=== PATIENT | male | born 1960 | race Caucasian/White ===

== ENCOUNTER → 2019-12-08 10:36 | Outpatient (BNVA) | payer MEDICARE, SELFPAY | PROVIDERS: PCP Internal Medicine; Visit Provider Urology | DX: E29.1 Testicular hypofunction (principal); N40.0 Benign prostatic hyperplasia without lower urinary tract symptoms; Z79.899 Other long term (current) drug therapy | CPT/HCPCS: 96372; 99213 ==

== ENCOUNTER 2019-12-26 10:31 | Outpatient (REF) | payer MEDICARE, SELFPAY ==
[2019-12-26 12:41] LABS: Anion Gap 14 (12-20); Blood Urea Nitrogen 9 mg/dL (9-16); Calcium 9.2 mg/dL (8.4-10.2); Carbon Dioxide 26 mmol/L (22-29); Chloride 100 mmol/L (96-108); Cholesterol 150 mg/dL; Estimated Glomerular Filt Rate > 60; Glucose Fasting 108 mg/dL (60-99); HDL Cholesterol 37 mg/dL; LDL Cholesterol Calculated 63 mg/dl; Potassium 4.7 mmol/l (3.3-5.1); Sodium 135 mmol/L (135-145); Triglycerides 254 mg/dL
[2020-01-02 01:42] LABS: Testosterone, Total 217 ng/dL (250-1100)
== END 2019-12-26 10:32 | disposition home or self-care (01) ==
LOC: HO.LAB 10:31
PROVIDERS: Absent Provider Nurse Practitioner Family; PCP Internal Medicine; Visit Provider Urology
DX: E78.5 Hyperlipidemia, unspecified (principal); E29.1 Testicular hypofunction
CPT/HCPCS: 80048; 80061; 84403

== ENCOUNTER → 2020-01-03 07:43 | Outpatient (BNVA) | payer MEDICARE, SELFPAY | PROVIDERS: PCP Internal Medicine; Referring Provider Internal Medicine; Visit Provider Student in an Organized Health Care Education/Training Program | DX: M1A.0610 Idiopathic chronic gout, right knee, without tophus (tophi) (principal) | CPT/HCPCS: 99212 ==

== ENCOUNTER → 2020-01-04 11:24 | Outpatient (BNVA) | payer MEDICARE, SELFPAY | PROVIDERS: PCP Internal Medicine; Referring Provider Internal Medicine; Visit Provider Urology | DX: E29.1 Testicular hypofunction (principal); N40.0 Benign prostatic hyperplasia without lower urinary tract symptoms; Z79.899 Other long term (current) drug therapy | CPT/HCPCS: 99212 ==

== ENCOUNTER → 2020-01-26 11:04 | Outpatient (BNVA) | payer MEDICARE, SELFPAY | PROVIDERS: PCP Internal Medicine; Referring Provider Internal Medicine; Visit Provider Urology | DX: Z76.89 Persons encountering health services in other specified circumstances (principal) | CPT/HCPCS: 96372; 99212 ==

== ENCOUNTER → 2020-02-22 10:26 | Outpatient (BNVA) | payer MEDICARE, SELFPAY | PROVIDERS: PCP Internal Medicine; Visit Provider Urology | DX: E29.1 Testicular hypofunction (principal) | CPT/HCPCS: 96372; 99212 ==

== ENCOUNTER → 2020-03-15 10:44 | Outpatient (BNVA) | payer MEDICARE, SELFPAY | PROVIDERS: PCP Internal Medicine; Visit Provider Urology | DX: E29.1 Testicular hypofunction (principal) | CPT/HCPCS: 96372; 99212 ==

== ENCOUNTER → 2020-04-05 10:58 | Outpatient (BNVA) | payer MEDICARE, SELFPAY | PROVIDERS: PCP Internal Medicine; Visit Provider Urology | DX: E29.1 Testicular hypofunction (principal) | CPT/HCPCS: 96372; 99212 ==

== ENCOUNTER 2020-04-23 12:51 | Outpatient (REF) | payer MEDICARE, SELFPAY ==
--- NOTE | ~2020-04-23 | XR_ITS ---
EXAMINATION: XR CERVICAL SPINE CLINICAL INFORMATION: Cervicalgia COMPARISON: 07/21/2016 TECHNIQUE: 3 views of the cervical spine were obtained. FINDINGS: The dens is intact. The lateral masses are normally positioned. Reversal of the normal cervical lordosis. Multilevel degenerative disc disease most notable at C6-7. The lower cervical spine and cervicothoracic junction are not well visualized due to overlying soft tissues. This limits evaluation for subtle fracture but no acute fracture is seen. Prominent prevertebral soft tissues although pathologically enlarged. Multiple dental caries are noted. Mid cervical facet arthropathy. XR/XR cervical spine 2V IMPRESSION: Limited study. Degenerative changes, similar to prior study. Prominent prevertebral soft tissues. Multiple dental caries. If there is continued clinical concern for acute traumatic osseous abnormality, consider CT scan. MRI could be obtained for evaluation of the degenerative disc disease.
[2020-04-23 13:49] LABS: Cholesterol 159 mg/dL; HDL Cholesterol 38 mg/dL; LDL Cholesterol Calculated 70 mg/dl; Triglycerides 258 mg/dL; Uric Acid 5.1 mg/dL (3.4-7.0)
[2020-04-27 13:27] LABS: Vitamin D 25-OH, D2 <4 ng/mL; Vitamin D 25-OH, D3 24 ng/mL; Vitamin D 25-OH, Total 24 ng/mL (30-100)
== END 2020-04-23 12:52 | disposition home or self-care (01) ==
LOC: HO.LAB 12:51
PROVIDERS: PCP Internal Medicine; Visit Provider Internal Medicine
DX: M54.2 Cervicalgia (principal); E78.2 Mixed hyperlipidemia; M1A.0690 Idiopathic chronic gout, unspecified knee, without tophus (tophi); E55.9 Vitamin D deficiency, unspecified
CPT/HCPCS: 36415; 72040; 80061; 82306; 84550

== ENCOUNTER → 2020-04-26 11:04 | Outpatient (BNVA) | payer MEDICARE, SELFPAY | PROVIDERS: PCP Internal Medicine; Visit Provider Urology | DX: E29.1 Testicular hypofunction (principal) | CPT/HCPCS: 96372; 99212 ==

== ENCOUNTER → 2020-05-14 14:37 | Outpatient (BNVA) | payer MEDICARE, SELFPAY | PROVIDERS: PCP Internal Medicine; Visit Provider Nurse Practitioner Family | DX: M54.16 Radiculopathy, lumbar region (principal); M54.12 Radiculopathy, cervical region; Z79.899 Other long term (current) drug therapy | CPT/HCPCS: 99202 ==

== ENCOUNTER → 2020-05-17 10:45 | Outpatient (BNVA) | payer MEDICARE, SELFPAY | PROVIDERS: PCP Internal Medicine; Visit Provider Urology | DX: E29.1 Testicular hypofunction (principal) | CPT/HCPCS: 96372; 99212 ==

== ENCOUNTER → 2020-06-04 08:49 | Outpatient (BNVA) | payer MEDICARE, SELFPAY | PROVIDERS: PCP Internal Medicine; Visit Provider Nurse Practitioner Family | DX: M54.16 Radiculopathy, lumbar region (principal); M54.12 Radiculopathy, cervical region | CPT/HCPCS: 99212 ==

== ENCOUNTER → 2020-06-07 09:59 | Outpatient (BNVA) | payer MEDICARE, SELFPAY | PROVIDERS: PCP Internal Medicine; Visit Provider Urology | DX: E29.1 Testicular hypofunction (principal) | CPT/HCPCS: 96372; 99212 ==

== ENCOUNTER → 2020-06-28 10:36 | Outpatient (BNVA) | payer OTHER, SELFPAY | PROVIDERS: PCP Internal Medicine; Visit Provider Urology | DX: E29.1 Testicular hypofunction (principal); N40.0 Benign prostatic hyperplasia without lower urinary tract symptoms | CPT/HCPCS: 96372; 99212 ==

== ENCOUNTER → 2020-07-03 07:56 | Outpatient (BNVA) | payer MEDICARE, SELFPAY | PROVIDERS: PCP Internal Medicine; Referring Provider Internal Medicine; Visit Provider Student in an Organized Health Care Education/Training Program | DX: M1A.0690 Idiopathic chronic gout, unspecified knee, without tophus (tophi) (principal) | CPT/HCPCS: 99212 ==

== ENCOUNTER 2020-07-04 09:00 | Outpatient (RCR) | payer MEDICARE, SELFPAY ==
--- NOTE | 2020-06-10 09:44 | MHC.PT.EP ---
[facility] [place] Office [place] Office [place] Office [address] Ananya Craft [address] [phone] F: [phone] F: [phone] F: [phone] F: [phone] Physical Therapy Plan of Care Date of Evaluation: 06/10/20 Date of Surgery: Diagnosis: cervical radiculopathy Assessment: The patient has reduced cervical and thoracic AROM. He has forward head posture, and rounded posture which may be contributing to his pain. His current sleeping position does not support his cervical spine. I will educate him on improving sitting, sleeping posture, as well as body mechanics for house chores, t/v/computer use. He is a good candidate for skilled PT Frequency and Duration: The patient will be seen 2x/week x 4 weeks Short Term Goals: 1.Pt to able to demonstrate proper sitting posture with the use of a lumbar roll to decrease aggravating factors. 2.Pt to be able to demonstrate proper posture for common leisure activities such as crocheting and phone/tablet use. 3.For the patient to demonstrate proper upright sitting posture with use of the lumbar roll to improve compliance and carryover. Assisted Goals: 1. Pt to be able to return to normal PLOF without limiting pain. 2. Pt to be able to return to overhead reaching without pain or limitation. 3. Pt to be able to manage her pain with selected exercise and stretching regime. Treatment Plan: Modalities to reduce pain, spasms and effusion. Manual therapy to restore motion and function. Therapeutic exercise to improve strength and flexibility. Neuromuscular re-education for posture and balance. Therapeutic activities to return to functional activities of daily living. Electronically signed by: Roberta Lopez PT DPT Please sign and return to therapist. Thank you for your referral.
== END 2020-07-23 08:00 | disposition home or self-care (01) ==
LOC: HO.PT 09:00
PROVIDERS: PCP Internal Medicine; Visit Provider Anesthesiology
DX: M54.12 Radiculopathy, cervical region (principal)
CPT/HCPCS: 97110; 97112; 97162

== ENCOUNTER → 2020-07-19 10:14 | Outpatient (BNVA) | payer MEDICARE, SELFPAY | PROVIDERS: PCP Internal Medicine; Visit Provider Urology | DX: E29.1 Testicular hypofunction (principal) | CPT/HCPCS: 96372 ==

== ENCOUNTER 2020-07-31 09:59 | Outpatient (REF) | payer OTHER, SELFPAY ==
[2020-07-31 10:45] LABS: MANUAL DIFF FLAG NO
[2020-07-31 11:01] LABS: Basophils Absolute Auto 0.1 X10*3/uL (0.0-0.2); Basophils Percent Auto 1.3 % (0-2); Eosinophils Absolute Auto 0.2 X10*3/uL (0.0-0.4); Hematocrit 47.5 % (42-52); Hemoglobin 15.7 g/dl (14.0-18.0); Imm Gran Abs Auto 0.03 X10*3/uL (0.00-0.03); Imm Gran Pct Auto 0.6 % (0.0-0.4); Lymphocytes Absolute Auto 1.7 X10*3/uL (1.2-4.9); Lymphocytes Percent Auto 31.2 % (20-40); Mean Corpuscular HGB Conc 33.1 g/dl (31.0-36.0); Mean Corpuscular Hemoglobin 30.1 pg (27.0-33.0); Monocytes Absolute Auto 0.6 X10*3/uL (0.1-1.2); Monocytes Percent Auto 10.6 % (2-11); Neutrophils Absolute Auto 2.9 X10*3/uL (2.0-8.3); Neutrophils Percent Auto 53.3 % (45-73); Platelet Count 232 X10*3/uL (160-400); Red Blood Count 5.22 X10*6/uL (4.60-5.80); Red Cell Distribution Width 14.3 % (11.0-16.0); White Blood Count 5.4 X10*3/uL (4.8-10.8)
[2020-07-31 11:12] LABS: Alanine Aminotransferase 45 U/L (0-40); Albumin Level 4.2 g/dL (3.5-5.0); Alkaline Phosphatase 91 U/L (39-117); Anion Gap 14 (12-20); Aspartate Amino Transferase 26 U/L (5-37); Bilirubin Total 0.5 mg/dL (0.0-1.0); Blood Urea Nitrogen 10 mg/dL (9-16); Calcium 9.3 mg/dL (8.4-10.2); Carbon Dioxide 26 mmol/L (22-29); Chloride 101 mmol/L (96-108); Estimated Glomerular Filt Rate > 60; Glucose Random 97 mg/dL (60-115); Potassium 4.7 mmol/L (3.3-5.1); Sodium 136 mmol/L (135-145); Total Protein 6.9 g/dL (6.5-8.0); Uric Acid 4.8 mg/dL (3.4-7.0)
[2020-07-31 11:31] LABS: PSA,Total (Free>4and<10) 0.93 ng/mL (0.00-4.00)
[2020-08-04 15:51] LABS: Testosterone, Free 112.6 pg/mL (35.0-155.0); Testosterone, Total 526 ng/dL (250-1100)
== END 2020-07-31 10:00 | disposition home or self-care (01) ==
LOC: HO.LAB 09:59
PROVIDERS: Absent Provider Urology; PCP Internal Medicine; Visit Provider Student in an Organized Health Care Education/Training Program
DX: Z12.5 Encounter for screening for malignant neoplasm of prostate (principal); E29.1 Testicular hypofunction; N40.0 Benign prostatic hyperplasia without lower urinary tract symptoms; M1A.0690 Idiopathic chronic gout, unspecified knee, without tophus (tophi)
CPT/HCPCS: 36415; 80053; 84153; 84402; 84403; 84550; 85025

== ENCOUNTER 2020-08-01 06:26 | Outpatient (REF) | payer OTHER, SELFPAY ==
[2020-08-01 07:48] LABS: Alanine Aminotransferase 42 U/L (0-40); Albumin Level 4.1 g/dL (3.5-5.0); Alkaline Phosphatase 87 U/L (39-117); Anion Gap 15 (12-20); Aspartate Amino Transferase 24 U/L (5-37); Bilirubin Total 0.5 mg/dL (0.0-1.0); Blood Urea Nitrogen 10 mg/dL (9-16); Calcium 9.3 mg/dL (8.4-10.2); Carbon Dioxide 27 mmol/L (22-29); Chloride 101 mmol/L (96-108); Cholesterol 154 mg/dL; Estimated Glomerular Filt Rate > 60; Glucose Fasting 105 mg/dL (60-99); HDL Cholesterol 40 mg/dL; LDL Cholesterol Calculated 91 mg/dl; Potassium 4.7 mmol/L (3.3-5.1); Sodium 138 mmol/L (135-145); Total Protein 6.8 g/dL (6.5-8.0); Triglycerides 119 mg/dL
[2020-08-01 08:35] LABS: Uric Acid 5.1 mg/dL (3.4-7.0)
[2020-08-06 06:22] LABS: Vitamin D 25-OH, D2 <4 ng/mL; Vitamin D 25-OH, D3 30 ng/mL; Vitamin D 25-OH, Total 30 ng/mL (30-100)
== END 2020-08-01 06:27 | disposition home or self-care (01) ==
LOC: HO.LAB 06:26
PROVIDERS: PCP Internal Medicine; Visit Provider Internal Medicine
DX: E78.00 Pure hypercholesterolemia, unspecified (principal); I10 Essential (primary) hypertension; M10.9 Gout, unspecified; E55.9 Vitamin D deficiency, unspecified
CPT/HCPCS: 36415; 80053; 80061; 82306; 84550

== ENCOUNTER → 2020-08-09 10:25 | Outpatient (BNVA) | payer OTHER, SELFPAY | PROVIDERS: PCP Internal Medicine; Visit Provider Urology | DX: E29.1 Testicular hypofunction (principal) | CPT/HCPCS: 96372 ==

== ENCOUNTER → 2020-08-30 10:09 | Outpatient (BNVA) | payer OTHER, SELFPAY | PROVIDERS: PCP Internal Medicine; Visit Provider Urology | DX: E29.1 Testicular hypofunction (principal) | CPT/HCPCS: 96372 ==

== ENCOUNTER 2020-09-17 20:55 | Emergency (ER) | payer OTHER, SELFPAY ==
[2020-09-17 22:12] VITALS: BP 132/91; RESP 16; TEMP 37.2; BMI 36.5
[2020-09-17 22:55] VITALS: PULSE 80; O2SAT 97
--- NOTE | 2020-09-18 00:02 | ED_ITS ---
HPI - Dental/Oral General Chief complaint: Dental/Oral Stated complaint: dental pain Time Seen by Provider: 09/17/20 23:30 Source: patient Mode of arrival: ambulatory Limitations: no limitations History of Present Illness HPI Narrative: Patient presents to ED for dental pain. Patient stated right lower molar toothache. Patient states on after tooth extraction he was placed on amoxicillin and said he was still having pain still at Urgent Care this switched his amoxicillin to clindamycin. Once again patient did not finish amoxicillin course antibiotic. Patient states he finished Percocets due to isaac n. Patient denies any facial swelling, throat swelling, shortness of breath, or chest pain. Patient states he had 5 teeth extracted MD Complaint: tooth pain Related Data Home Medications Medication Instructions Recorded Confirmed atorvastatin 40 mg tablet mg PO 12/08/19 09/14/20 Previous Rx's Medication Instructions Recorded testosterone cypionate 200 mg/mL 200 mg IM Q3W 21 Days #1 ml 04/30/20 intramuscular oil cholecalciferol (vitamin D3) 50 50 mcg PO DAILY 90 Days #90 cap 05/07/20 mcg (2,000 unit) capsule diclofenac sodium 75 mg 75 mg PO BID PRN 30 Days #60 tab 05/15/20 tablet,delayed release colchicine 0.6 mg tablet 0.6 mg PO DAILY #30 tab 07/03/20 tamsulosin 0.4 mg capsule 0.4 mg PO DAILY #90 cap 07/17/20 allopurinol 300 mg tablet 300 mg PO DAILY #90 tab 08/06/20 hydroxyzine pamoate 50 mg capsule 50 mg PO BID PRN #60 cap 08/07/20 lisinopril 30 mg tablet 30 mg PO DAILY 90 Days #90 tab 08/07/20 naproxen 500 mg tablet 500 mg PO BID PRN #30 tab 08/12/20 cyclobenzaprine 10 mg tablet 10 mg PO BEDTIME 90 Days #90 tab 09/13/20 clindamycin HCl 300 mg capsule 300 mg PO QID 7 Days #28 cap 09/14/20 oxycodone-acetaminophen 10 mg-325 1 tab PO Q6H PRN #20 tab 09/14/20 mg tablet oxycodone-acetaminophen [Percocet] 1 tab PO TID PRN #9 tab 09/18/20 Allergies Allergy/AdvReac Type Severity Reaction Status Date / Time No Known Allergies Allergy Verified 09/14/20 11:02 Review of Systems Review of Systems: Yes all other systems are reviewed and are negative Constitutional: Constitutional: Reports as per HPI and Reports no additional constitutional complaints Comments: Dental pain Eyes: Eyes: Reports as per HPI and Reports no additional eye complaints ENT: Reports system reviewed and no additional complaints, except as documented and Reports as per HPI Comments: Right lower dental pain Cardiovascular: Cardiovascular: Reports as per HPI and Reports no additional cardiovascular complaints Respiratory: Respiratory: Reports as per HPI and Reports no additional respiratory complaints Gastrointestinal: Gastrointestinal: Reports as per HPI and Reports no additional gastrointestinal complaints Genitourinary: Genitourinary: Reports no additional male genitourinary complaints and Reports as per HPI Musculoskeletal: Musculoskeletal: Reports no additional musculoskeletal complaints and Reports as per HPI Neurologic: Reports system reviewed and no additional complaints, except as documented and Reports as per HPI Psychiatric: Psychiatric: Reports no additional psychiatric complaints and Reports as per HPI PMFSH Past Medical History Medical History Anxiety Back pain BPH (benign prostatic hyperplasia) Essential hypertension Gout Hypogonadism in male Hypovitaminosis D Knee osteoarthritis Mixed hyperlipidemia Neck pain Obesity Testosterone deficiency in male Surgical History History of ankle surgery History of colonoscopy History of spinal surgery History of tooth extraction Family History Family History Father HTN (hypertension) Gout Guillain-Geraldine syndrome Mother CVD (cardiovascular disease) Social History Social History Housing: House Alcohol intake: current Alcohol intake frequency: a few times a week Alcohol type: beer Patient Tobacco Use Status: Never used Tobacco e-Cigarette/Vaping Use: Never Used Second Hand Smoke Exposure: No Advance Directives: No Advance Directives Information Provided: Yes service: No Current occupational status: disabled Physical Exam Vital Signs: Vital Signs: Last Vital Signs Temp 99.0 F 09/17/20 22:12 Pulse 80 09/17/20 22:55 Resp 16 09/17/20 22:12 BP 132/91 H 09/17/20 22:12 Pulse Ox 97 09/17/20 22:55 Body Mass Index 36.5 Const: General: cooperative, healthy appearing, comfortable, no acute distress, well developed, alert, awake and Physically active HENMT: Other: Negative for facial swelling, jaw swelling, or neck swelling. Negative for any drooling or change in voice. Head: Yes normal to inspection, Yes No palpable skull fracture present, Yes normocephalic, Yes atraumatic and No abrasion Teeth image: 1. Is where patient having pain. Tooth no longer present but has socket with green pus inside. Negative for any gum swelling or redness. Eyes: General: appearance normal, both eyes and all related structures Neck: Neck: Yes normal visual inspection, Yes full ROM, Yes no lymphadenopathy, Yes no meningeal signs, Yes trachea midline, Yes supple and No tender Chest: Chest palpation & inspection: normal inspection of the chest and normal palpation of entire chest wall Resp: Effort & Inspection: normal respiratory effort and able to speak in complete sentences Auscultation: clear to auscultation bilaterally Cardio: Jugular venous distension: no JVD Heart sounds: S1 normal heart sound present and S2 normal heart sound present GI: Inspection: Yes normal to inspection and No abdominal wall ecchymosis Palpation (GI): Soft to palpation, not firm, nontender, no guarding and not rigid : General: No CVA tenderness and Yes no CVA tenderness Back/Spine/Pelvis: Back: no CVA tenderness, No CVA tenderness and No back tenderness Skin: General skin exam: no rashes or lesions noted and elasticity normal Neuro: General: patient oriented x3, gait normal, no meningeal signs and CN's II-XI intact bilaterally Cranial nerves: Yes CN's II-XII intact bilaterally Extrem: General: Yes normal to inspection and Yes full ROM Psych: Appearance: grossly normal, well kempt and not disheveled Course Course Course Narrative: Dental pain Reevaluation(s) Reevaluation #1: Patient given Toradol for pain. Patient informed he should finish is clindamycin and if there is no relief he should finish the amoxicillin he was prescribed initially. Patient will be given another short course of narcotics. No incision and drainage indicating Time: 00:16 MDM - Dental/Oral MDM Narrative Medical decision making narrative: Dental pain Discharge Plan Discharge Clinical Impression: Pain, dental Patient Disposition: Home, Self-Care Instructions: Toothache (ED) Additional Instructions: Return to the ED immediately for facial swelling, neck swelling, shortness of breath, drooling, chest pain, change in voice, worsening pain, or any other concerning symptoms. Please follow-up with the dentist Prescriptions: New oxycodone-acetaminophen [Percocet] 5-325 mg tablet 1 tab PO TID PRN (Reason: pain) Qty: 9 RF: 0 No Action testosterone cypionate [Depo-Testosterone] 200 mg/mL oil 200 mg IM Q3W 21 Days Qty: 1 RF: 5 cholecalciferol (vitamin D3) 50 mcg (2,000 unit) capsule 50 mcg PO DAILY 90 Days Qty: 90 RF: 3 diclofenac sodium 75 mg tablet,delayed release (DR/EC) 75 mg PO BID PRN (Reason: pain) 30 Days Qty: 60 RF: 6 tamsulosin 0.4 mg capsule 0.4 mg PO DAILY Qty: 90 RF: 1 allopurinol 300 mg tablet 300 mg PO DAILY Qty: 90 RF: 1 lisinopril 30 mg tablet 30 mg PO DAILY 90 Days Qty: 90 RF: 3 hydroxyzine pamoate 50 mg capsule 50 mg PO BID PRN (Reason: for itch) Qty: 60 RF: 6 cyclobenzaprine 10 mg tablet 10 mg PO BEDTIME 90 Days Qty: 90 RF: 0 clindamycin HCl 300 mg capsule 300 mg PO QID 7 Days Qty: 28 RF: 0 oxycodone-acetaminophen [Percocet] 10-325 mg tablet 1 tab PO Q6H PRN (Reason: pain) Qty: 20 RF: 0 naproxen 500 mg tablet 500 mg PO BID PRN (Reason: pain) Qty: 30 RF: 0 colchicine 0.6 mg tablet 0.6 mg PO DAILY Qty: 30 RF: 0 atorvastatin 40 mg tablet PO RF: 0 Referrals: Torrie Rangel MD [Primary Care Provider] - 2 days (Dental pain) Interventions: ED Discharge Assessment Last Done: 09/18/20 00:34 Discharge Date/Time: 09/18/20 00:36 Print Language: [place]
[2020-09-18] MEDS: Ketorolac Tromethamine 60 MG/2 ML VIAL IM (00:03)
== END 2020-09-18 00:36 | disposition home or self-care (01) ==
PROVIDERS: Emergency Provider Emergency Medicine; PCP Internal Medicine
DX: K08.89 Other specified disorders of teeth and supporting structures (principal); I10 Essential (primary) hypertension; Z98.890 Other specified postprocedural states
CPT/HCPCS: 96372; 99284; J1885

== ENCOUNTER → 2020-09-20 10:07 | Outpatient (BNVA) | payer OTHER, SELFPAY | PROVIDERS: PCP Internal Medicine; Visit Provider Urology | DX: E29.1 Testicular hypofunction (principal) | CPT/HCPCS: 96372 ==

== ENCOUNTER → 2020-10-03 10:13 | Outpatient (BNVA) | payer OTHER, SELFPAY | PROVIDERS: PCP Internal Medicine; Visit Provider Urology | DX: E29.1 Testicular hypofunction (principal) | CPT/HCPCS: 99212 ==

== ENCOUNTER → 2020-10-11 10:08 | Outpatient (BNVA) | payer OTHER, SELFPAY | PROVIDERS: PCP Internal Medicine; Visit Provider Urology | DX: E29.1 Testicular hypofunction (principal) | CPT/HCPCS: 96372 ==

== ENCOUNTER 2020-10-28 16:33 | Emergency (ER) | payer OTHER, SELFPAY ==
--- NOTE | ~2020-10-28 | CT_ITS ---
EXAMINATION: CT ABDOMEN AND PELVIS WITHOUT CONTRAST CLINICAL INFORMATION: Tender abdomen with diarrhea COMPARISON: CT abdomen pelvis 01/18/2014. TECHNIQUE: Multidetector volumetric imaging was performed from the superior aspect of the liver through the pubic symphysis. Sagittal and coronal reformatted images were obtained on the technologist's workstation. This CT examination was performed using dose optimization techniques as appropriate, variously including the following: *Automated exposure control *Adjustment of mA and/or kV according to patient size (this includes techniques or standardized protocols for targeted exams where dose is matched to indication/reason for exam; i.e. extremities or head) *Use of iterative reconstruction technique DLP: 907 mGy-cm FINDINGS: LUNG BASES: The visualized lung bases are unremarkable. LIVER, GALLBLADDER, AND BILIARY TREE: The liver is normal in size, shape, and attenuation. No focal hepatic lesion or biliary ductal dilatation is present. The gallbladder is unremarkable with no evidence of radiopaque gallstones, gallbladder wall thickening, or obvious pericholecystic inflammatory changes. PANCREAS: Unremarkable. SPLEEN: Unremarkable. ADRENAL GLANDS: Unremarkable. KIDNEYS AND URETERS: The kidneys are normal in size, shape, and attenuation. No hydronephrosis, hydroureter, or calculi seen. No perinephric stranding. BLADDER: Unremarkable. GASTROINTESTINAL TRACT: Small axial hiatal hernia. The stomach is not dilated. No evidence of small or large bowel obstruction. The appendix is normal. Colonic diverticulosis is seen without CT signs of diverticulitis. No focal bowel wall thickening is seen. ABDOMINAL WALL: No significant hernia is appreciated. LYMPH NODES: Normal. VASCULAR: Multiple surgical clips are seen below the aortic bifurcation and along the left pelvis. No evidence of aneurysm. PELVIC VISCERA: The prostate and seminal vesicles are unremarkable. OSSEOUS STRUCTURES: Mild right convex curvature of the lumbar spine. Evidence of spinal instrumentation with posterior rods and pedicle screws at L4-L5 with solid interbody fusion. Multiple adjacent surgical clips. Focal lucency has developed surrounding the left L4 pedicle screw within the vertebral body with extension to the superior endplate with associated narrowing and irregularity of the left side of the L3-L4 disc space with lateral osteophyte formation and endplate sclerosis on both sides of the disc. There is no visible soft tissue swelling or epidural collection identified. Additionally, the right side of the L3-L4 disc space is not involved. Subchondral sclerosis is seen at both femoral heads without change from prior in keeping with subtle changes of avascular necrosis. CT/CT abdomen pelvis wo con IMPRESSION: 1. No significant bowel wall thickening. No evidence of pericolonic inflammatory changes or abscess. 2. Postoperative change with solid bony fusion at the L4-L5 vertebral bodies. Interval development of lucency and sclerosis surrounding the left L4 pedicle screw extending to the disc level at L3-L4. The lack of soft tissue swelling favors a degenerative process over infection. Recommend correlation with any symptoms of back pain or clinical/biochemical signs of infection. If the patient has ongoing symptoms, a follow-up MRI of the spine could be obtained in 1-3 months time with contrast to further evaluate. These findings were reviewed with Angela ROCHE 10/28/2020 at 8:55 PM.
[2020-10-28 18:22] VITALS: BP 122/89; PULSE 73; RESP 16; TEMP 36.9; O2SAT 96; BMI 36.2
--- NOTE | 2020-10-28 18:22 | ED_ITS ---
HPI - Abdominal Pain General Chief Complaint: Abdominal Pain <Radha Talley PA-C - Last Filed: 10/28/20 18:33> Stated Complaint: abd pain, diarrhea <Radha Talley PA-C - Last Filed: 10/28/20 18:33> Time Seen by Provider: 10/28/20 18:22 <Radha Talley PA-C - Last Filed: 10/28/20 18:33> Source: patient <KSENIA Cedeno Last Filed: 10/28/20 18:33> Mode of arrival: ambulatory <Radha Talley PA-C - Last Filed: 10/28/20 18:33> Limitations: no limitations <Radha Talley PA-C - Last Filed: 10/28/20 18:33> History of Present Illness HPI narrative: Pt is a 60yoM past med hx of HTN, BPH, HLD, anxiety, back pain had dental surgery, 20 teeth pulled over the summer, was on amoxicillin for 1 week, now c/o 2 weeks of central abd pain like something is ripping through his intestines with watery diarrhea, denies bloody or black stools or fevers, nausea or vomiting. Admits to NGUYỄN. unable to eat or drink. Denies hx of diverticulitis, last colo 3 years ago. <Radha Talley PA-C - Last Filed: 10/28/20 18:33> Pt is a 60yoM past med hx of HTN, BPH, HLD, anxiety, back pain had dental surgery, 20 teeth pulled over the summer, was on amoxicillin for 1 week, now c/o 2 weeks of central abd pain like something is ripping through his intestines with watery diarrhea, denies bloody or black stools or fevers, nausea or vomiting. Admits to NGUYỄN. unable to eat or drink. Denies hx of diverticulitis, last colon 3 years ago. <MELCHOR De Santiago - Last Filed: 10/29/20 02:03> Related Data Home Medications: Home Medications Medication Instructions Recorded Confirmed atorvastatin 40 mg tablet mg PO 12/08/19 10/01/20 Previous Rx's Medication Instructions Recorded cholecalciferol (vitamin D3) 50 50 mcg PO DAILY 90 Days #90 cap 05/07/20 mcg (2,000 unit) capsule colchicine 0.6 mg tablet 0.6 mg PO DAILY #30 tab 07/03/20 tamsulosin 0.4 mg capsule 0.4 mg PO DAILY #90 cap 07/17/20 allopurinol 300 mg tablet 300 mg PO DAILY #90 tab 08/06/20 lisinopril 30 mg tablet 30 mg PO DAILY 90 Days #90 tab 08/07/20 naproxen 500 mg tablet 500 mg PO BID PRN #30 tab 08/12/20 testosterone cypionate 200 mg/mL 200 mg IM Q3W 21 Days #1 ml 09/19/20 intramuscular oil (Depo-Testosterone) escitalopram oxalate 10 mg tablet 10 mg PO DAILY 90 Days #90 tab 10/01/20 oxycodone 10 mg tablet 10 mg PO BID PRN 30 Days #40 tab 10/01/20 loperamide 2 mg capsule (Imodium 2 mg PO Q4H PRN #14 cap 10/29/20 A-D) metronidazole 500 mg tablet 500 mg PO TID #30 tab 10/29/20 (Flagyl) <Radha Talley PA-C - Last Filed: 10/28/20 18:33> Allergies/Adverse Reactions: Allergies Allergy/AdvReac Type Severity Reaction Status Date / Time No Known Allergies Allergy Verified 10/03/20 10:45 <Radha Talley PA-C - Last Filed: 10/28/20 18:33> Physical Exam Vital Signs: Vital Signs: Last Vital Signs Temp 98.4 F 10/28/20 18:22 Pulse 69 10/29/20 00:19 Resp 20 10/29/20 00:19 BP 130/61 10/29/20 00:19 Pulse Ox 95 10/29/20 00:19 Body Mass Index 36.2 <Radha Talley PA-C - Last Filed: 10/28/20 18:33> Vital Signs: Last Vital Signs Temp 98.4 F 10/28/20 18:22 Pulse 69 10/29/20 00:19 Resp 20 10/29/20 00:19 BP 130/61 10/29/20 00:19 Pulse Ox 95 10/29/20 00:19 Body Mass Index 36.2 <MELCHOR De Santiago Last Filed: 10/29/20 02:03> Course Course Course Narrative: Rapid medical exam for 60yo male on recent abx c/o abd pn with watery diarrhea [id number]. PE reveals VSS, tender abd. Will order labs, stool testing, abd ct. remainder of care to be done by ED provider. <Radha Talley PA-C - Last Filed: 10/28/20 18:33> MDM - Abdominal Pain Lab Data Result diagrams: : 10/28/20 19:07 10/28/20 19:07 <Radha Talley PA-C - Last Filed: 10/28/20 18:33> Labs: Lab Results 10/28/20 10/28/20 10/28/20 Range/Units 18:33 19:07 19:07 WBC 6.5 (4.8-10.8) X10*3/uL RBC 5.63 (4.60-5.80) X10*6/uL Hgb 16.9 (14.0-18.0) g/dl Hct 50.5 (42-52) % MCV 89.7 (80-98) fL MCH 30.0 (27.0-33.0) pg MCHC 33.5 (31.0-36.0) g/dl RDW 14.3 (11.0-16.0) % Plt Count 225 (160-400) X10*3/uL MPV 9.1 L (9.4-12.4) fL Immature Gran % (Auto) 0.5 H (0.0-0.4) % Neut % (Auto) 63.2 (45-73) % Lymph % (Auto) 23.8 (20-40) % [place] % (Auto) 10.8 (2-11) % Eos % (Auto) 1.2 (0-4) % Baso % (Auto) 0.5 (0-2) % Lymph # (Auto) 1.5 (1.2-4.9) X10*3/uL [place] # (Auto) 0.7 (0.1-1.2) X10*3/uL Eos # (Auto) 0.1 (0.0-0.4) X10*3/uL Baso # (Auto) 0.0 (0.0-0.2) X10*3/uL Abs Immat Gran (auto) 0.03 (0.00-0.03) X10*3/uL Absolute Neuts (auto) 4.1 (2.0-8.3) X10*3/uL Absolute Nucleated RBC 0.000 (0.0-0.012) X10*3/uL Nucleated RBC % (auto) 0.0 (0.0-0.2) /100WBC PT (9.9-13.0) SEC INR (0.9-1.1) APTT (24.1-38.0) SEC Sodium 139 (135-145) mmol/L Potassium 4.2 (3.3-5.1) mmol/L Chloride 102 (96-108) mmol/L Carbon Dioxide 26 (22-29) mmol/L Anion Gap 15 (12-20) BUN 12 (9-16) mg/dL Creatinine 1.04 (0.5-1.4) mg/dL Estim Creat Clear Calc 99.9 Estimated GFR > 60 Random Glucose 95 (60-115) mg/dL Calcium 9.6 (8.4-10.2) mg/dL Total Bilirubin 1.2 H (0.0-1.0) mg/dL AST 20 (5-37) U/L ALT 37 (0-40) U/L Alkaline Phosphatase 103 (39-117) U/L Total Protein 7.2 (6.5-8.0) g/dL Albumin 4.3 (3.5-5.0) g/dL Lipase 30 (8-78) U/L Urine Color Urine Appearance Urine pH (5.0-8.0) Ur Specific [place] (1.005-1.025) Urine Protein (NEG-TRACE) MG/DL Urine Glucose (UA) (NEG) MG/DL Urine Ketones (NEG) MG/DL Urine Blood (NEG) Urine Nitrite (NEG) Ur Leukocyte Esterase (NEG) Urine RBC (0) /HPF Urine WBC (0-4) /HPF Ur Squamous Epith Cells /LPF Urine Bacteria /LPF Urine Mucus /LPF COVID-19 (JUWAN) Negative (Negative) COVID-19 Clin Com See Note 10/28/20 10/29/20 Range/Units 19:07 00:12 WBC (4.8-10.8) X10*3/uL RBC (4.60-5.80) X10*6/uL Hgb (14.0-18.0) g/dl Hct (42-52) % MCV (80-98) fL MCH (27.0-33.0) pg MCHC (31.0-36.0) g/dl RDW (11.0-16.0) % Plt Count (160-400) X10*3/uL MPV (9.4-12.4) fL Immature Gran % (Auto) (0.0-0.4) % Neut % (Auto) (45-73) % Lymph % (Auto) (20-40) % [place] % (Auto) (2-11) % Eos % (Auto) (0-4) % Baso % (Auto) (0-2) % Lymph # (Auto) (1.2-4.9) X10*3/uL [place] # (Auto) (0.1-1.2) X10*3/uL Eos # (Auto) (0.0-0.4) X10*3/uL Baso # (Auto) (0.0-0.2) X10*3/uL Abs Immat Gran (auto) (0.00-0.03) X10*3/uL Absolute Neuts (auto) (2.0-8.3) X10*3/uL Absolute Nucleated RBC (0.0-0.012) X10*3/uL Nucleated RBC % (auto) (0.0-0.2) /100WBC PT 12.4 (9.9-13.0) SEC INR 1.1 (0.9-1.1) APTT 39.7 H (24.1-38.0) SEC Sodium (135-145) mmol/L Potassium (3.3-5.1) mmol/L Chloride (96-108) mmol/L Carbon Dioxide (22-29) mmol/L Anion Gap (12-20) BUN (9-16) mg/dL Creatinine (0.5-1.4) mg/dL Estim Creat Clear Calc Estimated GFR Random Glucose (60-115) mg/dL Calcium (8.4-10.2) mg/dL Total Bilirubin (0.0-1.0) mg/dL AST (5-37) U/L ALT (0-40) U/L Alkaline Phosphatase (39-117) U/L Total Protein (6.5-8.0) g/dL Albumin (3.5-5.0) g/dL Lipase (8-78) U/L Urine Color DARK YELLOW Urine Appearance CLEAR Urine pH 6.0 (5.0-8.0) Ur Specific [place] 1.025 (1.005-1.025) Urine Protein 1+ H (NEG-TRACE) MG/DL Urine Glucose (UA) NEG (NEG) MG/DL Urine Ketones 15 (NEG) MG/DL Urine Blood NEG (NEG) Urine Nitrite NEG (NEG) Ur Leukocyte Esterase NEG (NEG) Urine RBC 0-2 (0) /HPF Urine WBC 0-2 (0-4) /HPF Ur Squamous Epith Cells TRACE /LPF Urine Bacteria NONE /LPF Urine Mucus 4+ /LPF COVID-19 (JUWAN) (Negative) COVID-19 Clin Com <Radha Talley PA-C - Last Filed: 10/28/20 18:33> Lab Results 10/28/20 10/28/20 10/28/20 Range/Units 18:33 19:07 19:07 WBC 6.5 (4.8-10.8) X10*3/uL RBC 5.63 (4.60-5.80) X10*6/uL Hgb 16.9 (14.0-18.0) g/dl Hct 50.5 (42-52) % MCV 89.7 (80-98) fL MCH 30.0 (27.0-33.0) pg MCHC 33.5 (31.0-36.0) g/dl RDW 14.3 (11.0-16.0) % Plt Count 225 (160-400) X10*3/uL MPV 9.1 L (9.4-12.4) fL Immature Gran % (Auto) 0.5 H (0.0-0.4) % Neut % (Auto) 63.2 (45-73) % Lymph % (Auto) 23.8 (20-40) % [place] % (Auto) 10.8 (2-11) % Eos % (Auto) 1.2 (0-4) % Baso % (Auto) 0.5 (0-2) % Lymph # (Auto) 1.5 (1.2-4.9) X10*3/uL [place] # (Auto) 0.7 (0.1-1.2) X10*3/uL Eos # (Auto) 0.1 (0.0-0.4) X10*3/uL Baso # (Auto) 0.0 (0.0-0.2) X10*3/uL Abs Immat Gran (auto) 0.03 (0.00-0.03) X10*3/uL Absolute Neuts (auto) 4.1 (2.0-8.3) X10*3/uL Absolute Nucleated RBC 0.000 (0.0-0.012) X10*3/uL Nucleated RBC % (auto) 0.0 (0.0-0.2) /100WBC PT (9.9-13.0) SEC INR (0.9-1.1) APTT (24.1-38.0) SEC Sodium 139 (135-145) mmol/L Potassium 4.2 (3.3-5.1) mmol/L Chloride 102 (96-108) mmol/L Carbon Dioxide 26 (22-29) mmol/L Anion Gap 15 (12-20) BUN 12 (9-16) mg/dL Creatinine 1.04 (0.5-1.4) mg/dL Estim Creat Clear Calc 99.9 Estimated GFR > 60 Random Glucose 95 (60-115) mg/dL Calcium 9.6 (8.4-10.2) mg/dL Total Bilirubin 1.2 H (0.0-1.0) mg/dL AST 20 (5-37) U/L ALT 37 (0-40) U/L Alkaline Phosphatase 103 (39-117) U/L Total Protein 7.2 (6.5-8.0) g/dL Albumin 4.3 (3.5-5.0) g/dL Lipase 30 (8-78) U/L Urine Color Urine Appearance Urine pH (5.0-8.0) Ur Specific [place] (1.005-1.025) Urine Protein (NEG-TRACE) MG/DL Urine Glucose (UA) (NEG) MG/DL Urine Ketones (NEG) MG/DL Urine Blood (NEG) Urine Nitrite (NEG) Ur Leukocyte Esterase (NEG) Urine RBC (0) /HPF Urine WBC (0-4) /HPF Ur Squamous Epith Cells /LPF Urine Bacteria /LPF Urine Mucus /LPF COVID-19 (JUWAN) Negative (Negative) COVID-19 Clin Com See Note 10/28/20 10/29/20 Range/Units 19:07 00:12 WBC (4.8-10.8) X10*3/uL RBC (4.60-5.80) X10*6/uL Hgb (14.0-18.0) g/dl Hct (42-52) % MCV (80-98) fL MCH (27.0-33.0) pg MCHC (31.0-36.0) g/dl RDW (11.0-16.0) % Plt Count (160-400) X10*3/uL MPV (9.4-12.4) fL Immature Gran % (Auto) (0.0-0.4) % Neut % (Auto) (45-73) % Lymph % (Auto) (20-40) % [place] % (Auto) (2-11) % Eos % (Auto) (0-4) % Baso % (Auto) (0-2) % Lymph # (Auto) (1.2-4.9) X10*3/uL [place] # (Auto) (0.1-1.2) X10*3/uL Eos # (Auto) (0.0-0.4) X10*3/uL Baso # (Auto) (0.0-0.2) X10*3/uL Abs Immat Gran (auto) (0.00-0.03) X10*3/uL Absolute Neuts (auto) (2.0-8.3) X10*3/uL Absolute Nucleated RBC (0.0-0.012) X10*3/uL Nucleated RBC % (auto) (0.0-0.2) /100WBC PT 12.4 (9.9-13.0) SEC INR 1.1 (0.9-1.1) APTT 39.7 H (24.1-38.0) SEC Sodium (135-145) mmol/L Potassium (3.3-5.1) mmol/L Chloride (96-108) mmol/L Carbon Dioxide (22-29) mmol/L Anion Gap (12-20) BUN (9-16) mg/dL Creatinine (0.5-1.4) mg/dL Estim Creat Clear Calc Estimated GFR Random Glucose (60-115) mg/dL Calcium (8.4-10.2) mg/dL Total Bilirubin (0.0-1.0) mg/dL AST (5-37) U/L ALT (0-40) U/L Alkaline Phosphatase (39-117) U/L Total Protein (6.5-8.0) g/dL Albumin (3.5-5.0) g/dL Lipase (8-78) U/L Urine Color DARK YELLOW Urine Appearance CLEAR Urine pH 6.0 (5.0-8.0) Ur Specific [place] 1.025 (1.005-1.025) Urine Protein 1+ H (NEG-TRACE) MG/DL Urine Glucose (UA) NEG (NEG) MG/DL Urine Ketones 15 (NEG) MG/DL Urine Blood NEG (NEG) Urine Nitrite NEG (NEG) Ur Leukocyte Esterase NEG (NEG) Urine RBC 0-2 (0) /HPF Urine WBC 0-2 (0-4) /HPF Ur Squamous Epith Cells TRACE /LPF Urine Bacteria NONE /LPF Urine Mucus 4+ /LPF COVID-19 (JUWAN) (Negative) COVID-19 Clin Com <MELCHOR De Santiago - Last Filed: 10/29/20 02:03> Discharge Plan Discharge Clinical Impression: Acute colitis <Radha Talley PA-C - Last Filed: 10/28/20 18:33> Patient Disposition: Home, Self-Care <KSENIA Cedeno Last Filed: 10/28/20 18:33> Instructions: Acute Diarrhea (ED) <KSENIA Cedeno Last Filed: 10/28/20 18:33> Additional Instructions: Likely have antibiotic induced diarrhea. Take Flagyl as advised. Imodium for severe diarrhea maximum 4 tablets a day. Have yogurt/probiotic, drink plenty of fluids <KSENIA Cedeno Last Filed: 10/28/20 18:33> Prescriptions: New metronidazole [Flagyl] 500 mg tablet 500 mg PO TID Qty: 30 RF: 0 loperamide [Imodium A-D] 2 mg capsule 2 mg PO Q4H PRN (Reason: loose stool) Qty: 14 RF: 0 No Action cholecalciferol (vitamin D3) 50 mcg (2,000 unit) capsule 50 mcg PO DAILY 90 Days Qty: 90 RF: 3 tamsulosin 0.4 mg capsule 0.4 mg PO DAILY Qty: 90 RF: 1 allopurinol 300 mg tablet 300 mg PO DAILY Qty: 90 RF: 1 lisinopril 30 mg tablet 30 mg PO DAILY 90 Days Qty: 90 RF: 3 testosterone cypionate [Depo-Testosterone] 200 mg/mL oil 200 mg IM Q3W 21 Days Qty: 1 RF: 5 escitalopram oxalate 10 mg tablet 10 mg PO DAILY 90 Days Qty: 90 RF: 0 oxycodone 10 mg tablet 10 mg PO BID PRN (Reason: pain) 30 Days Qty: 40 RF: 0 naproxen 500 mg tablet 500 mg PO BID PRN (Reason: pain) Qty: 30 RF: 0 colchicine 0.6 mg tablet 0.6 mg PO DAILY Qty: 30 RF: 0 atorvastatin 40 mg tablet PO RF: 0 <Radha Talley PA-C - Last Filed: 10/28/20 18:33> Interventions: ED Discharge Assessment Last Done: 10/29/20 01:27 <Radha Talley PA-C - Last Filed: 10/28/20 18:33> Discharge Date/Time: 10/29/20 01:27 <Radha Talley PA-C - Last Filed: 10/28/20 18:33> [facility], [facility] Past Medical History Medical History: Medical History Anxiety Back pain BPH (benign prostatic hyperplasia) Cocaine use disorder Essential hypertension ANGELIKA (generalized anxiety disorder) Gout Hypogonadism in male Hypovitaminosis D Knee osteoarthritis Mild major depression, single episode Mixed hyperlipidemia Neck pain Obesity Testosterone deficiency in male <Radha Talley PA-C - Last Filed: 10/28/20 18:33> Surgical History: Surgical History History of ankle surgery History of colonoscopy History of spinal surgery History of tooth extraction <Radha Talley PA-C - Last Filed: 10/28/20 18:33> Family History Family History: Family History Father HTN (hypertension) Gout Guillain-Hamden syndrome Mother CVD (cardiovascular disease) <Radha Talley PA-C - Last Filed: 10/28/20 18:33> Social History Social History: Social History Housing: House Alcohol intake: current Alcohol intake frequency: a few times a week Alcohol type: beer Patient Tobacco Use Status: Never used Tobacco e-Cigarette/Vaping Use: Never Used Second Hand Smoke Exposure: No Advance Directives: No Advance Directives Information Provided: Yes service: No Current occupational status: disabled <Radha Talley PA-C - Last Filed: 10/28/20 18:33>
[2020-10-28 18:56] LABS: COVID-19 Test Negative (Negative); IDNOW Serial# 9DD0AD1C
[2020-10-28 19:25] LABS: MANUAL DIFF FLAG NO
[2020-10-28 19:26] LABS: Basophils Percent Auto 0.5 % (0-2); Eosinophils Absolute Auto 0.1 X10*3/uL (0.0-0.4); Eosinophils Percent Auto 1.2 % (0-4); Hematocrit 50.5 % (42-52); Hemoglobin 16.9 g/dl (14.0-18.0); Imm Gran Abs Auto 0.03 X10*3/uL (0.00-0.03); Imm Gran Pct Auto 0.5 % (0.0-0.4); Lymphocytes Absolute Auto 1.5 X10*3/uL (1.2-4.9); Lymphocytes Percent Auto 23.8 % (20-40); Mean Corpuscular HGB Conc 33.5 g/dl (31.0-36.0); Mean Corpuscular Volume 89.7 fL (80-98); Mean Platelet Volume 9.1 fL (9.4-12.4); Monocytes Absolute Auto 0.7 X10*3/uL (0.1-1.2); Monocytes Percent Auto 10.8 % (2-11); Neutrophils Absolute Auto 4.1 X10*3/uL (2.0-8.3); Neutrophils Percent Auto 63.2 % (45-73); Platelet Count 225 X10*3/uL (160-400); Red Blood Count 5.63 X10*6/uL (4.60-5.80); Red Cell Distribution Width 14.3 % (11.0-16.0); White Blood Count 6.5 X10*3/uL (4.8-10.8)
[2020-10-28 19:31] LABS: INTERNATIONAL NORM RATIO 1.1 (0.9-1.1); Prothrombin Time 12.4 SEC (9.9-13.0)
[2020-10-28 19:34] LABS: Partial Thromboplastin Time 39.7 SEC (24.1-38.0)
[2020-10-28 19:49] LABS: Alanine Aminotransferase 37 U/L (0-40); Albumin Level 4.3 g/dL (3.5-5.0); Alkaline Phosphatase 103 U/L (39-117); Anion Gap 15 (12-20); Aspartate Amino Transferase 20 U/L (5-37); Bilirubin Total 1.2 mg/dL (0.0-1.0); Blood Urea Nitrogen 12 mg/dL (9-16); Calcium 9.6 mg/dL (8.4-10.2); Carbon Dioxide 26 mmol/L (22-29); Chloride 102 mmol/L (96-108); Creatinine Clr Calc Pharmacy 99.9; Estimated Glomerular Filt Rate > 60; Glucose Random 95 mg/dL (60-115); Lipase 30 U/L (8-78); Potassium 4.2 mmol/L (3.3-5.1); Sodium 139 mmol/L (135-145); Total Protein 7.2 g/dL (6.5-8.0)
[2020-10-28] MEDS: Acetaminophen 325 MG TABLET 650 MG PO (20:03)
--- NOTE | 2020-10-28 23:57 | ED_ITS ---
HPI - Abdominal Pain General Chief Complaint: Abdominal Pain Stated Complaint: abd pain, diarrhea Time Seen by Provider: 10/28/20 18:22 Source: patient Mode of arrival: ambulatory Limitations: no limitations History of Present Illness HPI narrative: Patient has been on different antibiotics last month for teeth infection complaining of diarrhea days got worse in last 2 days diarrhea is watery foul smelling no fever no chills no blood in the stool no nausea /vomiting no fever or chills Related Data Home Medications Medication Instructions Recorded Confirmed atorvastatin 40 mg tablet mg PO 12/08/19 10/01/20 Previous Rx's Medication Instructions Recorded cholecalciferol (vitamin D3) 50 50 mcg PO DAILY 90 Days #90 cap 05/07/20 mcg (2,000 unit) capsule colchicine 0.6 mg tablet 0.6 mg PO DAILY #30 tab 07/03/20 tamsulosin 0.4 mg capsule 0.4 mg PO DAILY #90 cap 07/17/20 allopurinol 300 mg tablet 300 mg PO DAILY #90 tab 08/06/20 lisinopril 30 mg tablet 30 mg PO DAILY 90 Days #90 tab 08/07/20 naproxen 500 mg tablet 500 mg PO BID PRN #30 tab 08/12/20 testosterone cypionate 200 mg/mL 200 mg IM Q3W 21 Days #1 ml 09/19/20 intramuscular oil (Depo-Testosterone) escitalopram oxalate 10 mg tablet 10 mg PO DAILY 90 Days #90 tab 10/01/20 oxycodone 10 mg tablet 10 mg PO BID PRN 30 Days #40 tab 10/01/20 loperamide 2 mg capsule (Imodium 2 mg PO Q4H PRN #14 cap 10/29/20 A-D) metronidazole 500 mg tablet 500 mg PO TID #30 tab 10/29/20 (Flagyl) Allergies Allergy/AdvReac Type Severity Reaction Status Date / Time No Known Allergies Allergy Verified 10/03/20 10:45 Review of Systems Review of Systems Yes all other systems are reviewed and are negative Physical Exam Vital Signs: Vital Signs: Last Vital Signs Temp 98.4 F 10/28/20 18:22 Pulse 69 10/29/20 00:19 Resp 20 10/29/20 00:19 BP 130/61 10/29/20 00:19 Pulse Ox 95 10/29/20 00:19 Body Mass Index 36.2 Appearance: Alert. Oriented X3. No acute distress. Eyes: No pallor or icterus ENT: Pharynx normal. Oral Mucosa moist Neck: Normal inspection. Neck supple. CVS: Normal heart rate and rhythm. Pulses normal. Respiratory: No respiratory distress. Equal air entry bilateral, no wheezing/rales/rhonchi Abdomen: Soft and nontender. Bowel sounds are present, no mass palpable, no CVA tenderness Skin: Skin warm and dry. Normal skin color. Normal skin turgor. Extremities: No lower extremity edema. No calf tenderness Neuro: Oriented X 3. MDM - Abdominal Pain MDM Narrative Medical decision making narrative: Patient with stable labs CT scan negative for any severe colitis and diarrhea likely from antibiotic induced patient patient unable to give stool sample advised to follow with PCP if not better for further testing including stool for C diff Lab Data Attestation: I reviewed the patient's lab results. Result diagrams: 10/28/20 19:07 10/28/20 19:07 Labs: Lab Results 10/28/20 10/28/20 10/28/20 Range/Units 18:33 19:07 19:07 WBC 6.5 (4.8-10.8) X10*3/uL RBC 5.63 (4.60-5.80) X10*6/uL Hgb 16.9 (14.0-18.0) g/dl Hct 50.5 (42-52) % MCV 89.7 (80-98) fL MCH 30.0 (27.0-33.0) pg MCHC 33.5 (31.0-36.0) g/dl RDW 14.3 (11.0-16.0) % Plt Count 225 (160-400) X10*3/uL MPV 9.1 L (9.4-12.4) fL Immature Gran % (Auto) 0.5 H (0.0-0.4) % Neut % (Auto) 63.2 (45-73) % Lymph % (Auto) 23.8 (20-40) % [place] % (Auto) 10.8 (2-11) % Eos % (Auto) 1.2 (0-4) % Baso % (Auto) 0.5 (0-2) % Lymph # (Auto) 1.5 (1.2-4.9) X10*3/uL [place] # (Auto) 0.7 (0.1-1.2) X10*3/uL Eos # (Auto) 0.1 (0.0-0.4) X10*3/uL Baso # (Auto) 0.0 (0.0-0.2) X10*3/uL Abs Immat Gran (auto) 0.03 (0.00-0.03) X10*3/uL Absolute Neuts (auto) 4.1 (2.0-8.3) X10*3/uL Absolute Nucleated RBC 0.000 (0.0-0.012) X10*3/uL Nucleated RBC % (auto) 0.0 (0.0-0.2) /100WBC PT (9.9-13.0) SEC INR (0.9-1.1) APTT (24.1-38.0) SEC Sodium 139 (135-145) mmol/L Potassium 4.2 (3.3-5.1) mmol/L Chloride 102 (96-108) mmol/L Carbon Dioxide 26 (22-29) mmol/L Anion Gap 15 (12-20) BUN 12 (9-16) mg/dL Creatinine 1.04 (0.5-1.4) mg/dL Estim Creat Clear Calc 99.9 Estimated GFR > 60 Random Glucose 95 (60-115) mg/dL Calcium 9.6 (8.4-10.2) mg/dL Total Bilirubin 1.2 H (0.0-1.0) mg/dL AST 20 (5-37) U/L ALT 37 (0-40) U/L Alkaline Phosphatase 103 (39-117) U/L Total Protein 7.2 (6.5-8.0) g/dL Albumin 4.3 (3.5-5.0) g/dL Lipase 30 (8-78) U/L Urine Color Urine Appearance Urine pH (5.0-8.0) Ur Specific [place] (1.005-1.025) Urine Protein (NEG-TRACE) MG/DL Urine Glucose (UA) (NEG) MG/DL Urine Ketones (NEG) MG/DL Urine Blood (NEG) Urine Nitrite (NEG) Ur Leukocyte Esterase (NEG) Urine RBC (0) /HPF Urine WBC (0-4) /HPF Ur Squamous Epith Cells /LPF Urine Bacteria /LPF Urine Mucus /LPF COVID-19 (JUWAN) Negative (Negative) COVID-19 Clin Com See Note 10/28/20 10/29/20 Range/Units 19:07 00:12 WBC (4.8-10.8) X10*3/uL RBC (4.60-5.80) X10*6/uL Hgb (14.0-18.0) g/dl Hct (42-52) % MCV (80-98) fL MCH (27.0-33.0) pg MCHC (31.0-36.0) g/dl RDW (11.0-16.0) % Plt Count (160-400) X10*3/uL MPV (9.4-12.4) fL Immature Gran % (Auto) (0.0-0.4) % Neut % (Auto) (45-73) % Lymph % (Auto) (20-40) % [place] % (Auto) (2-11) % Eos % (Auto) (0-4) % Baso % (Auto) (0-2) % Lymph # (Auto) (1.2-4.9) X10*3/uL [place] # (Auto) (0.1-1.2) X10*3/uL Eos # (Auto) (0.0-0.4) X10*3/uL Baso # (Auto) (0.0-0.2) X10*3/uL Abs Immat Gran (auto) (0.00-0.03) X10*3/uL Absolute Neuts (auto) (2.0-8.3) X10*3/uL Absolute Nucleated RBC (0.0-0.012) X10*3/uL Nucleated RBC % (auto) (0.0-0.2) /100WBC PT 12.4 (9.9-13.0) SEC INR 1.1 (0.9-1.1) APTT 39.7 H (24.1-38.0) SEC Sodium (135-145) mmol/L Potassium (3.3-5.1) mmol/L Chloride (96-108) mmol/L Carbon Dioxide (22-29) mmol/L Anion Gap (12-20) BUN (9-16) mg/dL Creatinine (0.5-1.4) mg/dL Estim Creat Clear Calc Estimated GFR Random Glucose (60-115) mg/dL Calcium (8.4-10.2) mg/dL Total Bilirubin (0.0-1.0) mg/dL AST (5-37) U/L ALT (0-40) U/L Alkaline Phosphatase (39-117) U/L Total Protein (6.5-8.0) g/dL Albumin (3.5-5.0) g/dL Lipase (8-78) U/L Urine Color DARK YELLOW Urine Appearance CLEAR Urine pH 6.0 (5.0-8.0) Ur Specific [place] 1.025 (1.005-1.025) Urine Protein 1+ H (NEG-TRACE) MG/DL Urine Glucose (UA) NEG (NEG) MG/DL Urine Ketones 15 (NEG) MG/DL Urine Blood NEG (NEG) Urine Nitrite NEG (NEG) Ur Leukocyte Esterase NEG (NEG) Urine RBC 0-2 (0) /HPF Urine WBC 0-2 (0-4) /HPF Ur Squamous Epith Cells TRACE /LPF Urine Bacteria NONE /LPF Urine Mucus 4+ /LPF COVID-19 ([facility]UWAN) (Negative) COVID-19 Clin Com Discharge Plan Discharge Clinical Impression: Acute colitis Patient Disposition: Home, Self-Care Instructions: Acute Diarrhea (ED) Additional Instructions: Likely have antibiotic induced diarrhea. Take Flagyl as advised. Imodium for severe diarrhea maximum 4 tablets a day. Have yogurt/probiotic, drink plenty of fluids Prescriptions: New metronidazole [Flagyl] 500 mg tablet 500 mg PO TID Qty: 30 RF: 0 loperamide [Imodium A-D] 2 mg capsule 2 mg PO Q4H PRN (Reason: loose stool) Qty: 14 RF: 0 No Action cholecalciferol (vitamin D3) 50 mcg (2,000 unit) capsule 50 mcg PO DAILY 90 Days Qty: 90 RF: 3 tamsulosin 0.4 mg capsule 0.4 mg PO DAILY Qty: 90 RF: 1 allopurinol 300 mg tablet 300 mg PO DAILY Qty: 90 RF: 1 lisinopril 30 mg tablet 30 mg PO DAILY 90 Days Qty: 90 RF: 3 testosterone cypionate [Depo-Testosterone] 200 mg/mL oil 200 mg IM Q3W 21 Days Qty: 1 RF: 5 escitalopram oxalate 10 mg tablet 10 mg PO DAILY 90 Days Qty: 90 RF: 0 oxycodone 10 mg tablet 10 mg PO BID PRN (Reason: pain) 30 Days Qty: 40 RF: 0 naproxen 500 mg tablet 500 mg PO BID PRN (Reason: pain) Qty: 30 RF: 0 colchicine 0.6 mg tablet 0.6 mg PO DAILY Qty: 30 RF: 0 atorvastatin 40 mg tablet PO RF: 0 PMFSH Past Medical History Medical History Anxiety Back pain BPH (benign prostatic hyperplasia) Cocaine use disorder Essential hypertension ANGELIKA (generalized anxiety disorder) Gout Hypogonadism in male Hypovitaminosis D Knee osteoarthritis Mild major depression, single episode Mixed hyperlipidemia Neck pain Obesity Testosterone deficiency in male Surgical History History of ankle surgery History of colonoscopy History of spinal surgery History of tooth extraction Family History Family History Father HTN (hypertension) Gout Guillain-[place] syndrome Mother CVD (cardiovascular disease) Social History Social History Housing: House Alcohol intake: current Alcohol intake frequency: a few times a week Alcohol type: beer Patient Tobacco Use Status: Never used Tobacco e-Cigarette/Vaping Use: Never Used Second Hand Smoke Exposure: No Advance Directives: No Advance Directives Information Provided: Yes service: No Current occupational status: disabled
--- NOTE | 2020-10-29 00:10 | PC.NURSE ---
at bedside for primary eval. UA and stool sample obtained and sent.
--- NOTE | 2020-10-29 00:12 | PC.NURSE ---
Pt unable to provide stool sample at this time.
[2020-10-29 00:17] LABS: Glucose Urine UA NEG (NEG); Leukocyte Esterase Urine NEG (NEG); Nitrite Urine NEG (NEG); Specific Gravity - Urine 1.025 (1.005-1.025); UACC Culture Trigger NO; Urine Blood NEG (NEG); Urine Ketones 15 MG/DL (NEG); Urine Protein 1+ MG/DL (NEG-TRACE)
[2020-10-29] MEDS: Loperamide HCl 2 MG CAPSULE 4 MG PO (00:18)
[2020-10-29] MEDS: metroNIDAZOLE 500 MG TABLET PO (00:18)
[2020-10-29 00:19] VITALS: BP 130/61; PULSE 69; RESP 20; O2SAT 95
[2020-10-29 00:21] LABS: Appearance Urine CLEAR; Color Urine DARK YELLOW
[2020-10-29 00:43] LABS: Mucus Urine 4+ /LPF; RBC Urine 0-2 /HPF (0); Squamous Epithelial Cell Urine TRACE /LPF; WBC Urine 0-2 /HPF (0-4)
== END 2020-10-29 01:27 | disposition home or self-care (01) ==
PROVIDERS: Physician Assistant; Emergency Provider Internal Medicine; PCP Internal Medicine
DX: K52.9 Noninfective gastroenteritis and colitis, unspecified (principal); R10.9 Unspecified abdominal pain; Z79.899 Other long term (current) drug therapy; Z20.822 Contact with and (suspected) exposure to COVID-19
CPT/HCPCS: 36415; 74176; 80053; 81001; 83690; 85025; 85610; 85730; 87635; 99284

== ENCOUNTER → 2020-11-01 09:02 | Outpatient (BNVA) | payer OTHER, SELFPAY | PROVIDERS: Visit Provider Orthopaedic Surgery | DX: M25.561 Pain in right knee (principal); M17.11 Unilateral primary osteoarthritis, right knee; M17.10 Unilateral primary osteoarthritis, unspecified knee; M54.9 Dorsalgia, unspecified; F14.10 Cocaine abuse, uncomplicated | CPT/HCPCS: 20610; 96372; 99212; J1040 ==

== ENCOUNTER → 2020-11-22 09:06 | Outpatient (BNVA) | payer OTHER, SELFPAY | PROVIDERS: Visit Provider Urology | DX: E29.1 Testicular hypofunction (principal) | CPT/HCPCS: 96372 ==

== ENCOUNTER → 2020-11-27 08:00 | Outpatient (BNVA) | payer OTHER, SELFPAY | PROVIDERS: PCP Internal Medicine; Visit Provider Nurse Practitioner Family | DX: M47.816 Spondylosis without myelopathy or radiculopathy, lumbar region (principal); M53.3 Sacrococcygeal disorders, not elsewhere classified | CPT/HCPCS: 99212 ==

== ENCOUNTER → 2020-12-13 08:52 | Outpatient (BNVA) | payer OTHER, SELFPAY | PROVIDERS: PCP Internal Medicine; Visit Provider Urology | DX: E29.1 Testicular hypofunction (principal); Z23 Encounter for immunization | CPT/HCPCS: 96372 ==

== ENCOUNTER 2020-12-24 09:44 | Outpatient (REF) | payer OTHER, SELFPAY ==
[2020-12-24 10:39] LABS: Basophils Absolute Auto 0.1 X10*3/uL (0.0-0.2); Eosinophils Absolute Auto 0.1 X10*3/uL (0.0-0.4); Eosinophils Percent Auto 1.5 % (0-4); Hematocrit 48.4 % (42-52); Hemoglobin 16.3 g/dl (14.0-18.0); Imm Gran Abs Auto 0.07 X10*3/uL (0.00-0.03); Lymphocytes Absolute Auto 1.8 X10*3/uL (1.2-4.9); Lymphocytes Percent Auto 26.2 % (20-40); MANUAL DIFF FLAG NO; Mean Corpuscular HGB Conc 33.7 g/dl (31.0-36.0); Mean Corpuscular Hemoglobin 30.5 pg (27.0-33.0); Mean Corpuscular Volume 90.5 fL (80-98); Mean Platelet Volume 9.4 fL (9.4-12.4); Monocytes Absolute Auto 0.7 X10*3/uL (0.1-1.2); Monocytes Percent Auto 9.8 % (2-11); Neutrophils Absolute Auto 4.1 X10*3/uL (2.0-8.3); Neutrophils Percent Auto 60.5 % (45-73); Platelet Count 222 X10*3/uL (160-400); Red Blood Count 5.35 X10*6/uL (4.60-5.80); Red Cell Distribution Width 15.9 % (11.0-16.0); White Blood Count 6.8 X10*3/uL (4.8-10.8)
[2020-12-24 11:13] LABS: Uric Acid 5.2 mg/dL (3.4-7.0)
[2020-12-24 11:19] LABS: Alanine Aminotransferase 50 U/L (0-40); Albumin Level 4.3 g/dL (3.5-5.0); Alkaline Phosphatase 87 U/L (39-117); Amylase 79 U/L (28-100); Anion Gap 16 (12-20); Aspartate Amino Transferase 25 U/L (5-37); Bilirubin Total 0.8 mg/dL (0.0-1.0); Blood Urea Nitrogen 10 mg/dL (9-16); Calcium 9.1 mg/dL (8.4-10.2); Carbon Dioxide 22 mmol/L (22-29); Chloride 102 mmol/L (96-108); Cholesterol 150 mg/dL; Estimated Glomerular Filt Rate > 60; Glucose Fasting 101 mg/dL (60-99); HDL Cholesterol 47 mg/dL; LDL Cholesterol Calculated 85 mg/dl; Lipase 42 U/L (8-78); Potassium 4.5 mmol/L (3.3-5.1); Sodium 135 mmol/L (135-145); Total Protein 6.9 g/dL (6.5-8.0); Triglycerides 91 mg/dL
[2020-12-31 13:06] LABS: Vitamin D 25-OH, D2 <4 ng/mL; Vitamin D 25-OH, D3 33 ng/mL; Vitamin D 25-OH, Total 33 ng/mL (30-100)
== END 2020-12-24 09:45 | disposition home or self-care (01) ==
LOC: HO.LAB 09:44
PROVIDERS: PCP Internal Medicine; Visit Provider Nurse Practitioner Family
DX: R10.819 Abdominal tenderness, unspecified site (principal); R19.7 Diarrhea, unspecified; I10 Essential (primary) hypertension; E78.5 Hyperlipidemia, unspecified; M10.9 Gout, unspecified; E55.9 Vitamin D deficiency, unspecified
CPT/HCPCS: 36415; 80053; 80061; 82150; 82306; 83690; 84550; 85025

== ENCOUNTER 2020-12-25 09:51 | Outpatient (REF) | payer OTHER, SELFPAY ==
[2020-12-25 10:55] LABS: OBS Int Ctl Valid YES; OBS1 NEGATIVE (NEGATIVE)
[2020-12-25 11:36] LABS: Leukocytes Stool Qualitative NEGATIVE (NEGATIVE)
== END 2020-12-25 09:52 | disposition home or self-care (01) ==
LOC: HO.LNP 09:51
PROVIDERS: Visit Provider Nurse Practitioner Family
DX: R10.9 Unspecified abdominal pain (principal); R10.819 Abdominal tenderness, unspecified site; R19.7 Diarrhea, unspecified
CPT/HCPCS: 82272; 87329; 87338; 89055

== ENCOUNTER → 2021-01-01 07:49 | Outpatient (BNVA) | payer OTHER, SELFPAY | PROVIDERS: PCP Internal Medicine; Visit Provider Nurse Practitioner Family | DX: M1A.0690 Idiopathic chronic gout, unspecified knee, without tophus (tophi) (principal) | CPT/HCPCS: 99212 ==

== ENCOUNTER → 2021-01-03 08:48 | Outpatient (BNVA) | payer OTHER, SELFPAY | PROVIDERS: PCP Internal Medicine; Visit Provider Urology | DX: E29.1 Testicular hypofunction (principal) | CPT/HCPCS: 96372 ==

== ENCOUNTER 2021-01-08 05:36 | Outpatient (REF) | payer OTHER, SELFPAY ==
--- NOTE | ~2021-01-08 | FL_ITS ---
EXAMINATION: XR FLUOROSCOPY WITH IMAGES CLINICAL INFORMATION: M53.3 - Sacrococcygeal disorders, not elsewhere classified COMPARISON: CT abdomen and pelvis 10/28/2020 TECHNIQUE: Fluoroscopy performed by Dr. Blake. Fluoroscopy time: 0.3 minutes DAP: 1.49 Gycm2 Images: 4 FINDINGS: Spinal needle overlies the right sacroiliac joint mid depth. There is hardware in the lower lumbar spine similar to CT exam consistent with prior fusion. FL/FL guidance in treatment room IMPRESSION: Fluoroscopy for pain management procedure.
== END 2021-01-08 05:37 | disposition home or self-care (01) ==
LOC: HO.RADIR 05:36
PROVIDERS: Visit Provider Internal Medicine
DX: M53.3 Sacrococcygeal disorders, not elsewhere classified (principal)
CPT/HCPCS: 27096; J1040

== ENCOUNTER → 2021-01-22 10:03 | Outpatient (BNVA) | payer OTHER, SELFPAY | PROVIDERS: PCP Internal Medicine; Visit Provider Nurse Practitioner Family | DX: M47.816 Spondylosis without myelopathy or radiculopathy, lumbar region (principal); M53.3 Sacrococcygeal disorders, not elsewhere classified | CPT/HCPCS: 99212 ==

== ENCOUNTER → 2021-01-29 09:46 | Outpatient (BNVA) | payer OTHER, SELFPAY | PROVIDERS: PCP Internal Medicine; Visit Provider Urology | DX: E29.1 Testicular hypofunction (principal) | CPT/HCPCS: 96372 ==

== ENCOUNTER → 2021-02-19 09:49 | Outpatient (BNVA) | payer OTHER, SELFPAY | PROVIDERS: PCP Internal Medicine; Visit Provider Urology | DX: E29.1 Testicular hypofunction (principal) | CPT/HCPCS: 96372 ==

== ENCOUNTER 2021-03-04 07:18 | Outpatient (REF) | payer OTHER, SELFPAY | END 2021-03-04 07:19 | disposition home or self-care (01) | LOC: HO.LAB 07:18 | PROVIDERS: PCP Internal Medicine; Visit Provider Internal Medicine | DX: Z20.822 Contact with and (suspected) exposure to COVID-19 (principal) | CPT/HCPCS: U0003; U0005 ==

== ENCOUNTER → 2021-04-15 08:46 | Outpatient (BNVA) | payer OTHER, SELFPAY | PROVIDERS: Visit Provider Urology | DX: E29.1 Testicular hypofunction (principal) | CPT/HCPCS: 96372 ==

== ENCOUNTER 2021-04-23 08:08 | Outpatient (REF) | payer OTHER, SELFPAY ==
[2021-04-23 09:10] LABS: Hematocrit 42.5 % (42.0-52.0)
[2021-04-23 10:08] LABS: Prostate Specific Antigen 1.61 ng/mL (<0.05-4.0)
[2021-04-28 10:02] LABS: Testosterone, Total 579 ng/dL (250-1100)
== END 2021-04-23 08:09 | disposition home or self-care (01) ==
LOC: HO.LAB 08:08
PROVIDERS: PCP Internal Medicine; Visit Provider Urology
DX: Z12.5 Encounter for screening for malignant neoplasm of prostate (principal); E29.1 Testicular hypofunction
CPT/HCPCS: 36415; 84153; 84403; 85014

== ENCOUNTER → 2021-05-06 10:31 | Outpatient (BNVA) | payer OTHER, SELFPAY | PROVIDERS: PCP Internal Medicine; Visit Provider Urology | DX: E29.1 Testicular hypofunction (principal) | CPT/HCPCS: 96372; 99212 ==

== ENCOUNTER 2021-05-08 10:48 | Outpatient (REF) | payer OTHER, SELFPAY ==
--- NOTE | ~2021-05-08 | XR_ITS ---
EXAMINATION: XR FOOT, RIGHT, TWO VIEWS CLINICAL INFORMATION: Pressure ulcer of unspecified site, stage 3, L89.93 COMPARISON: None available at the time of this dictation. VIEWS ACQUIRED: Frontolateral and oblique. FINDINGS: There is a threaded screw through the medial malleolus. There are degenerative osteoarthritic changes of the intertarsal, tarsometatarsal and metatarsophalangeal joints. Early advanced arthritis of the 1st and 5th metatarsophalangeal joint. There is a large inferior calcaneal spur. Bone alignments otherwise satisfactory. XR/XR foot RT 2V IMPRESSION: Early advanced degenerative osteoarthritis. Hardware screw through the medial malleolus is intact.
== END 2021-05-08 10:49 | disposition home or self-care (01) ==
LOC: HO.XRAY 10:48
PROVIDERS: PCP Internal Medicine; Visit Provider Internal Medicine
DX: L89.93 Pressure ulcer of unspecified site, stage 3 (principal)
CPT/HCPCS: 73620

== ENCOUNTER → 2021-05-13 09:55 | Outpatient (BNVA) | payer OTHER, SELFPAY | PROVIDERS: PCP Internal Medicine; Visit Provider Nurse Practitioner | DX: R19.7 Diarrhea, unspecified (principal) | CPT/HCPCS: 99202 ==

== ENCOUNTER 2021-05-14 09:35 | Outpatient (REF) | payer OTHER, SELFPAY ==
[2021-05-14 10:11] LABS: MANUAL DIFF FLAG NO
[2021-05-14 10:24] LABS: Basophils Absolute Auto 0.1 X10*3/uL (0.0-0.2); Basophils Percent Auto 1.2 % (0-2); Eosinophils Absolute Auto 0.2 X10*3/uL (0.0-0.4); Eosinophils Percent Auto 2.9 % (0-4); Hematocrit 44.5 % (42.0-52.0); Hemoglobin 14.7 g/dl (14.0-18.0); Imm Gran Abs Auto 0.02 X10*3/uL (0.00-0.03); Imm Gran Pct Auto 0.4 % (0.0-0.4); Lymphocytes Absolute Auto 2.1 X10*3/uL (1.2-4.9); Lymphocytes Percent Auto 39.8 % (20-40); Mean Corpuscular Hemoglobin 30.1 pg (27.0-33.0); Mean Platelet Volume 9.2 fL (9.4-12.4); Monocytes Absolute Auto 0.6 X10*3/uL (0.1-1.2); Monocytes Percent Auto 11.1 % (2-11); Neutrophils Absolute Auto 2.3 x10*3/uL (2.0-8.3); Neutrophils Percent Auto 44.6 % (45-73); Platelet Count 260 X10*3/uL (160-400); Red Blood Count 4.89 X10*6/uL (4.60-5.80); Red Cell Distribution Width 14.7 % (11.0-16.0); White Blood Count 5.2 X10*3/uL (4.8-10.8)
[2021-05-15 21:22] LABS: Transglutaminase Ab IgG <1.0 U/mL; Transglutaminase IgA <1.0 U/mL
== END 2021-05-14 09:36 | disposition home or self-care (01) ==
LOC: HO.LAB 09:35
PROVIDERS: Absent Provider Nurse Practitioner Family; PCP Internal Medicine; Visit Provider Nurse Practitioner
DX: M1A.0690 Idiopathic chronic gout, unspecified knee, without tophus (tophi) (principal); R19.7 Diarrhea, unspecified
CPT/HCPCS: 36415; 85025; 86140; 86364; 99212

== ENCOUNTER → 2021-05-27 08:23 | Outpatient (BNVA) | payer OTHER, SELFPAY | PROVIDERS: PCP Internal Medicine; Visit Provider Urology | DX: E29.1 Testicular hypofunction (principal) | CPT/HCPCS: 96372 ==

== ENCOUNTER 2021-06-05 08:44 | Outpatient (REF) | payer OTHER, SELFPAY ==
[2021-06-05 12:16] LABS: CDiff Gene PCR NEGATIVE (Negative)
== END 2021-06-05 08:45 | disposition home or self-care (01) ==
LOC: HO.LNP 08:44
PROVIDERS: Visit Provider Nurse Practitioner
DX: R19.7 Diarrhea, unspecified (principal)
CPT/HCPCS: 87493

== ENCOUNTER → 2021-06-13 08:30 | Outpatient (BNVA) | payer OTHER, SELFPAY | PROVIDERS: PCP Internal Medicine; Referring Provider Internal Medicine; Visit Provider Nurse Practitioner | DX: K52.1 Toxic gastroenteritis and colitis (principal); T36.95XA Adverse effect of unspecified systemic antibiotic, initial encounter | CPT/HCPCS: 99212 ==

== ENCOUNTER → 2021-06-17 08:29 | Outpatient (BNVA) | payer OTHER, SELFPAY | PROVIDERS: PCP Internal Medicine; Visit Provider Urology | DX: E29.1 Testicular hypofunction (principal) | CPT/HCPCS: 96372 ==

== ENCOUNTER → 2021-07-02 07:42 | Outpatient (BNVA) | payer OTHER, SELFPAY | PROVIDERS: PCP Internal Medicine; Visit Provider Nurse Practitioner Family | DX: M1A.0690 Idiopathic chronic gout, unspecified knee, without tophus (tophi) (principal); Z79.899 Other long term (current) drug therapy | CPT/HCPCS: 99212 ==

== ENCOUNTER → 2021-07-08 08:15 | Outpatient (BNVA) | payer OTHER, SELFPAY | PROVIDERS: PCP Internal Medicine; Visit Provider Urology | DX: E29.1 Testicular hypofunction (principal) | CPT/HCPCS: 96372 ==

== ENCOUNTER 2021-07-21 09:37 | Outpatient (REF) | payer OTHER, SELFPAY ==
[2021-07-21 10:58] LABS: Uric Acid 5.3 mg/dL (3.4-7.0)
== END 2021-07-21 09:38 | disposition home or self-care (01) ==
LOC: HO.LAB 09:37
PROVIDERS: PCP Internal Medicine; Visit Provider Nurse Practitioner Family
DX: M10.9 Gout, unspecified (principal)
CPT/HCPCS: 36415; 84550

== ENCOUNTER 2021-07-25 14:44 | Emergency (ER) | payer OTHER, SELFPAY ==
--- NOTE | ~2021-07-25 | XR_ITS ---
EXAMINATION: XR TOES, RIGHT CLINICAL INFORMATION: Chronic wound. Black toenail COMPARISON: Portions of the study 11/28/11 TECHNIQUE: Frontal view of the right foot. 2 views of the right first toe FINDINGS: There is a screw traversing the hindfoot. There are erosive and proliferative changes in the fifth MTP joint and throughout the hindfoot and midfoot. There is narrowing of the first MTP joint with pleura phytic changes. There is a soft tissue ulcer adjacent to the medial aspect of the distal first phalanx. No other abnormal soft tissue gas. There is no opaque foreign body. There is no periosteal new bone or aggressive bone destruction involving the area adjacent to the ulcer. XR/XR toe RT min 2V IMPRESSION: There is no specific radiographic evidence of osteomyelitis of the great toe. There is an ulcer in the soft tissues. There are erosive and proliferative changes throughout the foot. Overall there has been worsening of the arthritic changes.
[2021-07-25 14:47] VITALS: BP 121/76; PULSE 101; RESP 20; TEMP 36.8; O2SAT 96; BMI 33.5
--- NOTE | 2021-07-25 18:22 | ED.WOUNDLAC ---
HPI - Wound/Laceration General Chief Complaint: Wound/Laceration Stated Complaint: Wound on big toe sent from wound care Time Seen by Provider: 07/25/21 18:21 Source: patient Mode of arrival: ambulatory Limitations: no limitations History of Present Illness HPI narrative: 61 yo male with history of HTN, HLD, anxiety, back pain, osteoarthritis, cervical radiculopathy, gout, obesity, and a chronic right great toe wound (followed by the Wound Clinic) who presents to the ER from home for evaluation of worsening right great toe pain for the last couple of days as well as new onset of right great toenail discoloration. Patient called his provider at the wound care clinic and described his symptoms, he was told to come to the ER for evaluation. Patient has been going there since the fall, last seen on Wednesday and he denies having any discoloration of his toenail at that time. He denies any trauma or injury. He states that his toenail is slightly darkening in areas and slightly mobile. He denies any bleeding or drainage of pus. He reports the chronic ulcer on the plantar aspect of the toe is at his baseline, no drainage of purulent material, he is unable to visualize the entire wound. He denies any fever chills at home. He has not been any oral antibiotics recently. He is not diabetic. Onset (ago): day(s) Extremity Location: right: foot (Great toe) Place: home Patient tetanus UTD: Yes Associated symptoms: pain Treatments prior to arrival: bandage Related Data Previous Rx's Medication Instructions Recorded colchicine 0.6 mg tablet 0.6 mg PO DAILY #30 tab 07/03/20 atorvastatin 40 mg tablet 40 mg PO BEDTIME 90 Days #90 tab 01/06/21 testosterone cypionate 200 mg/mL 200 mg IM Q3W 30 Days #2 ml 01/28/21 intramuscular oil (Depo-Testosterone) lisinopril 30 mg tablet 30 mg PO DAILY 90 Days #90 tab 02/05/21 cholecalciferol (vitamin D3) 50 50 mcg PO DAILY 90 Days #90 cap 03/03/21 mcg (2,000 unit) capsule allopurinol 300 mg tablet 300 mg PO DAILY #90 tab 05/20/21 hydroxyzine pamoate 50 mg capsule 50 mg PO BID PRN 5 Days #10 cap 06/30/21 tamsulosin 0.4 mg capsule 0.4 mg PO DAILY #90 cap 06/30/21 cyclobenzaprine 10 mg tablet 10 mg PO TID PRN 30 Days #90 tab 07/21/21 escitalopram oxalate 20 mg tablet 20 mg PO DAILY 90 Days #90 tab 07/21/21 risperidone 0.5 mg tablet 0.5 mg PO BEDTIME 90 Days #90 tab 07/21/21 (Risperdal) cephalexin 500 mg capsule 500 mg PO Q6H 7 Days #28 cap 07/25/21 doxycycline hyclate 100 mg tablet 100 mg PO BID #14 tab 07/25/21 oxycodone 10 mg tablet 10 mg PO Q8H PRN #6 tab 07/25/21 Allergies Allergy/AdvReac Type Severity Reaction Status Date / Time gabapentin AdvReac Agitated Verified 07/25/21 14:52 Review of Systems Review of Systems: Constitutional: No Fever, No Chills Cardiovascular: No Chest Pain, No SOB, No Orthopnea, No Edema Respiratory: No Cough, No Sputum, No Wheezing, No dyspnea Gastrointestinal: No Nausea, No Vomiting, No Diarrhea, No abdominal Pain Genitourinary: No Dysuria, No Urinary Frequency, No Hematuria Musculoskeletal: + joint pain, No Myalgias Skin: + Skin Lesions, No rash Neuro: No Weakness, No Numbness, No Dizziness, No Headache Psych: No Anxiety/Panic, No Depression Heme/Lymph: No Bruising, No Lymphadenopathy Endocrine: No Polyuria, No Polydipsia [facility] Past Medical History Medical History (Updated 07/25/21 @ 20:27 by MELCHOR De Santiago) Anxiety Back pain BPH (benign prostatic hyperplasia) Cocaine use disorder Essential hypertension ANGELIKA (generalized anxiety disorder) Gout Hypogonadism in male Hypovitaminosis D Knee osteoarthritis Mild major depression, single episode Mixed hyperlipidemia Neck pain Obesity Restless leg syndrome Stage III pressure ulcer Testosterone deficiency in male Surgical History History of ankle surgery History of colonoscopy History of spinal surgery History of tooth extraction Family History Family History Father HTN (hypertension) Gout Guillain-Leesburg syndrome Mother CVD (cardiovascular disease) Social History Social History Housing: House Alcohol intake: current Alcohol intake frequency: a few times a month Alcohol type: beer Patient Tobacco Use Status: Never used Tobacco e-Cigarette/Vaping Use: Never Used Second Hand Smoke Exposure: No Advance Directives: No Advance Directives Information Provided: No service: No Current occupational status: disabled Cognitive needs: No Hearing needs: No Vision needs: No Physical Exam Vital Signs: Vital Signs: Last Vital Signs Temp 98.3 F 07/25/21 14:47 Pulse 101 H 07/25/21 14:47 Resp 20 07/25/21 14:47 BP 121/76 07/25/21 14:47 Pulse Ox 96 07/25/21 14:47 BMI result Body Mass Index 33.5 Appearance: Alert. Oriented X3. No acute distress. Eyes: Pupils equal, round and reactive to light. ENT: Pharynx normal. Neck: Normal inspection. Neck supple. CVS: Normal heart rate and rhythm. Pulses normal. Respiratory: No respiratory distress. Breath sounds normal. Abdomen: Obese, Soft and nontender. +BS x4 Skin: Skin warm and dry. Normal skin color. Normal skin turgor. No rashes. Extremities: No lower extremity edema. Right great toe with darkening of the toenail, mildly increased mobility of the toenail, still appears to be adhered to the nail bed. Question dried blood under the nail. Mildly tender to palpation. On the plantar aspect of the great toe there is a 1 cm, dry, chronic appearing ulceration without any visible bone, no drainage, no surrounding erythema. Neuro: Oriented X 3. Grossly normal, nonfocal Course Course Course Narrative: 61-year-old male with a chronic right great toe wound followed by the wound clinic presents to the ER with worsening pain of the great toe as well as new discoloration of his great toenail with mobility of the toenail, no injury. He has no fever or chills at home. He has not been on antibiotics recently. He is not diabetic. On examination the foot is warm and well perfused, no foul smelling drainage. Will check lab workup, x-ray to rule out osteomyelitis, inflammatory markers. Dispo pending results. Reevaluation(s) Reevaluation #1: No leukocytosis, CRP only mildly elevated with a normal ESR. X-ray without evidence of osteomyelitis. At this time patient can be initiated on broad coverage oral antibiotics, pain control and follow-up with the wound care clinic. He is due to be seen there on Wednesday. Patient is agreeable to plan and was given strict return precautions if symptoms were to worsen over the weekend. Stable for DC with close outpatient follow-up. MDM - Wound/Laceration Lab Data Result diagrams: 07/25/21 18:43 07/25/21 18:42 Labs: Lab Results 07/25/21 07/25/21 07/25/21 Range/Units 18:42 18:42 18:42 WBC (4.8-10.8) X10*3/uL RBC (4.60-5.80) X10*6/uL Hgb (14.0-18.0) g/dl Hct (42.0-52.0) % MCV (80.0-98.0) fL MCH (27.0-33.0) pg MCHC (31.0-36.0) g/dl RDW (11.0-16.0) % Plt Count (160-400) X10*3/uL MPV (9.4-12.4) fL Immature Gran % (Auto) (0.0-0.4) % Neut % (Auto) (45-73) % Lymph % (Auto) (20-40) % Ware % (Auto) (2-11) % Eos % (Auto) (0-4) % Baso % (Auto) (0-2) % Lymph # (Auto) (1.2-4.9) X10*3/uL Ware # (Auto) (0.1-1.2) X10*3/uL Eos # (Auto) (0.0-0.4) X10*3/uL Baso # (Auto) (0.0-0.2) X10*3/uL Abs Immat Gran (auto) (0.00-0.03) X10*3/uL Absolute Neuts (auto) (2.0-8.3) x10*3/uL Absolute Nucleated RBC (0.0-0.012) X10*3/uL Nucleated RBC % (auto) (0.0-0.2) /100WBC ESR 2 (0-15) MM/HR PT 11.7 (9.9-13.0) SEC INR 1.0 (0.9-1.1) APTT 35.6 (24.1-38.0) SEC Sodium 136 (135-145) mmol/L Potassium 4.5 (3.3-5.1) mmol/L Chloride 104 (96-108) mmol/L Carbon Dioxide 24 (22-29) mmol/L Anion Gap 13 (12-20) BUN 10 (9-16) mg/dL Creatinine 1.12 (0.5-1.4) mg/dL Estim Creat Clear Calc 88.0 Estimated GFR > 60 Random Glucose 87 (60-115) mg/dL Lactic Acid (0.5-2.0) mmol/L Calcium 8.8 D (8.4-10.2) mg/dL Magnesium 1.6 (1.6-2.6) mg/dL Total Bilirubin 0.6 (0.0-1.0) mg/dL Direct Bilirubin 0.3 (0.0-0.5) mg/dL AST 15 (5-37) U/L ALT 27 (0-40) U/L Alkaline Phosphatase 64 D (39-117) U/L C-Reactive Protein 2.21 H (< or = 0.50) mg/dL Total Protein 6.2 L (6.5-8.0) g/dL Albumin 3.8 (3.5-5.0) g/dL COVID-19 (JUWAN) (Negative) COVID-19 Clin Com 07/25/21 07/25/21 07/25/21 Range/Units 18:43 18:45 18:45 WBC 8.5 (4.8-10.8) X10*3/uL RBC 4.79 D (4.60-5.80) X10*6/uL Hgb 14.6 D (14.0-18.0) g/dl Hct 43.5 D (42.0-52.0) % MCV 90.8 (80.0-98.0) fL MCH 30.5 (27.0-33.0) pg MCHC 33.6 (31.0-36.0) g/dl RDW 14.1 (11.0-16.0) % Plt Count 220 (160-400) X10*3/uL MPV 8.9 L (9.4-12.4) fL Immature Gran % (Auto) 0.5 H (0.0-0.4) % Neut % (Auto) 52.4 (45-73) % Lymph % (Auto) 32.9 (20-40) % Ware % (Auto) 11.4 H (2-11) % Eos % (Auto) 1.7 (0-4) % Baso % (Auto) 1.1 (0-2) % Lymph # (Auto) 2.8 (1.2-4.9) X10*3/uL Ware # (Auto) 1.0 (0.1-1.2) X10*3/uL Eos # (Auto) 0.1 (0.0-0.4) X10*3/uL Baso # (Auto) 0.1 (0.0-0.2) X10*3/uL Abs Immat Gran (auto) 0.04 H (0.00-0.03) X10*3/uL Absolute Neuts (auto) 4.5 (2.0-8.3) x10*3/uL Absolute Nucleated RBC 0.000 (0.0-0.012) X10*3/uL Nucleated RBC % (auto) 0.0 (0.0-0.2) /100WBC ESR (0-15) MM/HR PT (9.9-13.0) SEC INR (0.9-1.1) APTT (24.1-38.0) SEC Sodium (135-145) mmol/L Potassium (3.3-5.1) mmol/L Chloride (96-108) mmol/L Carbon Dioxide (22-29) mmol/L Anion Gap (12-20) BUN (9-16) mg/dL Creatinine (0.5-1.4) mg/dL Estim Creat Clear Calc Estimated GFR Random Glucose (60-115) mg/dL Lactic Acid 1.2 (0.5-2.0) mmol/L Calcium (8.4-10.2) mg/dL Magnesium (1.6-2.6) mg/dL Total Bilirubin (0.0-1.0) mg/dL Direct Bilirubin (0.0-0.5) mg/dL AST (5-37) U/L ALT (0-40) U/L Alkaline Phosphatase (39-117) U/L C-Reactive Protein (< or = 0.50) mg/dL Total Protein (6.5-8.0) g/dL Albumin (3.5-5.0) g/dL COVID-19 (JUWAN) Negative (Negative) COVID-19 Clin Com See Note Discharge Plan Discharge Clinical Impression: Wound of toenail, Open toe wound Patient Disposition: Home, Self-Care Instructions: Acute Wounds (DC) Additional Instructions: Take the prescribed antibiotics as directed, start taking them tomorrow, your given 1st doses tonight in the emergency room. Take the prescribed medication as needed for severe pain, follow-up with your doctor for refills of this if needed. Follow-up with the wound clinic on Wednesday as scheduled. If you develop new or worsening symptoms of infection call 911 or come back to the ER for further evaluation. Prescriptions: New cephalexin 500 mg capsule 500 mg PO Q6H 7 Days Qty: 28 0RF doxycycline hyclate 100 mg tablet 100 mg PO BID Qty: 14 0RF oxycodone 10 mg tablet 10 mg PO Q8H PRN (Reason: severe pain (scale score 7-10)) Qty: 6 0RF No Action atorvastatin 40 mg tablet 40 mg PO BEDTIME 90 Days Qty: 90 3RF testosterone cypionate [Depo-Testosterone] 200 mg/mL oil 200 mg IM Q3W 30 Days Qty: 2 5RF lisinopril 30 mg tablet 30 mg PO DAILY 90 Days Qty: 90 3RF cholecalciferol (vitamin D3) 50 mcg (2,000 unit) capsule 50 mcg PO DAILY 90 Days Qty: 90 3RF allopurinol 300 mg tablet 300 mg PO DAILY Qty: 90 1RF hydroxyzine pamoate 50 mg capsule 50 mg PO BID PRN (Reason: anxiety) 5 Days Qty: 10 0RF tamsulosin 0.4 mg capsule 0.4 mg PO DAILY Qty: 90 1RF cyclobenzaprine 10 mg tablet 10 mg PO TID PRN (Reason: muscle spasm) 30 Days Qty: 90 1RF risperidone [Risperdal] 0.5 mg tablet 0.5 mg PO BEDTIME 90 Days Qty: 90 0RF escitalopram oxalate 20 mg tablet 20 mg PO DAILY 90 Days Qty: 90 0RF colchicine 0.6 mg tablet 0.6 mg PO DAILY Qty: 30 0RF Rx Instructions: Take 1-2 tabs at first sign of gout attack
[2021-07-25 18:50] LABS: MANUAL DIFF FLAG NO
[2021-07-25 18:51] LABS: Basophils Absolute Auto 0.1 X10*3/uL (0.0-0.2); Basophils Percent Auto 1.1 % (0-2); Eosinophils Absolute Auto 0.1 X10*3/uL (0.0-0.4); Eosinophils Percent Auto 1.7 % (0-4); Hematocrit 43.5 % (42.0-52.0); Hemoglobin 14.6 g/dl (14.0-18.0); Imm Gran Abs Auto 0.04 X10*3/uL (0.00-0.03); Imm Gran Pct Auto 0.5 % (0.0-0.4); Lymphocytes Absolute Auto 2.8 X10*3/uL (1.2-4.9); Lymphocytes Percent Auto 32.9 % (20-40); Mean Corpuscular HGB Conc 33.6 g/dl (31.0-36.0); Mean Corpuscular Hemoglobin 30.5 pg (27.0-33.0); Mean Corpuscular Volume 90.8 fL (80.0-98.0); Mean Platelet Volume 8.9 fL (9.4-12.4); Monocytes Percent Auto 11.4 % (2-11); Neutrophils Absolute Auto 4.5 x10*3/uL (2.0-8.3); Neutrophils Percent Auto 52.4 % (45-73); Platelet Count 220 X10*3/uL (160-400); Red Blood Count 4.79 X10*6/uL (4.60-5.80); Red Cell Distribution Width 14.1 % (11.0-16.0); White Blood Count 8.5 X10*3/uL (4.8-10.8)
[2021-07-25 18:58] LABS: Prothrombin Time 11.7 SEC (9.9-13.0)
[2021-07-25 19:01] LABS: Lactic Acid 1.2 mmol/L (0.5-2.0)
[2021-07-25 19:01] LABS: Partial Thromboplastin Time 35.6 SEC (24.1-38.0)
[2021-07-25 19:06] LABS: Alanine Aminotransferase 27 U/L (0-40); Albumin Level 3.8 g/dL (3.5-5.0); Alkaline Phosphatase 64 U/L (39-117); Anion Gap 13 (12-20); Aspartate Amino Transferase 15 U/L (5-37); Bilirubin Direct 0.3 mg/dL (0.0-0.5); Bilirubin Total 0.6 mg/dL (0.0-1.0); Blood Urea Nitrogen 10 mg/dL (9-16); C Reactive Protein 2.21 mg/dL (< or = 0.50); Calcium 8.8 mg/dL (8.4-10.2); Carbon Dioxide 24 mmol/L (22-29); Chloride 104 mmol/L (96-108); Estimated Glomerular Filt Rate > 60; Glucose Random 87 mg/dL (60-115); Magnesium 1.6 mg/dL (1.6-2.6); Potassium 4.5 mmol/L (3.3-5.1); Sodium 136 mmol/L (135-145); Total Protein 6.2 g/dL (6.5-8.0)
[2021-07-25 19:08] LABS: COVID-19 Test Negative (Negative); IDNOW Serial# 16C4AD1C
[2021-07-25] MEDS: oxyCODONE HCl Immed Release 5 MG TABLET PO ×2 (19:15→20:49)
[2021-07-25 19:30] LABS: Erythrocyte Sedimentation Rate 2 MM/HR (0-15)
[2021-07-25] MEDS: cephALEXin 500 MG CAPSULE PO (20:49)
[2021-07-25 20:57] VITALS: BP 144/79; PULSE 79; RESP 16; TEMP 36.6; O2SAT 98
== END 2021-07-25 20:58 | disposition home or self-care (01) ==
PROVIDERS: Physician Assistant; Emergency Provider Internal Medicine; PCP Internal Medicine
DX: S91.201A Unspecified open wound of right great toe with damage to nail, initial encounter (principal); L97.519 Non-pressure chronic ulcer of other part of right foot with unspecified severity; R79.82 Elevated C-reactive protein (CRP); I10 Essential (primary) hypertension; Z20.822 Contact with and (suspected) exposure to COVID-19; X58.XXXA Exposure to other specified factors, initial encounter; Y93.9 Activity, unspecified; Y92.9 Unspecified place or not applicable; Y99.9 Unspecified external cause status
CPT/HCPCS: 73660; 80048; 80076; 83605; 83735; 85025; 85610; 85652; 85730; 86140; 87040; 87635; 99284

== ENCOUNTER → 2021-07-29 08:13 | Outpatient (BNVA) | payer OTHER, SELFPAY | PROVIDERS: PCP Internal Medicine; Visit Provider Urology | DX: E29.1 Testicular hypofunction (principal) | CPT/HCPCS: 96372 ==

== ENCOUNTER 2021-08-11 00:41 | Emergency (ER) | payer OTHER, SELFPAY ==
--- NOTE | ~2021-08-11 | XR_ITS ---
EXAMINATION: XR CHEST CLINICAL INFORMATION: Chest pain COMPARISON: 02/23/2013 TECHNIQUE: Frontal view of the chest was obtained. FINDINGS: The lungs are clear with no focal consolidation. No evidence of pneumothorax, pulmonary edema, or pleural effusions. The cardiomediastinal silhouette is unremarkable. No acute osseous findings. XR/XR chest 1V IMPRESSION: No acute cardiopulmonary findings.
[2021-08-11 01:03] VITALS: BP 126/79; PULSE 108; RESP 20; TEMP 36.3; O2SAT 94; BMI 32.1
--- NOTE | 2021-08-11 02:37 | ECG_ITS ---
Test Reason : ANXIETY Blood Pressure : / mmHG Vent. Rate : 088 BPM Atrial Rate : 088 BPM P-R Int : 156 ms QRS Dur : 080 ms QT Int : 342 ms P-R-T Axes : 050 027 039 degrees QTc Int : 413 ms Normal sinus rhythm Normal ECG When compared with ECG of 23-FEB-2013 09:05, No significant change was found Referred By: Ana Pruett Electronically Signed By:MARYURI ESPINOSA
--- NOTE | 2021-08-11 02:41 | ED_ITS ---
HPI - Anxiety General Chief Complaint: Anxiety Stated Complaint: n/v, elevated BP Time Seen by Provider: 08/11/21 02:37 History of Present Illness HPI narrative: Patient is a 61-year-old male with a long history of anxiety. Went to multiple parties drank at least 7 beers. Presented today with having feeling anxious anxious. Patient claims that he has tightness around his chest. Has pain in his back. He has a history of back spasms in the past. Patient feels shaky. This is very similar to previous bouts of anxiety. He has no history of diabetes, hypertension, mi, high cholesterol, smoking. There is no family history of [place]. Patient denies any having any recent stress test. Symptom has since subsided. Related Data Previous Rx's Medication Instructions Recorded colchicine 0.6 mg tablet 0.6 mg PO DAILY #30 tab 07/03/20 atorvastatin 40 mg tablet 40 mg PO BEDTIME 90 Days #90 tab 01/06/21 lisinopril 30 mg tablet 30 mg PO DAILY 90 Days #90 tab 02/05/21 cholecalciferol (vitamin D3) 50 50 mcg PO DAILY 90 Days #90 cap 03/03/21 mcg (2,000 unit) capsule allopurinol 300 mg tablet 300 mg PO DAILY #90 tab 05/20/21 hydroxyzine pamoate 50 mg capsule 50 mg PO BID PRN 5 Days #10 cap 06/30/21 tamsulosin 0.4 mg capsule 0.4 mg PO DAILY #90 cap 06/30/21 cyclobenzaprine 10 mg tablet 10 mg PO TID PRN 30 Days #90 tab 07/21/21 escitalopram oxalate 20 mg tablet 20 mg PO DAILY 90 Days #90 tab 07/21/21 risperidone 0.5 mg tablet 0.5 mg PO BEDTIME 90 Days #90 tab 07/21/21 (Risperdal) cephalexin 500 mg capsule 500 mg PO Q6H 7 Days #28 cap 07/25/21 doxycycline hyclate 100 mg tablet 100 mg PO BID #14 tab 07/25/21 oxycodone 10 mg tablet 10 mg PO Q8H PRN #6 tab 07/25/21 testosterone cypionate 200 mg/mL 200 mg IM Q3W 30 Days #2 ml 08/05/21 intramuscular oil (Depo-Testosterone) cyclobenzaprine 10 mg tablet 10 mg PO TID PRN #14 tab 08/11/21 lorazepam 0.5 mg tablet (Ativan) 0.5 mg PO TID PRN #7 tab 08/11/21 Allergies Allergy/AdvReac Type Severity Reaction Status Date / Time gabapentin AdvReac Agitated Verified 07/25/21 14:52 Review of Systems Review of Systems: Positive back pain Yes all other systems are reviewed and are negative PMFSH Past Medical History Attestation statement: The following information was validated with the patient. Medical History Anxiety Back pain BPH (benign prostatic hyperplasia) Cocaine use disorder Essential hypertension ANGELIKA (generalized anxiety disorder) Gout Hypogonadism in male Hypovitaminosis D Knee osteoarthritis Mild major depression, single episode Mixed hyperlipidemia Neck pain Obesity Restless leg syndrome Stage III pressure ulcer Testosterone deficiency in male Surgical History History of ankle surgery History of colonoscopy History of spinal surgery History of tooth extraction Family History Family History Father HTN (hypertension) Gout Guillain-[place] syndrome Mother CVD (cardiovascular disease) Social History Social History Housing: House Alcohol intake: current Alcohol intake frequency: a few times a month Alcohol type: beer Patient Tobacco Use Status: Never used Tobacco e-Cigarette/Vaping Use: Never Used Second Hand Smoke Exposure: No Advance Directives: No Advance Directives Information Provided: Yes service: No Current occupational status: disabled Cognitive needs: No Hearing needs: No Vision needs: No Physical Exam Vital Signs: Vital Signs: Last Vital Signs Temp 97.4 F 08/11/21 01:03 Pulse 86 08/11/21 04:35 Resp 16 08/11/21 04:35 BP 106/66 08/11/21 04:35 Pulse Ox 96 08/11/21 04:35 BMI result Body Mass Index 32.1 Appearance: Alert. Oriented X3. No acute distress. Eyes: Pupils equal, round and reactive to light. ENT: Pharynx normal. Neck: Normal inspection. Neck supple. No lymph nodes noted. No crepitus CVS: Normal heart rate and rhythm. Pulses normal. Normal S1 and S2 Respiratory: No respiratory distress. Breath sounds normal. No Wheezing. No r ales Abdomen: Soft and nontender. No rigidity. No distention. good BS x4 Skin: Skin warm and dry. Normal skin color. Normal skin turgor. Extremities: No lower extremity edema. Neurovascular intact to all extremities. No Lacerations. No Rash Neuro: Oriented X 3. No motor deficit. No sensory deficit. Moving all extermities. No slurred speech MDM - Anxiety MDM Narrative Medical decision making narrative: Patient had 2 set of cardiac enzymes they were in the 40s then the 2nd set was in the 30s. No significant elevation noted. Patient EKG showed a sinus pattern heart rate was 80 [place] cares QT within normal limits is no acute ST segment elevation. Pain not anonymous with ACS. Patient's is 61 years old. Heart score is still less than 3. Patient's chest x-ray showed no pneumonia no pneu mothorax. After given Ativan symptom improved. Currently symptom free. Will discharge patient home. Close follow-up on an outpatient basis. Medical Records Attestation: I reviewed the patient's medical records. Lab Data Attestation: I reviewed the patient's lab results. Result diagrams: 08/11/21 03:00 08/11/21 03:00 Labs: Lab Results 08/11/21 08/11/21 08/11/21 Range/Units 03:00 03:00 03:00 WBC 10.1 (4.8-10.8) X10*3/uL RBC 4.21 L (4.60-5.80) X10*6/uL Hgb 13.0 L (14.0-18.0) g/dl Hct 39.4 L (42.0-52.0) % MCV 93.6 (80.0-98.0) fL MCH 30.9 (27.0-33.0) pg MCHC 33.0 (31.0-36.0) g/dl RDW 14.0 (11.0-16.0) % Plt Count 204 (160-400) X10*3/uL MPV 8.8 L (9.4-12.4) fL Immature Gran % (Auto) 0.5 H (0.0-0.4) % Neut % (Auto) 77.4 H (45-73) % Lymph % (Auto) 10.5 L (20-40) % Grainger % (Auto) 10.3 (2-11) % Eos % (Auto) 0.8 (0-4) % Baso % (Auto) 0.5 (0-2) % Lymph # (Auto) 1.1 L (1.2-4.9) X10*3/uL Grainger # (Auto) 1.0 (0.1-1.2) X10*3/uL Eos # (Auto) 0.1 (0.0-0.4) X10*3/uL Baso # (Auto) 0.1 (0.0-0.2) X10*3/uL Abs Immat Gran (auto) 0.05 H (0.00-0.03) X10*3/uL Absolute Neuts (auto) 7.9 (2.0-8.3) x10*3/uL Absolute Nucleated RBC 0.000 (0.0-0.012) X10*3/uL Nucleated RBC % (auto) 0.0 (0.0-0.2) /100WBC Sodium 131 L (135-145) mmol/L Potassium 5.2 H (3.3-5.1) mmol/L Chloride 97 (96-108) mmol/L Carbon Dioxide 28 (22-29) mmol/L Anion Gap 11 L (12-20) BUN 9 (9-16) mg/dL Creatinine 1.05 (0.5-1.4) mg/dL Estim Creat Clear Calc 91.9 Estimated GFR > 60 Random Glucose 116 H (60-115) mg/dL Calcium 8.5 (8.4-10.2) mg/dL Total Bilirubin 0.5 (0.0-1.0) mg/dL Direct Bilirubin 0.3 (0.0-0.5) mg/dL AST 27 D (5-37) U/L ALT 25 (0-40) U/L Alkaline Phosphatase 60 (39-117) U/L Troponin I High Sens 42.4 H (<3.5-35.0) ng/L Total Protein 6.2 L (6.5-8.0) g/dL Albumin 3.9 (3.5-5.0) g/dL Lipase 27 (8-78) U/L Urine Color Urine Appearance Urine pH (5.0-8.0) Ur Specific [place] (1.005-1.025) Urine Protein (NEG-TRACE) MG/DL Urine Glucose (UA) (NEG) MG/DL Urine Ketones (NEG) MG/DL Urine Blood (NEG) Urine Nitrite (NEG) Ur Leukocyte Esterase (NEG) Urine RBC (0) /HPF Urine WBC (0-4) /HPF Ur Squamous Epith Cells /LPF Urine Bacteria /LPF Ethyl Alcohol mg/dL 08/11/21 08/11/21 08/11/21 Range/Units 03:00 03:00 04:59 WBC (4.8-10.8) X10*3/uL RBC (4.60-5.80) X10*6/uL Hgb (14.0-18.0) g/dl Hct (42.0-52.0) % MCV (80.0-98.0) fL MCH (27.0-33.0) pg MCHC (31.0-36.0) g/dl RDW (11.0-16.0) % Plt Count (160-400) X10*3/uL MPV (9.4-12.4) fL Immature Gran % (Auto) (0.0-0.4) % Neut % (Auto) (45-73) % Lymph % (Auto) (20-40) % Grainger % (Auto) (2-11) % Eos % (Auto) (0-4) % Baso % (Auto) (0-2) % Lymph # (Auto) (1.2-4.9) X10*3/uL Grainger # (Auto) (0.1-1.2) X10*3/uL Eos # (Auto) (0.0-0.4) X10*3/uL Baso # (Auto) (0.0-0.2) X10*3/uL Abs Immat Gran (auto) (0.00-0.03) X10*3/uL Absolute Neuts (auto) (2.0-8.3) x10*3/uL Absolute Nucleated RBC (0.0-0.012) X10*3/uL Nucleated RBC % (auto) (0.0-0.2) /100WBC Sodium (135-145) mmol/L Potassium (3.3-5.1) mmol/L Chloride (96-108) mmol/L Carbon Dioxide (22-29) mmol/L Anion Gap (12-20) BUN (9-16) mg/dL Creatinine (0.5-1.4) mg/dL Estim Creat Clear Calc Estimated GFR Random Glucose (60-115) mg/dL Calcium (8.4-10.2) mg/dL Total Bilirubin (0.0-1.0) mg/dL Direct Bilirubin (0.0-0.5) mg/dL AST (5-37) U/L ALT (0-40) U/L Alkaline Phosphatase (39-117) U/L Troponin I High Sens 36.3 H (<3.5-35.0) ng/L Total Protein (6.5-8.0) g/dL Albumin (3.5-5.0) g/dL Lipase (8-78) U/L Urine Color YELLOW Urine Appearance CLEAR Urine pH 6.0 (5.0-8.0) Ur Specific [place] 1.015 (1.005-1.025) Urine Protein NEG (NEG-TRACE) MG/DL Urine Glucose (UA) NEG (NEG) MG/DL Urine Ketones NEG (NEG) MG/DL Urine Blood NEG (NEG) Urine Nitrite NEG (NEG) Ur Leukocyte Esterase NEG (NEG) Urine RBC 0-2 (0) /HPF Urine WBC 0-2 (0-4) /HPF Ur Squamous Epith Cells TRACE /LPF Urine Bacteria TRACE /LPF Ethyl Alcohol < 10 mg/dL Discharge Plan Discharge Clinical Impression: Anxiety, Chest pain Patient Disposition: Home, Self-Care Instructions: Chest Pain (DC), Anxiety (ED) Prescriptions: New cyclobenzaprine 10 mg tablet 10 mg PO TID PRN (Reason: pain) Qty: 14 0RF lorazepam [Ativan] 0.5 mg tablet 0.5 mg PO TID PRN (Reason: anxiety) Qty: 7 0RF No Action atorvastatin 40 mg tablet 40 mg PO BEDTIME 90 Days Qty: 90 3RF lisinopril 30 mg tablet 30 mg PO DAILY 90 Days Qty: 90 3RF cholecalciferol (vitamin D3) 50 mcg (2,000 unit) capsule 50 mcg PO DAILY 90 Days Qty: 90 3RF allopurinol 300 mg tablet 300 mg PO DAILY Qty: 90 1RF hydroxyzine pamoate 50 mg capsule 50 mg PO BID PRN (Reason: anxiety) 5 Days Qty: 10 0RF tamsulosin 0.4 mg capsule 0.4 mg PO DAILY Qty: 90 1RF cyclobenzaprine 10 mg tablet 10 mg PO TID PRN (Reason: muscle spasm) 30 Days Qty: 90 1RF risperidone [Risperdal] 0.5 mg tablet 0.5 mg PO BEDTIME 90 Days Qty: 90 0RF testosterone cypionate [Depo-Testosterone] 200 mg/mL oil 200 mg IM Q3W 30 Days Qty: 2 5RF cephalexin 500 mg capsule 500 mg PO Q6H 7 Days Qty: 28 0RF doxycycline hyclate 100 mg tablet 100 mg PO BID Qty: 14 0RF oxycodone 10 mg tablet 10 mg PO Q8H PRN (Reason: severe pain (scale score 7-10)) Qty: 6 0RF escitalopram oxalate 20 mg tablet 20 mg PO DAILY 90 Days Qty: 90 0RF colchicine 0.6 mg tablet 0.6 mg PO DAILY Qty: 30 0RF Rx Instructions: Take 1-2 tabs at first sign of gout attack Referrals: Physician,None [Primary Care Provider] - (Please follow-up with your heart doctor and your regular doctor on an outpatient basis. Small risk of heart attack still exist.)
[2021-08-11 03:07] LABS: Basophils Absolute Auto 0.1 X10*3/uL (0.0-0.2); Basophils Percent Auto 0.5 % (0-2); Eosinophils Absolute Auto 0.1 X10*3/uL (0.0-0.4); Eosinophils Percent Auto 0.8 % (0-4); Hematocrit 39.4 % (42.0-52.0); Imm Gran Abs Auto 0.05 X10*3/uL (0.00-0.03); Imm Gran Pct Auto 0.5 % (0.0-0.4); Lymphocytes Absolute Auto 1.1 X10*3/uL (1.2-4.9); Lymphocytes Percent Auto 10.5 % (20-40); MANUAL DIFF FLAG NO; Mean Corpuscular Hemoglobin 30.9 pg (27.0-33.0); Mean Corpuscular Volume 93.6 fL (80.0-98.0); Mean Platelet Volume 8.8 fL (9.4-12.4); Monocytes Percent Auto 10.3 % (2-11); Neutrophils Absolute Auto 7.9 x10*3/uL (2.0-8.3); Neutrophils Percent Auto 77.4 % (45-73); Platelet Count 204 X10*3/uL (160-400); Red Blood Count 4.21 X10*6/uL (4.60-5.80); White Blood Count 10.1 X10*3/uL (4.8-10.8)
[2021-08-11 03:08] LABS: Appearance Urine CLEAR; Color Urine YELLOW; Glucose Urine UA NEG (NEG); Leukocyte Esterase Urine NEG (NEG); Nitrite Urine NEG (NEG); Specific Gravity - Urine 1.015 (1.005-1.025); Urine Blood NEG (NEG); Urine Ketones NEG (NEG); Urine Protein NEG (NEG-TRACE)
[2021-08-11 03:25] LABS: Bacteria Urine TRACE /LPF; RBC Urine 0-2 /HPF (0); Squamous Epithelial Cell Urine TRACE /LPF; WBC Urine 0-2 /HPF (0-4)
[2021-08-11 03:26] LABS: Ethanol < 10 mg/dL
[2021-08-11 03:28] LABS: Alanine Aminotransferase 25 U/L (0-40); Albumin Level 3.9 g/dL (3.5-5.0); Alkaline Phosphatase 60 U/L (39-117); Anion Gap 11 (12-20); Aspartate Amino Transferase 27 U/L (5-37); Bilirubin Direct 0.3 mg/dL (0.0-0.5); Bilirubin Total 0.5 mg/dL (0.0-1.0); Blood Urea Nitrogen 9 mg/dL (9-16); Calcium 8.5 mg/dL (8.4-10.2); Carbon Dioxide 28 mmol/L (22-29); Chloride 97 mmol/L (96-108); Creatinine Clr Calc Pharmacy 91.9; Estimated Glomerular Filt Rate > 60; Glucose Random 116 mg/dL (60-115); Lipase 27 U/L (8-78); Potassium 5.2 mmol/L (3.3-5.1); Sodium 131 mmol/L (135-145); Total Protein 6.2 g/dL (6.5-8.0)
[2021-08-11 03:35] LABS: Troponin-I High Sensitivity 42.4 ng/L (<3.5-35.0)
[2021-08-11 04:35] VITALS: BP 106/66; PULSE 86; RESP 16; O2SAT 96
[2021-08-11 05:23] LABS: Troponin-I High Sensitivity 36.3 ng/L (<3.5-35.0)
== END 2021-08-11 05:51 | disposition home or self-care (01) ==
PROVIDERS: Emergency Provider Emergency Medicine Emergency Medical Services
DX: F41.9 Anxiety disorder, unspecified (principal); R07.9 Chest pain, unspecified; R11.2 Nausea with vomiting, unspecified; I10 Essential (primary) hypertension; E78.5 Hyperlipidemia, unspecified; Z79.02 Long term (current) use of antithrombotics/antiplatelets; Z79.899 Other long term (current) drug therapy
CPT/HCPCS: 36415; 71045; 80048; 80076; 81001; 82077; 83690; 84484; 85025; 93005; 96361; 96374; 99283; 99284

== ENCOUNTER → 2021-12-19 11:03 | Outpatient (BNVA) | payer OTHER, SELFPAY | PROVIDERS: PCP Internal Medicine; Visit Provider Nurse Practitioner Family | DX: M17.0 Bilateral primary osteoarthritis of knee (principal); M1A.0690 Idiopathic chronic gout, unspecified knee, without tophus (tophi) | CPT/HCPCS: 99212 ==

== ENCOUNTER 2021-12-20 10:18 | Outpatient (REF) | payer OTHER, SELFPAY ==
--- NOTE | ~2021-12-20 | XR_ITS ---
EXAMINATION: BILATERAL KNEE X-RAY CLINICAL INFORMATION: Pain COMPARISON: Previous x-rays from 2019 and 2020 TECHNIQUE: 3 views of each knee FINDINGS: Left: Bone alignment is normal. No fracture or dislocation is seen. There is tricompartment arthritis. There is a moderate joint effusion. Right: Bone alignment is normal. No fracture or dislocation. There is tricompartment arthritis. There is degenerative meniscal calcification. There is a large joint effusion. There is a increased attenuation in the soft tissues adjacent to the lateral femoral condyle similar to previous exam, question representing capsular calcification. XR/XR knee LT 3V IMPRESSION: Bilateral arthritis, right greater than left.
--- NOTE | ~2021-12-20 | XR_ITS ---
EXAMINATION: BILATERAL KNEE X-RAY CLINICAL INFORMATION: Pain COMPARISON: Previous x-rays from 2019 and 2020 TECHNIQUE: 3 views of each knee FINDINGS: Left: Bone alignment is normal. No fracture or dislocation is seen. There is tricompartment arthritis. There is a moderate joint effusion. Right: Bone alignment is normal. No fracture or dislocation. There is tricompartment arthritis. There is degenerative meniscal calcification. There is a large joint effusion. There is a increased attenuation in the soft tissues adjacent to the lateral femoral condyle similar to previous exam, question representing capsular calcification. XR/XR knee RT 3V IMPRESSION: Bilateral arthritis, right greater than left.
[2021-12-20 11:24] LABS: Hematocrit 36.8 % (42.0-52.0); Hemoglobin 12.1 g/dl (14.0-18.0); Mean Corpuscular HGB Conc 32.9 g/dl (31.0-36.0); Mean Corpuscular Hemoglobin 29.6 pg (27.0-33.0); Mean Platelet Volume 9.4 fL (9.4-12.4); Platelet Count 242 X10*3/uL (160-400); Red Blood Count 4.09 X10*6/uL (4.60-5.80); Red Cell Distribution Width 14.7 % (11.0-16.0); White Blood Count 4.9 X10*3/uL (4.8-10.8)
[2021-12-20 11:38] LABS: Alanine Aminotransferase 20 U/L (0-40); Albumin Level 4.1 g/dL (3.5-5.0); Alkaline Phosphatase 83 U/L (39-117); Anion Gap 17 (12-20); Aspartate Amino Transferase 20 U/L (5-37); Bilirubin Total 0.9 mg/dL (0.0-1.0); Blood Urea Nitrogen 10 mg/dL (9-16); Calcium 9.4 mg/dL (8.4-10.2); Carbon Dioxide 25 mmol/L (22-29); Chloride 98 mmol/L (96-108); Estimated Glomerular Filt Rate > 60; Glucose Random 107 mg/dL (60-115); Potassium 4.6 mmol/L (3.3-5.1); Sodium 135 mmol/L (135-145)
[2021-12-20 12:01] LABS: Prostate Specific Antigen 0.14 ng/mL (<0.05-4.0)
[2021-12-24 10:46] LABS: Testosterone, Total 27 ng/dL (250-1100)
== END 2021-12-20 10:19 | disposition home or self-care (01) ==
LOC: HO.XRAY 10:18
PROVIDERS: Absent Provider Urology; PCP Internal Medicine; Visit Provider Nurse Practitioner Family
DX: M25.561 Pain in right knee (principal); M25.562 Pain in left knee; E29.1 Testicular hypofunction; M1A.0690 Idiopathic chronic gout, unspecified knee, without tophus (tophi); Z12.5 Encounter for screening for malignant neoplasm of prostate
CPT/HCPCS: 36415; 73562; 80053; 84153; 84403; 84550; 85027

== ENCOUNTER 2021-12-23 12:28 | Outpatient (REF) | payer OTHER, SELFPAY ==
[2021-12-23 13:27] LABS: Amphetamine Screen Urine Not Detected (Not Detect); Barbiturates, Urine Not Detected (Not Detect); Benzodiazepines Screen Urine Not Detected (Not Detect); Cannabinoid Screen Urine Not Detected (Not Detect); Cocaine Screen Urine Not Detected (Not Detect); Fentanyl, urine POSITIVE (Not Detect); Opiate Screen Urine Not Detected (Not Detect); Phencyclidine Screen Urine Not Detected (Not Detect)
[2021-12-30 09:32] LABS: Benzoylecgonine NEGATIVE; Cocaine Comment NEGATIVE; Codeine, Ur NEGATIVE; Hydrocodone, Ur NEGATIVE; Hydromorphone, Ur NEGATIVE; Morphine, Ur NEGATIVE; Norhydrocodone, Ur NEGATIVE; Noroxycodone, Ur NEGATIVE; Oxycodone, Ur NEGATIVE; Oxymorphone, Ur NEGATIVE
== END 2021-12-23 12:29 | disposition home or self-care (01) ==
LOC: HO.LNP 12:28
PROVIDERS: Visit Provider Internal Medicine
DX: M54.9 Dorsalgia, unspecified (principal)
CPT/HCPCS: 80307; 80353; 80364; 80365

== ENCOUNTER → 2022-01-09 09:27 | Outpatient (BNVA) | payer OTHER, SELFPAY | PROVIDERS: PCP Internal Medicine; Visit Provider Orthopaedic Surgery | DX: M17.11 Unilateral primary osteoarthritis, right knee (principal); M25.461 Effusion, right knee | CPT/HCPCS: 20610; 99212; J1100 ==

== ENCOUNTER → 2022-04-20 08:12 | Outpatient (BNVA) | payer OTHER, SELFPAY | PROVIDERS: PCP Internal Medicine; Visit Provider Orthopaedic Surgery | DX: M17.0 Bilateral primary osteoarthritis of knee (principal); M25.461 Effusion, right knee; E11.42 Type 2 diabetes mellitus with diabetic polyneuropathy; E11.621 Type 2 diabetes mellitus with foot ulcer; L97.519 Non-pressure chronic ulcer of other part of right foot with unspecified severity | CPT/HCPCS: 20610; 99212; J1100 ==

== ENCOUNTER → 2022-06-08 10:08 | Outpatient (BNVA) | payer OTHER, MEDICAID, SELFPAY | PROVIDERS: PCP Internal Medicine; Visit Provider Orthopaedic Surgery | DX: M17.0 Bilateral primary osteoarthritis of knee (principal); M25.461 Effusion, right knee; L89.893 Pressure ulcer of other site, stage 3 | CPT/HCPCS: 20610; 99212 ==

== ENCOUNTER 2022-10-05 08:36 | Outpatient (REF) | payer OTHER, MEDICAID, SELFPAY | END 2022-10-05 08:37 | disposition home or self-care (01) | LOC: HO.MRI 08:36 | PROVIDERS: PCP Internal Medicine; Visit Provider Physician Assistant | DX: Z13.89 Encounter for screening for other disorder (principal) ==

== ENCOUNTER 2022-10-12 17:01 | Outpatient (REF) | payer OTHER, MEDICAID, SELFPAY | END 2022-10-12 17:02 | disposition home or self-care (01) | LOC: HO.LNP 17:01 | PROVIDERS: Visit Provider Physician Assistant | DX: S91.101D Unspecified open wound of right great toe without damage to nail, subsequent encounter (principal) | CPT/HCPCS: 87070; 87073; 87077; 87186; 87205 ==

== ENCOUNTER 2022-10-15 08:24 | Outpatient (AMB) | payer OTHER, MEDICAID, SELFPAY ==
[2022-10-15 08:27] VITALS: BMI 33.7
--- NOTE | 2022-10-15 08:27 | MHC.OFFVIS ---
Intake Vital Signs 10/15/22 08:27 Height 5 ft 11 in Weight 242 lb BMI 33.7 Intake Visit Reasons: OV - Bilateral Knee Pain Intake Note: Anibal is a 62 year old male who presents today for a follow up of his right knee pain. At last visit surgery was discussed, but needs to be pushed off due to non healing toe wound. He is being treated for this at wound care but it has still not healed. He would like to have his knee aspirated today, last aspirated 06/08/22. Allergies gabapentin Adverse Reaction (Verified 04/20/22 08:16) Agitated HPI OV - Bilateral Knee Pain HPI Details Anibal is a 62 year old man who returns to discuss his bilateral knee OA, R>L. He last received an aspiration to his right knee on 06/08/22, and bilateral injections on 04/20/22, which he says was very helpful. He would like a repeat aspiration & injection today as he says last week he had difficulty walking due to his bilateral knee pain and swelling, R>L. He has pain with daily activity, worse with prolonged standing or walking. He is currently seeing wound care for an open wound on his right great toe. We have discussed surgery in the past and he is unable to have surgery while he has this persistent open wound. He says this has been present for ~18 months, and he recently had an MRI & cultures taken to assess for Osteomyelitis. He says this began as a friction blister. He says his PCP has discussed referring him to a vascular surgeon concerning his toe. He denies Diabetes, but has polyneuropathy. [facility] Medical History Anxiety Back pain BPH (benign prostatic hyperplasia) Cocaine use disorder Essential hypertension ANGELIKA (generalized anxiety disorder) Gout Hypogonadism in male Hypovitaminosis D Knee osteoarthritis Mild major depression, single episode Mixed hyperlipidemia Neck pain Obesity Restless leg syndrome Stage III pressure ulcer Testosterone deficiency in male Surgical History History of ankle surgery History of colonoscopy History of spinal surgery History of tooth extraction Family History Father HTN (hypertension) Gout Guillain-[place] syndrome Mother CVD (cardiovascular disease) Social History Housing: House Alcohol intake: current Alcohol intake frequency: a few times a month Alcohol type: beer Patient Tobacco Use Status: Never used Tobacco e-Cigarette/Vaping Use: Never Used Second Hand Smoke Exposure: No service: No Current occupational status: disabled Cognitive needs: Yes Hearing needs: No Vision needs: No Review of Systems Const All systems reviewed & are unremarkable except as noted in HPI and below Physical Exam Vital Signs: BMI result Body Mass Index 33.7 Const General: no acute distress and alert Orientation/consciousness: patient oriented x3 Neuro General: patient oriented x3 Extrem Other: Bilateral Knees: Right Knee effusion, large Medial TTP bilaterally Open wound on bottom of right great toe, likely sequela from prior spine surgery that left him with neuropathy Psych Appearance: grossly normal Affect: normal affect Attitude: cooperative Office Procedures Joint Injection/Drain Joint Injection/Drain Details: Injected 1 mL of Decadron and 3 mL 1% lidocaine and 3 mL of 0.25% Marcaine. Site was prepped using aseptic technique. Patient tolerated the procedure well. Primary Site: right knee Secondary Site: left knee Approach Used: anterolateral Coding - Large joint - Glenohumeral/Tronchanteric Bursa/Intraarticular Procedure code (CPT) selection complete Results Reviewed Results Reviewed: 10/15/22 08:27 BUPivacaine MPF 0.25 % [Sensorcaine-MPF 0.25% 10 ML] 10 ml .ROUTE .STK-MED ONE Lidocaine HCl 1 % [Xylocaine 1 %] 2 ml .ROUTE .STK-MED ONE Lidocaine HCl 2 % MPF [Xylocaine 2 % MPF] 5 ml .ROUTE .STK-MED ONE dexAMETHasone sod phosphate [Decadron] 4 mg .ROUTE .STK-MED ONE Assessment & Plan Assessment & Plan (1) Primary osteoarthritis of right knee: Code(s): M17.11 - Unilateral primary osteoarthritis, right knee Plan: This is a 61 year old man with severe right knee OA with a large effusion. He has pain with daily activity, worse with prolonged standing or ambulation, and is finding minimal relief from his P.O Diclofenac. He last received a bilateral steroid injection on 04/20/22, with some relief, and had his right knee aspirated on 06/08/22. I discussed his diagnosis and treatment options, he continues to remain a non-surgical candidate at this time due to an open wound on his right great toe. I recommend a repeat aspiration of his right knee and NSAIDs. I aspirated normal appearing joint fluid from his right knee, and injected his bilateral knees with a steroid cocktail, which he tolerated well. He will follow up prn. I referred him to Dr. Boudreaux in Vascular to discuss his ongoing right great toe wound. (2) Effusion, right knee: Code(s): M25.461 - Effusion, right knee (3) Osteoarthritis of left knee: Code(s): M17.12 - Unilateral primary osteoarthritis, left knee Plan Scribed for Tang Langley MD by James Caal, medical technologist generalist, on 10/15/22 at 8:45 AM, EST. Orders: Referrals Vascular Surgery Referral L98.499 - Non-pressure chronic ulcer of skin of other sites with unspecified severity Coding Level of Care Code Est Pt Level 4 (37800) Diagnoses Primary osteoarthritis of right knee M17.11 Effusion, right knee M25.461 Osteoarthritis of left knee M17.12 CPT Codes Coding - 68390 Large joint: 28221 - Large joint ([id number]) Coding - Joint 7: 28242 - Glenohumeral/Tronchanteric Bursa/Intraarticular ([id number])
== END 2022-10-15 09:00 | disposition home or self-care (01) ==
PROVIDERS: PCP Internal Medicine; Visit Provider Orthopaedic Surgery
DX: M17.0 Bilateral primary osteoarthritis of knee (principal); M25.461 Effusion, right knee
CPT/HCPCS: 20610; 99214

== ENCOUNTER → 2022-10-15 08:24 | Outpatient (BNVA) | payer OTHER, MEDICAID, SELFPAY | PROVIDERS: PCP Internal Medicine; Visit Provider Orthopaedic Surgery | DX: M25.461 Effusion, right knee (principal); M17.0 Bilateral primary osteoarthritis of knee | CPT/HCPCS: 20610; 99212; J1100 ==

== ENCOUNTER 2022-11-02 17:04 | Outpatient (AMB) | payer OTHER, MEDICAID, SELFPAY ==
--- NOTE | 2022-11-02 17:06 | A.OFFPC_ITS ---
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 Accompanied by: Self / Same As Patient Allergies gabapentin Adverse Reaction (Verified 11/02/22 17:14) Agitated Medication List - Last Reconciled 11/02/22 by Torrie Joyce MD allopurinol 300 mg PO DAILY atorvastatin 40 mg PO BEDTIME 90 days cholecalciferol (vitamin D3) 50 mcg PO DAILY 90 days colchicine (gout) 0.6 mg PO DAILY cyclobenzaprine 10 mg PO TID PRN 30 days diclofenac sodium 75 mg PO BID PRN 30 days escitalopram oxalate 20 mg PO DAILY 90 days lisinopril 30 mg PO DAILY 90 days oxycodone 5 mg PO BID PRN 7 days prednisone 3 tab once daily for 3 days, then 2 tabs once daily for 3 days, then 1 tab daily for 3 days risperidone (Risperdal) 0.5 mg PO BEDTIME 90 days tamsulosin 0.4 mg PO DAILY testosterone cypionate (Depo-Testosterone) 200 mg IM Q3W 30 days Tobacco use date assessed: 11/02/22 Dental Screening Dental Screen Date: 11/02/22 Did you have a dental visit in the last 12 months?: No Did you have a dental problem in the last 6 months where you did not have access to dental care?: No Was dental information given to patient?: Patient has dentist HPI HPI Comments History of Present Illness Details This is a 62-year-old male with hypertension, mixed hyperlipidemia, gout, testosterone deficiency and mild major depression that comes today for follow-up on his conditions. Blood pressure stable. Lipid panel will be ordered has not had a gout attack in over a month. On testosterone supplement follow by Urology. Depression has been stable with escitalopram. He goes to the wound clinic due to an open wound in foot and will see vascular surgery soon. No chest pain or shortness of breath. [facility] Medical History Anxiety Back pain BPH (benign prostatic hyperplasia) Cocaine use disorder Essential hypertension ANGELIKA (generalized anxiety disorder) Gout Hypogonadism in male Hypovitaminosis D Knee osteoarthritis Mild major depression, single episode Mixed hyperlipidemia Neck pain Obesity Restless leg syndrome Stage III pressure ulcer Testosterone deficiency in male Surgical History History of ankle surgery History of colonoscopy History of spinal surgery History of tooth extraction Family History Father HTN (hypertension) Gout Guillain-[place] syndrome Mother CVD (cardiovascular disease) Social History Housing: House Alcohol intake: current Alcohol intake frequency: a few times a month Alcohol type: beer Patient Tobacco Use Status: Never used Tobacco e-Cigarette/Vaping Use: Never Used Second Hand Smoke Exposure: No service: No Current occupational status: disabled Cognitive needs: Yes Hearing needs: No Vision needs: No Questionnaire PHQ-9 Over the last 2 weeks, how often have you been bothered by any of the following problems? 1. Little interest or pleasure in doing things: not at all 2. Feeling down, depressed, or hopeless: not at all 3. Trouble falling or staying asleep, or sleeping too much: not at all 4. Feeling tired or having little energy: not at all 5. Poor appetite or overeating: not at all 6. Feeling bad about yourself - or that you are a failure or have let yourself or your family down: not at all 7. Trouble concentrating on things, such as reading the newspaper or watching television: not at all 8. Moving or speaking so slowly that other people could have noticed. Or the opposite - being so fidgety or restless that you have been moving around a lot more than usual: not at all 9. Thoughts that you would be better off or of hurting yourself in some way: not at all Total score: 0 Depression Screening Interpretation: Negative 22807 - PHQ-9 Billing: Yes Source: Developed by Drs. Russell Stratton, Tiara Arce, Shaq Tinoco and colleagues, with an educational khadra from [email or web address]. Thrive Questionnaire Date Thrive assessed: 11/02/22 I am a: Patient What is your living situation today?: I have a steady place to live Within the past 12 months, did the food you bought not last and you didn't have the money to get more?: Never true Within the past 12 months, did you worry whether your food would run out before you got money to buy more?: Never true Do you have trouble paying for medicines?: No Do you have trouble getting transportation to medical appointments?: No Do you have trouble paying your heating and electricity bill?: No Do you have trouble taking care of your child, family member or friend?: No Do you have trouble with day-to-day activities such as bathing, preparing meals, shopping, managing finances, etc.?: No Are you currently unemployed and looking for a job?: No Are you interested in more education?: No Please select the resources that you would like help with: None Currently or been in a relationship where the following occur: no concerns reported AUDIT C Alcohol Use Questionnaire (AUDIT-C) 1. How often do you have a drink containing alcohol?: Monthly or less 2. How many drinks containing alcohol do you have on a typical day when you are drinking?: 1 or 2 3. How often do you have six or more drinks on one occasion?: Never Total Score: 1 Score Reviewed/Action Taken: No ANGELIKA-7 AMB Questionnaire ANGELIKA-7 Date ANGELIKA - 7 assessed: 11/02/22 Feeling nervous, anxious, or on edge: 1 = Several days Not being able to stop or control worryin = Not at all Worrying too much about different things: 0 = Not at all Trouble relaxin = Not at all Being so restless that it is hard to sit still: 0 = Not at all Becoming easily annoyed or irritable: 0 = Not at all Feeling afraid as if something awful might happen: 0 = Not at all Total ANGELIKA-7 score (0-4 normal; 5-9 mild; 10-14 moderate; 15-21 severe): 1 Source: Developed by Drs. Russell Stratton, Tiara Arce, Shaq Tinoco and colleagues, with an educational khadra from [email or web address]. ANGELIKA-7 Assessment Billing ANGELIKA-7 Assessment Tool: ANGELIKA-7 Assessment 37219 Review of Systems Const All systems reviewed & are unremarkable except as noted in HPI and below Eyes Reports no additional complaints, Denies change in vision and Denies other visual disturbances Card Denies chest pain at rest, Denies chest pain with activity, Denies edema, Denies irregular heart rhythm, Denies claudication, Denies dyspnea, Denies dyspnea on exertion, Denies orthopnea, Denies paroxysmal nocturnal dyspnea and Denies slow heart rate Resp Denies cough, Denies dyspnea and Denies dyspnea on exertion GI Denies abdominal pain, Denies change in bowel habits, Denies excessive flatus, Denies nausea and Denies vomiting Denies urinary hesitancy, Denies urinary incontinence and Denies urinary urgency Musc Denies abnormal gait, Denies atrophy, Denies deformity and Denies limited range of motion Skin/Breast Denies bleeding lesions, Denies changing lesions and Denies rash Neuro Denies abnormal gait and Denies lack of coordination Physical exam (Primary Care) Vital Signs: Last Vital Signs BP 140/92 H 11/02/22 17:07 BMI result Body Mass Index 33.9 Tobacco/Smoking Status: Tobacco use Status Tobacco use date assessed 11/02/22 11/02/22 17:12 Patient Tobacco Use Status Never used Tobacco 11/02/22 17:12 e-Cigarette/Vaping Use Never Used 11/02/22 17:12 PHQ-9: PHQ-9 Score PHQ-9: Total score 0 11/02/22 17:12 Depression Screening Interpretation: Negative Thrive Assessment: Date of Thrive Assessment Date Thrive assessed 11/02/22 11/02/22 17:12 Currently or been in a relationship where the following occur: no concerns reported Eyes General: appearance normal, both eyes and all related structures Eyelids: Yes eyelids normal Conjunctivae: conjunctivae normal Neck Neck: Yes normal visual inspection and Yes supple Resp Effort & Inspection: normal respiratory effort Auscultation: clear to auscultation bilaterally Cardio Jugular venous distension: no JVD Rate: regular rate Rhythm: regular rhythm Heart sounds: S1 normal heart sound present and S2 normal heart sound present Extrem Other: Open wound in foot General: Yes full ROM Assessment and Plan Assessment & Plan (1) Essential hypertension: Code(s): I10 - Essential (primary) hypertension Plan: Continue lisinopril. Blood pressure goal is equal or less than 130/80. (2) Testosterone deficiency in male: Code(s): E29.1 - Testicular hypofunction Plan: Continue testosterone. Follow-up with Urology. (3) Gout: Code(s): M10.9 - Gout, unspecified Qualifiers: Gout site: knee Gout etiology: idiopathic Chronicity: chronic Laterality: unspecified laterality Presence of tophus: without tophus Qualified Code(s): M1A.0690 - Idiopathic chronic gout, unspecified knee, without tophus (tophi) Plan: Continue allopurinol. (4) Mild major depression, single episode: Code(s): F32.0 - Major depressive disorder, single episode, mild Plan: Continue escitalopram. (5) Mixed hyperlipidemia: Code(s): E78.2 - Mixed hyperlipidemia Plan: Continue statins. Orders: Orders Comprehensive [place]. Panel Fast Today I10 - Essential (primary) hypertension Lipid Panel Today E78.5 - Hyperlipidemia, unspecified PSA,Total (Free>4and<10) Today Z12.5 - Encounter for screening for malignant neoplasm of prostate Uric Acid Today M10.9 - Gout, unspecified Vitamin D 25-OH Total Today E55.9 - Vitamin D deficiency, unspecified Coding Level of Care Code Est Pt Level 4 (13455) Diagnoses Essential hypertension I10 Testosterone deficiency in male E29.1 Gout M1A.0690 Gout site: knee Gout etiology: idiopathic Chronicity: chronic Laterality: unspecified laterality Presence of tophus: without tophus Mild major depression, single episode F32.0 Mixed hyperlipidemia E78.2 Additional Codes ANGELIKA-7 Assessment Billing - ANGELIKA-7 Assessment Tool: ANGELIKA-7 Assessment 20595 ([id number]) Time Spent (min) 23
[2022-11-02 17:07] VITALS: BP 140/92; BMI 33.9
== END 2022-11-02 17:24 | disposition home or self-care (01) ==
PROVIDERS: PCP Internal Medicine; Visit Provider Internal Medicine
DX: I10 Essential (primary) hypertension (principal); E29.1 Testicular hypofunction; F32.0 Major depressive disorder, single episode, mild; M1A.0690 Idiopathic chronic gout, unspecified knee, without tophus (tophi); E78.2 Mixed hyperlipidemia
CPT/HCPCS: 99214

== ENCOUNTER 2023-01-14 11:41 | Outpatient (REF) | payer OTHER, SELFPAY ==
--- NOTE | ~2023-01-14 | XR_ITS ---
EXAMINATION: XR KNEES, BILATERAL XR KNEES STANDING, BILATERAL CLINICAL INFORMATION: Knee pain. COMPARISON: 12/20/2021 bilateral knees. TECHNIQUE: AP standing view as well as lateral and sunrise views of bilateral knees. FINDINGS: Left Knee: Advanced tricompartmental degenerative changes with marked medial joint space narrowing and tricompartmental osteophytes. Joint effusion present. Right Knee: Advanced tricompartmental degenerative changes with marked lateral joint space narrowing and tricompartmental osteophytes. Medial compartment chondrocalcinosis. Joint effusion present. Redemonstration of increased attenuation in the soft tissues adjacent to the right lateral femoral condyle, possibly representing capsular calcification as previously noted. XR/XR knee LT 2V IMPRESSION: Advanced degenerative changes in bilateral knees.
--- NOTE | ~2023-01-14 | XR_ITS ---
EXAMINATION: XR KNEES, BILATERAL XR KNEES STANDING, BILATERAL CLINICAL INFORMATION: Knee pain. COMPARISON: 12/20/2021 bilateral knees. TECHNIQUE: AP standing view as well as lateral and sunrise views of bilateral knees. FINDINGS: Left Knee: Advanced tricompartmental degenerative changes with marked medial joint space narrowing and tricompartmental osteophytes. Joint effusion present. Right Knee: Advanced tricompartmental degenerative changes with marked lateral joint space narrowing and tricompartmental osteophytes. Medial compartment chondrocalcinosis. Joint effusion present. Redemonstration of increased attenuation in the soft tissues adjacent to the right lateral femoral condyle, possibly representing capsular calcification as previously noted. XR/XR knee RT 2V IMPRESSION: Advanced degenerative changes in bilateral knees.
--- NOTE | ~2023-01-14 | XR_ITS ---
EXAMINATION: XR KNEES, BILATERAL XR KNEES STANDING, BILATERAL CLINICAL INFORMATION: Knee pain. COMPARISON: 12/20/2021 bilateral knees. TECHNIQUE: AP standing view as well as lateral and sunrise views of bilateral knees. FINDINGS: Left Knee: Advanced tricompartmental degenerative changes with marked medial joint space narrowing and tricompartmental osteophytes. Joint effusion present. Right Knee: Advanced tricompartmental degenerative changes with marked lateral joint space narrowing and tricompartmental osteophytes. Medial compartment chondrocalcinosis. Joint effusion present. Redemonstration of increased attenuation in the soft tissues adjacent to the right lateral femoral condyle, possibly representing capsular calcification as previously noted. XR/XR knee standing BI IMPRESSION: Advanced degenerative changes in bilateral knees.
== END 2023-01-14 11:42 | disposition home or self-care (01) ==
LOC: HO.HOSX 11:41
PROVIDERS: Visit Provider Orthopaedic Surgery
DX: M17.0 Bilateral primary osteoarthritis of knee (principal); M25.461 Effusion, right knee
CPT/HCPCS: 20610; 73560; 73565; 99212; J0665; J1100

== ENCOUNTER 2023-01-14 13:30 | Outpatient (AMB) | payer OTHER, SELFPAY ==
--- NOTE | 2023-01-14 13:33 | MHC.OFFVIS ---
Intake Intake Visit Reasons: OV - Bilateral Knee Pain Intake Note: Anibal is a 62 year old male who presents today for a follow up of his bilateral knee pain. At his last appointment on 10/15/22 he has bilateral knees injected and the right knee aspirated. Patient reports that he would like to have both the knees aspirated and injected today Allergies gabapentin Adverse Reaction (Verified 11/02/22 17:14) Agitated HPI OV - Bilateral Knee Pain HPI Details Anibal is a 62 year old man who returns to discuss his bilateral knee OA, R>L. He last received an aspiration to his right knee on 10/15/22, and bilateral injections othe same appointment, which he says was very helpful. He would like a repeat aspiration & injection today as he says last week he had difficulty walking due to his bilateral knee pain and swelling, R>L. He has pain with daily activity, worse with prolonged standing or walking. He continues to have an open wound on his right great toe. We have discussed surgery in the past and he is unable to have surgery while he has this persistent open wound. He says this has been present for ~21 months, and he recently had an MRI & cultures taken to assess for Osteomyelitis. He says this began as a friction blister. He says his PCP has discussed referring him to a vascular surgeon concerning his toe. He denies Diabetes, but has polyneuropathy. [facility] Medical History Anxiety Back pain BPH (benign prostatic hyperplasia) Cocaine use disorder Essential hypertension ANGELIKA (generalized anxiety disorder) Gout Hypogonadism in male Hypovitaminosis D Knee osteoarthritis Mild major depression, single episode Mixed hyperlipidemia Neck pain Obesity Restless leg syndrome Stage III pressure ulcer Testosterone deficiency in male Surgical History History of ankle surgery History of colonoscopy History of spinal surgery History of tooth extraction Family History Father HTN (hypertension) Gout Guillain-[place] syndrome Mother CVD (cardiovascular disease) Social History Housing: House Alcohol intake: current Alcohol intake frequency: a few times a month Alcohol type: beer Patient Tobacco Use Status: Never used Tobacco e-Cigarette/Vaping Use: Never Used Second Hand Smoke Exposure: No service: No Current occupational status: disabled Cognitive needs: Yes Hearing needs: No Vision needs: No Review of Systems Const All systems reviewed & are unremarkable except as noted in HPI and below Physical Exam Const General: no acute distress and alert Orientation/consciousness: patient oriented x3 HEENT Head: Yes normocephalic and Yes atraumatic Eyes EOM: EOMs intact bilaterally Resp Effort & Inspection: normal respiratory effort and able to speak in complete sentences Cardio Jugular venous distension: no JVD Skin General skin exam: turgor normal Rashes: no rashes Neuro General: patient oriented x3 Extrem Other: Bilateral Knees: bilateral Knee effusion, large medial TTP bilaterally Open wound on bottom of right great toe, likely sequela from prior spine surgery that left him with neuropathy Psych Appearance: grossly normal Affect: normal affect Attitude: cooperative Office Procedures Joint Injection/Drain Joint Injection/Drain Details: Injected 1 mL of Decadron and 3 mL 1% lidocaine and 3 mL of 0.25% Marcaine. Site was prepped using aseptic technique. Patient tolerated the procedure well. Primary Site: right knee Secondary Site: left knee Approach Used: anterolateral Coding - Large joint - Glenohumeral/Tronchanteric Bursa/Intraarticular Procedure code (CPT) selection complete Results Reviewed Results Reviewed: 01/14/23 13:42 BUPivacaine MPF 0.25 % [Sensorcaine-MPF 0.25% 10 ML] 10 ml .ROUTE .STK-MED ONE Lidocaine HCl 1 % [Xylocaine 1 %] 2 ml .ROUTE .STK-MED ONE Lidocaine HCl 2 % MPF [Xylocaine 2 % MPF] 5 ml .ROUTE .STK-MED ONE dexAMETHasone sod phosphate [Decadron] 4 mg .ROUTE .STK-MED ONE I personally reviewed relevant radiographs. Bilateral knee osteoarthritis, R>L Assessment & Plan Assessment & Plan (1) Primary osteoarthritis of right knee: Code(s): M17.11 - Unilateral primary osteoarthritis, right knee Plan: This is a 62 year old man with severe right knee OA with a large effusion. He has pain with daily activity, worse with prolonged standing or ambulation, and is finding minimal relief from his P.O Diclofenac. He last received a bilateral steroid injection on 10/15/22, with some relief, and had his right knee aspirated the same appointment. I discussed his diagnosis and treatment options, he continues to remain a non-surgical candidate at this time due to an open wound on his right great toe. I aspirated 70-80 mLs of normal appearing joint fluid from each knee, and injected his bilateral knees with a steroid cocktail, which he tolerated well. He will follow up prn. (2) Effusion, right knee: Code(s): M25.461 - Effusion, right knee (3) Osteoarthritis of left knee: Code(s): M17.12 - Unilateral primary osteoarthritis, left knee Orders: Orders XR knee standing BI 01/14/23 M25.569 - Pain in unspecified knee XR knee LT 2V 01/14/23 M25.569 - Pain in unspecified knee XR knee RT 2V 01/14/23 M25.569 - Pain in unspecified knee Coding Level of Care Code Est Pt Level 4 (95079) Diagnoses Primary osteoarthritis of right knee M17.11 Effusion, right knee M25.461 Osteoarthritis of left knee M17.12 CPT Codes Coding - 12593 Large joint: 45563 - Large joint ([id number]) Coding - Joint 7: 51319 - Glenohumeral/Tronchanteric Bursa/Intraarticular ([id number])
== END 2023-01-14 14:49 | disposition home or self-care (01) ==
PROVIDERS: PCP Internal Medicine; Visit Provider Orthopaedic Surgery
DX: M17.0 Bilateral primary osteoarthritis of knee (principal); M25.461 Effusion, right knee
CPT/HCPCS: 20610; 99213

== ENCOUNTER 2023-02-16 09:19 | Outpatient (AMB) | payer OTHER, MEDICAID, SELFPAY ==
--- NOTE | 2023-02-16 09:20 | A.OFFVIS_ITS ---
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 Currently using silver alginate and a barrier cream w/ guaze, no hx of debridement or grafting. Pt changes dressing QOD. 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 This wound dates back to May of 2021. He reports that it began as a blister. He has a history of cervical radiculopathy with a fair amount of pain. This all dates back to previous cervical spinal fusion surgery. He is unable to tolerate any sort are orthotic. He was seen by the orthopedic team and was in need of surgery for bilateral osteoarthritis. Of note he is a nonsmoker and nondiabetic but does have polyneuropathy. Now presents to us for vascular evaluation [facility] Medical History Restless leg syndrome Stage III pressure ulcer Cocaine use disorder Mild major depression, single episode ANGELIKA (generalized anxiety disorder) Back pain Essential hypertension Neck pain Mixed hyperlipidemia Obesity Testosterone deficiency in male BPH (benign prostatic hyperplasia) Knee osteoarthritis Hypovitaminosis D Hypogonadism in male Gout Anxiety Surgical History History of tooth extraction History of spinal surgery History of ankle surgery History of colonoscopy Family History Father HTN (hypertension) Gout Guillain-[place] syndrome Mother CVD (cardiovascular disease) Social History Housing: House Alcohol intake: current Alcohol intake frequency: a few times a month Alcohol type: beer Patient Tobacco Use Status: Never used Tobacco e-Cigarette/Vaping Use: Never Used Second Hand Smoke Exposure: No service: No Current occupational status: disabled Cognitive needs: Yes Hearing needs: No Vision needs: No Review of Systems Const All systems reviewed & are unremarkable except as noted in HPI and below Reports no additional complaints ENT Reports Normal hearing present Card Denies chest pain, Denies chest pain at rest, Denies chest pain with activity and Denies pedal edema Resp Denies cough GI Denies abdominal pain Musc Denies abnormal gait, Denies muscle cramps and Denies radiating pain into limb Skin/Breast Denies skin ulcer and Denies wounds Neuro Reports Normal hearing present and Denies abnormal gait Psych Reports no additional complaints Physical Exam Vital Signs: BMI result Body Mass Index 33.7 Const General: cooperative, healthy appearing and comfortable Orientation/consciousness: oriented to person, oriented to place and oriented to time HEENT Head: Yes normal to inspection Neck Neck: Yes normal visual inspection Carotids: no bruits Chest Chest palpation & inspection: normal inspection of the chest Resp Effort & Inspection: normal respiratory effort and able to speak in complete sentences Auscultation: clear to auscultation bilaterally, no crackles, no rales, no rhonchi and no wheezes Cardio Other: Bilateral palpable dorsalis pedis pulses Rate: regular rate Rhythm: regular rhythm Heart sounds: S1 normal heart sound present and S2 normal heart sound present Bruits: no carotid bruits Peripheral pulses: Peripheral pulses 2+ throughout GI Inspection: Yes normal to inspection Skin Other: Right great toe nonhealing ulcer approximately 2 cm in diameter with a hardened callus on the exterior border. Hardened callus was removed. Wounds: no wounds Hair: normal Neuro General: oriented to person, oriented to place and oriented to time Cranial nerves: Yes CN's II-XII intact bilaterally and Yes Normal hearing present Cognition (Neuro): normal cognition Motor exam (neuro): 5/5 motor strength present throughout Extrem Other: venous exam: No significant superficial varicosities or spider telangiectasias, minimal edema General: No clubbing, No cyanosis and No edema Psych Appearance: grossly normal Mental Status: mental status grossly normal Speech and movement: Normal speech and movement present Assessment & Plan Assessment & Plan (1) Chronic ulcer of right great toe: Code(s): L97.519 - Non-pressure chronic ulcer of other part of right foot with unspecified severity Qualifiers: Non-pressure ulcer stage: unspecified non-pressure ulcer stage Qualified Code(s): L97.519 - Non-pressure chronic ulcer of other part of right foot with unspecified severity Plan: In short patient has a chronic nonhealing right great toe ulcer. He does have palpable pulses. Due to his spinal issues I do believe this may be more neuropathic in nature as he is quite insensate down there. Unfortunately he was unable to tolerate an MRI. My concern is that even though there is no exposed bone there may be underlying osteomyelitis that needs to be treated. We will try to coordinate an open MRI to better help elucidate this. We discussed this with the patient and he is in agreement. He will follow up with us after testing. Thank you for allowing us to assist in his care. If there are any questions or concerns please do not hesitate to contact us. Coding Level of Care Code New Pt Level 4 (46159) Diagnoses Chronic ulcer of great toe of right foot, unspecified ulcer stage L97.519 Non-pressure ulcer stage: unspecified non-pressure ulcer stage
[2023-02-16 09:22] VITALS: BMI 33.7
== END 2023-02-16 09:58 | disposition home or self-care (01) ==
PROVIDERS: PCP Internal Medicine; Visit Provider Surgery Vascular Surgery
DX: L97.519 Non-pressure chronic ulcer of other part of right foot with unspecified severity (principal)
CPT/HCPCS: 99204

== ENCOUNTER → 2023-02-16 09:19 | Outpatient (BNVA) | payer OTHER, MEDICAID, SELFPAY | PROVIDERS: PCP Internal Medicine; Visit Provider Surgery Vascular Surgery | DX: L97.519 Non-pressure chronic ulcer of other part of right foot with unspecified severity (principal) | CPT/HCPCS: 99202 ==

== ENCOUNTER 2023-10-18 10:51 | Outpatient (AMB) | payer OTHER, MEDICAID, SELFPAY ==
--- NOTE | 2023-10-18 10:52 | A.OFFVIS_ITS ---
Vital Signs 10/18/23 10:53 Height 5 ft 1 in Weight 242 lb BMI 45.7 Intake Visit Reasons: OV-B/L knee pain/fluid drainage Intake Note: Anibal is a 63 year old male who presents today for a follow up of his bilateral knee OA. Bilateral knees were aspirated and injected at his last visit in January of 2023. He reports that this was helpful and he would like to repeat today. Allergies gabapentin Adverse Reaction (Verified 02/16/23 09:27) Agitated HPI HPI OV-B/L knee pain/fluid drainage: Details: Anibal is a 63 year old male who presents today for a follow up of his bilateral knee OA. Bilateral knees were aspirated and injected at his last visit in January of 2023. He reports that this was helpful and he would like to repeat today. [facility] Medical History Restless leg syndrome Stage III pressure ulcer Cocaine use disorder Mild major depression, single episode ANGELIKA (generalized anxiety disorder) Back pain Essential hypertension Neck pain Mixed hyperlipidemia Obesity Testosterone deficiency in male BPH (benign prostatic hyperplasia) Knee osteoarthritis Hypovitaminosis D Hypogonadism in male Gout Anxiety Surgical History History of tooth extraction History of spinal surgery History of ankle surgery History of colonoscopy Family History Father HTN (hypertension) Gout Guillain-[place] syndrome Mother CVD (cardiovascular disease) Social History Housing: House Alcohol intake: current Alcohol intake frequency: a few times a month Alcohol type: beer Patient Tobacco Use Status: Never used Tobacco e-Cigarette/Vaping Use: Never Used Second Hand Smoke Exposure: No service: No Current occupational status: disabled Cognitive needs: Yes Hearing needs: No Vision needs: No Physical Exam Vital Signs: BMI result Body Mass Index 45.7 Const General: no acute distress and alert Orientation/consciousness: patient oriented x3 HEENT Head: Yes normocephalic and Yes atraumatic Eyes EOM: EOMs intact bilaterally Resp Effort & Inspection: normal respiratory effort and able to speak in complete sentences Cardio Jugular venous distension: no JVD Skin General skin exam: turgor normal Rashes: no rashes Neuro General: patient oriented x3 Extrem Other: Bilateral Knees: bilateral Knee effusion, large medial TTP bilaterally Psych Appearance: grossly normal Affect: normal affect Attitude: cooperative Office Procedures Joint Injection/Aspiration Joint Injection/Aspiration Details: Injected 1 mL of Decadron and 3 mL 1% lidocaine and 3 mL of 0.25% Marcaine. Site was prepped using aseptic technique. Patient tolerated the procedure well. Aspirated 120 ml from right knee and 75 ml from left knee. Nl appearing joint fluid. Primary Site: right knee Secondary Site: left knee Approach Used: lateral parapatellar Coding 35932 - Large joint 67607 - Glenohumeral/Tronchanteric Bursa/Intraarticular Procedure code (CPT) selection complete Assessment & Plan Assessment & Plan (1) Bilateral primary osteoarthritis of knee: Code(s): M17.0 - Bilateral primary osteoarthritis of knee Category: Medical Plan: Plan I injected and aspirated about 100cc clear fluid from [place] bilateral knees. He will follow up no sooner than 3 months for repeat injections. Coding Level of Care Code Est Pt Level 3 (37193) Diagnoses Bilateral primary osteoarthritis of knee M17.0 CPT Codes Coding - 05234 Large joint: 03871 - Large joint ([id number]) Coding - Joint 7: 47629 - Glenohumeral/Tronchanteric Bursa/Intraarticular ([id number])
[2023-10-18 10:53] VITALS: BMI 45.7
== END 2023-10-18 11:28 | disposition home or self-care (01) ==
PROVIDERS: PCP Internal Medicine; Visit Provider Orthopaedic Surgery
DX: M17.0 Bilateral primary osteoarthritis of knee (principal)
CPT/HCPCS: 20610; 99213

== ENCOUNTER → 2023-10-18 10:51 | Outpatient (BNVA) | payer OTHER, MEDICAID, SELFPAY | PROVIDERS: PCP Internal Medicine; Visit Provider Orthopaedic Surgery | DX: M17.0 Bilateral primary osteoarthritis of knee (principal) | CPT/HCPCS: 20610; 99212; J0665; J1100 ==

== ENCOUNTER 2024-02-16 22:02 | Emergency (ER) | payer OTHER, SELFPAY ==
--- NOTE | ~2024-02-16 | XR_ITS ---
EXAMINATION: XR KNEE, RIGHT CLINICAL INFORMATION: pain with movement COMPARISON: Right knee lateral and sunrise radiographs 01/14/2023. TECHNIQUE: AP and lateral radiograph of the right knee FINDINGS: Lateral compartment demonstrates marked joint space narrowing and moderate osteophytosis. Dystrophic calcifications are noted in the region of the fibular collateral ligament. Moderate joint space narrowing and mild osteophytosis of the medial compartment. Small suprapatellar bursal effusion is suggested on the lateral view. Moderate osteophytosis of the patellofemoral compartment. No fractures or acute-appearing subluxations identified. Chronic appearing dystrophic calcifications in the medial meniscus noted. XR/XR knee RT 2V IMPRESSION: Tricompartmental osteoarthritis with findings most pronounced in the lateral compartment where marked joint space narrowing is present. Chronic appearing degenerative calcifications within the medial meniscus. Chronic appearing dystrophic calcifications within the fibular collateral ligament likely related to chronic ligamentous injury/degeneration. Right knee joint effusion. Electronically signed by: Aiden Ruggiero MD 02/17/2024 02:39 AM LYNN DOAN
--- NOTE | ~2024-02-16 | XR_ITS ---
EXAMINATION: XR KNEE, LEFT CLINICAL INFORMATION: pain with movement COMPARISON: Left knee radiographs 01/14/2023. TECHNIQUE: AP and lateral radiographs of the left knee FINDINGS: Marked medial and lateral compartment joint space narrowing is present. Marked osteophytosis of the medial compartment and mild osteophytosis of the lateral compartment. Prominent subchondral sclerosis and subchondral cyst formation is noted in the medial compartment. Moderate osteophytosis of the patellofemoral compartment. A small suprapatellar bursal effusion is visualized. Soft tissue density is present in the popliteal fossa over region measuring approximately 5 cm May represent a popliteal fossa Avelar's cyst. No prepatellar soft tissue inflammatory changes. The comparison study is comprised of only a lateral and sunrise view which precludes assessment of progression of findings. XR/XR knee LT 2V IMPRESSION: Marked tricompartmental osteoarthritis of the left knee. Findings are most pronounced in the medial compartment. Knee effusion. Soft tissue density suspicious for a 5 cm Avelar's cyst. Electronically signed by: Aiden Ruggiero MD 02/17/2024 02:30 AM LYNN DOAN
[2024-02-16 22:39] VITALS: BP 152/99; PULSE 61; RESP 18; TEMP 36.8; O2SAT 97; BMI 31.7
--- NOTE | 2024-02-17 00:58 | ED_ITS ---
HPI - Extremity Problem General Chief complaint: Extremity Injury, Lower Stated complaint: Bilateral knee pain Time Seen by Provider: 02/17/24 00:55 Source: patient Mode of arrival: ambulatory Limitations: no limitations History of Present Illness ED Provider: HPI Narrative: Patient with history of severe osteoarthritis of both knees been followed by Orthopedics comes here for increasing pain no recent fall asking for pain medication and a referral to Orthopedics Related Data Previous Rx's ?Medication ?Instructions ?Recorded colchicine 0.6 mg tablet 0.6 mg PO DAILY #30 tabs 07/03/20 testosterone cypionate 200 mg/mL 200 mg IM Q3W 30 days #2 mL 08/05/21 intramuscular oil (Depo-Testosterone) oxycodone 5 mg tablet 5 mg PO BID PRN pain 7 days #14 12/23/21 tabs prednisone 10 mg tablet See Rx Instructions .Route 03/27/22 .COMPLEX #18 tabs risperidone 0.5 mg tablet 0.5 mg PO BEDTIME 90 days #90 tabs 07/20/22 (Risperdal) cholecalciferol (vitamin D3) 50 50 mcg PO DAILY 90 days #90 caps 04/03/23 mcg (2,000 unit) capsule cyclobenzaprine 10 mg tablet 10 mg PO TID PRN muscle spasm 30 07/25/23 days #90 tabs atorvastatin 40 mg tablet 40 mg PO BEDTIME 90 days #90 tabs 09/24/23 diclofenac sodium 75 mg 75 mg PO BID PRN pain 30 days #60 12/21/23 tablet,delayed release tabs escitalopram oxalate 20 mg tablet 20 mg PO DAILY 90 days #90 tabs 12/26/23 lisinopril 30 mg tablet 30 mg PO DAILY 90 days #90 tabs 01/16/24 allopurinol 300 mg tablet 300 mg PO DAILY #90 tabs 01/19/24 tamsulosin 0.4 mg capsule 0.4 mg PO DAILY #90 caps 01/19/24 oxycodone 5 mg tablet 5 mg PO Q6H PRN pain #20 tabs 02/17/24 Allergies Allergy/AdvReac Type Severity Reaction Status Date / Time gabapentin AdvReac Agitated Verified 02/16/24 22:41 Review of Systems Review of Systems: Yes all other systems are reviewed and are negative PMFSH Past Medical History Medical History Restless leg syndrome Stage III pressure ulcer Cocaine use disorder Mild major depression, single episode ANGELIKA (generalized anxiety disorder) Back pain Essential hypertension Neck pain Mixed hyperlipidemia Obesity Testosterone deficiency in male BPH (benign prostatic hyperplasia) Knee osteoarthritis Hypovitaminosis D Hypogonadism in male Gout Anxiety Surgical History History of tooth extraction History of spinal surgery History of ankle surgery History of colonoscopy Family History Family History Father HTN (hypertension) Gout Guillain-[place] syndrome Mother CVD (cardiovascular disease) Social History Social History Housing: House Alcohol intake: current Alcohol intake frequency: a few times a month Alcohol type: beer Patient Tobacco Use Status: Never used Tobacco e-Cigarette/Vaping Use: Never Used Second Hand Smoke Exposure: No Advance Directives: No Advance Directives Information Provided: Yes Do you have a plan to hurt others: No Plan service: No Current occupational status: disabled Cognitive needs: Yes Hearing needs: No Vision needs: No Physical Exam Vital Signs: Vital Signs: Last Vital Signs Temp 98.2 F 02/16/24 22:39 Pulse 61 02/16/24 22:39 Resp 18 02/16/24 22:39 BP 152/99 H 02/16/24 22:39 Pulse Ox 97 02/16/24 22:39 O2 Del Method Room Air 02/16/24 22:39 BMI result Body Mass Index 31.7 Appearance: Alert. Oriented X3. No acute distress. ENT: Pharynx normal. Oral Mucosa moist Neck: Normal inspection. Neck supple. CVS: Normal heart rate and rhythm. Pulses normal. Respiratory: No respiratory distress. Equal air entry bilateral, no wheezing/rales/rhonchi Skin: Skin warm and dry. Normal skin color. Normal skin turgor. Extremities: No lower extremity edema. Bilateral knee effusion with diffuse tenderness Neuro: Oriented X 3. Medical Decision Making Medical Decision Making MDM Narrative: Patient has severe osteoarthritis been followed by orthopedics would like to go to [facility] asking for pain medication will give him oxycodone advised to follow with Orthopedics Independent Interpretation I performed an independent interpretation of an: Plain X-Ray Interpretation: Severe osteoarthritis Discharge Plan Discharge Clinical Impression: Osteoarthritis of both knees Patient Disposition: Home, Self-Care Instructions: Osteoarthritis (ED) Additional Instructions: Take pain medication as prescribed Follow with Orthopedics for further management Prescriptions: New oxycodone 5 mg tablet 5 mg PO Q6H PRN (Reason: pain) Qty: 20 0RF Rx Instructions: Partial Fill upon patient request. No Action testosterone cypionate [Depo-Testosterone] 200 mg/mL oil 200 mg IM Q3W 30 Days Qty: 2 5RF prednisone 10 mg tablet See Rx Instructions .ROUTE .COMPLEX Qty: 18 0RF Rx Instructions: 3 tab once daily for 3 days, then 2 tabs once daily for 3 days, then 1 tab daily for 3 days risperidone [Risperdal] 0.5 mg tablet 0.5 mg PO BEDTIME 90 Days Qty: 90 0RF cholecalciferol (vitamin D3) 50 mcg (2,000 unit) capsule 50 mcg PO DAILY 90 Days Qty: 90 3RF cyclobenzaprine 10 mg tablet 10 mg PO TID PRN (Reason: muscle spasm) 30 Days Qty: 90 1RF atorvastatin 40 mg tablet 40 mg PO BEDTIME 90 Days Qty: 90 3RF diclofenac sodium 75 mg tablet,delayed release (DR/EC) 75 mg PO BID PRN (Reason: pain) 30 Days Qty: 60 1RF escitalopram oxalate 20 mg tablet 20 mg PO DAILY 90 Days Qty: 90 0RF lisinopril 30 mg tablet 30 mg PO DAILY 90 Days Qty: 90 3RF allopurinol 300 mg tablet 300 mg PO DAILY Qty: 90 1RF tamsulosin 0.4 mg capsule 0.4 mg PO DAILY Qty: 90 0RF oxycodone 5 mg tablet 5 mg PO BID PRN (Reason: pain) 7 Days Qty: 14 0RF Rx Instructions: Partial Fill upon patient request. colchicine 0.6 mg tablet 0.6 mg PO DAILY Qty: 30 0RF Rx Instructions: Take 1-2 tabs at first sign of gout attack Referrals: [facility] [Provider Group] - 2 weeks Print Language: Armenian
[2024-02-17] MEDS: oxyCODONE HCl Immed Release 5 MG TABLET PO (01:33)
[2024-02-17 01:34] VITALS: BP 152/99; PULSE 61; RESP 18; TEMP 36.8; O2SAT 97
== END 2024-02-17 01:37 | disposition home or self-care (01) ==
PROVIDERS: Emergency Provider Internal Medicine; PCP Internal Medicine
DX: M17.0 Bilateral primary osteoarthritis of knee (principal); M25.561 Pain in right knee; M25.562 Pain in left knee
CPT/HCPCS: 73560; 99283

== ENCOUNTER 2024-06-09 10:09 | Outpatient (AMB) | payer OTHER, SELFPAY ==
--- NOTE | 2024-06-09 10:12 | A.OFFVIS_ITS ---
Vital Signs 06/09/24 10:14 Height 5 ft 11 in Weight 227 lb BMI 31.7 Intake Visit Reasons: OV- B/L knee pain, having hard time walking Intake Note: Anibal is a 64 year old male who presents today for a follow up of his bilateral knee OA. He was last seen in October where he had bilateral knee aspirated and injected. Patient reports that the aspiration and injection was helpful and he would like to repeat today.He has tried and failed at least 30 days of Tylenol and Ibuprofen with mild relief and stomach upset. He has also tried and failed a course of Physical therapy followed by a home exercise program. He explains that the cortisone has become less effective over time and would like to talk about alternative treatment options as well. He is interested in having gel injections and ultimately would like information on TKA. Allergies gabapentin Adverse Reaction (Verified 02/16/24 22:41) Agitated HPI HPI OV- B/L knee pain, having hard time walking: Details: Anibal is a 64 year old male who presents today for a follow up of his bilateral knee OA. He was last seen in October where he had bilateral knee aspirated and injected. Patient reports that the aspiration and injection was helpful and he would like to repeat today. He explains that the cortisone has become less effective over time and would like to talk about laternative treatment options as well. He is interested in having gel injections and ultimately would like information on TKA. [facility] Medical History Restless leg syndrome Stage III pressure ulcer Cocaine use disorder Mild major depression, single episode ANGELIKA (generalized anxiety disorder) Back pain Essential hypertension Neck pain Mixed hyperlipidemia Obesity Testosterone deficiency in male BPH (benign prostatic hyperplasia) Knee osteoarthritis Hypovitaminosis D Hypogonadism in male Gout Anxiety Surgical History History of tooth extraction History of spinal surgery History of ankle surgery History of colonoscopy Family History Father HTN (hypertension) Gout Guillain-[place] syndrome Mother CVD (cardiovascular disease) Social History Housing: House Alcohol intake: current Alcohol intake frequency: a few times a month Alcohol type: beer Patient Tobacco Use Status: Never used Tobacco e-Cigarette/Vaping Use: Never Used Second Hand Smoke Exposure: No service: No Current occupational status: disabled Cognitive needs: Yes Hearing needs: No Vision needs: No Physical Exam Vital Signs: BMI result Body Mass Index 31.7 Extrem Other: Large effusion bilateral knees. Tenderness to palpation bilateral knees. Severe gait antalgia bilaterally Office Procedures Joint Inj/Aspir; Non-Pain Clin Joint Injection/Drain Details: Injected 1 mL of Decadron and 3 mL 1% lidocaine and 3 mL of 0.25% Marcaine. Site was prepped using aseptic technique. Patient tolerated the procedure well. Shoulders, Hips, Knees, Knee Large Joint Injection 40957: Left Knee Coding Procedure code (CPT) selection complete Results Reviewed Results Reviewed: I personally reviewed relevant radiographs. Severe bilateral knee osteoarthritis Assessment & Plan Assessment & Plan (1) Bilateral primary osteoarthritis of knee: Code(s): M17.0 - Bilateral primary osteoarthritis of knee Category: Medical Plan: Félix is a 64-year-old gentleman with severe bilateral osteoarthritis who suffers from recurrent very large effusions. He has a history of a chronic toe ulcer and a history of a pressure ulcer and gout among other things so he is not and ideal candidate but he is suffering significantly and I think we could certainly perform a safe surgery. He is on the fence however about arthroplasty and he will think about it. I aspirated 120 mL of normal-appearing joint fluid from both knees. Coding Level of Care Code Est Pt Level 3 (55984) Diagnoses Bilateral primary osteoarthritis of knee M17.0 CPT Codes Shoulders, Hips, Knees, - Knee Large Joint Injection 97489: Left Knee ([id number])
[2024-06-09 10:14] VITALS: BMI 31.7
== END 2024-06-09 10:56 | disposition home or self-care (01) ==
LOC: HO.HOS 10:09
PROVIDERS: PCP Internal Medicine; Visit Provider Orthopaedic Surgery
DX: M17.0 Bilateral primary osteoarthritis of knee (principal)
CPT/HCPCS: 20610; 99213

== ENCOUNTER → 2024-06-09 10:09 | Outpatient (BNVA) | payer OTHER, SELFPAY | PROVIDERS: PCP Internal Medicine; Visit Provider Orthopaedic Surgery | DX: M17.0 Bilateral primary osteoarthritis of knee (principal) | CPT/HCPCS: 20610; 99212; J0665; J1100; J2003 ==

== ENCOUNTER 2024-07-17 19:06 | Inpatient (IN) | payer OTHER, SELFPAY ==
--- NOTE | ~2024-07-17 | CT_ITS ---
CLINICAL HISTORY: infection, septic arthitis CT shoulder left with contrast Comparison: CR - XR SHOULDER LT MIN 2V - 07/17/24 19:25 EDT Findings: Left os acromiale is present. Moderate to severe degenerative disease with joint space narrowing, osteophytosis and subchondral cystic formation of the glenohumeral and acromioclavicular joint. Large joint effusion. Moderate soft tissue edema. No definite erosive changes are identified. 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 Large joint effusion and soft tissue swelling. No definite erosive changes identified. Septic arthritis can not be entirely excluded. Joint aspiration is recommended for further evaluation. This document has been electronically signed by: Fatimah Hickman MD on 07/17/2024 22:39:08
--- NOTE | ~2024-07-17 | XR_ITS ---
CLINICAL HISTORY: pain Radiographs of the left shoulder, 3 views Comparison: None Findings: No fracture or dislocation. Narrowed acromiohumeral interval. Moderate to severe degenerative change. There is osseous remodeling of the acromion with adjacent calcification versus periostitis. There is sclerosis which is most prominent at the acromion and humeral head. Ossific fragment inferior to glenohumeral joint measuring 1.1 cm. Bone mineralization is normal. Soft tissue swelling. Impression: Soft tissue swelling could be infectious/inflammatory or posttraumatic. No fracture or dislocation. Abnormal appearance of the acromion is favored to be degenerative. Infection could also be considered if there are signs/symptoms of infection; follow up is recommended if symptoms persist or worsen. There is moderate to severe degenerative change. Narrowed acromiohumeral interval indicating rotator cuff pathology. This document has been electronically signed by: Siria Tamayo MD on 07/17/2024 19:48:32
[2024-07-17 19:11] VITALS: BP 123/81; PULSE 90; RESP 18; TEMP 36.6; O2SAT 96; BMI 32.1
--- NOTE | 2024-07-17 19:12 | ED.GENADULT ---
HPI - General Adult General Chief complaint: Extremity Injury, Upper Stated complaint: L shoulder pain, unable to lift arm Time Seen by Provider: 07/17/24 19:53 Source: patient Limitations: no limitations History of Present Illness ED Provider: Zaria Villalobos PA-C HPI narrative: 64-year-old male with a history of gout, hyperlipidemia, hypertension, obesity, osteoarthritis, chronic pain, anxiety who presents with atraumatic left shoulder pain. Patient states he developed anterior shoulder discomfort when he was getting out of bed 3 days ago. He states he ?felt a pop?. Patient unable to raise the arm above his head. Associated swelling. Denies redness, excessive warmth of the joint or fever. Related Data Previous Rx's ?Medication ?Instructions ?Recorded colchicine 0.6 mg tablet 0.6 mg PO DAILY #30 tabs 07/03/20 testosterone cypionate 200 mg/mL 200 mg IM Q3W 30 days #2 mL 08/05/21 intramuscular oil (Depo-Testosterone) prednisone 10 mg tablet See Rx Instructions .Route 03/27/22 .COMPLEX #18 tabs risperidone 0.5 mg tablet 0.5 mg PO BEDTIME 90 days #90 tabs 07/20/22 (Risperdal) atorvastatin 40 mg tablet 40 mg PO BEDTIME 90 days #90 tabs 09/24/23 lisinopril 30 mg tablet 30 mg PO DAILY 90 days #90 tabs 01/16/24 allopurinol 300 mg tablet 300 mg PO DAILY #90 tabs 01/19/24 oxycodone 5 mg tablet 5 mg PO Q6H PRN pain #20 tabs 02/17/24 oxycodone 5 mg tablet 5 mg PO BID PRN pain 7 days #14 02/24/24 tabs escitalopram oxalate 20 mg tablet 20 mg PO DAILY 90 days #90 tabs 03/05/24 cholecalciferol (vitamin D3) 50 50 mcg PO DAILY 90 days #90 caps 04/14/24 mcg (2,000 unit) capsule diclofenac sodium 75 mg 75 mg PO BID PRN pain 30 days #60 05/11/24 tablet,delayed release tabs tamsulosin 0.4 mg capsule 0.4 mg PO DAILY #90 caps 05/28/24 cyclobenzaprine 10 mg tablet 10 mg PO TID PRN muscle spasm 30 07/17/24 days #90 tabs Allergies Allergy/AdvReac Type Severity Reaction Status Date / Time gabapentin AdvReac Agitated Verified 07/17/24 19:13 Review of Systems Review of Systems: Yes all other systems are reviewed and are negative Constitutional: Constitutional: Denies fatigue and Denies fever(s) Cardiovascular: Cardiovascular: Denies chest pain and Denies dyspnea Respiratory: Respiratory: Denies cough and Denies dyspnea Gastrointestinal: Gastrointestinal: Denies abdominal pain Musculoskeletal: Musculoskeletal: Reports arthralgias and Reports joint swelling Integumentary/Breasts: Skin/Breast: Denies erythema Endocrine: Endocrine: Denies fatigue PMFSH Past Medical History Attestation statement: The following information was validated with the patient. Medical History Restless leg syndrome Stage III pressure ulcer Cocaine use disorder Mild major depression, single episode ANGELIKA (generalized anxiety disorder) Back pain Essential hypertension Neck pain Mixed hyperlipidemia Obesity Testosterone deficiency in male BPH (benign prostatic hyperplasia) Knee osteoarthritis Hypovitaminosis D Hypogonadism in male Gout Anxiety Surgical History History of tooth extraction History of spinal surgery History of ankle surgery History of colonoscopy Family History Family History Father HTN (hypertension) Gout Guillain-[place] syndrome Mother CVD (cardiovascular disease) Social History Social History Housing: House Alcohol intake: current Alcohol intake frequency: a few times a month Alcohol type: beer Patient Tobacco Use Status: Never used Tobacco Smoked in Last 30 Days: No e-Cigarette/Vaping Use: Never Used Second Hand Smoke Exposure: No Use of substances other than those prescribed or required for medical reasons: No Advance Directives: No Advance Directives Information Provided: No Do you have a plan to hurt others: No Plan service: No Current occupational status: disabled Cognitive needs: Yes Hearing needs: No Vision needs: No Physical Exam ED Vital Signs: Vital Signs - 24 hr 07/17/24 19:11 07/17/24 20:23 07/17/24 22:00 Temperature 97.8 F 98.5 F Pulse Rate 90 88 70 Respiratory Rate 18 20 16 Blood Pressure 123/81 119/75 126/71 Pulse Oximetry 96 99 98 Oxygen Delivery Method Room Air Room Air Room Air 07/17/24 22:30 07/17/24 22:54 07/17/24 23:29 Temperature 98.5 F 98.9 F Pulse Rate 72 70 76 Respiratory Rate 18 18 19 Blood Pressure 105/56 L 102/57 L 110/76 Pulse Oximetry 96 97 97 Oxygen Delivery Method Room Air Room Air Room Air 07/18/24 00:32 07/18/24 01:57 Temperature 98.4 F 98.3 F Pulse Rate 74 66 Respiratory Rate 16 18 Blood Pressure 122/60 119/61 Pulse Oximetry 94 96 Oxygen Delivery Method Room Air Room Air BMI result Body Mass Index 32.1 Const Other: Alert well-appearing Orientation/consciousness: patient oriented x3 Resp Effort & Inspection: normal respiratory effort Cardio Other: Normal per normal peripheral perfusion Skin Other: Warm dry no rash Neuro General: patient oriented x3, gait normal, no focal motor deficits and CN's II-XI intact bilaterally Course Course Course Narrative: RME, this is a rapid medical exam performed by Maynor Alatorre please refer to primary provider for complete H&P- 64-year-old male presents for evaluation of left shoulder pain. He has had pain for the last 2 days. Denies any specific injury. He reports he can not lift his left above the elbow. plan for x-ray of the left shoulder Reevaluation(s) Reevaluation #1: At 8:41 p.m. on July 17, I am performing a sepsis focused exam based on the resulting lactic acid of 3.9. We will be ordering ideal weight based IV fluid therapy and empiric antibiotics. To note again the patient is not febrile he has stable vitals, no leukocytosis. Time: 20:41 Consultations Consultation #1: Reached out to the orthopedic service overnight Igor Laboy PA-C, he is in agreement the patient should be admitted to the hospitalist service pending the results of his joint aspiration. Time: 03:35 Medications Administered Generic Name Dose Route Start Last Admin Trade Name Freq PRN Reason Stop Dose Admin Vancomycin HCl 2,000 mg in 500 mls @ 250 mls/hr 07/18/24 02:30 07/18/24 02:40 Vancomycin/Ns IV 07/18/24 04:29 250 mls/hr ONCE ONE Administration Protocol Discontinued Medications Generic Name Dose Route Start Last Admin Trade Name Freq PRN Reason Stop Dose Admin Ceftriaxone Sodium 2 gm 07/18/24 02:23 07/18/24 02:37 Ceftriaxone Sodium 2 Gm Vial IVPUSH 07/18/24 02:24 2 gm ONCE ONE Administration Sodium Chloride 1,000 mls @ 1,998 mls/hr 07/17/24 20:45 07/17/24 21:29 Ns IV 07/17/24 21:15 Infused .Q31M VANDA Infusion Cefazolin Sodium/Dextrose 2 gm in 50 mls @ 100 mls/hr 07/17/24 21:00 07/17/24 21:24 Ancef IV 07/17/24 21:29 Infused ONCE ONE Infusion Sodium Chloride 1,000 mls @ 999 mls/hr 07/17/24 21:45 07/17/24 22:26 Ns IV 07/17/24 22:45 Infused .Q1H1M VANDA Infusion Iohexol 85 ml 07/17/24 21:17 07/17/24 21:17 Iohexol 350 Mg/Ml 100 Ml Infus..Btl IV 07/17/24 21:18 85 ml ONCE ONE Administration Ketorolac Tromethamine 15 mg 07/17/24 20:00 07/17/24 20:22 Ketorolac Tromethamine 15 Mg/Ml Vial IVPUSH 07/17/24 20:01 15 mg ONCE ONE Administration Lidocaine/Epinephrine 10 ml 07/17/24 22:56 07/17/24 23:58 Lidocaine Hcl 1%/Epi 1:100,000 10 Ml Vial INFILTRATI 07/17/24 22:57 10 ml ONCE ONE Administration Midazolam HCl 4 mg 07/17/24 23:49 07/17/24 23:59 Midazolam Hcl 2 Mg/2 Ml Vial IVPUSH 07/17/24 23:50 4 mg ONCE ONE Administration Morphine Sulfate 4 mg 07/17/24 20:00 07/17/24 20:22 Morphine Sulfate 4 Mg/Ml Cartridge IVPUSH 07/17/24 20:01 4 mg ONCE ONE Administration Protocol Morphine Sulfate 4 mg 07/17/24 21:56 07/17/24 22:02 Morphine Sulfate 4 Mg/Ml Cartridge IVPUSH 07/17/24 21:57 4 mg ONCE ONE Administration Protocol Procedures Joint Aspiration/Injection Joint Asp./Inject. 1: Time Out Performed: No Side of body: left Joint Aspirated: shoulder Ultrasound Guidance: Yes Skin Prep: Povidone-Iodine1% Local Anesthetic: lidocaine 1% and with epi Amount of anesthesia used (mL): 5 Needle Size Used: 20G Fluid Obtained: viscous (foamy) Total fluid obtained (mL): 20 Patient Tolerated Procedure: well and no complications Medical Decision Making Medical Decision Making MDM Narrative: 64-year-old male with a history of gout, hyperlipidemia, hypertension, obesity, osteoarthritis, chronic pain, anxiety who presents with atraumatic left shoulder pain. Patient states he developed anterior shoulder discomfort when he was getting out of bed 3 days ago. He states he ?felt a pop?. Patient unable to raise the arm above his head. Associated swelling. Denies redness, excessive warmth of the joint or fever. Problem: Age, gout History: Per patient I have considered the following differential diagnoses: Frozen shoulder, arthritis, tendonitis, septic arthritis/septic joint, fracture, dislocation , gout flare Plan: Patient here with a atraumatic left shoulder pain, he can not range it, it is objectively swollen. Screening labs and x-ray ordered from triage. I am concerned for septic joint. We will be obtaining a joint aspiration, and a CT scan. We will be adding on inflammatory markers, blood cultures and a lactic acid. To note I do not feel the patient is septic, he is afebrile with stable vitals, I am ordering these labs in the event he requires IV antibiotic therapy. Giving morphine for pain. Labs: No leukocytosis, not anemic, ESR not elevated, no electrolyte abnormality, 1st lactic acid 3.9 the 2nd 1.1 CRP elevated at 0.96, uric acid 4.2 shoulder xray:mpression: Soft tissue swelling could be infectious/inflammatory or posttraumatic. No fracture or dislocation. Abnormal appearance of the acromion is favored to be degenerative. Infection could also be considered if there are signs/symptoms of infection; follow up is recommended if symptoms persist or worsen. There is moderate to severe degenerative change. Narrowed acromiohumeral interval indicating rotator cuff pathology. CT shoulder: Findings: Left os acromiale is present. Moderate to severe degenerative disease with joint space narrowing, osteophytosis and subchondral cystic formation of the glenohumeral and acromioclavicular joint. Large joint effusion. Moderate soft tissue edema. No definite erosive changes are identified. 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 Large joint effusion and soft tissue swelling. No definite erosive changes identified. Septic arthritis can not be entirely excluded. Joint aspiration is recommended for further evaluation. Lab Data 07/17/24 20:14 07/17/24 20:14 Labs: Lab Results 07/17/24 07/17/24 07/18/24 Range/Units 20:14 22:34 00:39 WBC 6.8 (4.8-10.8) X10*3/uL RBC 3.87 L (4.60-5.80) X10*6/uL Hgb 11.9 L (14.0-18.0) g/dl Hct 35.8 L (42.0-52.0) % MCV 92.5 (80.0-98.0) fL MCH 30.7 (27.0-33.0) pg MCHC 33.2 (31.0-36.0) g/dl RDW 14.1 (11.0-16.0) % Plt Count 228 D (160-400) X10*3/uL MPV 8.4 L (9.4-12.4) fL Immature Gran % (Auto) 0.3 (0.0-0.4) % Neut % (Auto) 72.4 (45-73) % Lymph % (Auto) 15.0 L (20-40) % [place] % (Auto) 10.0 (2-11) % Eos % (Auto) 1.6 (0-4) % Baso % (Auto) 0.7 (0-2) % Lymph # (Auto) 1.0 L (1.2-4.9) X10*3/uL [place] # (Auto) 0.7 (0.1-1.2) X10*3/uL Eos # (Auto) 0.1 (0.0-0.4) X10*3/uL Baso # (Auto) 0.1 (0.0-0.2) X10*3/uL Abs Immat Gran (auto) 0.02 (0.00-0.03) X10*3/uL Absolute Neuts (auto) 4.9 (2.0-8.3) x10*3/uL Absolute Nucleated RBC 0.000 (0.0-0.012) X10*3/uL Nucleated RBC % (auto) 0.0 (0.0-0.2) /100WBC ESR 12 (0-15) MM/HR Sodium 130 L (135-145) mmol/L Potassium 4.5 (3.3-5.1) mmol/L Chloride 93 L (96-108) mmol/L Carbon Dioxide 29 (22-29) mmol/L Anion Gap 13 (12-20) BUN 13 (9-16) mg/dL Creatinine 0.88 (0.5-1.4) mg/dL Estim Creat Clear Calc 105.6 Estimated GFR > 60 Random Glucose 96 (60-115) mg/dL Lactic Acid 3.9 H* (0.5-2.0) mmol/L Lactic Acid F/U @ 2Hr 1.1 (0.5-2.0) mmol/L Uric Acid 4.2 (3.4-7.0) mg/dL Calcium 9.2 (8.4-10.2) mg/dL Magnesium 1.7 (1.6-2.6) mg/dL Total Bilirubin 0.5 (0.0-1.0) mg/dL AST 22 (5-37) U/L ALT 19 (0-40) U/L Alkaline Phosphatase 103 (39-117) U/L C-Reactive Protein 0.96 H (< or = 0.50) mg/dL Total Protein 6.8 (6.5-8.0) g/dL Albumin 4.0 (3.5-5.0) g/dL Synovial Source left shoulder Synovial WBC 29.900 X10*3/uL Synovial RBC 0.083 X10*6/uL Synovial Neutrophils 88 % Synovial Lymphocytes 1 % Synovial Monocytes 11 % Discharge Plan Discharge Clinical Impression: Effusion of joint of left shoulder Patient Disposition: Admitted As Inpatient Print Language: Swazi
[2024-07-17 20:21] LABS: MANUAL DIFF FLAG NO
[2024-07-17] MEDS: Morphine Sulfate 4 MG/ML CARTRIDGE IVPUSH ×2 (20:22→22:02)
[2024-07-17] MEDS: Ketorolac Tromethamine 15 MG/ML VIAL IVPUSH (20:22)
[2024-07-17 20:23] VITALS: BP 119/75; PULSE 88; RESP 20; O2SAT 99
[2024-07-17 20:24] LABS: Basophils Absolute Auto 0.1 X10*3/uL (0.0-0.2); Basophils Percent Auto 0.7 % (0-2); Eosinophils Absolute Auto 0.1 X10*3/uL (0.0-0.4); Eosinophils Percent Auto 1.6 % (0-4); Hematocrit 35.8 % (42.0-52.0); Hemoglobin 11.9 g/dl (14.0-18.0); Imm Gran Abs Auto 0.02 X10*3/uL (0.00-0.03); Imm Gran Pct Auto 0.3 % (0.0-0.4); Mean Corpuscular HGB Conc 33.2 g/dl (31.0-36.0); Mean Corpuscular Hemoglobin 30.7 pg (27.0-33.0); Mean Corpuscular Volume 92.5 fL (80.0-98.0); Mean Platelet Volume 8.4 fL (9.4-12.4); Monocytes Absolute Auto 0.7 X10*3/uL (0.1-1.2); Neutrophils Absolute Auto 4.9 x10*3/uL (2.0-8.3); Neutrophils Percent Auto 72.4 % (45-73); Platelet Count 228 X10*3/uL (160-400); Red Blood Count 3.87 X10*6/uL (4.60-5.80); Red Cell Distribution Width 14.1 % (11.0-16.0); White Blood Count 6.8 X10*3/uL (4.8-10.8)
[2024-07-17 20:35] LABS: Alanine Aminotransferase 19 U/L (0-40); Alkaline Phosphatase 103 U/L (39-117); Anion Gap 13 (12-20); Aspartate Amino Transferase 22 U/L (5-37); Bilirubin Total 0.5 mg/dL (0.0-1.0); Blood Urea Nitrogen 13 mg/dL (9-16); C Reactive Protein 0.96 mg/dL (< or = 0.50); Calcium 9.2 mg/dL (8.4-10.2); Carbon Dioxide 29 mmol/L (22-29); Chloride 93 mmol/L (96-108); Creatinine Clr Calc Pharmacy 105.6; Estimated Glomerular Filt Rate > 60; Glucose Random 96 mg/dL (60-115); Magnesium 1.7 mg/dL (1.6-2.6); Potassium 4.5 mmol/L (3.3-5.1); Sodium 130 mmol/L (135-145); Total Protein 6.8 g/dL (6.5-8.0)
[2024-07-17 20:37] LABS: Lactic Acid 3.9 mmol/L (0.5-2.0)
[2024-07-17] MEDS: 0.9 % Sodium Chloride 1,000 ML 1998 ML IV (20:43)
[2024-07-17] MEDS: ceFAZolin Sodium/Dextrose,Iso 2 GM/50 ML PIGGYBACK IV (20:53)
[2024-07-17 21:02] LABS: Erythrocyte Sedimentation Rate 12 MM/HR (0-15)
[2024-07-17] MEDS: iohexoL 350 MG/ML 100 ML INFUS..BTL 85 ML IV (21:17)
[2024-07-17] MEDS: 0.9 % Sodium Chloride 1,000 ML 999 ML IV (21:50)
[2024-07-17 22:00] VITALS: BP 126/71; PULSE 70; RESP 16; TEMP 36.9; O2SAT 98
[2024-07-17 22:19] LABS: Reflex Lactate? Lactic Acid Added
[2024-07-17 22:30] VITALS: BP 105/56; PULSE 72; RESP 18; TEMP 36.9; O2SAT 96
[2024-07-17 22:54] VITALS: BP 102/57; PULSE 70; RESP 18; O2SAT 97
[2024-07-17 22:56] LABS: ~Lactic Acid-LAB USE ONLY 1.1 mmol/L (0.5-2.0)
[2024-07-17 23:08] LABS: Uric Acid 4.2 mg/dL (3.4-7.0)
[2024-07-17 23:29] VITALS: BP 110/76; PULSE 76; RESP 19; TEMP 37.2; O2SAT 97
[2024-07-17] MEDS: Lidocaine HCl 1%/Epi 1:100,000 10 ML VIAL INFILTRATI (23:58)
[2024-07-17] MEDS: Midazolam HCl 2 MG/2 ML VIAL 4 MG IVPUSH (23:59)
[2024-07-18 00:32] VITALS: BP 122/60; PULSE 74; RESP 16; TEMP 36.9; O2SAT 94
--- NOTE | 2024-07-18 00:40 | MHC.EDTECH ---
This pct assumed care of Patient at 2300 ,vitals taken ,Joint fluid sample collected and sent to lab,Patient sleeping ,call [facility] within Pt reach .
[2024-07-18 00:53] LABS: Source Synovial Fluid left shoulder
[2024-07-18 01:16] LABS: MN% 11.1 %; PMN% 88.9 %; RBC Synovial Fluid 0.083 X10*6/uL
[2024-07-18 01:20] LABS: BF Shift QC OK YES; Man Diluent Bkgrd OK YES
[2024-07-18 01:35] LABS: Monocytes Synovial Fluid 11 %
[2024-07-18 01:36] LABS: Lymphocytes Synovial Fluid 1 %
[2024-07-18 01:37] LABS: Neutrophils Synovial Fluid 88 %
[2024-07-18 01:57] VITALS: BP 119/61; PULSE 66; RESP 18; TEMP 36.8; O2SAT 96
[2024-07-18] MEDS: cefTRIAXone sodium 2 GM VIAL IVPUSH (02:37)
[2024-07-18] MEDS: vancomycin/NS 2,000 MG/500 ML PLAST..BAG 250 MG IV (02:40)
--- NOTE | 2024-07-18 03:35 | PM.IMHP ---
History of Present Illness Date of Service: 07/18/24 <[facility] - Last Filed: 07/18/24 04:26> Attending physician on admission: Cady Fields <[facility] - Last Filed: 07/18/24 04:26> Chief Complaint: L shoulder pain since Wednesday <[facility] - Last Filed: 07/18/24 04:26> Patient is a 64-year-old male with past medical history of gout, spinal surgery, anxiety, healed chronic right foot wound, sciatica, bilateral knee osteoarthritis, hyperlipidemia, obesity, vitamin-D deficiency, testosterone deficiency, depression, hypertension and BPH presents to the emergency room for increasing left shoulder pain with limited range of motion. Patient's symptoms started Wednesday night prior to going to bed and then by Wednesday morning as patient was trying to get out of bed he felt pop in his shoulder with increasing pain. Patient denied any fever or chills, nausea or vomiting, chest pain or shortness of breath at rest or with exertion. Patient is left-hand dominant. Patient has no history of left shoulder issues or trauma including rotator cuff partial or full tear, fracture or osteoarthritis of the left shoulder. Patient has had no recent gout flare-ups. Uric acid 4.2. Patient compliant with home medications including allopurinol and colchicine. In the emergency room patient's effusion was aspirated and those cultures and test results are pending. BC X2 also pending. Patient does not meet the criteria for sepsis as he is not tachycardic has no leukocytosis or fever and is not hypoxic. LA 3.9, now 1.1. Patient initially received Ancef x1 and then ceftriaxone and vancomycin per septic joint protocol. Patient is currently receiving morphine IV 4 mg for pain and this is not lasting very long. For admission patient will be changed to Dilaudid 1 mg q.3 hours as needed for severe pain. Will also start oxycodone 5 mg q.4 p.r.n. for moderate pain. Bowel regimen ordered as well. Ortho notified from the ED and is consulted. <[facility] - Last Filed: 07/18/24 04:26> Review of Systems Review of Systems: Patient currently reporting pain in the left shoulder, 5/10 with limited range of motion. Patient denies any click or abnormal function. Patient is left-hand dominant and patient denies any limitations using his left hand as needed. Patient denies fever, nausea, vomiting, diarrhea, abdominal pain or recent gout flare-ups. Patient states he has not been on testosterone for over a year and was found to be depleted of testosterone and prior had been on injections and stopped them. <[facility] - Last Filed: 07/18/24 04:26> Yes all other systems are reviewed and are negative <[facility] - Last Filed: 07/18/24 04:26> [facility] Medical History: Medical History Restless leg syndrome Stage III pressure ulcer Cocaine use disorder Mild major depression, single episode ANGELIKA (generalized anxiety disorder) Back pain Essential hypertension Neck pain Mixed hyperlipidemia Obesity Testosterone deficiency in male BPH (benign prostatic hyperplasia) Knee osteoarthritis Hypovitaminosis D Hypogonadism in male Gout Anxiety <[facility] - Last Filed: 07/18/24 04:26> Cognitive capacity: Alert and orientated x3 <[facility] - Last Filed: 07/18/24 04:26> Functional capacity: independent ambulation <[facility] - Last Filed: 07/18/24 04:26> Family History: [facility] History ([facility] 07[facility]18/24 [facility] Father HTN (hypertension) Gout Guillain-[place] syndrome Mother CVD (cardiovascular disease) <[facility] - Last Filed: 07/18/24 04:26> Surgical History: Surgical History (Reviewed 07/18/24 @ 04:05 by [facility]) History of tooth extraction History of spinal surgery History of ankle surgery History of colonoscopy <[facility] - Last Filed: 07/18/24 04:26> Social History: Social History Housing: House Alcohol intake: current Alcohol intake frequency: a few times a month Alcohol type: beer Patient Tobacco Use Status: Never used Tobacco Smoked in Last 30 Days: No e-Cigarette/Vaping Use: Never Used Second Hand Smoke Exposure: No Use of substances other than those prescribed or required for medical reasons: No Advance Directives: No Advance Directives Information Provided: No Do you have a plan to hurt others: No Plan service: No Current occupational status: disabled Cognitive needs: Yes Hearing needs: No Vision needs: No <[facility] - Last Filed: 07/18/24 04:26> Ebola Risk: Travel/Contact With Anyone From Affected Area/s: No <[facility] - Last Filed: 07/18/24 04:26> Has Patient Experienced Ebola Symptoms: No <[facility] - Last Filed: 07/18/24 04:26> Meds Allergies/Adverse reactions: Allergies Allergy/AdvReac Type Severity Reaction Status Date / Time gabapentin AdvReac Agitated Verified 07/17/24 19:13 <[facility] - Last Filed: 07/18/24 04:26> Active Medications: Current Medications Vancomycin HCl (Vancomycin/Ns) 2,000 mg in 500 mls @ 250 mls/hr IV ONCE ONE; Protocol Stop: 07/18/24 04:29 Last Admin: 07/18/24 02:40 Dose: 250 mls/hr Pharmacy Consult (Consult Rx Vancomycin Dosing) 1 each MISCELLANE DAILY PRN PRN Reason: Consult order <[facility] - Last Filed: 07/18/24 04:26> Physical Exam Vital Signs and Narrative: Vital Signs: Last Vital Signs Temp 98.3 F 07/18/24 01:57 Pulse 66 07/18/24 01:57 Resp 18 07/18/24 01:57 BP 119/61 07/18/24 01:57 Pulse Ox 96 07/18/24 01:57 O2 Del Method Room Air 07/18/24 01:57 BMI result Body Mass Index 32.1 <[facility] - Last Filed: 07/18/24 04:26> Alert and orientated X3, able to hx. Pt feeling gorked from sedation for I/D of L shoulder effusion. Neuro: CN II-X11 intact, no deficits, visual acuity intact EYES: PERRLA, EOM intact ENT: hearing intact, no issues with swallowing, uvula midline, lips moist, nares patent no epistaxis, some dentition missing Cardiac: S1 S2 RRR, no murmur, no JVD, no edema in Lower ext Pulmonary: lungs diminshed to ausculation B Abdominal: BS active in all 4 quadrants, no guarding, tenderness, rebounding, obese MSK: strength 5/5 upper R and B lower extremities, 2/58 LUE : no CVA tenderness no bladder distension Extremities: no edema in lower extremities, PT and DP pulses palpable +2 Psych: mood stable, judgement and insight good Skin: L shoudler swelling, warmth topically when palpating left shoulder, no bruising or hematoma at site of L shoulder aspiration <[facility] - Last Filed: 07/18/24 04:26> Results Labs CBC and Chem 7: 07/17/24 20:14 07/17/24 20:14 <[facility] - Last Filed: 07/18/24 04:26> Labs: Laboratory Results - last 24 hr 07/17/24 07/17/24 07/18/24 20:14 22:34 00:39 MCV 92.5 MCH 30.7 MCHC 33.2 RDW 14.1 Plt Count 228 D MPV 8.4 L Immature Gran % (Auto) 0.3 Neut % (Auto) 72.4 Lymph % (Auto) 15.0 L [place] % (Auto) 10.0 Eos % (Auto) 1.6 Baso % (Auto) 0.7 Lymph # (Auto) 1.0 L [place] # (Auto) 0.7 Eos # (Auto) 0.1 Baso # (Auto) 0.1 Abs Immat Gran (auto) 0.02 Absolute Neuts (auto) 4.9 Absolute Nucleated RBC 0.000 Nucleated RBC % (auto) 0.0 ESR 12 Anion Gap 13 Estim Creat Clear Calc 105.6 Estimated GFR > 60 Random Glucose 96 Lactic Acid 3.9 H* Lactic Acid F/U @ 2Hr 1.1 Uric Acid 4.2 Calcium 9.2 Magnesium 1.7 Total Bilirubin 0.5 AST 22 ALT 19 Alkaline Phosphatase 103 C-Reactive Protein 0.96 H Total Protein 6.8 Albumin 4.0 Synovial Source left shoulder Synovial WBC 29.900 Synovial RBC 0.083 Synovial Neutrophils 88 Synovial Lymphocytes 1 Synovial Monocytes 11 <[facility] - Last Filed: 07/18/24 04:26> ECG Prior ECG tracings: not available for review <[facility] - Last Filed: 07/18/24 04:26> Imaging Radiologist's Impressions: L shoulder Xray Impression: Soft tissue swelling could be infectious/inflammatory or posttraumatic. No fracture or dislocation. Abnormal appearance of the acromion is favored to be degenerative. Infection could also be considered if there are signs/symptoms of infection; follow up is recommended if symptoms persist or worsen. There is moderate to severe degenerative change. Narrowed acromiohumeral interval indicating rotator cuff pathology. L shoulder CT IMPRESSION: Left os acromiale with moderate to severe degenerative disease of the shoulder joint. Large joint effusion and soft tissue swelling. No definite erosive changes identified. Septic arthritis can not be entirely excluded. Joint aspiration is recommended for further evaluation <[facility] - Last Filed: 07/18/24 04:26> Assessment and Plan (1) Effusion of shoulder joint, left: Status: Acute <[facility] - Last Filed: 07/18/24 04:26> Patient is a 64-year-old male with past medical history of gout, spinal surgery, sciatica, anxiety, healed chronic ulcer R foot, bilateral knee osteoarthritis, hyperlipidemia, vitamin-D deficiency, testosterone deficiency, obesity, hypertension and BPH is being admitted for L shoulder effusion with suspicion for Septic Joint without Sepsis. Left Shoulder Effusion with noted degernative disease of L shoulder on CT scan -LA 3.0, now 1.9, CRP .96, no leukocytosis or fever -Aspiration completed in ED, cultures/ testing pending -Orthopedics consulted -Pt on ceftriaxone and vancomycin, Pharmacy consulted to manage Vanco. Renal FX stable. -Pain mgmt: tylenol prn, dilaudid 1 mg Q3prn severe pain, oxycodone 5 mg Q4H moderate pain, parameters given for holding narcotics, bowel regimen added -Held DVT prophylaxis in case procedure indicated -ID consult if indicated Hyponatermia -BMP in AM, NA 130 on admission -If lower, consider further work up HTN -Lisinopril once med rec completed BPH -Tamsulosin once med rec completed Gout -continue allopruinol, colchicine once med rec completed -Uric acid level 4.2, no recent flares HLD -Contrinue statin once med rec completed -LFTs WNL Anxiety -continue escitalopram DVT prophylaxis: held in case procedure needed with ortho PPI prophylaxis: not indicated MED REC pending Full code <GISSELLE Ruiz - Last Filed: 07/18/24 04:26> Patient is a 64-year-old male with past medical history of gout, spinal surgery, sciatica, anxiety, healed chronic ulcer R foot, bilateral knee osteoarthritis, hyperlipidemia, vitamin-D deficiency, testosterone deficiency, obesity, hypertension and BPH is being admitted for L shoulder effusion with suspicion for Septic Joint without Sepsis. Left Shoulder Effusion with noted degernative disease of L shoulder on CT scan -LA 3.0, now 1.9, CRP .96, no leukocytosis or fever -Aspiration completed in ED, cultures/ testing pending -Orthopedics consulted -Pt on ceftriaxone and vancomycin, Pharmacy consulted to manage Vanco. Renal FX stable. -Pain mgmt: tylenol prn, dilaudid 1 mg Q3prn severe pain, oxycodone 5 mg Q4H moderate pain, parameters given for holding narcotics, bowel regimen added -Held DVT prophylaxis in case procedure indicated -ID consult if indicated Hyponatermia -BMP in AM, NA 130 on admission -If lower, consider further work up HTN -Lisinopril once med rec completed BPH -Tamsulosin once med rec completed Gout -continue allopruinol, colchicine once med rec completed -Uric acid level 4.2, no recent flares HLD -Contrinue statin once med rec completed -LFTs WNL Anxiety -continue escitalopram DVT prophylaxis: held in case procedure needed with ortho PPI prophylaxis: not indicated MED REC pending Full code Admit as inpatient and will require two night minimum hospital stay for IV antibiotics (as above), which is not possible in a lesser acute setting. <Cady Fields MD - Last Filed: 07/18/24 04:30> Quality Stroke Does the patient have a stroke diagnosis?: No <[facility] - Last Filed: 07/18/24 04:26> Reason for No Anti-thrombotic by Day Two: Contraindicated <Pamela Reanna [facility] - Last Filed: 07/18/24 04:26> VTE Prior VTE?: No <Pamela Forte [facility] - Last Filed: 07/18/24 04:26> VTE Risk Level:: Medical - moderate - high <[facility] - Last Filed: 07/18/24 04:26> VTE Device Contraindication: N/A - Device Ordered <Barada Reanna [facility] - Last Filed: 07/18/24 04:26> VTE Drug Contraindication: N/A - Med Ordered <[facility] - Last Filed: 07/18/24 04:26>
[2024-07-18 04:00] VITALS: BP 119/72; PULSE 56; RESP 17; TEMP 36.8; O2SAT 98
[2024-07-18] MEDS: HYDROmorphone HCl 1 MG/ML SYRINGE IVPUSH ×2 (04:16→09:32)
[2024-07-18 05:14] VITALS: BMI 32.7
[2024-07-18 06:32] VITALS: BP 135/69; PULSE 52; RESP 18; TEMP 36.4; O2SAT 98
[2024-07-18] MEDS: oxyCODONE HCl Immed Release 5 MG TABLET PO ×2 (06:42→12:25)
[2024-07-18 07:18] LABS: MANUAL DIFF FLAG NO
[2024-07-18 07:25] LABS: Basophils Percent Auto 0.7 % (0-2); Eosinophils Absolute Auto 0.1 X10*3/uL (0.0-0.4); Eosinophils Percent Auto 1.7 % (0-4); Hematocrit 29.7 % (42.0-52.0); Hemoglobin 10.1 g/dl (14.0-18.0); Imm Gran Abs Auto 0.02 X10*3/uL (0.00-0.03); Imm Gran Pct Auto 0.3 % (0.0-0.4); Lymphocytes Absolute Auto 1.9 X10*3/uL (1.2-4.9); Lymphocytes Percent Auto 31.5 % (20-40); Mean Corpuscular Hemoglobin 31.3 pg (27.0-33.0); Mean Platelet Volume 8.6 fL (9.4-12.4); Monocytes Absolute Auto 0.8 X10*3/uL (0.1-1.2); Monocytes Percent Auto 13.2 % (2-11); Neutrophils Absolute Auto 3.1 x10*3/uL (2.0-8.3); Neutrophils Percent Auto 52.6 % (45-73); Platelet Count 190 X10*3/uL (160-400); Red Blood Count 3.23 X10*6/uL (4.60-5.80); White Blood Count 5.9 X10*3/uL (4.8-10.8)
[2024-07-18 07:36] LABS: Creatinine Clr Calc Pharmacy 114.3; Estimated Glomerular Filt Rate > 60
--- NOTE | 2024-07-18 07:36 | PM.CNOR ---
History of Present Illness HPI Consult date: 07/18/24 Chief complaint: shoulder pain Narrative: 3 day h/o left shoulder pain. h/o open toe wound and gout and ancxiety. h/o ed visits for joint pain. no fever/chills. aspirated in ed and admitted to hospital. on iv abx. cell coun 29 k; 88 pmns. PMFSH Past Medical History Medical History Restless leg syndrome Stage III pressure ulcer Cocaine use disorder Mild major depression, single episode ANGELIKA (generalized anxiety disorder) Back pain Essential hypertension Neck pain Mixed hyperlipidemia Obesity Testosterone deficiency in male BPH (benign prostatic hyperplasia) Knee osteoarthritis Hypovitaminosis D Hypogonadism in male Gout Anxiety Family History Family History Father HTN (hypertension) Gout Guillain-[place] syndrome Mother CVD (cardiovascular disease) Surgical History Surgical History History of tooth extraction History of spinal surgery History of ankle surgery History of colonoscopy Social History Social History Household Members: None Housing: House Do you presently have visiting nurse or other home services: No Alcohol intake: current Alcohol intake frequency: a few times a month Alcohol type: beer Patient Tobacco Use Status: Never used Tobacco e-Cigarette/Vaping Use: Never Used Second Hand Smoke Exposure: No service: No Current occupational status: disabled Cognitive needs: Yes Hearing needs: No Vision needs: No Travel History Ebola Risk: Travel/Contact With Anyone From Affected Area/s: No Has Patient Experienced Ebola Symptoms: No Meds Allergies Allergy/AdvReac Type Severity Reaction Status Date / Time gabapentin AdvReac Agitated Verified 07/17/24 19:13 Active Medications: Current Medications Acetaminophen (Acetaminophen 325 Mg Tablet) 650 mg PO Q6H PRN PRN Reason: Pain, Mild 1-3,fever,headache Calcium Carbonate (Calcium Carbonate 750 Mg Tab.Chew) 750 mg PO Q4H PRN PRN Reason: Heartburn Ceftriaxone Sodium (Ceftriaxone Sodium 2 Gm Vial) 2 gm IVPUSH Q24H VANDA Hydromorphone HCl (Hydromorphone Hcl 1 Mg/Ml Syringe) 1 mg IVPUSH Q4H PRN; Protocol PRN Reason: Pain, Severe (Pain Scale 7-10) Last Admin: 07/18/24 04:16 Dose: 1 mg Magnesium Hydroxide (Milk Of Magnesia 30 Ml Oral.Susp) 30 ml PO DAILY PRN PRN Reason: Constipation Melatonin (Melatonin 3 Mg Tablet) 6 mg PO BEDTIME PRN PRN Reason: Insomnia Ondansetron HCl (Ondansetron Hcl 4 Mg/2 Ml Vial) 4 mg IVPUSH Q8H PRN PRN Reason: Nausea and Vomiting Oxycodone HCl (Oxycodone Hcl Immed Release 5 Mg Tablet) 5 mg PO Q4H PRN PRN Reason: Pain, Moderate(Pain Scale 4-6) Last Admin: 07/18/24 06:42 Dose: 5 mg Pharmacy Consult (Consult Rx Vancomycin Dosing) 1 each MISCELLANE DAILY PRN PRN Reason: Consult order Senna (Sennosides 8.6 Mg Tablet) 17.2 mg PO BEDTIME VANDA Sodium Chloride (0.9 % Sodium Chloride Flush 3 Ml Syringe) 3 ml IVFLUSH QSHIFT VANDA Physical Exam Vital Signs: Vital Signs: Last Vital Signs Temp 97.6 F 07/18/24 06:32 Pulse 52 07/18/24 06:32 Resp 18 07/18/24 06:32 BP 135/69 07/18/24 06:32 Pulse Ox 98 07/18/24 06:32 O2 Del Method Room Air 07/18/24 06:32 BMI result Body Mass Index 32.7 Extrem: Other: pain with active abduction otherwise minimal pain with passive ROM ER to 45 deg no skin changes NVI LUE Results Labs 07/18/24 07:10 07/18/24 07:10 Labs: Abnormal lab results 07/17/24 07/18/24 Range/Units 20:14 07:10 RBC 3.87 L 3.23 L (4.60-5.80) X10*6/uL Hgb 11.9 L 10.1 L (14.0-18.0) g/dl Hct 35.8 L 29.7 L (42.0-52.0) % MPV 8.4 L 8.6 L (9.4-12.4) fL Lymph % (Auto) 15.0 L (20-40) % [place] % (Auto) 13.2 H (2-11) % Lymph # (Auto) 1.0 L (1.2-4.9) X10*3/uL Sodium 130 L (135-145) mmol/L Chloride 93 L (96-108) mmol/L Lactic Acid 3.9 H* (0.5-2.0) mmol/L C-Reactive Protein 0.96 H (< or = 0.50) mg/dL H & H 07/17/24 07/18/24 Range/Units 20:14 07:10 Hgb 11.9 L 10.1 L (14.0-18.0) g/dl Hct 35.8 L 29.7 L (42.0-52.0) % All other labs normal. Diagnostic results Shoulder CT: image reviewed (OA and effusion) Assessment and Plan (1) Effusion of joint of left shoulder: Status: Acute Plan 64 yo M admitted for shoulder OA flare. Aspirated as ESR and CRP are elevated. clinical suspicion for septic arthritis is very low. cell count unimpressive. cultures pending. oob and may follow up with ortho clinic in 10-14 days as needed. No acute orthopedic intervention warranted. Procedures Date of Service Date of Service: 07/18/24
[2024-07-18 07:43] LABS: Alanine Aminotransferase 12 U/L (0-40); Albumin Level 3.3 g/dL (3.5-5.0); Alkaline Phosphatase 80 U/L (39-117); Anion Gap 10 (12-20); Aspartate Amino Transferase 16 U/L (5-37); Bilirubin Total 0.5 mg/dL (0.0-1.0); Blood Urea Nitrogen 12 mg/dL (9-16); Carbon Dioxide 27 mmol/L (22-29); Chloride 98 mmol/L (96-108); Creatinine Clr Calc Pharmacy 118.6; Estimated Glomerular Filt Rate > 60; Glucose Random 89 mg/dL (60-115); Potassium 4.3 mmol/L (3.3-5.1); Sodium 131 mmol/L (135-145); Total Protein 5.6 g/dL (6.5-8.0)
[2024-07-18 07:52] VITALS: BP 110/68; PULSE 55; TEMP 35.7; O2SAT 96
[2024-07-18 07:52] LABS: Calcium 8.3 mg/dL (8.4-10.2)
--- NOTE | 2024-07-18 08:29 | PHA.PROG ---
Admission Date/Time: July 18, 2024 03:26 Indication: BONE Weight in k.2 kg Serum Creatinine - Last 168 Hours 07/17/24 07/18/24 07/18/24 20:14 07:10 07:10 Creatinine 0.88 0.79 0.82 Estimated CrCl and GFR - Last 168 Hours 07/17/24 07/18/24 07/18/24 20:14 07:10 07:10 Estim Creat Clear Calc 105.6 118.6 114.3 Estimated GFR > 60 > 60 07/18/24 07:10 Estim Creat Clear Calc Estimated GFR > 60 Vancomycin Loading Dose: 2000 Current Vancomycin Dosing Regimen: 1250 Q 12H Vancomycin Monitoring using AUC goal of 400 - 600 range with trough as surrogate marker: 477 Date and Time for next Vancomycin Level to be drawn: 07/19 @ 1300 Pharmacist Comments on Vancomycin Plan: Vancomycin dosing will take advantage of [employer]RX as a clinical decision support tool that uses Bayesian modeling to calculate individual patient's pharmacokinetic parameters and forecast the patient's drug concentration time course with the target goal AUC 24 range of 400 - 600 mg/L/hr.
--- NOTE | 2024-07-18 08:54 | PHA.MEDREC ---
Addendum entered by Mehdi Jang 07/18/24 09:15: reviewed Original Note: Pharmacy Consult ? Medication Reconciliation Pharmacy has completed the medication reconciliation. Spoke with patient who was able to confirm what he is taking for medicaitons.
[2024-07-18] MEDS: 0.9 % Sodium Chloride Flush 3 ML SYRINGE IVFLUSH (09:33)
--- NOTE | 2024-07-18 10:33 | MHC.CM.PN ---
PT LIVES ALONE IS INDEPENDENT HAS OWN TRANSPORT DC PLAN HOME NO SERVICES
--- NOTE | 2024-07-18 12:02 | P.DS_ITS ---
DS: Providers Provider Date of Service: 07/18/24 Date of admission: 07/18/24 03:26 Date of discharge: 07/18/24 Primary care physician: Torrie Joyce MD Consults: 07/18/24 03:56 Consult to Orthopedics Routine Consulting Provider: [facility] Reason for consultation: L shoulder effusion DS: Diagnosis Discharge Diagnosis (1) Effusion of joint of left shoulder: Status: Acute DS: Summary Hospital Course Hospital Course: From the history and physical by the admitting hospitalist, Pamela Forte NP, 07/18/24: Patient is a 64-year-old male with past medical history of gout, spinal surgery, anxiety, healed chronic right foot wound, sciatica, bilateral knee osteoarthritis, hyperlipidemia, obesity, vitamin-D deficiency, testosterone deficiency, depression, hypertension and BPH presents to the emergency room for increasing left shoulder pain with limited range of motion. Patient's symptoms started Wednesday night prior to going to bed and then by Wednesday morning as patient was trying to get out of bed he felt pop in his shoulder with increasing pain. Patient denied any fever or chills, nausea or vomiting, chest pain or shortness of breath at rest or with exertion. Patient is left-hand dominant. Patient has no history of left shoulder issues or trauma including rotator cuff partial or full tear, fracture or osteoarthritis of the left shoulder. Patient has had no recent gout flare-ups. Uric acid 4.2. Patient compliant with home medications including allopurinol and colchicine. In the emergency room patient's effusion was aspirated and those cultures and test results are pending. BC X2 also pending. Patient does not meet the criteria for sepsis as he is not tachycardic has no leukocytosis or fever and is not hypoxic. LA 3.9, now 1.1. Patient initially received Ancef x1 and then ceftriaxone and vancomycin per septic joint protocol. Patient is currently receiving morphine IV 4 mg for pain and this is not lasting very long. For admission patient will be changed to Dilaudid 1 mg q.3 hours as needed for severe pain. Will also start oxycodone 5 mg q.4 p.r.n. for moderate pain. Bowel regimen ordered as well. Ortho notified from the ED and is consulted. He was admitted to the hospitalist service with Orthopedic Surgery consultation. Shoulder fluid with 29,900 WBCs, 88% neutrophils. Clinical suspicion for septic arthritis was very low per their consultation and my assessment. Most likely he is having a flare of underlying osteoarthritis. He was discharged with instructions to continue diclofenac and use acetaminophen for mild-moderate pain; oxycodone for severe pain. He will follow up with [facility] in 1-2 weeks. In the very unlikely event his cultures are positive, he will be called back to the hospital. Time Attestation Discharge Coordination Time (in mins): 40 Quality: Safe Use of Opioids Does Pt have an Active Cancer Diagnosis on the Problem List?: No Quality: Stroke Does the patient have a stroke diagnosis?: No Physical Exam Vital Signs: Vital Signs: Last Vital Signs Temp 96.3 F L 07/18/24 07:52 Pulse 55 07/18/24 07:52 Resp 18 07/18/24 06:32 BP 110/68 07/18/24 07:52 Pulse Ox 96 07/18/24 07:52 O2 Del Method Room Air 07/18/24 07:52 BMI result Body Mass Index 32.7 Gen: in no acute distress HEENT: sclera anicteric, moist mucus membranes Neck: supple Lungs: clear to auscultation bilaterally Heart: regular rate and rhythm, no murmurs Abd: soft, non-tender, non-distended Ext: no edema, L shoulder abduction and external rotation limited by pain Skin: warm/well-perfused Neuro: alert and oriented x3, no focal findings Psych: appropriate affect DS: Data Data Completed and Pending Completed studies during hospitalization [Text1]: Laboratory Results WBC 5.9 X10*3/uL (4.8-10.8) 07/18/24 07:10 RBC 3.23 X10*6/uL (4.60-5.80) L 07/18/24 07:10 Hgb 10.1 g/dl (14.0-18.0) L 07/18/24 07:10 Hct 29.7 % (42.0-52.0) L 07/18/24 07:10 MCV 92.0 fL (80.0-98.0) 07/18/24 07:10 MCH 31.3 pg (27.0-33.0) 07/18/24 07:10 MCHC 34.0 g/dl (31.0-36.0) 07/18/24 07:10 RDW 14.0 % (11.0-16.0) 07/18/24 07:10 Plt Count 190 X10*3/uL (160-400) 07/18/24 07:10 MPV 8.6 fL (9.4-12.4) L 07/18/24 07:10 Immature Gran % (Auto) 0.3 % (0.0-0.4) 07/18/24 07:10 Neut % (Auto) 52.6 % (45-73) 07/18/24 07:10 Lymph % (Auto) 31.5 % (20-40) 07/18/24 07:10 Hemphill % (Auto) 13.2 % (2-11) H 07/18/24 07:10 Eos % (Auto) 1.7 % (0-4) 07/18/24 07:10 Baso % (Auto) 0.7 % (0-2) 07/18/24 07:10 Lymph # (Auto) 1.9 X10*3/uL (1.2-4.9) 07/18/24 07:10 Hemphill # (Auto) 0.8 X10*3/uL (0.1-1.2) 07/18/24 07:10 Eos # (Auto) 0.1 X10*3/uL (0.0-0.4) 07/18/24 07:10 Baso # (Auto) 0.0 X10*3/uL (0.0-0.2) 07/18/24 07:10 Abs Immat Gran (auto) 0.02 X10*3/uL (0.00-0.03) 07/18/24 07:10 Absolute Neuts (auto) 3.1 x10*3/uL (2.0-8.3) 07/18/24 07:10 Absolute Nucleated RBC 0.000 X10*3/uL (0.0-0.012) 07/18/24 07:10 Nucleated RBC % (auto) 0.0 /100WBC (0.0-0.2) 07/18/24 07:10 ESR 12 MM/HR (0-15) 07/17/24 20:14 Sodium 131 mmol/L (135-145) L 07/18/24 07:10 Potassium 4.3 mmol/L (3.3-5.1) 07/18/24 07:10 Chloride 98 mmol/L (96-108) 07/18/24 07:10 Carbon Dioxide 27 mmol/L (22-29) 07/18/24 07:10 Anion Gap 10 (12-20) L 07/18/24 07:10 BUN 12 mg/dL (9-16) 07/18/24 07:10 Creatinine 0.79 mg/dL (0.5-1.4) 07/18/24 07:10 Creatinine 0.82 mg/dL (0.5-1.4) 07/18/24 07:10 Estim Creat Clear Calc 114.3 07/18/24 07:10 Estim Creat Clear Calc 118.6 07/18/24 07:10 Estimated GFR > 60 07/18/24 07:10 Estimated GFR > 60 07/18/24 07:10 Random Glucose 89 mg/dL (60-115) 07/18/24 07:10 Lactic Acid 3.9 mmol/L (0.5-2.0) H* 07/17/24 20:14 Lactic Acid F/U @ 2Hr 1.1 mmol/L (0.5-2.0) 07/17/24 22:34 Uric Acid 4.2 mg/dL (3.4-7.0) 07/17/24 20:14 Calcium 8.3 mg/dL (8.4-10.2) L D 07/18/24 07:10 Magnesium 1.7 mg/dL (1.6-2.6) 07/17/24 20:14 Total Bilirubin 0.5 mg/dL (0.0-1.0) 07/18/24 07:10 AST 16 U/L (5-37) 07/18/24 07:10 ALT 12 U/L (0-40) 07/18/24 07:10 Alkaline Phosphatase 80 U/L (39-117) 07/18/24 07:10 C-Reactive Protein 0.96 mg/dL (< or = 0.50) H 07/17/24 20:14 Total Protein 5.6 g/dL (6.5-8.0) L 07/18/24 07:10 Albumin 3.3 g/dL (3.5-5.0) L 07/18/24 07:10 Synovial Source left shoulder 07/18/24 00:39 Synovial WBC 29.900 X10*3/uL 07/18/24 00:39 Synovial RBC 0.083 X10*6/uL 07/18/24 00:39 Synovial Neutrophils 88 % 07/18/24 00:39 Synovial Lymphocytes 1 % 07/18/24 00:39 Synovial Monocytes 11 % 07/18/24 00:39 Discharge Plan Discharge Anticipated Discharge Date/Time: 07/18/24 11:41 Patient Disposition: Home, Self-Care Discharge Diagnosis: left shoulder effusion, likely traumatic Referrals: Tang Langley MD [Physician] - 1 Week Torrie Rangel MD [Primary Care Provider] - 1 Week Discharge Medications: New oxycodone 5 mg Tablet 5 mg PO Q4H PRN (Reason: pain, severe) Qty: 12 0RF Rx Instructions: Partial Fill upon patient request. Continued atorvastatin 40 mg tablet 40 mg PO BEDTIME 90 Days Qty: 90 3RF lisinopril 30 mg tablet 30 mg PO DAILY 90 Days Qty: 90 3RF escitalopram oxalate 20 mg tablet 20 mg PO DAILY 90 Days Qty: 90 0RF cholecalciferol (vitamin D3) 50 mcg (2,000 unit) capsule 50 mcg PO DAILY 90 Days Qty: 90 3RF diclofenac sodium 75 mg tablet,delayed release (DR/EC) 75 mg PO BID PRN (Reason: pain) 30 Days Qty: 60 0RF tamsulosin 0.4 mg capsule 0.4 mg PO DAILY Qty: 90 0RF cyclobenzaprine 10 mg tablet 10 mg PO TID PRN (Reason: muscle spasm) 30 Days Qty: 90 1RF allopurinol 300 mg tablet 300 mg PO DAILY PRN (Reason: gout) Discharge Orders: Discharge Order (Routine); Ordered 07/18/24 Ordered By: Douglas Quinones Diet: Advance to usual diet Activity on Discharge: As tolerated Stand Alone Forms: Patient Portal Discharge page Print Language: French Care Plan Goals: reduction in shoulder pain Health Concerns: left shoulder effusion, likely traumatic Plan of Treatment: take diclofenac and acetaminophen [Tylenol] for mild-moderate pain, oxycodone for severe pain follow up with [facility] in 1-2 weeks we will call you if cultures are positive Please follow up with your primary care doctor within 1 week. Return to the hospital if you experience recurrent or worsening symptoms. Assessment: See Discharge Summary.
--- NOTE | 2024-07-18 12:15 | MHC.CM.PN ---
PT DCD HOME SELF CARE
[2024-07-18] MEDS: Cyclobenzaprine HCl 10 MG TABLET PO (12:25)
[2024-07-20 08:44] LABS: Glucose Synovial Fluid 66; Total Protein Synovial Fluid 3.6; Uric Acid Synovial Fluid 4
== END 2024-07-18 12:39 | disposition home or self-care (01) | DRG 554 ==
LOC: HO.ED 07-18 03:36 → HO.EDOVER 07-18 04:08 → HO.S3 07-18 04:17
PROVIDERS: Nurse Practitioner Family; Physician Assistant Medical; Admitting Provider Student in an Organized Health Care Education/Training Program; Emergency Provider Emergency Medicine; PCP Internal Medicine; Visit Provider Family Medicine
DX: M19.012 Primary osteoarthritis, left shoulder (principal); E87.1 Hypo-osmolality and hyponatremia; Z79.899 Other long term (current) drug therapy
CPT/HCPCS: 36415; 73030; 73201; 80053; 82565; 82945; 83605; 83615; 83735; 84157; 84550; 84560; 85025; 85652; 86140; 87040; 87070; 87073; 87205; 89051; 89060; 99285; J0690; J0696; J1171; J1885; J2004; J2250; J2270; J3370; Q9967

== ENCOUNTER → 2024-07-17 19:12 | Outpatient (BNV) | payer OTHER, SELFPAY | PROVIDERS: Emergency Provider Emergency Medicine; PCP Internal Medicine; Visit Provider Radiology Diagnostic Radiology | DX: M19.012 Primary osteoarthritis, left shoulder (principal); M79.89 Other specified soft tissue disorders | CPT/HCPCS: 73030; 73201 ==

== ENCOUNTER → 2024-07-18 03:26 | Outpatient (BNV) | payer OTHER, SELFPAY | PROVIDERS: Admitting Provider Student in an Organized Health Care Education/Training Program; Emergency Provider Emergency Medicine; PCP Internal Medicine; Visit Provider Orthopaedic Surgery | DX: M25.412 Effusion, left shoulder (principal) | CPT/HCPCS: 99222 ==

== ENCOUNTER → 2024-07-18 03:26 | Outpatient (BNV) | payer OTHER, SELFPAY | PROVIDERS: Admitting Provider Student in an Organized Health Care Education/Training Program; Emergency Provider Emergency Medicine; PCP Internal Medicine; Visit Provider Nurse Practitioner Family | DX: M25.412 Effusion, left shoulder (principal) | CPT/HCPCS: 99234; 99499 ==

== ENCOUNTER 2024-07-26 10:24 | Outpatient (AMB) | payer OTHER, SELFPAY ==
--- NOTE | 2024-07-26 10:28 | A.OFFPC_ITS ---
Vital Signs 07/26/24 10:30 Height 5 ft 11 in Weight 228 lb 4 oz BMI 31.8 BP 140/74 H Blood Pressure Location Rt brachial Position Sitting Pulse 64 Pulse Source Pulse Oximeter Temp 96.8 F Temp Source Temporal Artery Scan Pulse Oximetry (%) 97 Oxygen Delivery Method Room Air Intake Visit Reasons: [facility] TCM 07/18 SHOULDER PAIN Intake Note: Patient is here for hospital discharge and TCM follow up. Patient was discharged from [facility] on 07/18/24. Director Of Customer Acquisition Required: No Transportation Security Officer: Not Required per policy Accompanied by: Self / Same As Patient Allergies gabapentin Adverse Reaction (Verified 07/26/24 10:29) Agitated Medication List - Last Reconciled 07/26/24 by Miranda Aldana PA-C allopurinol 300 mg PO DAILY PRN atorvastatin 40 mg PO BEDTIME 90 days cholecalciferol (vitamin D3) 50 mcg PO DAILY 90 days cyclobenzaprine 10 mg PO TID PRN 30 days diclofenac sodium 75 mg PO BID PRN 30 days escitalopram oxalate 20 mg PO DAILY 90 days lisinopril 30 mg PO DAILY 90 days oxycodone 5 mg PO Q4H PRN tamsulosin 0.4 mg PO DAILY Tobacco use date assessed: 07/26/24 Dental Screening Dental Screen Date: 07/26/24 Did you have a dental visit in the last 12 months?: No Did you have a dental problem in the last 6 months where you did not have access to dental care?: No Was dental information given to patient?: Patient declined HPI [facility] TCM 07/18 SHOULDER PAIN HPI Details 64-year-old male with past medical histo ry of anxiety, BPH, hyperlipidemia, hypertension, depression last seen 10/[address] Hammond coming in for hospital discharge follow up. In review of the notes, patient was seen in [facility] ED 07/17/2024 for left shoulder pain effusion was aspirated and cultures are pending did not meet criteria for sepsis but admitted for septic joint.?Treated with IV antibiotics patient's condition improved and discharged home with Tylenol and oxycodone and follow up with Orthopedics in 1-2 weeks. Patient was discharged 07/18/2024 Presenting with left shoulder pain and arthritic flare-up. Sudden onset of shoulder pain has worsened, causing substantial discomfort, particularly at night, leading to insomnia. The patient underwent joint aspiration and received antibiotics in the hospital due to suspected infection. Pain has persisted despite treatment, limiting range of motion and potential weakness in the left shoulder. Evidence of severe joint arthritis was noted previously, contributing to the flare-up and pain escalation. Lower back spasms arose due to altered sleeping posture aimed at alleviating shoulder pain, currently partially managed with cyclobenzaprine. TCM TCM Information Date of Discharge 07/18/24 Discharged From [facility] Interactive Contact Date (Reference documentation from this date) 07/19/24 [facility] Medical History Restless leg syndrome Stage III pressure ulcer Cocaine use disorder Mild major depression, single episode ANGELIKA (generalized anxiety disorder) Back pain Essential hypertension Neck pain Mixed hyperlipidemia Obesity Testosterone deficiency in male BPH (benign prostatic hyperplasia) Knee osteoarthritis Hypovitaminosis D Hypogonadism in male Gout Anxiety Surgical History History of tooth extraction History of spinal surgery History of ankle surgery History of colonoscopy Family History Father HTN (hypertension) Gout Guillain-Galena syndrome Mother CVD (cardiovascular disease) Social History Household Members: None Housing: House Do you presently have visiting nurse or other home services: No Alcohol intake: current Alcohol intake frequency: a few times a month Alcohol type: beer Patient Tobacco Use Status: Never used Tobacco e-Cigarette/Vaping Use: Never Used Second Hand Smoke Exposure: No service: No Current occupational status: disabled Cognitive needs: Yes Hearing needs: No Vision needs: No Questionnaire PHQ-9 Over the last 2 weeks, how often have you been bothered by any of the following problems? 1. Little interest or pleasure in doing things: not at all 2. Feeling down, depressed, or hopeless: not at all 3. Trouble falling or staying asleep, or sleeping too much: not at all 4. Feeling tired or having little energy: not at all 5. Poor appetite or overeating: not at all 6. Feeling bad about yourself - or that you are a failure or have let yourself or your family down: not at all 7. Trouble concentrating on things, such as reading the newspaper or watching television: not at all 8. Moving or speaking so slowly that other people could have noticed. Or the opposite - being so fidgety or restless that you have been moving around a lot more than usual: not at all 9. Thoughts that you would be better off or of hurting yourself in some way: not at all Total score: 0 Depression Screening Interpretation: Negative Depression Screening Done: Yes Source: Developed by Drs. Russell Stratton, Tiara Arce, Shqa Tinoco and colleagues, with an educational khadra from [employer], Part of [employer]. Thrive Questionnaire Date Thrive assessed: 07/18/24 AUDIT C Alcohol Use Questionnaire (AUDIT-C) 1. How often do you have a drink containing alcohol?: Monthly or less 2. How many drinks containing alcohol do you have on a typical day when you are drinking?: 1 or 2 Total Score: 1 ANGELIKA-7 AMB Questionnaire ANGELIKA-7 Date ANGELIKA - 7 assessed: 07/26/24 Feeling nervous, anxious, or on edge: 0 = Not at all Not being able to stop or control worryin = Not at all Worrying too much about different things: 0 = Not at all Trouble relaxin = Not at all Being so restless that it is hard to sit still: 0 = Not at all Becoming easily annoyed or irritable: 0 = Not at all Feeling afraid as if something awful might happen: 0 = Not at all Total ANGELIKA-7 score (0-4 normal; 5-9 mild; 10-14 moderate; 15-21 severe): 0 Source: Developed by Drs. Russell Stratton, Tiara Arce, Shaq Tinoco and colleagues, with an educational khadra from [employer], Part [employer]. Review of Systems Const Denies body aches, Denies chills, Denies fever(s), Denies headache(s) and Denies poor appetite Eyes Reports no additional complaints ENT Denies dysphagia, Denies dizziness, Denies headache(s) and Denies odynophagia Card Denies chest pain, Denies syncope, Denies edema, Denies irregular heart rhythm, Denies lightheadedness and Denies dyspnea Resp Denies cough and Denies dyspnea GI Denies abdominal pain, Denies constipation, Denies dysphagia, Denies diarrhea, Denies nausea, Denies odynophagia and Denies vomiting Reports no additional complaints Musc Reports no additional complaints and Denies abnormal gait Skin/Breast Reports system reviewed and no additional complaints, except as documented Neuro Denies abnormal gait, Denies dizziness, Denies syncope and Denies headache(s) Psych Reports no additional complaints Physical exam (Primary Care) Vital Signs: Last Vital Signs Temp 96.8 F 07/26/24 10:30 Pulse 64 07/26/24 10:30 BP 140/74 H 07/26/24 10:30 Pulse Ox 97 07/26/24 10:30 Oxygen Delivery Method Room Air 07/26/24 10:30 BMI result Body Mass Index 31.8 Tobacco/Smoking Status: Tobacco use Status Tobacco use date assessed 07/26/24 07/26/24 10:35 Patient Tobacco Use Status Never used Tobacco 07/26/24 10:35 e-Cigarette/Vaping Use Never Used 07/26/24 10:35 PHQ-9: PHQ-9 Score PHQ-9: Total score 0 07/26/24 10:35 Depression Screening Interpretation: Negative Thrive Assessment: Date of Thrive Assessment Date Thrive assessed 07/18/24 07/26/24 10:35 Const General: cooperative, healthy appearing, comfortable and no acute distress Orientation/consciousness: patient oriented x3 HENMT Head: Yes normocephalic Ears: hearing grossly normal bilaterally General nose exam: Normal external nose present Eyes General: appearance normal, both eyes and all related structures Conjunctivae: conjunctivae normal Neck Neck: Yes full ROM and Yes no lymphadenopathy Resp Effort & Inspection: normal respiratory effort Auscultation: clear to auscultation bilaterally, no crackles, no rales, no rhonchi and no wheezes Cardio Rate: regular rate Rhythm: regular rhythm Back/Spine/Pelvis Other: Pain to palpation over right lumbar paraspinal muscles Skin General skin exam: no rashes or lesions noted Neuro General: patient oriented x3 Gait exam (Neuro): Normal gait present Extrem Other: Intact strength, sensation, pulses in bilateral upper extremities. Range of motion exam is limited due to pain. Pain with internal rotation and extension of the left shoulder. Pain to palpation over the AC joint area of the left shoulder. General: Yes normal to inspection, Yes full ROM and No edema Psych Affect: normal affect Attitude: cooperative Insight: Good insight present (Psych) Judgement: Good judgement present (Psych) Coding Level of Care Code TCM Mod MDM <= 14 Days Complex EM visit Add On G2211 Diagnoses Osteoarthritis of left shoulder M19.012 Effusion of joint of left shoulder M25.412 Back pain M54.9 Assessment & Plan Assessment & Plan (1) Osteoarthritis of left shoulder: Code(s): M19.012 - Primary osteoarthritis, left shoulder Category: Medical Plan: Management of the patient's left shoulder pain and arthritic flare includes referral to orthopedics for possible intra-articular injection due to inflammation findings. A short tramadol course will manage breakthrough pain until orthopedic consultation, avoiding extended oxycodone use. I did discuss with the patient that this prescription would not be refilled. The patient will continue diclofenac and Tylenol but avoid NSAIDs concurrently. Monitoring for infection symptoms is crucial, and timely orthopedic follow-up is advised. (2) Effusion of joint of left shoulder: Code(s): M25.412 - Effusion, left shoulder Category: Medical Plan: See above (3) Back pain: Code(s): M54.9 - Dorsalgia, unspecified Category: Medical Plan: For lower back spasms, lidocaine patches will be added to cyclobenzaprine. Plan This note was constructed using voice recognition software. While every effort has been made to ensure accuracy and internal salesperson, still areas may have been included sometimes these areas may affect the content or meeting of the given symptoms. Total time spent caring for the patient today was 30 minutes. This includes time spent before the visit reviewing the chart, time spent during the visit, and time spent after the visit and documentation. Patient was informed and verbally consented to the use of an ambient scribe for clinic note documentation during this visit. Orders: Referrals Orthopedics Referral M25.412 - Effusion, left shoulder Medications: New lidocaine 5% leave on most painful area for up to 12 hrs 1 patch topical DAILY 15 ea 0RF
[2024-07-26 10:30] VITALS: BP 140/74; PULSE 64; TEMP 36; O2SAT 97; BMI 31.8
== END 2024-07-26 10:59 | disposition home or self-care (01) ==
LOC: HO.HMCH 10:25
PROVIDERS: PCP Internal Medicine
DX: M19.012 Primary osteoarthritis, left shoulder (principal); M25.412 Effusion, left shoulder; M54.9 Dorsalgia, unspecified

== ENCOUNTER → 2024-07-26 10:24 | Outpatient (BNVA) | payer OTHER, SELFPAY | PROVIDERS: PCP Internal Medicine | DX: M19.012 Primary osteoarthritis, left shoulder (principal); M62.830 Muscle spasm of back; M25.412 Effusion, left shoulder; F41.9 Anxiety disorder, unspecified; N40.0 Benign prostatic hyperplasia without lower urinary tract symptoms; E78.5 Hyperlipidemia, unspecified; I10 Essential (primary) hypertension; F32.A Depression, unspecified | CPT/HCPCS: 96127; 99495 ==

== ENCOUNTER 2024-08-24 07:56 | Outpatient (AMB) | payer OTHER, SELFPAY ==
--- NOTE | 2024-08-24 07:59 | A.OFFPC_ITS ---
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: No Accompanied by: Self / Same As Patient Allergies gabapentin Adverse Reaction (Verified 08/24/24 08:13) Agitated Medication List - Last Reconciled 08/24/24 by Torrie Joyce MD allopurinol 300 mg PO DAILY PRN atorvastatin 40 mg PO BEDTIME 90 days cholecalciferol (vitamin D3) 50 mcg PO DAILY 90 days diclofenac sodium 75 mg PO BID PRN escitalopram oxalate 20 mg PO DAILY 90 days lidocaine 5% 1 patch topical DAILY lisinopril 30 mg PO DAILY 90 days tamsulosin 0.4 mg PO DAILY tramadol 50 mg PO BID PRN Tobacco use date assessed: 07/26/24 Dental Screening Dental Screen Date: 07/26/24 HPI HPI Comments History of Present Illness Details This is a 64-year-old male that presents for his physical exam. Last colonoscopy was 2018 and he was in a 5 year plan due to tubular adenoma. Vaccines up-to-date. Has microcytic anemia and will be referred to Hematology- Oncology. Also has osteoarthritis of left shoulder with limited range of motion and will benefit from physical therapy. Has mild major depression on medication. [facility] Medical History (Updated 08/24/24 @ 08:32 by Torrie Joyce MD) Restless leg syndrome Stage III pressure ulcer Cocaine use disorder Mild major depression, single episode ANGELIKA (generalized anxiety disorder) Back pain Essential hypertension Neck pain Mixed hyperlipidemia Obesity Testosterone deficiency in male BPH (benign prostatic hyperplasia) Knee osteoarthritis Hypovitaminosis D Hypogonadism in male Gout Anxiety Surgical History History of tooth extraction History of spinal surgery History of ankle surgery History of colonoscopy Family History Father HTN (hypertension) Gout Guillain-[place] syndrome Mother CVD (cardiovascular disease) Social History Household Members: None Housing: House Do you presently have visiting nurse or other home services: No Alcohol intake: current Alcohol intake frequency: a few times a month Alcohol type: beer Patient Tobacco Use Status: Never used Tobacco e-Cigarette/Vaping Use: Never Used Second Hand Smoke Exposure: No service: No Current occupational status: disabled Cognitive needs: Yes Hearing needs: No Vision needs: No Questionnaire PHQ-9 Over the last 2 weeks, how often have you been bothered by any of the following problems? 1. Little interest or pleasure in doing things: more than half the days 2. Feeling down, depressed, or hopeless: several days 3. Trouble falling or staying asleep, or sleeping too much: several days 4. Feeling tired or having little energy: several days 5. Poor appetite or overeating: not at all 6. Feeling bad about yourself - or that you are a failure or have let yourself or your family down: not at all 7. Trouble concentrating on things, such as reading the newspaper or watching television: not at all 8. Moving or speaking so slowly that other people could have noticed. Or the opposite - being so fidgety or restless that you have been moving around a lot more than usual: nearly every day 9. Thoughts that you would be better off or of hurting yourself in some way: not at all Total score: 8 Depression Screening Interpretation: Positive Depression Screening Follow-up: Existing condition, In treatment and Follow-up Visit Requested Depression Screening Done: Yes 92526 - PHQ-9 Billing: Yes Source: Developed by Drs. Russell Stratton, Tiara Arce, Shaq Tinoco and colleagues, with an educational khadra from [employer]. Thrive Questionnaire Date Thrive assessed: 08/24/24 I am a: Patient What is your living situation today?: I have a steady place to live Within the past 12 months, did the food you bought not last and you didn't have the money to get more?: I choose not to answer this question Within the past 12 months, did you worry whether your food would run out before you got money to buy more?: I choose not to answer this question Do you have trouble paying for medicines?: I choose not to answer this question Do you have trouble getting transportation to medical appointments?: Yes Do you have trouble paying your heating and electricity bill?: Yes Do you have trouble taking care of your child, family member or friend?: No Do you have trouble with day-to-day activities such as bathing, preparing meals, shopping, managing finances, etc.?: Yes Are you currently unemployed and looking for a job?: Yes Are you interested in more education?: No Please select the resources that you would like help with: None Currently or been in a relationship where the following occur: No concerns reported THRIVE Score: 2 AUDIT C Alcohol Use Questionnaire (AUDIT-C) 1. How often do you have a drink containing alcohol?: Monthly or less 2. How many drinks containing alcohol do you have on a typical day when you are drinking?: 1 or 2 3. How often do you have six or more drinks on one occasion?: Never Total Score: 1 Score Reviewed/Action Taken: No ANGELIKA-7 AMB Questionnaire ANGELIKA-7 Date ANGELIKA - 7 assessed: 08/24/24 Feeling nervous, anxious, or on edge: 1 = Several days Not being able to stop or control worryin = Not at all Worrying too much about different things: 0 = Not at all Trouble relaxin = Several days Being so restless that it is hard to sit still: 0 = Not at all Becoming easily annoyed or irritable: 1 = Several days Feeling afraid as if something awful might happen: 0 = Not at all Total ANGELIKA-7 score (0-4 normal; 5-9 mild; 10-14 moderate; 15-21 severe): 3 Source: Developed by Drs. Russell Stratton, Tiara Arce, Shaq Tinoco and colleagues, with an educational khadra from [employer]. ANGELIKA-7 Assessment Billing ANGELIKA-7 Assessment Tool: ANGELIKA-7 Assessment 91404 Review of Systems Const All systems reviewed & are unremarkable except as noted in HPI and below Card Denies chest pain at rest, Denies chest pain with activity, Denies edema, Denies irregular heart rhythm, Denies claudication, Denies dyspnea, Denies dyspnea on exertion, Denies orthopnea, Denies paroxysmal nocturnal dyspnea and Denies slow heart rate Resp Denies cough, Denies dyspnea and Denies dyspnea on exertion GI Denies abdominal pain, Denies change in bowel habits, Denies excessive flatus, Denies nausea and Denies vomiting Denies urinary hesitancy, Denies urinary incontinence and Denies urinary urgency Musc Denies abnormal gait, Denies atrophy, Denies deformity and Reports limited range of motion Skin/Breast Denies bleeding lesions, Denies changing lesions and Denies rash Neuro Denies abnormal gait, Denies behavioral changes and Denies lack of coordination Psych Denies behavioral changes Physical exam (Primary Care) Vital Signs: Last Vital Signs BP 136/80 08/24/24 08:03 BMI result Body Mass Index 32.1 BMI Assessment/Plan discussion: High BMI High, discussed plan: lifestyle, weight reduction, dietary and physical activity Tobacco/Smoking Status: Tobacco use Status Tobacco use date assessed 07/26/24 08/24/24 08:07 Patient Tobacco Use Status Never used Tobacco 08/24/24 08:07 e-Cigarette/Vaping Use Never Used 08/24/24 08:07 PHQ-9: PHQ-9 Score PHQ-9: Total score 8 08/24/24 08:07 Depression Screening Interpretation: Positive Depression Screening Follow-up: Existing condition, In treatment and Follow-up Visit Requested Thrive Assessment: Date of Thrive Assessment Date Thrive assessed 08/24/24 08/24/24 08:07 Currently or been in a relationship where the following occur: No concerns reported HENOR Head: Yes normal to inspection, Yes normocephalic and Yes atraumatic Ears: external ears normal Eyes General: appearance normal, both eyes and all related structures Eyelids: Yes eyelids normal Conjunctivae: conjunctivae normal Neck Neck: Yes normal visual inspection and Yes supple Resp Effort & Inspection: normal respiratory effort Auscultation: clear to auscultation bilaterally Cardio Jugular venous distension: no JVD Rate: regular rate Rhythm: regular rhythm Heart sounds: S1 normal heart sound present and S2 normal heart sound present GI Inspection: Yes normal to inspection Palpation (GI): Soft to palpation and nontender Auscultation: normal bowel sounds Skin General skin exam: no rashes or lesions noted Neuro General: no focal motor deficits Extrem Left upper extremity: shoulder/upper arm Details: abnormal ROM Details: pain with active ROM Details: in ABduction Psych Appearance: grossly normal Coding Level of Care Code Est Pt Level 3 (11771) Est Pt Prev Care 40-64y(83206) Diagnoses Physical exam Z00.00 Mild major depression, single episode F32.0 Macrocytic anemia D53.9 Osteoarthritis of left shoulder M19.012 Additional Codes PHQ-9 - 60173 - PHQ-9 Billing: Yes ([id number]) ANGELIKA-7 Assessment Billing - ANGELIKA-7 Assessment Tool: ANGELIKA-7 Assessment 17539 ([id number]) Time Spent (min) 34 Assessment & Plan Assessment & Plan (1) Physical exam: Code(s): Z00.00 - Encounter for general adult medical examination without abnormal findings Category: Medical (2) Mild major depression, single episode: Code(s): F32.0 - Major depressive disorder, single episode, mild Category: Medical (3) Macrocytic anemia: Code(s): D53.9 - Nutritional anemia, unspecified Category: Medical (4) Osteoarthritis of left shoulder: Code(s): M19.012 - Primary osteoarthritis, left shoulder Category: Medical Plan The patient will be referred for a colonoscopy due to the history of tubular adenoma, as he is overdue for this screening. A tetanus booster is planned for next year to maintain vaccination status. The patient will be referred to hematology for evaluation of mild anemia, given the hemoglobin level of 10.1 g/dL, despite no visible bleeding. For the aphthous ulcer, a course of prednisone will be prescribed to alleviate symptoms, with a recommendation to complete blood work prior to starting the medication to avoid skewed results. The patient is advised to follow up with orthopedics for the shoulder arthritis, as the CT scan has shown significant findings. Blood work will be ordered to assess uric acid and cholesterol levels, given the patient's history of gout and the need for cardiovascular risk management. Patient was informed and verbally consented to the use of an ambient scribe for clinic note documentation during this visit. I discussed with the patient the need for a colonoscopy due to his history of tubular adenoma and the importance of maintaining up-to-date vaccinations, including the tetanus booster planned for next year. We talked about the mild anemia and the plan to refer him to hematology for further evaluation. I explained the use of prednisone for his aphthous ulcer and the necessity of completing blood work before starting the medication to prevent false results. I advised him to follow up with orthopedics for his shoulder arthritis and discussed the need for blood work to monitor uric acid and cholesterol levels. Orders: Orders IRON PROFILE Today D64.9 - Anemia, unspecified PT Evaluation and Treatment Today M19.012 - Primary osteoarthritis, left shoulder Lipid Panel Today E78.5 - Hyperlipidemia, unspecified Uric Acid Today M10.9 - Gout, unspecified Vitamin D 25-OH Total Today E55.9 - Vitamin D deficiency, unspecified Complete Blood Count Auto Diff Today D64.9 - Anemia, unspecified Vitamin B12 and Folate Today E53.8 - Deficiency of other specified B group vitamins Comprehensive [place]. Panel Fast Today I10 - Essential (primary) hypertension Referrals Hematology & Oncology Referral D53.9 - Nutritional anemia, unspecified Medications: New prednisone Take 4 tabs for 2 days, then 3 tabs for 2 days, then 2 tabs for 2 days, then 1 tab for 2 days 10 mg PO DIRECTED 20 tabs 0RF 8 days Patient Instructions: - Schedule a colonoscopy as soon as possible. - Plan for a tetanus booster next year. - Follow up with hematology for anemia evaluation. - Complete blood work before starting prednisone for mouth ulcer. - Follow up with orthopedics for shoulder pain. - Get blood work done to check uric acid and cholesterol levels.
[2024-08-24 08:03] VITALS: BP 136/80; BMI 32.1
== END 2024-08-24 08:25 | disposition home or self-care (01) ==
LOC: HO.HMCH 07:57
PROVIDERS: PCP Internal Medicine; Visit Provider Internal Medicine
DX: Z00.00 Encounter for general adult medical examination without abnormal findings (principal); F32.0 Major depressive disorder, single episode, mild; D53.9 Nutritional anemia, unspecified; M19.012 Primary osteoarthritis, left shoulder

== ENCOUNTER → 2024-08-24 07:56 | Outpatient (BNVA) | payer OTHER, SELFPAY | PROVIDERS: PCP Internal Medicine; Visit Provider Internal Medicine | DX: Z00.00 Encounter for general adult medical examination without abnormal findings (principal); F32.0 Major depressive disorder, single episode, mild; D53.9 Nutritional anemia, unspecified; M19.012 Primary osteoarthritis, left shoulder; E78.5 Hyperlipidemia, unspecified; M10.9 Gout, unspecified; E55.9 Vitamin D deficiency, unspecified; E53.8 Deficiency of other specified B group vitamins; I10 Essential (primary) hypertension | CPT/HCPCS: 96127; 99212; 99396 ==

== ENCOUNTER 2024-11-23 09:20 | Outpatient (AMB) | payer OTHER, SELFPAY ==
--- NOTE | 2024-11-23 09:22 | A.OFFVIS_ITS ---
Vital Signs 11/23/24 09:24 Height 5 ft 11 in Weight 230 lb BMI 32.1 Intake Visit Reasons: OV- B/L knee pain f/u Intake Note: Anibal is a 64 year old male who presents today for a follow up of his bilateral knee OA & recurrent large effusions. He was last seen 06/09/2024 where both of his knees were aspirated and injected. Today he reports that his knees are becoming increasingly painful and feeling stiff with the amount of fluid in the knees. The fluid in the knees returned about 3 weeks ago and since this has returned he has taken multiple falls. He would like to have both of his knees aspirated and injected today. Additioally he metions that he has returning numbness in the right leg, he has had this in the past due to his history of spine surgery. He is also asking for medication to help with his pain as diclofenac is no longer helping. I did make him aware that we do not prescribe pain medications in orthopedics, we may be able to discuss NSAIDs or referral to pain mgmt for further management of his back and pain. Allergies gabapentin Adverse Reaction (Verified 08/24/24 08:13) Agitated Medication List - Last Reconciled 11/23/24 by Ryan Todd PA-C allopurinol 300 mg PO DAILY PRN atorvastatin 40 mg PO BEDTIME 90 days celecoxib (Celebrex) 200 mg PO BID 30 days cholecalciferol (vitamin D3) 50 mcg PO DAILY 90 days diclofenac sodium 75 mg PO BID PRN escitalopram oxalate 20 mg PO DAILY 90 days lidocaine 5% 1 patch topical DAILY lisinopril 30 mg PO DAILY 90 days prednisone 10 mg PO DIRECTED 8 days tamsulosin 0.4 mg PO DAILY tramadol 50 mg PO BID PRN HPI HPI OV- B/L knee pain f/u: Details: Anibal is a 64 year old male who presents today for a follow up of his bilateral knee OA & recurrent large effusions. He was last seen 06/09/2024 where both of his knees were aspirated and injected. Today he reports that his knees are becoming increasingly painful and feeling stiff with the amount of fluid in the knees. The fluid in the knees returned about 3 weeks ago and since this has returned he has taken multiple falls. He would like to have both of his knees aspirated and injected today. Additioally he metions that he has returning numbness in the right leg, he has had this in the past due to his history of spine surgery. He is also asking for medication to help with his pain as diclofenac is no longer helping. I did make him aware that we do not prescribe pain medications in orthopedics, we may be able to discuss NSAIDs or referral to pain mgmt for further management of his back and pain. [facility] Medical History Restless leg syndrome Stage III pressure ulcer Cocaine use disorder Mild major depression, single episode ANGELIKA (generalized anxiety disorder) Back pain Essential hypertension Neck pain Mixed hyperlipidemia Obesity Testosterone deficiency in male BPH (benign prostatic hyperplasia) Knee osteoarthritis Hypovitaminosis D Hypogonadism in male Gout Anxiety Surgical History History of tooth extraction History of spinal surgery History of ankle surgery History of colonoscopy Family History Father HTN (hypertension) Gout Guillain-[place] syndrome Mother CVD (cardiovascular disease) Social History Household Members: None Housing: House Do you presently have visiting nurse or other home services: No Alcohol intake: current Alcohol intake frequency: a few times a month Alcohol type: beer Patient Tobacco Use Status: Never used Tobacco e-Cigarette/Vaping Use: Never Used Second Hand Smoke Exposure: No service: No Current occupational status: disabled Cognitive needs: Yes Hearing needs: No Vision needs: No Review of Systems Const All systems reviewed & are unremarkable except as noted in HPI and below Physical Exam Vital Signs: BMI result Body Mass Index 32.1 Extrem Other: Large effusion bilateral knees. Tenderness to palpation bilateral knees. Severe gait antalgia bilaterally Office Procedures AMB Joint Injection/Aspiration Joint Injection/Aspiration Primary Site: right knee (asp 90 cc ) Secondary Site: left knee (asp 70 cc) Prep: site was prepped using aseptic technique and injection warnings given Injected: 40 mg of (decadron), with 3 mL of, 1% plain lidocaine, 0.25% bupivacaine and in the joint Approach Used: lateral parapatellar Procedure: The patient tolerated the procedure well and there was some relief with the local anesthesia Coding 89254 - Glenohumeral/Tronchanteric Bursa/Intraarticular Procedure code (CPT) selection complete Assessment & Plan Assessment & Plan (1) Bilateral primary osteoarthritis of knee: Code(s): M17.0 - Bilateral primary osteoarthritis of knee Category: Medical Plan: Bilateral knees were aspirated today and injected with steroid. The patient tolerated the procedure well. I did send a prescription for Celebrex to the pharmacy to take twice a day for 2 weeks to help with flare-ups. He will continue with activities as tolerated and see us back as needed. Medications: New celecoxib (Celebrex) 200 mg PO BID 60 caps 3RF 30 days Coding Level of Care Code Est Pt Level 3 (02574) Complex EM visit Add On G2211 Diagnoses Bilateral primary osteoarthritis of knee M17.0 CPT Codes Coding - Joint 7: 97921 - Glenohumeral/Tronchanteric Bursa/Intraarticular ([id number])
[2024-11-23 09:24] VITALS: BMI 32.1
== END 2024-11-23 10:34 | disposition home or self-care (01) ==
PROVIDERS: PCP Internal Medicine; Visit Provider Physician Assistant
DX: M17.0 Bilateral primary osteoarthritis of knee (principal)
CPT/HCPCS: 20610; 99213

== ENCOUNTER → 2024-11-23 09:20 | Outpatient (BNVA) | payer OTHER, SELFPAY | PROVIDERS: PCP Internal Medicine; Visit Provider Orthopaedic Surgery | DX: M17.0 Bilateral primary osteoarthritis of knee (principal) | CPT/HCPCS: 20610; 99212; J0665; J1100; J2003 ==

== ENCOUNTER 2025-01-12 08:15 | Inpatient (IN) | payer OTHER, SELFPAY ==
[2025-01-12] VITALS (7 sets, daily range): BP systolic 104–145; BP diastolic 53–70; PULSE 55–82; RESP 15–20; TEMP 36.2–36.8; O2SAT 95–99; BMI 32.1
--- NOTE | ~2025-01-12 | XR_ITS ---
EXAMINATION: XR FOOT 3 OR MORE VIEWS RIGHT HISTORY: wound COMPARISON: Comparison is made with the prior examination dated 10/21/2022. FINDINGS: Three views of the right foot are submitted. Osseous mineralization is normal. There is internal fixation of the medial malleolus. There is no acute fracture or dislocation. Again seen is severe arthritis of the 1st and 5th MTP joints with joint space narrowing and multiple erosions. There is mild narrowing of the interphalangeal joint of the great toe. There is intertarsal osteoarthritis. There is a small plantar calcaneal spur. The soft tissues are unremarkable. XR/XR foot RT min 3V IMPRESSION: Degenerative changes of the right foot as described. Electronically signed by: Russell Champagne MD 01/12/2025 09:50 AM EST
--- NOTE | ~2025-01-12 | MR_ITS ---
EXAM: MR Foot Rt Wo/w Con TECHNIQUE: Multiplanar multisequence MR imaging was performed through the right midfoot and forefoot without and with IV contrast. Contrast: 10 mL Gadavist INDICATION: Right foot infection PRIOR: Same-day x-ray FINDINGS: Lisfranc ligament: The main Lisfranc ligament is intact. Soft tissues/Álvarez's Neuroma: There is severe diffuse fatty replacement of foot musculature. There is edema in the medial plantar foot musculature with concordant enhancement along the second and third rays. Fluid distends the intermetatarsal bursa in the first webspace. There is edema with skin thickening and concordant enhancement involving the great toe, somewhat sparing the distal end. There is edema without enhancement involving the dorsum of the midfoot and forefoot. There is no evidence of a Álvarez's neuroma. Metatarsophalangeal (MTP) joint and sesamoids of the great toe: There is a joint effusion with hyperenhancement of the synovium. Collateral ligaments and joint capsule structures are intact. Plantar plate complex appears intact. Sesamoids are unremarkable. There is diffuse moderate to severe articular cartilage thinning and small marginal osteophytes. Trace effusion is noted in the interphalangeal joint. Lesser MTP joints & Plantar plates: There are effusions in the second-fifth MTP joints. Collateral ligaments are intact. Joint capsular structures are intact. Plantar plates are intact. Bones/Marrow: Degenerative cystic changes present in the base of the first proximal phalanx. There is a chronic erosion or degenerative cystic change in the lateral head of the fifth metatarsal. There is marrow signal change in the distal and proximal phalanx of the great toe. There is low T1 signal throughout the distal phalanx and in the head and neck of the proximal phalanx. There is mild decreased signal in the base of the proximal phalanx. There is hyperintensity on fluid sensitive sequences throughout the distal proximal phalanx, slightly sparing the base of the occipital phalanx. There is concordant enhancement after contrast menstruation. MR/MR foot RT wo/w con IMPRESSION: Suspected osteomyelitis of the distal phalanx and the head and neck of the great toe. Possible changes of early osteomyelitis in the central and base region of the distal phalanx. There are also changes of cellulitis involving the great toe, somewhat sparing the tip. There are also changes of myositis involving the plantar foot musculature along the first and second rays. There is an effusion and synovitis involving the first MTP joint that could be reactive in nature, though septic arthritis is not entirely excluded. Effusion in the IP joint of the great toe is likely reactive in nature. Effusion in the intermetatarsal bursa of the first webspace is probably reactive in nature. There are severe degenerative changes in the first MTP joint. Chronic degenerative or erosive changes are evident in the fifth metatarsal head. Electronically signed by: Michael Harry MD 01/12/2025 02:49 PM EST
[2025-01-12 09:10] LABS: MANUAL DIFF FLAG NO
--- NOTE | 2025-01-12 09:10 | PC.NURSE ---
a&ox4. vss and up to date. pt presents to the ED c/o right great big toe wound that has been worsening x 3 weeks. pt states it started out as a blister that peeled and became worse. denies trauma to sire. associated redness/swelling/drainage and foul smell. large wound noted to right toe (see provider notes for imaging). pt otherwise denies any nausea/vomiting/fevers/chills. 20gIV placed in the left forearm - labs obtained/sent to lab. pending XR to be completed. otherwise on RA w/o difficulty - no sob/wob noted. respirations even/unlabored. plan of care ongoing. call dumont placed within reach.
[2025-01-12 09:24] LABS: Hematocrit 31.9 % (42.0-52.0); Hemoglobin 10.3 g/dl (14.0-18.0); Imm Gran Abs Auto 0.13 X10*3/uL (0.00-0.03); Imm Gran Pct Auto 0.9 % (0.0-0.4); Lymphocytes Absolute Auto 0.9 X10*3/uL (1.2-4.9); Mean Corpuscular HGB Conc 32.3 g/dl (31.0-36.0); Mean Corpuscular Hemoglobin 27.8 pg (27.0-33.0); Mean Corpuscular Volume 86.0 fL (80.0-98.0); NRBC Abs Auto 0.000 X10*3/uL (0.0-0.012); NRBC Pct Auto 0.0 /100WBC (0.0-0.2); Platelet Count 296 X10*3/uL (160-400); Red Blood Count 3.71 X10*6/uL (4.60-5.80); White Blood Count 15.1 X10*3/uL (4.8-10.8)
--- NOTE | 2025-01-12 09:25 | ED.GENADULT ---
HPI - General Adult General Chief complaint: Wound/Laceration Stated complaint: foot wound, infection Time Seen by Provider: 01/12/25 09:05 Source: patient Mode of arrival: ambulatory Limitations: no limitations History of Present Illness ED Provider: Marquis Cleary HPI narrative: 64 yold male with pmh fo ANGELIKA, HTN, BPh and stage IiI ulcer presents to the ED for right foot ulcer that is infected with with swelling and redness.. Patient denies any recent trauma, but in by enemas, or IV drug use. Related Data Home Medications ?Medication ?Instructions ?Recorded ?Confirmed allopurinol 300 mg tablet 300 mg PO DAILY PRN gout 07/18/24 01/12/25 Previous Rx's ?Medication ?Instructions ?Recorded escitalopram oxalate 20 mg tablet 20 mg PO DAILY 90 days #90 tabs 11/06/24 celecoxib 200 mg capsule (Celebrex) 200 mg PO BID 30 days #60 caps 11/23/24 atorvastatin 40 mg tablet 40 mg PO BEDTIME 90 days #90 tabs 12/07/24 lisinopril 30 mg tablet 30 mg PO DAILY 90 days #90 tabs 12/07/24 tamsulosin 0.4 mg capsule 0.4 mg PO DAILY #90 caps 12/08/24 Allergies Allergy/AdvReac Type Severity Reaction Status Date / Time gabapentin AdvReac Agitated Verified 01/12/25 08:19 Review of Systems Review of Systems: Right foot erythema swelling ulcer Yes all other systems are reviewed and are negative PMF Past Medical History Medical History Restless leg syndrome Stage III pressure ulcer Cocaine use disorder Mild major depression, single episode ANGELIKA (generalized anxiety disorder) Back pain Essential hypertension Neck pain Mixed hyperlipidemia Obesity Testosterone deficiency in male BPH (benign prostatic hyperplasia) Knee osteoarthritis Hypovitaminosis D Hypogonadism in male Gout Anxiety Surgical History History of tooth extraction History of spinal surgery History of ankle surgery History of colonoscopy Family History Family History Father HTN (hypertension) Gout Guillain-[place] syndrome Mother CVD (cardiovascular disease) Social History Social History Household Members: None Housing: House Do you presently have visiting nurse or other home services: No Alcohol intake: current Alcohol intake frequency: a few times a month Alcohol type: beer Patient Tobacco Use Status: Never used Tobacco Smoked in Last 30 Days: No e-Cigarette/Vaping Use: Never Used Second Hand Smoke Exposure: No Use of substances other than those prescribed or required for medical reasons: No Currently Displaying Signs/Symptoms of Drug Intoxication Withdrawal: No Have you been hit, kicked, punched, or otherwise hurt by someone within the past year? If so, by whom?: No Do you feel safe in your current relationship?: No Current Relationship Is there a partner from a previous relationship who is making you feel unsafe now?: No Are you made to feel afraid or neglected: No Advance Directives: No Advance Directives Information Provided: Yes Do you have a plan to hurt others: No Plan Nutrition Risks: No Nutritional Risk Poor oral hygiene: No service: No Current occupational status: disabled Cognitive needs: Yes Hearing needs: No Vision needs: No Physical Exam ED Vital Signs: Vital Signs - 24 hr 01/12/25 08:16 01/12/25 09:46 01/12/25 11:49 Temperature 98 F 98.3 F 98.3 F Pulse Rate 82 66 58 Respiratory Rate 20 15 18 Blood Pressure 134/60 122/55 L 104/64 Pulse Oximetry 99 95 99 Oxygen Delivery Method Room Air Room Air Room Air BMI result Body Mass Index 32.1 Const Orientation/consciousness: patient oriented x3 HENMT Head: Yes normal to inspection, Yes No palpable skull fracture present, Yes normocephalic and Yes atraumatic Ears: hearing grossly normal bilaterally, external ears normal, TM's normal bilaterally, TM normal on the right, TM normal on the left, EAC's normal, mastoids normal and no periauricular adenopathy Eyes General: appearance normal, both eyes and all related structures Neck Neck: Yes normal visual inspection, Yes full ROM, Yes no lymphadenopathy, Yes no meningeal signs, Yes trachea midline, Yes supple, No anterior neck swelling and No tender Chest Chest palpation & inspection: normal inspection of the chest and normal palpation of entire chest wall Resp Effort & Inspection: normal respiratory effort and able to speak in complete sentences Auscultation: clear to auscultation bilaterally Cardio Jugular venous distension: no JVD Heart sounds: S1 normal heart sound present and S2 normal heart sound present GI Inspection: Yes normal to inspection Palpation (GI): Soft to palpation, not firm, nontender, no guarding and not rigid General: Yes no CVA tenderness Back/Spine/Pelvis Back: no CVA tenderness and No back tenderness Skin General skin exam: no rashes or lesions noted, elasticity normal and turgor normal Neuro General: patient oriented x3, gait normal, tone normal, moves all extremities, Normal light touch and pain sensation, no meningeal signs, no focal motor deficits, CN's II-XI intact bilaterally and normal sensation to monofilament Extrem Other: Psych Appearance: grossly normal, well kempt and not disheveled Medications Administered Generic Name Dose Route Start Last Admin Trade Name Freq PRN Reason Stop Dose Admin Heparin Sodium (Porcine) 5,000 unit 01/12/25 12:30 01/12/25 13:37 Heparin Sodium,Porcine 5,000 Unit/Ml Vial SUBCUT 5,000 unit Q12H VANDA Administration Piperacillin Sod/Tazobactam 100 mls @ 200 mls/hr 01/12/25 17:00 01/12/25 16:34 Sod 4.5 gm/ Sodium Chloride IV Infused Q8H VANDA Infusion Morphine Sulfate 2 mg 01/12/25 12:22 01/12/25 14:59 Morphine Sulfate 4 Mg/Ml Cartridge IVPUSH 2 mg Q4H PRN Administration Pain, Severe (Pain Scale 7-10) Protocol Oxycodone HCl 5 mg 01/12/25 12:22 01/12/25 13:37 Oxycodone Hcl Immed Release 5 Mg Tablet PO 5 mg Q6H PRN Administration Pain, Moderate(Pain Scale 4-6) Sodium Chloride 3 ml 01/12/25 16:00 01/12/25 15:38 0.9 % Sodium Chloride Flush 3 Ml Syringe IVFLUSH Not Given QSHIFT VANDA Discontinued Medications Generic Name Dose Route Start Last Admin Trade Name Freq PRN Reason Stop Dose Admin Gadobutrol 10 ml 01/12/25 14:29 01/12/25 14:30 Gadobutrol 10 Ml Vial IVPUSH 01/12/25 14:30 10 ml ONCE ONE Administration Vancomycin HCl 2,000 mg in 500 mls @ 250 mls/hr 01/12/25 09:03 01/12/25 12:04 Vancomycin/Ns IV 01/12/25 11:02 Infused ONCE ONE Infusion Piperacillin Sod/Tazobactam 50 mls @ 100 mls/hr 01/12/25 09:03 01/12/25 09:54 Sod 3.375 gm/ Sodium Chloride IV 01/12/25 09:32 Infused ONCE ONE Infusion Morphine Sulfate 4 mg 01/12/25 10:22 01/12/25 10:26 Morphine Sulfate 4 Mg/Ml Cartridge IVPUSH 01/12/25 10:23 4 mg ONCE ONE Administration Protocol Medical Decision Making Medical Decision Making [facility] Narrative: 64-year-old male history of hypertension presents to ED for right foot erythema nonhealing ulcer and swelling. Patient states chills and body aches. X-ray labs ordered. Vanco and Zosyn ordered 4:46pm: Patient has elevated ESR CRP. Patient has elevated white blood cell count. Patient presenting to hospitalist for admission. Differential Diagnosis Differential Diagnoses: The differential diagnosis associated with the presentation includes (Osteomyelitis, cellulitis, necrotizing fasciitis) Admission/Observation Consideration of admission/observation: Escalation of care including admission/observation considered Consult Healthcare Provider Management of the patient was discussed with: Hospitalist (Hospitalist Ines ROCHE) Lab Data [facility] Lab Attestation statement: I reviewed the patient's lab results. 01/12/25 09:04 01/12/25 09:04 Labs: Lab Results 01/12/25 01/12/25 Range/Units 09:04 09:11 WBC 15.1 H (4.8-10.8) X10*3/uL RBC 3.71 L (4.60-5.80) X10*6/uL Hgb 10.3 L (14.0-18.0) g/dl Hct 31.9 L (42.0-52.0) % MCV 86.0 (80.0-98.0) fL MCH 27.8 (27.0-33.0) pg MCHC 32.3 (31.0-36.0) g/dl RDW 14.4 (11.0-16.0) % Plt Count 296 D (160-400) X10*3/uL MPV 8.8 L (9.4-12.4) fL Immature Gran % (Auto) 0.9 H (0.0-0.4) % Neut % (Auto) 83.2 H (45-73) % Lymph % (Auto) 6.0 L (20-40) % [place] % (Auto) 9.3 (2-11) % Eos % (Auto) 0.2 (0-4) % Baso % (Auto) 0.4 (0-2) % Lymph # (Auto) 0.9 L (1.2-4.9) X10*3/uL [place] # (Auto) 1.4 H (0.1-1.2) X10*3/uL Eos # (Auto) 0.0 (0.0-0.4) X10*3/uL Baso # (Auto) 0.1 (0.0-0.2) X10*3/uL Abs Immat Gran (auto) 0.13 H (0.00-0.03) X10*3/uL Absolute Neuts (auto) 12.5 H (2.0-8.3) x10*3/uL Absolute Nucleated RBC 0.000 (0.0-0.012) X10*3/uL Nucleated RBC % (auto) 0.0 (0.0-0.2) /100WBC ESR 80 H (0-15) MM/HR Sodium 132 L (135-145) mmol/L Potassium 4.2 (3.3-5.1) mmol/L Chloride 93 L (96-108) mmol/L Carbon Dioxide 31 H (22-29) mmol/L Anion Gap 12 (12-20) BUN 14 (9-16) mg/dL Creatinine 0.74 (0.5-1.4) mg/dL Estim Creat Clear Calc 125.6 Estimated GFR > 60 Random Glucose 80 (60-115) mg/dL Lactic Acid 1.4 (0.5-2.0) mmol/L Calcium 8.6 (8.4-10.2) mg/dL Magnesium 1.9 (1.6-2.6) mg/dL Total Bilirubin 0.5 (0.0-1.0) mg/dL AST 31 (5-37) U/L ALT 22 (0-40) U/L Alkaline Phosphatase 131 H (39-117) U/L C-Reactive Protein 20.50 H (< or = 0.50) mg/dL Total Protein 6.3 L (6.5-8.0) g/dL Albumin 3.0 L (3.5-5.0) g/dL Independent Interpretation I performed an independent interpretation of an: Plain X-Ray Radiology Impression Discussion of test interpretation with radiology: I have reviewed the radiologist's reading. Independent Historian Clinical information obtained from an independent historian. History obtained from or confirmed by: Other (patient) Critical Care Time Critical Care Time Critical Care Time: Yes Total Critical Care Time: 60 Attestation: Patient given vancomycin and Zosyn for left foot cellulitis possible osteomyelitis. Patient given IV pain medication. Case presented to hospitalist for admission Discharge Plan Discharge Clinical Impression: Cellulitis Qualifiers: Site of cellulitis: extremity Site of cellulitis of extremity: lower extremity Laterality: right Qualified Code(s): L03.115 - Cellulitis of right lower limb Patient Disposition: Admitted As Inpatient Interventions: Admission Worksheet (ED) Last Done: 01/12/25 14:15 Discharge Date/Time: 01/12/25 14:45
[2025-01-12 09:26] LABS: Alanine Aminotransferase 22 U/L (0-40); Albumin Level 3.0 g/dL (3.5-5.0); Alkaline Phosphatase 131 U/L (39-117); Anion Gap 12 (12-20); Aspartate Amino Transferase 31 U/L (5-37); Blood Urea Nitrogen 14 mg/dL (9-16); Calcium 8.6 mg/dL (8.4-10.2); Carbon Dioxide 31 mmol/L (22-29); Chloride 93 mmol/L (96-108); Creatinine Clr Calc Pharmacy 125.6; Estimated Glomerular Filt Rate > 60; Magnesium 1.9 mg/dL (1.6-2.6); Potassium 4.2 mmol/L (3.3-5.1); Sodium 132 mmol/L (135-145); Total Protein 6.3 g/dL (6.5-8.0)
[2025-01-12] MEDS: vancomycin/NS 2,000 MG/500 ML PLAST..BAG 250 MG IV (09:57)
--- NOTE | 2025-01-12 10:00 | PC.NURSE ---
abx infusing per provider order. plan of care ongoing.
--- NOTE | 2025-01-12 10:28 | PC.NURSE ---
pt reporting increased pain. medication administered per provider order. IV abx infusing per provider order. plan of care ongoing. call dumont placed within reach.
--- NOTE | 2025-01-12 11:50 | MHC.EDTECH ---
pt urinated 250mL of yellow urine into urinal
--- NOTE | 2025-01-12 11:57 | P.HPHOSP_ITS ---
History of Present Illness Date of Service: 01/12/25 Attending physician on admission: Susi Dyer Chief Complaint: foot infection This is a 64-year-old male who presents to the emergency department with concern for right foot infection. He states he noticed a little blister on the bottom of his big toe about 3 weeks ago which he thinks is from friction. Since that time he has noted an increase in swelling pain and redness of his right foot. In addition he has noted that his foot has become malodorous. He has not been evaluated previously for this wound. He denies a history of peripheral vascular disease or diabetes. In the emergency department he was noted to have open wound on the bottom of his toe. Lab work was significant for leukocytosis of 15.1, inflammatory markers were elevated including ESR of 80 and CRP of 20.50. Plain film x-ray showed degenerative changes of the right foot. He was started on broad-spectrum antibiotics and treated for pain and admission was requested. Review of Systems 2 Review of Systems: Yes all other systems are reviewed and are negative Constitutional: Constitutional: Denies chills and Denies fever(s) Cardiovascular: Cardiovascular: Denies chest pain, Denies palpitations and Denies dyspnea Respiratory: Respiratory: Denies cough and Denies dyspnea Gastrointestinal: Gastrointestinal: Denies abdominal pain, Denies diarrhea and Denies vomiting Endocrine: Endocrine: Denies palpitations [facility] Medical History Restless leg syndrome Stage III pressure ulcer Cocaine use disorder Mild major depression, single episode ANGELIKA (generalized anxiety disorder) Back pain Essential hypertension Neck pain Mixed hyperlipidemia Obesity Testosterone deficiency in male BPH (benign prostatic hyperplasia) Knee osteoarthritis Hypovitaminosis D Hypogonadism in male Gout Anxiety Family History Father HTN (hypertension) Gout Guillain-[place] syndrome Mother CVD (cardiovascular disease) Surgical History History of tooth extraction History of spinal surgery History of ankle surgery History of colonoscopy Social History Household Members: None Housing: House Do you presently have visiting nurse or other home services: No Alcohol intake: current Alcohol intake frequency: a few times a month Alcohol type: beer Patient Tobacco Use Status: Never used Tobacco Smoked in Last 30 Days: No e-Cigarette/Vaping Use: Never Used Second Hand Smoke Exposure: No Use of substances other than those prescribed or required for medical reasons: No Currently Displaying Signs/Symptoms of Drug Intoxication Withdrawal: No Have you been hit, kicked, punched, or otherwise hurt by someone within the past year? If so, by whom?: No Do you feel safe in your current relationship?: No Current Relationship Is there a partner from a previous relationship who is making you feel unsafe now?: No Are you made to feel afraid or neglected: No Advance Directives: No Advance Directives Information Provided: Yes Do you have a plan to hurt others: No Plan Nutrition Risks: No Nutritional Risk Poor oral hygiene: No service: No Current occupational status: disabled Cognitive needs: Yes Hearing needs: No Vision needs: No Meds Allergies Allergy/AdvReac Type Severity Reaction Status Date / Time gabapentin AdvReac Agitated Verified 01/12/25 08:19 Home Medications ?Medication ?Instructions ?Recorded ?Confirmed ?Last Taken ?Type allopurinol 300 mg tablet 300 mg PO DAILY PRN gout 01/12/25 01/11/25 History Physical Exam 2 Vital Signs and Narrative: Vital Signs: Last Vital Signs Temp 98.3 F 01/12/25 11:49 Pulse 58 01/12/25 11:49 Resp 18 01/12/25 11:49 BP 104/64 01/12/25 11:49 Pulse Ox 99 01/12/25 11:49 O2 Del Method Room Air 01/12/25 11:49 BMI result Body Mass Index 32.1 Const: General: cooperative, comfortable, alert and awake Nutritional Appearance: overweight Orientation/consciousness: patient oriented x3 Resp: Effort & Inspection: normal respiratory effort, able to speak in complete sentences, no respiratory distress and no use of accessory muscles Cardio: Rate: regular rate GI: Inspection: No distended Palpation (GI): Soft to palpation Skin: Other: Wound malodorous Neuro: General: patient oriented x3 and moves all extremities Extrem: Other: RLE with swelling. palpable peripheral pulses. Results Labs 01/12/25 09:04 01/12/25 09:04 Labs: Laboratory Results - last 24 hr 01/12/25 01/12/25 09:04 09:11 MCV 86.0 MCH 27.8 MCHC 32.3 RDW 14.4 Plt Count 296 D MPV 8.8 L Immature Gran % (Auto) 0.9 H Neut % (Auto) 83.2 H Lymph % (Auto) 6.0 L [place] % (Auto) 9.3 Eos % (Auto) 0.2 Baso % (Auto) 0.4 Lymph # (Auto) 0.9 L [place] # (Auto) 1.4 H Eos # (Auto) 0.0 Baso # (Auto) 0.1 Abs Immat Gran (auto) 0.13 H Absolute Neuts (auto) 12.5 H Absolute Nucleated RBC 0.000 Nucleated RBC % (auto) 0.0 ESR 80 H Anion Gap 12 Estim Creat Clear Calc 125.6 Estimated GFR > 60 Random Glucose 80 Lactic Acid 1.4 Calcium 8.6 Magnesium 1.9 Total Bilirubin 0.5 AST 31 ALT 22 Alkaline Phosphatase 131 H C-Reactive Protein 20.50 H Total Protein 6.3 L Albumin 3.0 L Imaging Radiologist's Impressions: Impressions Foot X-Ray 01/12/25 09:45 IMPRESSION: Degenerative changes of the right foot as described. Electronically signed by: Russell Champagne MD 01/12/2025 09:50 AM [facility] Assessment and Plan (1) Cellulitis: Status: Acute Plan This is a 64 year old male with history of HTN, HLD, anxiety who presents to the emergency department with three-week history of increasing redness, swelling in pain of right lower extremity Right foot cellulitis with infected open wound and high suspicion for osteomyelitis pt reports wound present for 3 weeks (older notes document chonic ulcer and was seen in wound clinic and by vascular surgery in 2022) unclear if there was ever resolution of wound. per notes was unable to tolerate MRI in the past however pt didn't mention that when inflammatory markers now much higher concerning for osteo will obtain MRI general surgery consultation ID consultation continue broad-spectrum antibiotics with IV vanco and zosyn HLD continue statin mood continue escitalopram BPH Continue tamsulosin Hypertension Continue lisinopril dvt ppx - heparin Patient will likely require 2 midnight stay in the hospital for management of foot wound with high suspicion deeper infection requiring further advanced imaging and specialist evaluation as well as IV antibiotics Quality Stroke Does the patient have a stroke diagnosis?: No VTE Prior VTE?: No VTE Risk Level:: Medical - moderate - high VTE Device Contraindication: N/A - Device Ordered VTE Drug Contraindication: N/A - Med Ordered
--- NOTE | 2025-01-12 12:29 | PHA.MEDREC ---
Addendum entered by Antonio Rodriguez, PharmD 01/12/25 15:27: MED REC CHECKED BY [facility] Original Note: Pharmacy Consult ? Medication Reconciliation Pharmacy has completed the medication reconciliation. Spoke with pt and he confirmed his medications. Pt still taking Allopurinol 300mg tabs as needed for Gout and states he got that filled at [facility] on [address]; Spoke with [facility] and they confirmed pt has not picked that up since 10/2023 with a QTY 90 days.
--- NOTE | 2025-01-12 12:35 | PC.NURSE ---
MRI form filled out/faxed/placed in pt's chart.
--- NOTE | 2025-01-12 12:43 | PHA.PROG ---
Admission Date/Time: January 12, 2025 12:07 Indication: SKIN Weight in k.326 kg Adjusted body weight in Kg: [place] body weight in Kg: Obesity Dosing Indication % IBW: Serum Creatinine - Last 168 Hours 01/12/25 09:04 Creatinine 0.74 Estimated CrCl and GFR - Last 168 Hours 01/12/25 09:04 Estim Creat Clear Calc 125.6 Estimated GFR > 60 Vancomycin Loading Dose: 88557 MG Current Vancomycin Dosing Regimen: 1250 MG Q12H Vancomycin Monitoring using AUC goal of 400 - 600 range with trough as surrogate marker: VMC=[id number] TROUGH=14.3 Date and Time for next Vancomycin Level to be drawn: 01/13/25 @1999 Pharmacist Comments on Vancomycin Plan: Vancomycin dosing will take advantage of [employer] as a clinical decision support tool that uses Bayesian modeling to calculate individual patient's pharmacokinetic parameters and forecast the patient's drug concentration time course with the target goal AUC 24 range of 400 - 600 mg/L/hr.
[2025-01-12] MEDS: oxyCODONE HCl Immed Release 5 MG TABLET PO ×2 (13:37→23:46)
--- NOTE | 2025-01-12 13:38 | PC.NURSE ---
pt medicated for pain prior to MRI. pt being transported to MRI at this time.
--- NOTE | 2025-01-12 16:15 | MHC.CLN ---
CONSULT DIET RX REGULAR. INFECTED OPEN WOUND TO RIGHT GREAT TOE. SUSPICIOUS FOR OSTEOMYELITIS. ADDING ENSURE MAX BID TO PROMOTE SKIN INTEGRITY. SUPPLEMENT PROVIDES 300 KCALS, 60 G PROTEIN. FOLLOW FOR PO INTAKE AND SKIN INTEGRITY. SEE CLINICAL NUTRITION ASSESSMENT.
--- NOTE | 2025-01-12 16:24 | PM.CNGS ---
History of Present Illness Consult details Consult date: 01/12/25 Requesting physician: Ines Blanchard Narrative: 64-year-old male patient presenting with a recurrent right great toe open wound. He reports that this was previously treated approximately a year ago and healed completely [facility] The current wound started as a blister over the past several weeks has increased in size. He now notes increased pain and swelling in the great toe extending into the foot. He also has a foul odor coming from the wound. He presented to the emergency department and was noted to have an elevated WBC of 15.1. He underwent MRI of the foot earlier today which revealed suspected osteomyelitis of the distal phalanx of the head and neck of the great toe as well as early changes indicating osteomyelitis in the central and base region of the distal phalanx. There are also changes of cellulitis and myositis involving the plantar foot musculature along the 1st and 2nd rays. He is admitted to the hospitalist service for IV antibiotics. Review of Systems Review of Systems: Yes all other systems are reviewed and are negative PMFSH Past Medical History Medical History Restless leg syndrome Stage III pressure ulcer Cocaine use disorder Mild major depression, single episode ANGELIKA (generalized anxiety disorder) Back pain Essential hypertension Neck pain Mixed hyperlipidemia Obesity Testosterone deficiency in male BPH (benign prostatic hyperplasia) Knee osteoarthritis Hypovitaminosis D Hypogonadism in male Gout Anxiety Family History Family History Father HTN (hypertension) Gout Guillain-[place] syndrome Mother CVD (cardiovascular disease) Surgical History Surgical History History of tooth extraction History of spinal surgery History of ankle surgery History of colonoscopy Social History Social History Household Members: None Housing: House Do you presently have visiting nurse or other home services: No Alcohol intake: current Alcohol intake frequency: a few times a month Alcohol type: beer Patient Tobacco Use Status: Never used Tobacco Smoked in Last 30 Days: No e-Cigarette/Vaping Use: Never Used Second Hand Smoke Exposure: No Use of substances other than those prescribed or required for medical reasons: No Currently Displaying Signs/Symptoms of Drug Intoxication Withdrawal: No Have you been hit, kicked, punched, or otherwise hurt by someone within the past year? If so, by whom?: No Do you feel safe in your current relationship?: No Current Relationship Is there a partner from a previous relationship who is making you feel unsafe now?: No Are you made to feel afraid or neglected: No Advance Directives: No Advance Directives Information Provided: Yes Do you have a plan to hurt others: No Plan Nutrition Risks: No Nutritional Risk Poor oral hygiene: No service: No Current occupational status: disabled Cognitive needs: Yes Hearing needs: No Vision needs: No Meds Allergies Allergy/AdvReac Type Severity Reaction Status Date / Time gabapentin AdvReac Agitated Verified 01/12/25 08:19 Active Medications: Current Medications Acetaminophen (Acetaminophen 325 Mg Tablet) 650 mg PO Q6H PRN PRN Reason: Pain, Mild 1-3,fever,headache Calcium Carbonate (Calcium Carbonate 750 Mg Tab.Chew) 750 mg PO Q4H PRN PRN Reason: Heartburn Docusate Sodium (Docusate Sodium 100 Mg Capsule) 100 mg PO BID [facility] Heparin Sodium (Porcine) (Heparin Sodium,Porcine 5,000 Unit/Ml Vial) 5,000 unit SUBCUT Q12H [facility] Last Admin: 01/12/25 13:37 Dose: 5,000 unit Piperacillin Sod/Tazobactam (Sod 4.5 gm/ Sodium Chloride) 100 mls @ 200 mls/hr IV Q8H [facility] Last Admin: 01/12/25 16:01 Dose: 200 mls/hr Vancomycin HCl 1,250 mg/ (Sodium Chloride) 250 mls @ 166.667 mls/hr IV Q12H [facility] Magnesium Hydroxide (Milk Of Magnesia 30 Ml Oral.Susp) 30 ml PO DAILY PRN PRN Reason: Constipation Melatonin (Melatonin 3 Mg Tablet) 6 mg PO BEDTIME PRN PRN Reason: Insomnia Morphine Sulfate (Morphine Sulfate 4 Mg/Ml Cartridge) 2 mg IVPUSH Q4H PRN; Protocol PRN Reason: Pain, Severe (Pain Scale 7-10) Last Admin: 01/12/25 14:59 Dose: 2 mg Ondansetron HCl (Ondansetron Hcl 4 Mg/2 Ml Vial) 4 mg IVPUSH Q8H PRN PRN Reason: Nausea and Vomiting Oxycodone HCl (Oxycodone Hcl Immed Release 5 Mg Tablet) 5 mg PO Q6H PRN PRN Reason: Pain, Moderate(Pain Scale 4-6) Last Admin: 01/12/25 13:37 Dose: 5 mg Pharmacy Consult (Consult Rx Vancomycin Dosing) 1 each MISCELLANE DAILY PRN PRN Reason: Consult order Sodium Chloride (0.9 % Sodium Chloride Flush 3 Ml Syringe) 3 ml IVFLUSH QSHIFT [facility] Last Admin: 01/12/25 15:38 Dose: Not Given Home Medications ?Medication ?Instructions ?Recorded ?Confirmed ?Last Taken ?Type allopurinol 300 mg tablet 300 mg PO DAILY PRN gout 07/18/24 01/12/25 01/11/25 History Physical Exam Vital Signs: Vital Signs: Last Vital Signs Temp 97.7 F 01/12/25 15:24 Pulse 60 01/12/25 15:24 Resp 18 01/12/25 15:24 BP 113/70 01/12/25 15:24 Pulse Ox 97 01/12/25 15:24 O2 Del Method Room Air 01/12/25 15:24 BMI result Body Mass Index 32.1 Const: General: cooperative and no acute distress Nutritional Appearance: well nourished Orientation/consciousness: patient oriented x3 Limitations: no limitations HEENT: Head: Yes normocephalic and Yes atraumatic Ears: hearing grossly normal bilaterally Resp: Effort & Inspection: normal respiratory effort, no audible wheezes, no cough and no respiratory distress GI: Inspection: Yes normal to inspection Skin: Other: Warm, dry, no rash Neuro: General: patient oriented x3 Extrem: Other: Right great toe with an open wound measuring approximately 1.5 cm in diameter with some granulation noted at the base. No exposed bone was noted at this time. There was extensive swelling involving the great toe extending onto the forefoot without erythema. General: Yes no clubbing, cyanosis or edema Ankle/foot/toe images:  1. Site of ulceration right great toe Results Labs 01/12/25 09:04 01/12/25 09:04 Labs: Abnormal lab results 01/12/25 Range/Units 09:04 WBC 15.1 H (4.8-10.8) X10*3/uL RBC 3.71 L (4.60-5.80) X10*6/uL Hgb 10.3 L (14.0-18.0) g/dl Hct 31.9 L (42.0-52.0) % MPV 8.8 L (9.4-12.4) fL Immature Gran % (Auto) 0.9 H (0.0-0.4) % Neut % (Auto) 83.2 H (45-73) % Lymph % (Auto) 6.0 L (20-40) % Lymph # (Auto) 0.9 L (1.2-4.9) X10*3/uL [place] # (Auto) 1.4 H (0.1-1.2) X10*3/uL Abs Immat Gran (auto) 0.13 H (0.00-0.03) X10*3/uL Absolute Neuts (auto) 12.5 H (2.0-8.3) x10*3/uL ESR 80 H (0-15) MM/HR Sodium 132 L (135-145) mmol/L Chloride 93 L (96-108) mmol/L Carbon Dioxide 31 H (22-29) mmol/L Alkaline Phosphatase 131 H (39-117) U/L C-Reactive Protein 20.50 H (< or = 0.50) mg/dL Total Protein 6.3 L (6.5-8.0) g/dL Albumin 3.0 L (3.5-5.0) g/dL Short CBC 01/12/25 Range/Units 09:04 WBC 15.1 H (4.8-10.8) X10*3/uL Hgb 10.3 L (14.0-18.0) g/dl Hct 31.9 L (42.0-52.0) % Plt Count 296 D (160-400) X10*3/uL BMP 01/12/25 09:04 Sodium 132 L Potassium 4.2 Chloride 93 L Carbon Dioxide 31 H BUN 14 Creatinine 0.74 Calcium 8.6 Liver Function 01/12/25 Range/Units 09:04 Total Bilirubin 0.5 (0.0-1.0) mg/dL AST 31 (5-37) U/L ALT 22 (0-40) U/L Alkaline Phosphatase 131 H (39-117) U/L Albumin 3.0 L (3.5-5.0) g/dL All other labs normal. Assessment and Plan (1) Cellulitis: Qualifiers: Site of cellulitis: extremity Site of cellulitis of extremity: lower extremity Laterality: right Qualified Code(s): L03.115 - Cellulitis of right lower limb Status: Acute (2) Chronic ulcer of right great toe: Qualifiers: Non-pressure ulcer stage: unspecified non-pressure ulcer stage Qualified Code(s): L97.519 - Non-pressure chronic ulcer of other part of right foot with unspecified severity Status: Acute Plan 64-year-old male patient with open wound of the right great toe with surrounding cellulitis and edema suggestive of underlying osteomyelitis. MRI confirmed osteomyelitis involving the great toe. Recommend treating with continued antibiotics to decrease edema of the forefoot. We will probably require amputation at some point of the great toe once swelling has improved. Wounds were dressed with silver alginate and dry sterile dressings. Dressings will need to be changed on a daily basis. Procedures Date of Service Date of Service: 01/12/25
--- NOTE | 2025-01-12 16:54 | HO.WOUND ---
Wound Consult: Initial 64yr old?[place] [facility] [place] 12:07- See progress notes and H&P for detailed history.? Wound consult placed for Right Great Toe.?PAtient was seen and assessed by Dr. Winn from General Surgery topically dressing with recommendations for durafiber AG. Photo reviewed and orders placed for direct care team to be able to dressing wound. Defer to General Surgery at this time. Right Great Toe Etiology: Diabetic Wound Wound Bed: moist slough Edges: ?well defined unattached Goals of Treatment: ? Per General Surgery Durafiber AG Daily changes Recommendations: 1. Turn and Reposition every 2 hours and as needed for patient comfort.? Use pillows or wedges to support off loading positions. 2. Off Load all bony prominences with use of pillows and heel boots if needed.? Apply Preventative foams where needed. ? 3. Monitor for incontinence and moisture control, use barrier creams when needed for prevention and treatment. 4. Provide adequate and supplemental nutrition.? 5. Order or Continue low air loss mattress. 6. When applicable maintain blood glucose levels per Providers order. Right Great Toe - Off Load Pressure with limited walking on surface and elevate with use of pillows Cleanse and irrigate with NS, Pat dry.? Apply barrier to periwound, lightly pack with Durafiber AG, be sure to leave a wick to easy removal.? Cover gauze dressing.? Change Daily. Re-consult wound care Nurse for wound deterioration or wound changes.
--- NOTE | 2025-01-12 17:03 | HO.WOUND ---
Wound Consult: Initial 64yr old?[place] [facility] [place] 12:07- See progress notes and H&P for detailed history.? Wound consult placed for Right Great Toe.?PAtient was seen and assessed by Dr. Winn from General Surgery topically dressing with recommendations for durafiber AG. Photo reviewed and orders placed for direct care team to be able to dressing wound. Defer to General Surgery at this time. Right Great Toe Etiology: Neuropathic Wound Wound Bed: moist slough Edges: ?well defined unattached Goals of Treatment: ? Per General Surgery Durafiber AG Daily changes Recommendations: 1. Turn and Reposition every 2 hours and as needed for patient comfort.? Use pillows or wedges to support off loading positions. 2. Off Load all bony prominences with use of pillows and heel boots if needed.? Apply Preventative foams where needed. ? 3. Monitor for incontinence and moisture control, use barrier creams when needed for prevention and treatment. 4. Provide adequate and supplemental nutrition.? 5. Order or Continue low air loss mattress. 6. When applicable maintain blood glucose levels per Providers order. Right Great Toe - Off Load Pressure with limited walking on surface and elevate with use of pillows Cleanse and irrigate with NS, Pat dry.? Apply barrier to periwound, lightly pack with Durafiber AG, be sure to leave a wick to easy removal.? Cover gauze dressing.? Change Daily. Re-consult wound care Nurse for wound deterioration or wound changes.
[2025-01-12] MEDS: 0.9 % Sodium Chloride Flush 3 ML SYRINGE IVFLUSH (19:37)
--- NOTE | 2025-01-12 22:51 | P.CNID_ITS ---
History of Present Illness Data of Consult Service Date: 01/12/25 Requesting physician: Ines Blanchard Primary Care Provider: Torrie Joyce MD HPI Reason for consult: open wound plantar right foot He presents with malodourous painful open wound plantar surface right great toe. It is approximatel 1 x 3 cm He has no fever or chills. Review of Systems 2 Review of Systems: Yes all other systems are reviewed and are negative PMFSH Past Medical History Medical History (Updated 01/12/25 @ 22:54 by Naomy Funes MD) Osteomyelitis Restless leg syndrome Stage III pressure ulcer Cocaine use disorder Mild major depression, single episode ANGELIKA (generalized anxiety disorder) Back pain Essential hypertension Neck pain Mixed hyperlipidemia Obesity Testosterone deficiency in male BPH (benign prostatic hyperplasia) Knee osteoarthritis Hypovitaminosis D Hypogonadism in male Gout Anxiety Family History Family History Father HTN (hypertension) Gout Guillain-[place] syndrome Mother CVD (cardiovascular disease) Family history: reviewed and not pertinent Surgical History Surgical History History of tooth extraction History of spinal surgery History of ankle surgery History of colonoscopy Social History Social History Household Members: None Housing: House Do you presently have visiting nurse or other home services: No Alcohol intake: current Alcohol intake frequency: a few times a month Alcohol type: beer Patient Tobacco Use Status: Never used Tobacco Smoked in Last 30 Days: No e-Cigarette/Vaping Use: Never Used Second Hand Smoke Exposure: No Use of substances other than those prescribed or required for medical reasons: No Currently Displaying Signs/Symptoms of Drug Intoxication Withdrawal: No Have you been hit, kicked, punched, or otherwise hurt by someone within the past year? If so, by whom?: No Do you feel safe in your current relationship?: No Current Relationship Is there a partner from a previous relationship who is making you feel unsafe now?: No Are you made to feel afraid or neglected: No Advance Directives: No Advance Directives Information Provided: Yes Do you have a plan to hurt others: No Plan Nutrition Risks: No Nutritional Risk Poor oral hygiene: No service: No Current occupational status: disabled Cognitive needs: Yes Hearing needs: No Vision needs: No Meds Allergies Allergy/AdvReac Type Severity Reaction Status Date / Time gabapentin AdvReac Agitated Verified 01/12/25 08:19 Active Medications: Current Medications Acetaminophen (Acetaminophen 325 Mg Tablet) 650 mg PO Q6H PRN PRN Reason: Pain, Mild 1-3,fever,headache Atorvastatin Calcium (Atorvastatin Calcium 40 Mg Tablet) 40 mg PO BEDTIME [facility] Last Admin: 01/12/25 19:38 Dose: 40 mg Calcium Carbonate (Calcium Carbonate 750 Mg Tab.Chew) 750 mg PO Q4H PRN PRN Reason: Heartburn Docusate Sodium (Docusate Sodium 100 Mg Capsule) 100 mg PO BID [facility] Last Admin: 01/12/25 19:38 Dose: 100 mg Escitalopram Oxalate (Escitalopram Oxalate 20 Mg Tablet) 20 mg PO DAILY [facility] Heparin Sodium (Porcine) (Heparin Sodium,Porcine 5,000 Unit/Ml Vial) 5,000 unit SUBCUT Q12H [facility] Last Admin: 01/12/25 13:37 Dose: 5,000 unit Piperacillin Sod/Tazobactam (Sod 4.5 gm/ Sodium Chloride) 100 mls @ 200 mls/hr IV Q8H [facility] Last Infusion: 01/12/25 16:34 Dose: Infused Vancomycin HCl 1,250 mg/ (Sodium Chloride) 250 mls @ 166.667 mls/hr IV Q12H [facility] Last Admin: 01/12/25 22:01 Dose: 166.67 mls/hr Lisinopril (Lisinopril 10 Mg Tablet) 30 mg PO DAILY [facility]; Protocol Magnesium Hydroxide (Milk Of Magnesia 30 Ml Oral.Susp) 30 ml PO DAILY PRN PRN Reason: Constipation Melatonin (Melatonin 3 Mg Tablet) 6 mg PO BEDTIME PRN PRN Reason: Insomnia Morphine Sulfate (Morphine Sulfate 4 Mg/Ml Cartridge) 2 mg IVPUSH Q4H PRN; Protocol PRN Reason: Pain, Severe (Pain Scale 7-10) Last Admin: 01/12/25 19:36 Dose: 2 mg Ondansetron HCl (Ondansetron Hcl 4 Mg/2 Ml Vial) 4 mg IVPUSH Q8H PRN PRN Reason: Nausea and Vomiting Oxycodone HCl (Oxycodone Hcl Immed Release 5 Mg Tablet) 5 mg PO Q6H PRN PRN Reason: Pain, Moderate(Pain Scale 4-6) Last Admin: 01/12/25 13:37 Dose: 5 mg Pharmacy Consult (Consult Rx Vancomycin Dosing) 1 each MISCELLANE DAILY PRN PRN Reason: Consult order Sodium Chloride (0.9 % Sodium Chloride Flush 3 Ml Syringe) 3 ml IVFLUSH QSHIFT [facility] Last Admin: 01/12/25 19:37 Dose: 3 ml Tamsulosin HCl (Tamsulosin Hcl 0.4 Mg Capsule) 0.4 mg PO DAILY [facility] Home Medications ?Medication ?Instructions ?Recorded ?Confirmed ?Last Taken ?Type allopurinol 300 mg tablet 300 mg PO DAILY PRN gout 01/12/25 01/11/25 History Physical Exam 2 Vital Signs: Vital Signs: Last Vital Signs Temp 97.1 F 01/12/25 19:17 Pulse 66 01/12/25 19:17 Resp 18 01/12/25 19:17 BP 145/67 H 01/12/25 19:17 Pulse Ox 99 01/12/25 19:17 O2 Del Method Room Air 01/12/25 19:17 BMI result Body Mass Index 32.1 Const: General: cooperative HEENT: Head: Yes normal to inspection Face and sinus: Yes normal facial exam Mouth: Normal oral and palatal mucosa present Teeth and gingiva: d entition normal Eyes: General: appearance normal, both eyes and all related structures P upils: Equal, round and reactive pupils present Resp: Effort & Inspection: normal respiratory effort Cardio: Rate: regular rate Rhythm: regular rhythm GI: Palpation (GI): Soft to palpation and nontender : General: Yes no CVA tenderness Back/Spine/Pelvis: Back: no CVA tenderness Skin: General skin exam: no rashes or lesions noted Neuro: General: moves all extremities Cranial nerves: Yes Equal, round and reactive pupils present Extrem: Other: great toe plantar 1 x3 cm open wound,looks chronc General: Yes normal to inspection Psych: Appearance: grossly normal Results Labs 01/12/25 09:04 01/12/25 09:04 Labs: Short CBC 01/12/25 Range/Units 09:04 WBC 15.1 H (4.8-10.8) X10*3/uL Hgb 10.3 L (14.0-18.0) g/dl Hct 31.9 L (42.0-52.0) % Plt Count 296 D (160-400) X10*3/uL BMP 01/12/25 09:04 Sodium 132 L Potassium 4.2 Chloride 93 L Carbon Dioxide 31 H BUN 14 Creatinine 0.74 Calcium 8.6 Liver Function 01/12/25 Range/Units 09:04 Total Bilirubin 0.5 (0.0-1.0) mg/dL AST 31 (5-37) U/L ALT 22 (0-40) U/L Alkaline Phosphatase 131 H (39-117) U/L Albumin 3.0 L (3.5-5.0) g/dL Assessment and Plan (1) Osteomyelitis: Status: Acute Plan He has MRI distal phalanx OM. He reports not being treated for it before. Possible likely staph or strep so Daptomycin can be help for six weeks Follow with Podiatry
--- NOTE | 2025-01-13 01:36 | PC.NURSE ---
Pt voided 120 ml of concentrated yellow urine into urinal at approx 0120. PVR was 198 mL at approx 0130. Pt resting comfortably and tolerated bladder scan well. Respirations even and unlabored. Will continue to monitor pt.
[2025-01-13 03:38] VITALS: BP 143/63; PULSE 54; RESP 18; TEMP 36.3; O2SAT 98
[2025-01-13 07:32] LABS: Hematocrit 29.5 % (42.0-52.0); Hemoglobin 9.3 g/dl (14.0-18.0); Mean Corpuscular HGB Conc 31.5 g/dl (31.0-36.0); Mean Corpuscular Hemoglobin 27.6 pg (27.0-33.0); Mean Corpuscular Volume 87.5 fL (80.0-98.0); NRBC Abs Auto 0.000 X10*3/uL (0.0-0.012); NRBC Pct Auto 0.0 /100WBC (0.0-0.2); Platelet Count 303 X10*3/uL (160-400); Red Blood Count 3.37 X10*6/uL (4.60-5.80); White Blood Count 9.4 X10*3/uL (4.8-10.8)
[2025-01-13] MEDS: 0.9 % Sodium Chloride Flush 3 ML SYRINGE IVFLUSH ×3 (07:43→21:59)
[2025-01-13 07:50] VITALS: BP 138/61; PULSE 58; RESP 14; TEMP 36.2; O2SAT 95
[2025-01-13 08:07] LABS: Anion Gap 13 (12-20); Blood Urea Nitrogen 16 mg/dL (9-16); Calcium 8.6 mg/dL (8.4-10.2); Carbon Dioxide 29 mmol/L (22-29); Chloride 98 mmol/L (96-108); Creatinine Clr Calc Pharmacy 127.3; Estimated Glomerular Filt Rate > 60; Potassium 4.4 mmol/L (3.3-5.1); Sodium 136 mmol/L (135-145)
--- NOTE | 2025-01-13 10:40 | HO.PM.IMPN ---
Subjective Subjective Date of Service: 01/13/25 Interval History: Patient seen examined at bedside this morning, in no acute respiratory distress. Patient states that he is feeling better. Patient at this time continues on IV antibiotics, wound culture ordered, awaiting to be seen by surgery. No acute overnight events. Review of Systems Review of Systems: Yes all other systems are reviewed and are negative Physical Exam Exam: Exam: General: AxOx3, No acute distress Head: AT/NC ENT: Moist mucous membranes Neck: supple CVS; RRR, S1 S2 normal Lungs: Clear bilateral breath sounds, no wheezes or crackles Abd: Soft non tender, non distended Ext: Right lower extremity with dressing in place, secretions noted, with edema MSK: moving all 4 limbs Skin: No cyanosis Psych: Cooperative with exam Neurology: no focal deficit Vital Signs: Vital Signs: Last Vital Signs Temp 97.1 F 01/13/25 07:50 Pulse 58 01/13/25 07:50 Resp 14 01/13/25 07:50 BP 138/61 01/13/25 07:50 Pulse Ox 95 01/13/25 07:50 O2 Del Method Room Air 01/13/25 07:50 BMI result Body Mass Index 32.1 Objective Data Active Medications Acetaminophen (Acetaminophen 325 Mg Tablet) 650 mg PO Q6H PRN PRN Reason: Pain, Mild 1-3,fever,headache Atorvastatin Calcium (Atorvastatin Calcium 40 Mg Tablet) 40 mg PO BEDTIME [facility] Last Admin: 01/12/25 19:38 Dose: 40 mg Documented By: MOHAMUD Calcium Carbonate (Calcium Carbonate 750 Mg Tab.Chew) 750 mg PO Q4H PRN PRN Reason: Heartburn Docusate Sodium (Docusate Sodium 100 Mg Capsule) 100 mg PO BID [facility] Last Admin: 01/13/25 08:11 Dose: 100 mg Documented By: HOLLIS Escitalopram Oxalate (Escitalopram Oxalate 20 Mg Tablet) 20 mg PO DAILY [facility] Last Admin: 01/13/25 08:11 Dose: 20 mg Documented By: HOLLIS Heparin Sodium (Porcine) (Heparin Sodium,Porcine 5,000 Unit/Ml Vial) 5,000 unit SUBCUT Q12H [facility] Last Admin: 01/12/25 23:46 Dose: 5,000 unit Documented By: MOHAMUD Piperacillin Sod/Tazobactam (Sod 4.5 gm/ Sodium Chloride) 100 mls @ 200 mls/hr IV Q8H [facility] Last Infusion: 01/13/25 09:24 Dose: Infused Documented By: HOLLIS Vancomycin HCl 1,250 mg/ (Sodium Chloride) 250 mls @ 166.667 mls/hr IV Q12H [facility] Last Admin: 01/13/25 09:58 Dose: 166.67 mls/hr Documented By: HOLLIS Lisinopril (Lisinopril 10 Mg Tablet) 30 mg PO DAILY [facility]; Protocol Last Admin: 01/13/25 08:11 Dose: 30 mg Documented By: HOLLIS Magnesium Hydroxide (Milk Of Magnesia 30 Ml Oral.Susp) 30 ml PO DAILY PRN PRN Reason: Constipation Melatonin (Melatonin 3 Mg Tablet) 6 mg PO BEDTIME PRN PRN Reason: Insomnia Morphine Sulfate (Morphine Sulfate 4 Mg/Ml Cartridge) 2 mg IVPUSH Q4H PRN; Protocol PRN Reason: Pain, Severe (Pain Scale 7-10) Last Admin: 01/13/25 07:41 Dose: 2 mg Documented By: HOLLIS Ondansetron HCl (Ondansetron Hcl 4 Mg/2 Ml Vial) 4 mg IVPUSH Q8H PRN PRN Reason: Nausea and Vomiting Oxycodone HCl (Oxycodone Hcl Immed Release 5 Mg Tablet) 5 mg PO Q6H PRN PRN Reason: Pain, Moderate(Pain Scale 4-6) Last Admin: 01/12/25 23:46 Dose: 5 mg Documented By: MOHAMUD Pharmacy Consult (Consult Rx Vancomycin Dosing) 1 each MISCELLANE DAILY PRN PRN Reason: Consult order Sodium Chloride (0.9 % Sodium Chloride Flush 3 Ml Syringe) 3 ml IVFLUSH QSHIFT [facility] Last Admin: 01/13/25 07:43 Dose: 3 ml Documented By: HOLLIS Tamsulosin HCl (Tamsulosin Hcl 0.4 Mg Capsule) 0.4 mg PO DAILY [facility] Last Admin: 01/13/25 08:11 Dose: 0.4 mg Documented By: HOLLIS Labs 01/13/25 06:45 01/13/25 06:45 Labs: Laboratory Results - last 24 hr 01/13/25 06:45 MCV 87.5 MCH 27.6 MCHC 31.5 RDW 14.7 Plt Count 303 MPV 8.8 L Absolute Nucleated RBC 0.000 Nucleated RBC % (auto) 0.0 Anion Gap 13 Estim Creat Clear Calc 127.3 Estimated GFR > 60 Random Glucose 91 Calcium 8.6 Assessment and Plan (1) Osteomyelitis: Status: Acute (2) BPH (benign prostatic hyperplasia): Status: Acute (3) Essential hypertension: Status: Acute Plan 64 year old male with history of HTN, HLD, anxiety who presents to the emergency department with three-week history of increasing redness, swelling in pain of right lower extremity, with MRI showing osteomyelitis Right foot osteomyelitis labs reviewed with leukocytosis resolved at this time MRI positive for osteomyelitis of the distal phalanx and head and neck of great toe. wound culture ordered Continue w/ Vanc and Zosyn will tailor based on results ID and surgery consulted. per surgery suggested on continuing abs with probable amputation once swelling improves continue per wound care recs, leg elevation HLD continue statin mood disorder continue escitalopram BPH Continue tamsulosin Hypertension Continue lisinopril dvt ppx - heparin Disposition: All questions and concerns with the patient were answered to satisfaction. All pertinent clinical documents, images and labs were reviewed. DISCLAIMER: This document was created using voice recognition software. Any mistakes in the prescription are unintentional. An attempt was made to focus for accuracy, but to expedite availability, some errors may persist. Please contact with any need for correction or further clarification Total time managing care of this patient today: 35 minutes. Quality Stroke Does the patient have a stroke diagnosis?: No VTE Prior VTE?: No VTE Risk Level:: Medical - moderate - high VTE Device Contraindication: N/A - Device Ordered VTE Drug Contraindication: N/A - Med Ordered
[2025-01-13] MEDS: oxyCODONE HCl Immed Release 5 MG TABLET PO ×2 (14:08→19:51)
[2025-01-13 15:38] VITALS: BP 113/76; PULSE 65; RESP 20; TEMP 36.6; O2SAT 98
--- NOTE | 2025-01-13 16:25 | MHC.CM.PN ---
PT REPORTS HE LIVES ALONE AND IS INDEPENDENT WITH CARE HE HAS NO DME OR SERVICES DECLINES A HCP PCP: JOE KIM IMM DELIVERED DCP: HOME, OR HE SAYS HE MAY DC TO A [facility], ? [facility] TRANSPORT
[2025-01-13 20:00] VITALS: BP 139/76; PULSE 62; RESP 20; TEMP 36.7; O2SAT 98
[2025-01-14 03:00] VITALS: BP 105/56; PULSE 55; RESP 17; TEMP 36.5; O2SAT 96
[2025-01-14 06:53] LABS: Creatinine Clr Calc Pharmacy 134.7; Estimated Glomerular Filt Rate > 60
[2025-01-14 07:35] VITALS: BP 134/61; PULSE 59; RESP 16; TEMP 36.4; O2SAT 96
[2025-01-14] MEDS: 0.9 % Sodium Chloride Flush 3 ML SYRINGE IVFLUSH ×3 (08:09→20:24)
--- NOTE | 2025-01-14 10:57 | P.PNIM_ITS ---
Subjective Subjective Date of Service: 01/14/25 Interval History: Patient seen examined at bedside this morning, patient states that he is experiencing some pain in right lower extremity. Seen by ID suggested on switching to daptomycin. Wound culture growing cocci. Review of Systems Review of Systems: Yes all other systems are reviewed and are negative Physical Exam 2 Exam: Exam: General: AxOx3, No acute distress Head: AT/NC ENT: Moist mucous membranes Neck: supple CVS; RRR, S1 S2 normal Lungs: Clear bilateral breath sounds, no wheezes or crackles Abd: Soft non tender, non distended Ext: No edema and no calf tenderness MSK: moving all 4 limbs Skin: Right lower extremity with wound in place, with dressing with serosanguineous discharge noted. Psych: Cooperative with exam Neurology: no focal deficit Vital Signs: Vital Signs: Last Vital Signs Temp 97.5 F 01/14/25 07:35 Pulse 59 01/14/25 07:35 Resp 16 01/14/25 07:35 BP 134/61 01/14/25 07:35 Pulse Ox 96 01/14/25 07:35 O2 Del Method Room Air 01/14/25 07:35 BMI result Body Mass Index 32.1 Objective Data Active Medications Acetaminophen (Acetaminophen 325 Mg Tablet) 650 mg PO Q6H PRN PRN Reason: Pain, Mild 1-3,fever,headache Atorvastatin Calcium (Atorvastatin Calcium 40 Mg Tablet) 40 mg PO BEDTIME [facility] Last Admin: 01/13/25 19:48 Dose: 40 mg Documented By: YARA Calcium Carbonate (Calcium Carbonate 750 Mg Tab.Chew) 750 mg PO Q4H PRN PRN Reason: Heartburn Docusate Sodium (Docusate Sodium 100 Mg Capsule) 100 mg PO BID [facility] Last Admin: 01/14/25 08:08 Dose: 100 mg Documented By: HOLLIS Escitalopram Oxalate (Escitalopram Oxalate 20 Mg Tablet) 20 mg PO DAILY [facility] Last Admin: 01/14/25 08:08 Dose: 20 mg Documented By: HOLLIS Heparin Sodium (Porcine) (Heparin Sodium,Porcine 5,000 Unit/Ml Vial) 5,000 unit SUBCUT Q12H [facility] Last Admin: 01/13/25 23:37 Dose: 5,000 unit Documented By: LEFEBVA Hydromorphone HCl (Hydromorphone Hcl 1 Mg/Ml Syringe) 0.5 mg IVPUSH Q4H PRN; Protocol PRN Reason: Pain, Severe (Pain Scale 7-10) Daptomycin 715 mg/ Sodium (Chloride) 64.3 mls @ 96.41 mls/hr IV Q24H [facility] Last Admin: 01/14/25 10:52 Dose: 96.41 mls/hr Documented By: HOLLIS Lisinopril (Lisinopril 10 Mg Tablet) 30 mg PO DAILY [facility]; Protocol Last Admin: 01/14/25 08:08 Dose: 30 mg Documented By: HOLLIS Magnesium Hydroxide (Milk Of Magnesia 30 Ml Oral.Susp) 30 ml PO DAILY PRN PRN Reason: Constipation Melatonin (Melatonin 3 Mg Tablet) 6 mg PO BEDTIME PRN PRN Reason: Insomnia Last Admin: 01/13/25 22:35 Dose: 6 mg Documented By: MOHAMUD Morphine Sulfate (Morphine Sulfate 4 Mg/Ml Cartridge) 2 mg IVPUSH Q4H PRN; Protocol PRN Reason: Pain, Severe (Pain Scale 7-10) Last Admin: 01/14/25 08:08 Dose: 2 mg Documented By: HOLLIS Ondansetron HCl (Ondansetron Hcl 4 Mg/2 Ml Vial) 4 mg IVPUSH Q8H PRN PRN Reason: Nausea and Vomiting Oxycodone HCl (Oxycodone Hcl Immed Release 5 Mg Tablet) 5 mg PO Q6H PRN PRN Reason: Pain, Moderate(Pain Scale 4-6) Last Admin: 01/13/25 19:51 Dose: 5 mg Documented By: YARA Sodium Chloride (0.9 % Sodium Chloride Flush 3 Ml Syringe) [facility] Last Admin: 01/14/25 08:09 Dose: 3 ml Documented By: HOLLIS Tamsulosin HCl (Tamsulosin Hcl 0.4 Mg Capsule) 0.4 mg PO DAILY [facility] Last Admin: 01/14/25 08:08 Dose: 0.4 mg Documented By: HOLLIS Labs 01/13/25 06:45 01/14/25 05:54 Labs: Laboratory Results - last 24 hr 01/13/25 01/14/25 01/14/25 20:15 05:54 09:38 Estim Creat Clear Calc 134.7 Estimated GFR > 60 Total Creatine Kinase 24 L Random Vancomycin 15.7 Microbiology Microbiology Results: Microbiology 01/13/25 14:30 Gram Stain - Final Foot Right 01/12/25 09:11 Blood Culture - Preliminary Blood - Venous No growth after 24 hours. 01/12/25 09:11 Blood Culture - Preliminary Blood - Venous No growth after 24 hours. Assessment and Plan (1) Osteomyelitis: Status: Acute (2) Chronic ulcer of right great toe: Status: Acute Plan 64 year old male with history of HTN, HLD, anxiety who presents to the emergency department with three-week history of increasing redness, swelling in pain of right lower extremity, with MRI showing osteomyelitis. wound cultures growing gram positive cocci. transition to IV dapto on 01/14 to complete a total of 6 weeks. Right foot osteomyelitis labs reviewed with leukocytosis resolved at this time MRI positive for osteomyelitis of the distal phalanx and head and neck of great toe. wound culture ordered Switched Vanc and Zosyn to dapto, will order ck q48 hrs and labs while on dapto. Will require at least 6 weeks. ID and surgery consulted. per surgery suggested on continuing abs with probable amputation once swelling improves. Patient refers he does not want to pursue amputation continue per wound care recs, leg elevation HLD continue statin mood disorder continue escitalopram BPH Continue tamsulosin Hypertension Continue lisinopril dvt ppx - heparin Disposition: All questions and concerns with the patient were answered to satisfaction. All pertinent clinical documents, images and labs were reviewed. DISCLAIMER: This document was created using voice recognition software. Any mistakes in the prescription are unintentional. An attempt was made to focus for accuracy, but to expedite availability, some errors may persist. Please contact with any need for correction or further clarification Total time managing care of this patient today: 55 minutes. Quality Stroke Does the patient have a stroke diagnosis?: No VTE Prior VTE?: No VTE Risk Level:: Medical - moderate - high VTE Device Contraindication: N/A - Device Ordered VTE Drug Contraindication: N/A - Med Ordered
[2025-01-14 15:51] VITALS: BP 122/58; PULSE 63; RESP 16; TEMP 36.6; O2SAT 98
[2025-01-14 20:00] VITALS: BP 149/72; PULSE 69; RESP 18; TEMP 36.8; O2SAT 96
[2025-01-15 03:28] VITALS: BP 143/60; PULSE 60; RESP 18; TEMP 36.4; O2SAT 97
[2025-01-15 06:34] LABS: Alanine Aminotransferase 21 U/L (0-40); Albumin Level 2.8 g/dL (3.5-5.0); Alkaline Phosphatase 169 U/L (39-117); Anion Gap 11 (12-20); Aspartate Amino Transferase 36 U/L (5-37); Blood Urea Nitrogen 12 mg/dL (9-16); Calcium 9.1 mg/dL (8.4-10.2); Carbon Dioxide 30 mmol/L (22-29); Chloride 96 mmol/L (96-108); Creatinine Clr Calc Pharmacy 130.9; Estimated Glomerular Filt Rate > 60; Potassium 4.2 mmol/L (3.3-5.1); Sodium 133 mmol/L (135-145); Total Protein 6.6 g/dL (6.5-8.0)
[2025-01-15 07:50] VITALS: BP 136/65; PULSE 62; RESP 16; TEMP 36.3; O2SAT 100
[2025-01-15] MEDS: 0.9 % Sodium Chloride Flush 3 ML SYRINGE IVFLUSH ×3 (08:03→19:41)
--- NOTE | 2025-01-15 09:25 | P.CDIM_ITS ---
PROVIDER RESPONSE TEXT: To clarify, the appropriate diagnosis supported by the clinical indicators: Acute QUERY TEXT: PHYSICIAN'S DOCUMENTATION REQUEST Date of Query: 01/15/2025 08:44 AM EST Patient Name: Anibal Viramontes Admit Date: 01/12/2025 Dear oJhn Buckley MD, A review of the medical record indicates additional documentation may be needed. Please review below and update the documentation accordingly. Clinical Indicators: 01/12/25: MRI right foot suspected osteomyelitis IV Daptomycin Clarify which of the following accurately represents the acuity of the Osteomyelitis. Possible options might include: Acute Acute on chronic Compensated Chronic stable condition Remission Other (explain) Clinically unable to determine (explain) Thank you, Jaimie Godinez RN Use of terms such as suspected, likely, concern for, or probable (associated with a specific diagnosis that is being evaluated, monitored, or treated as if it exists) are acceptable and can be coded in the inpatient setting, when documented at the time of discharge. Please use your independent medical judgment in providing your response. THIS QUERY IS PART OF THE PERMANENT MEDICAL RECORD
--- NOTE | 2025-01-15 09:25 | P.CDIM_ITS ---
PROVIDER RESPONSE TEXT: To clarify, the appropriate diagnosis supported by the clinical indicators: Other (explain): distal phalanx of right first toe medial aspect QUERY TEXT: PHYSICIAN'S DOCUMENTATION REQUEST Date of Query: 01/15/2025 08:42 AM EST Patient Name: Anibal Viramontes Admit Date: 01/12/2025 Dear John Buckley MD, A review of the medical record indicates additional documentation may be needed. Please review below and update the documentation accordingly. Clinical Indicators: Right great toe ulcer, chronic cellulitis of right extremity Based on the above, could you please provide further information regarding the type of ulcer/wound: Venous stasis ulcer Please specify the location and laterality of the ulcer/wound Arterial (ischemic) ulcer Please specify the location and laterality of the ulcer/wound Pressure (decubitus) ulcer, stage 3 Please include the stage of the ulcer and specify the location and laterality of the ulcer/wound Traumatic wound Please specify the location and laterality of the ulcer/wound Other (explain) Clinically unable to determine (explain) Thank you, Jaimie Godinez RN Use of terms such as suspected, likely, concern for, or probable (associated with a specific diagnosis that is being evaluated, monitored, or treated as if it exists) are acceptable and can be coded in the inpatient setting, when documented at the time of discharge. Please use your independent medical judgment in providing your response. THIS QUERY IS PART OF THE PERMANENT MEDICAL RECORD
--- NOTE | 2025-01-15 09:25 | MHC.CLN ---
F/U RIGHT GREAT TOE OPEN AREA IS NEUROPATHIC WOUND PER WOUND RN. CONTINUE ENSURE MAX BID TO PROMOTE NUTRITIONAL INTAKE. RD TO FOLLOW UP WEEKLY.
--- NOTE | 2025-01-15 11:00 | MHC.CM.PN ---
Per MD rounds, will need 6 wks IV dapto for OM. Patient reports he believes he can manage this independently, but has a niece that is an EMT that can also assist if needed. Will also need SN for wound care. Awaiting blood cx, then PICC placement tomorrow. Referrals to [facility] and [facility] via [facility]. Plan for [facility] teach later today. CM will continue to follow.
--- NOTE | 2025-01-15 14:06 | HO.PM.IMPN ---
Subjective Subjective Date of Service: 01/15/25 Interval History: Patient seen examined at bedside this morning, patient was recently placed on daptomycin for osteomyelitis, to complete a total of 6 weeks. Patient states that he is feeling well, some mild edema. And tenderness. No acute overnight events. Review of Systems Review of Systems: Yes all other systems are reviewed and are negative Physical Exam Exam: Exam: General: AxOx3, No acute distress Head: AT/NC ENT: Moist mucous membranes Neck: supple CVS; RRR, S1 S2 normal Lungs: Clear bilateral breath sounds, no wheezes or crackles Abd: Soft non tender, non distended Ext: No edema and no calf tenderness MSK: moving all 4 limbs Skin: Right big toe ulcer with dressing in place Psych: Cooperative with exam Neurology: no focal deficit Vital Signs: Vital Signs: Last Vital Signs Temp 97.3 F 01/15/25 07:50 Pulse 62 01/15/25 07:50 Resp 16 01/15/25 07:50 BP 136/65 01/15/25 07:50 Pulse Ox 100 01/15/25 07:50 O2 Del Method Room Air 01/15/25 07:50 BMI result Body Mass Index 32.1 Objective Data Active Medications Acetaminophen (Acetaminophen 325 Mg Tablet) 650 mg PO Q6H PRN PRN Reason: Pain, Mild 1-3,fever,headache Last Admin: 01/15/25 10:11 Dose: 650 mg Documented By: SHEMAR Atorvastatin Calcium (Atorvastatin Calcium 40 Mg Tablet) 40 mg PO BEDTIME [facility] Last Admin: 01/14/25 20:24 Dose: 40 mg Documented By: LEFEBVA Calcium Carbonate (Calcium Carbonate 750 Mg Tab.Chew) 750 mg PO Q4H PRN PRN Reason: Heartburn Docusate Sodium (Docusate Sodium 100 Mg Capsule) 100 mg PO BID [facility] Last Admin: 01/15/25 08:03 Dose: 100 mg Documented By: SHEMAR Escitalopram Oxalate (Escitalopram Oxalate 20 Mg Tablet) 20 mg PO DAILY [facility] Last Admin: 01/15/25 08:03 Dose: 20 mg Documented By: SHEMAR Heparin Sodium (Porcine) (Heparin Sodium,Porcine 5,000 Unit/Ml Vial) 5,000 unit SUBCUT Q12H [facility] Last Admin: 01/15/25 12:50 Dose: 5,000 unit Documented By: SHEMAR Hydromorphone HCl (Hydromorphone Hcl 1 Mg/Ml Syringe) 0.5 mg IVPUSH Q4H PRN; Protocol PRN Reason: Pain, Severe (Pain Scale 7-10) Last Admin: 01/15/25 12:50 Dose: 0.5 mg Documented By: SHEMAR Daptomycin 715 mg/ Sodium (Chloride) 64.3 mls @ 96.41 mls/hr IV Q24H [facility] Last Infusion: 01/15/25 12:15 Dose: Infused Documented By: SHEMAR Lisinopril (Lisinopril 10 Mg Tablet) 30 mg PO DAILY [facility]; Protocol Last Admin: 01/15/25 08:03 Dose: 30 mg Documented By: SHEMAR Magnesium Hydroxide (Milk Of Magnesia 30 Ml Oral.Susp) 30 ml PO DAILY PRN PRN Reason: Constipation Melatonin (Melatonin 3 Mg Tablet) 6 mg PO BEDTIME PRN PRN Reason: Insomnia Last Admin: 01/14/25 20:24 Dose: 6 mg Documented By: MOHAMUD Morphine Sulfate (Morphine Sulfate 4 Mg/Ml Cartridge) 2 mg IVPUSH Q4H PRN; Protocol PRN Reason: Pain, Severe (Pain Scale 7-10) Last Admin: 01/14/25 08:08 Dose: 2 mg Documented By: HOLLIS Ondansetron HCl (Ondansetron Hcl 4 Mg/2 Ml Vial) 4 mg IVPUSH Q8H PRN PRN Reason: Nausea and Vomiting Oxycodone HCl (Oxycodone Hcl Immed Release 5 Mg Tablet) 5 mg PO Q6H PRN PRN Reason: Pain, Moderate(Pain Scale 4-6) Last Admin: 01/13/25 19:51 Dose: 5 mg Documented By: YARA Sodium Chloride (0.9 % Sodium Chloride Flush 3 Ml Syringe) 3 ml IVFLUSH [facility] Last Admin: 01/15/25 08:03 Dose: 3 ml Documented By: SHEMAR Tamsulosin HCl (Tamsulosin Hcl 0.4 Mg Capsule) 0.4 mg PO DAILY [facility] Last Admin: 01/15/25 08:03 Dose: 0.4 mg Documented By: SHEMAR Labs 01/13/25 06:45 01/15/25 06:04 Labs: Laboratory Results - last 24 hr 01/14/25 01/15/25 20:07 06:04 Anion Gap 11 L Estim Creat Clear Calc 130.9 Estimated GFR > 60 Random Glucose 89 Calcium 9.1 Total Bilirubin 0.3 AST 36 ALT 21 Alkaline Phosphatase 169 H Total Protein 6.6 Albumin 2.8 L Random Vancomycin 10.4 L Microbiology Microbiology Results: Microbiology 01/13/25 14:30 Gram Stain - Final Foot Right Routine Culture - Final Streptococcus group c Corynebacterium species 01/12/25 09:11 Blood Culture - Preliminary Blood - Venous No growth after 48 hours. 01/12/25 09:11 Blood Culture - Preliminary Blood - Venous No growth after 48 hours. Assessment and Plan (1) Osteomyelitis: Status: Acute (2) Chronic ulcer of right great toe: Status: Acute Plan 64 year old male with history of HTN, HLD, anxiety who presents to the emergency department with three-week history of increasing redness, swelling in pain of right lower extremity, with MRI showing osteomyelitis. wound cultures growing gram positive cocci. transition to IV dapto on 01/14 to complete a total of 6 weeks. Right foot osteomyelitis labs reviewed with leukocytosis resolved at this time MRI positive for osteomyelitis of the distal phalanx and head and neck of great toe. wound culture ordered Continue dapto, ck q48 hrs and labs while on dapto. Will require at least 6 weeks. once blood cultures negative to place pic line for tx ID and surgery consulted. per surgery suggested on continuing abs with probable amputation once swelling improves. Patient refers he does not want to pursue amputation continue per wound care recs, leg elevation HLD continue statin mood disorder continue escitalopram BPH Continue tamsulosin Hypertension Continue lisinopril dvt ppx - heparin Disposition: All questions and concerns with the patient were answered to satisfaction. All pertinent clinical documents, images and labs were reviewed. DISCLAIMER: This document was created using voice recognition software. Any mistakes in the prescription are unintentional. An attempt was made to focus for accuracy, but to expedite availability, some errors may persist. Please contact with any need for correction or further clarification Total time managing care of this patient today: 35 minutes. Quality Stroke Does the patient have a stroke diagnosis?: No VTE Prior VTE?: No VTE Risk Level:: Medical - moderate - high VTE Device Contraindication: N/A - Device Ordered VTE Drug Contraindication: N/A - Med Ordered
--- NOTE | 2025-01-15 15:44 | P.PNID_ITS ---
Subjective Subjective Date of Service: 01/15/25 Critical Care Time (minutes): 15 Comment: he is doing well no complaints Objective Data Labs 01/13/25 06:45 01/15/25 06:04 Labs: Laboratory Results - last 24 hr 01/14/25 01/15/25 20:07 06:04 Sodium 133 L Potassium 4.2 Chloride 96 Carbon Dioxide 30 H Anion Gap 11 L BUN 12 Creatinine 0.71 Estim Creat Clear Calc 130.9 Estimated GFR > 60 Random Glucose 89 Calcium 9.1 Total Bilirubin 0.3 AST 36 ALT 21 Alkaline Phosphatase 169 H Total Protein 6.6 Albumin 2.8 L Random Vancomycin 10.4 L Microbiology Microbiology Results: Microbiology 01/13/25 14:30 Foot Right Gram Stain - Final 01/13/25 14:30 Foot Right Routine Culture - Final Streptococcus group c Corynebacterium species 01/12/25 09:11 Blood - Venous Blood Culture - Preliminary No growth after 48 hours. 01/12/25 09:11 Blood - Venous Blood Culture - Preliminary No growth after 48 hours. Physical Exam 2 Vital Signs: Vital Signs: Last Vital Signs Temp 97.3 F 01/15/25 07:50 Pulse 62 01/15/25 07:50 Resp 16 01/15/25 07:50 BP 136/65 01/15/25 07:50 Pulse Ox 100 01/15/25 07:50 O2 Del Method Room Air 01/15/25 07:50 BMI result Body Mass Index 32.1 Const: General: cooperative HEENT: Head: Yes normal to inspection Face and sinus: Yes normal facial exam Mouth: Normal oral and palatal mucosa present Teeth and gingiva: d entition normal Eyes: General: appearance normal, both eyes and all related structures P upils: Equal, round and reactive pupils present Resp: Effort & Inspection: normal respiratory effort Cardio: Rate: regular rate Rhythm: regular rhythm GI: Palpation (GI): Soft to palpation and nontender : General: Yes no CVA tenderness Back/Spine/Pelvis: Back: no CVA tenderness Skin: General skin exam: no rashes or lesions noted Neuro: General: moves all extremities Cranial nerves: Yes Equal, round and reactive pupils present Extrem: General: Yes normal to inspection Psych: Appearance: grossly normal Assessment and Plan Assessment and plan (1) Osteomyelitis: Problem details: right foot OM distal phalanx and head and neck great to plus 2 polys and plus one gram positive cocci,Group C strep Status: Acute Plan IV Ceftriaxone 2g daily treat Group C strep for six weeks Weekly CBC and creatinine ,see me outpatient in two weeks. Time Spent With Patient Time: Total time managing care of this patient today ____ minutes.
[2025-01-15 15:59] VITALS: BP 140/62; PULSE 59; RESP 18; TEMP 36.3; O2SAT 99
[2025-01-15 19:31] VITALS: BP 136/60; PULSE 63; RESP 18; TEMP 36.2; O2SAT 99
[2025-01-16 04:00] VITALS: BP 148/74; PULSE 69; RESP 18; TEMP 36.5; O2SAT 97
[2025-01-16] MEDS: oxyCODONE HCl Immed Release 5 MG TABLET PO ×3 (04:46→22:21)
[2025-01-16 07:16] LABS: Creatinine Clr Calc Pharmacy 149.9; Estimated Glomerular Filt Rate > 60
[2025-01-16] MEDS: 0.9 % Sodium Chloride Flush 3 ML SYRINGE IVFLUSH ×3 (07:34→19:53)
[2025-01-16 07:59] VITALS: BP 155/76; PULSE 65; RESP 16; TEMP 36.1; O2SAT 95
--- NOTE | 2025-01-16 10:37 | P.DS_ITS ---
DS: Providers Provider Date of Service: 01/16/25 Date of admission: 01/12/25 12:07 Date of discharge: 01/16/25 Primary care physician: Torrie Joyce MD Consults: 01/12/25 12:21 Consult to General Surgery Routine Consulting Provider: [facility] Reason for consultation: fight foot infection Has provider been notified: No 01/12/25 13:21 Consult to Infectious Diseases Routine Consulting Provider: [facility] Reason for consultation: right foot wound, concern for osteo Has provider been notified: No 01/12/25 15:09 Consult to Wound Care Routine Consulting Provider: [facility] W[facility] Care Management Reason for consultation: wound to R foot great toe Attending physician on discharge: John Buckley Discharging clinician: John Buckley DS: Diagnosis Discharge Diagnosis (1) Osteomyelitis: Status: Acute DS: Summary Hospital Course Hospital Course: 64 year old male with history of HTN, HLD, anxiety who presents to the emergency department with three-week history of increasing redness, swelling in pain of right lower extremity, with MRI showing osteomyelitis. wound cultures growing Streptococcus group C and Corynebacterium, patient transitioned to IV ceftriaxone and placed on p.o. doxycycline to complete a total of 6 weeks. Suggested on following up with ID in 2 weeks in outpatient setting. Patient mentions that he feels well, right lower extremity pain has improved. Right foot osteomyelitis labs reviewed with leukocytosis resolved at this time MRI positive for osteomyelitis of the distal phalanx and head and neck of great toe. wound culture positive for Streptococcus group C and Corynebacterium Status post daptomycin, transitioned to ceftriaxone, to complete a total of 6 weeks with EOT on 02/25. Patient placed as well on doxycycline 100 mg p.o. b.i.d.. Follow up with ID in 2 weeks Per surgery suggested on continuing abs with probable amputation once swelling improves. Patient refers he does not want to pursue amputation HLD continue statin mood disorder continue escitalopram BPH Continue tamsulosin Hypertension Continue lisinopril Time Attestation Discharge Coordination Time (in mins): 35 minutes Quality: Safe Use of Opioids Does Pt have an Active Cancer Diagnosis on the Problem List?: No Quality: Stroke Does the patient have a stroke diagnosis?: No Physical Exam Exam: Exam: General: AxOx3, No acute distress Head: AT/NC ENT: Moist mucous membranes Neck: supple CVS; RRR, S1 S2 normal Lungs: Clear bilateral breath sounds, no wheezes or crackles Abd: Soft non tender, non distended Ext: No edema and no calf tenderness MSK: moving all 4 limbs Skin: right foot with wound in place, dressing c/d/i Psych: Cooperative with exam Neurology: no focal deficit Vital Signs: Vital Signs: Last Vital Signs Temp 97.0 F 01/16/25 07:59 Pulse 65 01/16/25 07:59 Resp 16 01/16/25 07:59 BP 155/76 H 01/16/25 07:59 Pulse Ox 95 01/16/25 07:59 O2 Del Method Room Air 01/16/25 07:59 BMI result Body Mass Index 32.1 DS: Data Data Completed and Pending Completed studies during hospitalization [Text1]: Procedures Drainage of Left Shoulder Joint, Percutaneous Approach (07/18/24) Labs on day of discharge: Laboratory Results - last 24 hr 01/16/25 01/16/25 05:59 09:25 Creatinine 0.62 Estim Creat Clear Calc 149.9 Estimated GFR > 60 Total Creatine Kinase 11 L Preliminary micro results at discharge 01/12/25 09:11 Blood Culture - Preliminary Blood - Venous No growth after 48 hours. 01/12/25 09:11 Blood Culture - Preliminary Blood - Venous No growth after 48 hours. Discharge Plan Discharge Anticipated Discharge Date/Time: 01/16/25 14:37 Patient Disposition: Home Health Service Discharge Diagnosis: Right foot osteomyelitis Referrals: Naomy Funes MD [Physician, Infectious Disease] - 2 Weeks Problems: Osteomyelitis Torrie Rangel MD [Primary Care Provider, Internal Medicine] - 1 Week Discharge Medications: New doxycycline monohydrate 100 mg Capsule 100 mg PO Q12H 40 Days Qty: 80 0RF ceftriaxone 2 gram Recon Soln 2 g IV Q24H 40 Days Qty: 10 4RF oxycodone 5 mg Tablet 5 mg PO Q6H PRN (Reason: Pain, Moderate(Pain Scale 4-6)) Qty: 30 0RF Rx Instructions: Partial Fill upon patient request. omeprazole 20 mg Capsule,Delayed Release(Dr/Ec) 20 mg PO DAILY@0630 40 Days Qty: 40 0RF Continued escitalopram oxalate 20 mg tablet 20 mg PO DAILY 90 Days Qty: 90 0RF atorvastatin 40 mg tablet 40 mg PO BEDTIME 90 Days Qty: 90 3RF lisinopril 30 mg tablet 30 mg PO DAILY 90 Days Qty: 90 3RF tamsulosin 0.4 mg capsule 0.4 mg PO DAILY Qty: 90 0RF allopurinol 300 mg tablet 300 mg PO DAILY PRN (Reason: gout) Changed celecoxib [Celebrex] 200 mg capsule 200 mg PO 1XD 30 Days Qty: 60 3RF Discharge Orders: Discharge Order (Routine); Ordered 01/16/25 Ordered By: John Buckley Activity on Discharge: As tolerated Stand Alone Forms: Patient Portal Discharge page Print Language: Bruneian Care Plan Goals: continue iv antibiotics follow up with infectious disease in two weeks weekly cbc and creatinine Health Concerns: osteomyelitis Plan of Treatment: IV antibiotic and doxycycline oral for 6 weeks pain management follow up with PCP and infectious disease Assessment: 64 year old male with history of HTN, HLD, anxiety who presents to the emergency department with three-week history of increasing redness, swelling in pain of right lower extremity, with MRI showing osteomyelitis. wound cultures growing Streptococcus group C and Corynebacterium, patient transitioned to IV ceftriaxone and placed on p.o. doxycycline to complete a total of 6 weeks. Suggested on following up with ID in 2 weeks in outpatient setting. Patient mentions that he feels well, right lower extremity pain has improved. Patient Instructions: Osteomyelitis (DC)
--- NOTE | 2025-01-16 10:39 | W.MHC.F2F ---
Service Date Service Date: 01/16/25 Encounter Date of encounter: 01/16/25 Encounter: 64 year old male with history of HTN, HLD, anxiety who presents to the emergency department with three-week history of increasing redness, swelling in pain of right lower extremity, with MRI showing osteomyelitis. wound cultures growing Streptococcus group C and Corynebacterium, patient transitioned to IV ceftriaxone and placed on p.o. doxycycline to complete a total of 6 weeks. Suggested on following up with ID in 2 weeks in outpatient setting. Patient seen examined at bedside this morning, but states that he is feeling better, however is having mild headache, agrees with continue antibiotics for 6 weeks, we will follow up with ID. Reasons for Services Signs and symptoms assessed: right foot osteomyelitis Reason for senior living: wound care, medication management and medication treatment Reason for physical therapy: home safety and mobility, gait/transfer training and assess need for DME Homebound: Leaving the home is medically contraindicated at this time without the asist of a device and/or another person due th the listed conditions above and below. Reason homebound: unsteady gait / fall risk and immunosuppression / infection risk Certification: Based on the above findings, I certify that this patient is confined to the home and needs intermittent senior living care, physical therapy and/or speech therapy, or continues to need occupational therapy. The patient is under my care, and I have initiated the establishment of the plan of care. The patient will be followed by a physician who will periodically review the plan of care. Time Spent With Patient Time: Total time managing care of this patient today ____ minutes.
[2025-01-16 13:07] VITALS: BP 141/79; PULSE 78; RESP 14; TEMP 37.1; O2SAT 94
--- NOTE | 2025-01-16 14:17 | MHC.CM.PN ---
A PT evaluation performed today, recommends STR. 1st choice is [facility]. A referral has been sent to the SNF. He has been taken to IR for line placement. DP STR at a SNF via BLS transport.
--- NOTE | 2025-01-16 15:14 | P.PICC_ITS ---
PICC Line Insertion NPICC Diagnosis: Osteomyelitis Indication: halfway ABT Pertinent Labs: reviewed Technique: Following informed consent including risks, benefits and alternatives and using sterile technique including cap and mask, sterile gown, glove and drape, the right arm was prepped and draped in the usual sterile fashion of full barrier technique with CHG. Following completion of [place] Protocol the skin and soft tissues were anesthetized with 1% Lidocaine plain. Using ultrasound guidance, right basilic vein access was obtained. Over an 0.018 wire through peel-away sheath, a 4FR single lumen PASV PICC line was positioned. Catheter length is 42cm internal length, 0cm external length, for a total trimmed length of 42cm. The procedure was performed in 7. Tip verification was performed by Dereje Anand with Sherlock 3CG. Tip located in SVC. Ultrasound was used to document vein patency and for needle entry. A formal ultrasound picture and cardiac rhythm strip was recorded. [employer] has released the line for use and it is currently dressed with a StatLock, Tegaderm, and CHG disc. Verification has been performed for blood return and line patency. Arm Circumference: 36cm Equipment: Korrio POWERPICC SOLO catheter with Sherlock 3CG Tip Catheter Type: 4FR single lumen PASV Lot #: [id number]
--- NOTE | 2025-01-16 15:20 | P.EN_ITS ---
Event Note Date of Service: 01/16/25 Event Note: Patient seen by Physical therapy, suggested on discharging to short-term rehab, patient was accepted at the [facility], we will be taken tomorrow by ENRIQUE. As patient's insurance company is currently closed. Time Spent With Patient Time: Total time managing care of this patient today ____ minutes.
--- NOTE | 2025-01-16 15:35 | HO.PM.IMPN ---
Subjective Subjective Date of Service: 01/16/25 Interval History: Patient seen examined at bedside this morning, patient was seen by Physical therapy and Occupational therapy suggested on discharge to short-term rehab, patient transitioned from daptomycin to ceftriaxone and doxycycline to complete 6 weeks. Review of Systems Review of Systems: Yes all other systems are reviewed and are negative Physical Exam Exam: Exam: General: AxOx3, No acute distress Head: AT/NC ENT: Moist mucous membranes Neck: supple CVS; RRR, S1 S2 normal Lungs: Clear bilateral breath sounds, no wheezes or crackles Abd: Soft non tender, non distended Ext: RLE ulcer in big toe, w/ dressing in place c/d/i MSK: moving all 4 limbs Skin: No cyanosis or edema Psych: Cooperative with exam Neurology: no focal deficit Vital Signs: Vital Signs: Last Vital Signs Temp 98.7 F 01/16/25 13:07 Pulse 78 01/16/25 13:07 Resp 14 01/16/25 13:07 BP 141/79 H 01/16/25 13:07 Pulse Ox 94 01/16/25 13:07 O2 Del Method Room Air 01/16/25 13:07 BMI result Body Mass Index 32.1 Objective Data Active Medications Acetaminophen (Acetaminophen 325 Mg Tablet) 650 mg PO Q6H PRN PRN Reason: Pain, Mild 1-3,fever,headache Last Admin: 01/16/25 13:08 Dose: 650 mg Documented By: SHEMAR Atorvastatin Calcium (Atorvastatin Calcium 40 Mg Tablet) 40 mg PO BEDTIME [facility] Last Admin: 01/15/25 19:42 Dose: 40 mg Documented By: LEFEBVA Calcium Carbonate (Calcium Carbonate 750 Mg Tab.Chew) 750 mg PO Q4H PRN PRN Reason: Heartburn Docusate Sodium (Docusate Sodium 100 Mg Capsule) 100 mg PO BID [facility] Last Admin: 01/16/25 07:34 Dose: 100 mg Documented By: SHEMAR Doxycycline Monohydrate (Doxycycline Monohydrate 100 Mg Capsule) 100 mg PO Q12H [facility] Stop: 02/25/25 07:29 Last Admin: 01/16/25 07:34 Dose: 100 mg Documented By: SHEMAR Escitalopram Oxalate (Escitalopram Oxalate 20 Mg Tablet) 20 mg PO DAILY [facility] Last Admin: 01/16/25 07:34 Dose: 20 mg Documented By: SHEMAR Heparin Sodium (Porcine) (Heparin Sodium,Porcine 5,000 Unit/Ml Vial) 5,000 unit SUBCUT Q12H [facility] Last Admin: 01/16/25 13:09 Dose: 5,000 unit Documented By: SHEMAR Hydromorphone HCl (Hydromorphone Hcl 1 Mg/Ml Syringe) 0.5 mg IVPUSH Q4H PRN; Protocol PRN Reason: Pain, Severe (Pain Scale 7-10) Last Admin: 01/15/25 23:33 Dose: 0.5 mg Documented By: MOHAMUD Ceftriaxone Sodium 2 gm/ (Sodium Chloride) 50 mls @ 100 mls/hr IV Q24H [facility] Stop: 02/25/25 07:29 Last Infusion: 01/16/25 08:13 Dose: Infused Documented By: SHEMAR Lisinopril (Lisinopril 10 Mg Tablet) 30 mg PO DAILY [facility]; Protocol Last Admin: 01/16/25 07:33 Dose: 30 mg Documented By: SHEMAR Magnesium Hydroxide (Milk Of Magnesia 30 Ml Oral.Susp) 30 ml PO DAILY PRN PRN Reason: Constipation Melatonin (Melatonin 3 Mg Tablet) 6 mg PO BEDTIME PRN PRN Reason: Insomnia Last Admin: 01/15/25 19:41 Dose: 6 mg Documented By: MOHAMUD Morphine Sulfate (Morphine Sulfate 4 Mg/Ml Cartridge) 2 mg IVPUSH Q4H PRN; Protocol PRN Reason: Pain, Severe (Pain Scale 7-10) Last Admin: 01/14/25 08:08 Dose: 2 mg Documented By: HOLLIS Omeprazole (Omeprazole 20 Mg Capsule.Dr) 20 mg PO DAILY@0630 [facility] Stop: 02/25/25 07:29 Last Admin: 01/16/25 07:33 Dose: 20 mg Documented By: SHEMAR Ondansetron HCl (Ondansetron Hcl 4 Mg/2 Ml Vial) 4 mg IVPUSH Q8H PRN PRN Reason: Nausea and Vomiting Oxycodone HCl (Oxycodone Hcl Immed Release 5 Mg Tablet) 5 mg PO Q6H PRN PRN Reason: Pain, Moderate(Pain Scale 4-6) Last Admin: 01/16/25 13:08 Dose: 5 mg Documented By: SHEMAR Sodium Chloride (0.9 % Sodium Chloride Flush 3 Ml Syringe) 3 ml IVFLUSH QSHIFT [facility] Last Admin: 01/16/25 07:34 Dose: 3 ml Documented By: SHEMAR Tamsulosin HCl (Tamsulosin Hcl 0.4 Mg Capsule) 0.4 mg PO DAILY [facility] Last Admin: 01/16/25 07:33 Dose: 0.4 mg Documented By: SHEMAR Labs 01/13/25 06:45 01/16/25 05:59 Labs: Laboratory Results - last 24 hr 01/16/25 01/16/25 05:59 09:25 Estim Creat Clear Calc 149.9 Estimated GFR > 60 Total Creatine Kinase 11 L Microbiology Microbiology Results: Microbiology 01/13/25 14:30 Gram Stain - Final Foot Right Routine Culture - Final Streptococcus group c Corynebacterium species Assessment and Plan (1) Osteomyelitis: Status: Acute (2) Ambulatory dysfunction: Status: Acute Plan 64 year old male with history of HTN, HLD, anxiety who presents to the emergency department with three-week history of increasing redness, swelling in pain of right lower extremity, with MRI showing osteomyelitis. wound cultures growing Streptococcus group C and Corynebacterium, patient transitioned to IV ceftriaxone and placed on p.o. doxycycline to complete a total of 6 weeks. Suggested on following up with ID in 2 weeks in outpatient setting. Patient mentions that he feels well, right lower extremity pain has improved. Right foot osteomyelitis ambulatory dysfunction labs reviewed with leukocytosis resolved at this time MRI positive for osteomyelitis of the distal phalanx and head and neck of great toe. wound culture positive for Streptococcus group C and Corynebacterium Status post daptomycin, transitioned to ceftriaxone, to complete a total of 6 weeks with EOT on 02/25. Patient placed as well on doxycycline 100 mg p.o. b.i.d.. Follow up with ID in 2 weeks Per surgery suggested on continuing abs with probable amputation once swelling improves. Patient refers he does not want to pursue amputation patient to discharge to PT due to ambulatory dysfunction and per PT recs Hyperlipidemia, chronic continue statin mood disorder continue escitalopram BPH Continue tamsulosin Hypertension Continue lisinopril Total time managing care of this patient today: 35 minutes. Quality Stroke Does the patient have a stroke diagnosis?: No VTE Prior VTE?: No VTE Risk Level:: Medical - moderate - high VTE Device Contraindication: N/A - Device Ordered VTE Drug Contraindication: N/A - Med Ordered
[2025-01-16 15:58] VITALS: BP 121/61; PULSE 71; RESP 16; TEMP 36.8; O2SAT 98
[2025-01-16 20:01] VITALS: BP 158/80; PULSE 77; RESP 16; TEMP 36.9; O2SAT 98
--- NOTE | 2025-01-16 21:45 | PC.NURSE ---
Pt complaining of muscle pain and requested cyclobenazprine home medication. MELCHOR Magana notified. Cyclobenzaprine TID prn ordered and administered.
[2025-01-17] VITALS (10 sets, daily range): BP systolic 100–161; BP diastolic 49–88; PULSE 48–73; RESP 12–18; TEMP 36.1–36.9; O2SAT 92–98
[2025-01-17 06:09] LABS: Alanine Aminotransferase 27 U/L (0-40); Albumin Level 2.8 g/dL (3.5-5.0); Alkaline Phosphatase 147 U/L (39-117); Anion Gap 12 (12-20); Aspartate Amino Transferase 52 U/L (5-37); Blood Urea Nitrogen 12 mg/dL (9-16); Calcium 8.7 mg/dL (8.4-10.2); Carbon Dioxide 25 mmol/L (22-29); Chloride 95 mmol/L (96-108); Creatinine Clr Calc Pharmacy 129.0; Estimated Glomerular Filt Rate > 60; Potassium 4.0 mmol/L (3.3-5.1); Sodium 128 mmol/L (135-145); Total Protein 7.0 g/dL (6.5-8.0)
--- NOTE | 2025-01-17 07:20 | P.PNIM_ITS ---
Subjective Subjective Date of Service: 01/17/25 Physical Exam 2 Vital Signs: Vital Signs: Last Vital Signs Temp 98.5 F 01/17/25 04:55 Pulse 69 01/17/25 04:55 Resp 18 01/17/25 04:55 BP 130/68 01/17/25 04:55 Pulse Ox 93 01/17/25 04:55 O2 Del Method Room Air 01/17/25 04:55 BMI result Body Mass Index 32.1 Objective Data Active Medications Acetaminophen (Acetaminophen 325 Mg Tablet) 650 mg PO Q6H PRN PRN Reason: Pain, Mild 1-3,fever,headache Last Admin: 01/17/25 03:47 Dose: 650 mg Documented By: DARRYL Atorvastatin Calcium (Atorvastatin Calcium 40 Mg Tablet) 40 mg PO BEDTIME [facility] Last Admin: 01/16/25 19:53 Dose: 40 mg Documented By: DARRYL Calcium Carbonate (Calcium Carbonate 750 Mg Tab.Chew) 750 mg PO Q4H PRN PRN Reason: Heartburn Cyclobenzaprine HCl (Cyclobenzaprine Hcl 5 Mg Tablet) 5 mg PO TID PRN PRN Reason: Muscle Spasm Last Admin: 01/16/25 21:43 Dose: 5 mg Documented By: DARRYL Docusate Sodium (Docusate Sodium 100 Mg Capsule) 100 mg PO BID [facility] Last Admin: 01/16/25 19:53 Dose: 100 mg Documented By: DARRYL Doxycycline Monohydrate (Doxycycline Monohydrate 100 Mg Capsule) 100 mg PO Q12H [facility] Stop: 02/25/25 07:29 Last Admin: 01/16/25 19:15 Dose: 100 mg Documented By: DARRYL Escitalopram Oxalate (Escitalopram Oxalate 20 Mg Tablet) 20 mg PO DAILY [facility] Last Admin: 01/16/25 07:34 Dose: 20 mg Documented By: SHEMAR Heparin Sodium (Porcine) (Heparin Sodium,Porcine 5,000 Unit/Ml Vial) 5,000 unit SUBCUT Q12H [facility] Last Admin: 01/17/25 00:22 Dose: 5,000 unit Documented By: DARRYL Hydromorphone HCl (Hydromorphone Hcl 1 Mg/Ml Syringe) 0.5 mg IVPUSH Q4H PRN; Protocol PRN Reason: Pain, Severe (Pain Scale 7-10) Last Admin: 01/15/25 23:33 Dose: 0.5 mg Documented By: MOHAMUD Ceftriaxone Sodium 2 gm/ (Sodium Chloride) 50 mls @ 100 mls/hr IV Q24H [facility] Stop: 02/25/25 07:29 Last Infusion: 01/16/25 08:13 Dose: Infused Documented By: SHEMAR Lisinopril (Lisinopril 10 Mg Tablet) 30 mg PO DAILY [facility]; Protocol Last Admin: 01/16/25 07:33 Dose: 30 mg Documented By: SHEMAR Magnesium Hydroxide (Milk Of Magnesia 30 Ml Oral.Susp) 30 ml PO DAILY PRN PRN Reason: Constipation Melatonin (Melatonin 3 Mg Tablet) 6 mg PO BEDTIME PRN PRN Reason: Insomnia Last Admin: 01/15/25 19:41 Dose: 6 mg Documented By: MOHAMUD Morphine Sulfate (Morphine Sulfate 4 Mg/Ml Cartridge) 2 mg IVPUSH Q4H PRN; Protocol PRN Reason: Pain, Severe (Pain Scale 7-10) Last Admin: 01/14/25 08:08 Dose: 2 mg Documented By: HOLLIS Omeprazole (Omeprazole 20 Mg Capsule.Dr) 20 mg PO DAILY@0630 [facility] Stop: 02/25/25 07:29 Last Admin: 01/17/25 05:41 Dose: 20 mg Documented By: DARRYL Ondansetron HCl (Ondansetron Hcl 4 Mg/2 Ml Vial) 4 mg IVPUSH Q8H PRN PRN Reason: Nausea and Vomiting Oxycodone HCl (Oxycodone Hcl Immed Release 5 Mg Tablet) 5 mg PO Q6H PRN PRN Reason: Pain, Moderate(Pain Scale 4-6) Last Admin: 01/16/25 22:21 Dose: 5 mg Documented By: DARRYL Sodium Chloride (0.9 % Sodium Chloride Flush 3 Ml Syringe) [facility] Last Admin: 01/16/25 19:53 Dose: 3 ml Documented By: DARRYL Tamsulosin HCl (Tamsulosin Hcl 0.4 Mg Capsule) 0.4 mg PO DAILY [facility] Last Admin: 01/16/25 07:33 Dose: 0.4 mg Documented By: SHEMAR Labs 01/13/25 06:45 01/17/25 05:36 Labs: Laboratory Results - last 24 hr 01/16/25 01/17/25 09:25 05:36 Hold Purple Top SEE NOTE Anion Gap 12 Estim Creat Clear Calc 129.0 Estimated GFR > 60 Random Glucose 84 Calcium 8.7 Total Bilirubin 0.2 AST 52 H ALT 27 Alkaline Phosphatase 147 H Total Creatine Kinase 11 L Total Protein 7.0 Albumin 2.8 L Quality Stroke Does the patient have a stroke diagnosis?: No VTE Prior VTE?: No VTE Risk Level:: Medical - moderate - high VTE Device Contraindication: N/A - Device Ordered VTE Drug Contraindication: N/A - Med Ordered
[2025-01-17] MEDS: 0.9 % Sodium Chloride Flush 3 ML SYRINGE IVFLUSH ×3 (08:33→20:00)
[2025-01-17] MEDS: oxyCODONE HCl Immed Release 5 MG TABLET PO ×2 (13:26→23:54)
--- NOTE | 2025-01-17 14:57 | PM.DS ---
DS: Providers Provider Date of Service: 01/17/25 Date of admission: 01/12/25 12:07 Date of discharge: 01/17/25 Primary care physician: Torrie Joyce MD Consults: 01/12/25 12:21 Consult to General Surgery Routine Consulting Provider: [facility] General Surgeons Reason for consultation: fight foot infection Has provider been notified: No 01/12/25 13:21 Consult to Infectious Diseases Routine Consulting Provider: [facility] Infectious Disease Center Reason for consultation: right foot wound, concern for osteo Has provider been notified: No 01/12/25 15:09 Consult to Wound Care Routine Consulting Provider: [facility] Wound Care Management Reason for consultation: wound to R foot great toe DS: Diagnosis Discharge Diagnosis (1) Osteomyelitis: Status: Acute (2) Ambulatory dysfunction: Status: Acute DS: Summary Hospital Course Hospital Course: 64 year old male with history of HTN, HLD, anxiety who presents to the emergency department with three-week history of increasing redness, swelling in pain of right lower extremity, with MRI showing osteomyelitis. wound cultures growing Streptococcus group C and Corynebacterium, patient transitioned to IV ceftriaxone and placed on p.o. doxycycline to complete a total of 6 weeks. Suggested on following up with ID in 2 weeks in outpatient setting. Patient mentions that he feels well, right lower extremity pain has improved. Right foot osteomyelitis labs reviewed with leukocytosis resolved at this time MRI positive for osteomyelitis of the distal phalanx and head and neck of great toe. wound culture positive for Streptococcus group C and Corynebacterium Status post daptomycin, transitioned to ceftriaxone, to complete a total of 6 weeks with EOT on 02/25. Patient placed as well on doxycycline 100 mg p.o. b.i.d.. Follow up with ID in 2 weeks Per surgery suggested on continuing abs with probable amputation once swelling improves. Patient refers he does not want to pursue amputation HLD continue statin mood disorder continue escitalopram BPH Continue tamsulosin Hypertension Continue lisinopril Time spent discussing smoking cessation with patient: more than 10 minutes Time Attestation Discharge Coordination Time (in mins): 45 Quality: Safe Use of Opioids Does Pt have an Active Cancer Diagnosis on the Problem List?: No Quality: Stroke Does the patient have a stroke diagnosis?: No Physical Exam Exam: Exam: General: AxOx3, No acute distress Head: AT/NC ENT: Moist mucous membranes Neck: supple CVS; RRR, S1 S2 normal Lungs: Clear bilateral breath sounds, no wheezes or crackles Abd: Soft non tender, non distended Ext: RLE ulcer in big toe, w/ dressing in place c/d/i MSK: moving all 4 limbs Skin: No cyanosis or edema Psych: Cooperative with exam Neurology: no focal deficit Vital Signs: Vital Signs: Last Vital Signs Temp 97.0 F 01/17/25 11:00 Pulse 65 01/17/25 13:54 Resp 12 01/17/25 11:00 BP 136/67 01/17/25 13:54 Pulse Ox 95 01/17/25 13:54 O2 Del Method Room Air 01/17/25 11:00 BMI result Body Mass Index 32.1 DS: Data Data Completed and Pending Completed studies during hospitalization [Text1]: Procedures Drainage of Left Shoulder Joint, Percutaneous Approach (07/18/24) Labs on day of discharge: Laboratory Results - last 24 hr 01/17/25 05:36 Hold Purple Top SEE NOTE Sodium 128 L Potassium 4.0 Chloride 95 L Carbon Dioxide 25 Anion Gap 12 BUN 12 Creatinine 0.72 Estim Creat Clear Calc 129.0 Estimated GFR > 60 Random Glucose 84 Calcium 8.7 Total Bilirubin 0.2 AST 52 H ALT 27 Alkaline Phosphatase 147 H Total Protein 7.0 Albumin 2.8 L Discharge Plan Discharge Anticipated Discharge Date/Time: 01/16/25 14:37 Patient Disposition: Xfer SNF Discharge Diagnosis: Right foot osteomyelitis Referrals: [facility] [Other] - 1 Week Referral Note: They will provide supplies and medication [facility] [Outside] - 1 Week Naomy Funes MD [Physician, Infectious Disease] - 2 Weeks Problems: Osteomyelitis Torrie Rangel MD [Primary Care Provider, Internal Medicine] - 1 Week Discharge Medications: New doxycycline monohydrate 100 mg Capsule 100 mg PO Q12H 40 Days Qty: 80 0RF ceftriaxone 2 gram Recon Soln 2 g IV Q24H 40 Days Qty: 10 4RF oxycodone 5 mg Tablet 5 mg PO Q6H PRN (Reason: Pain, Moderate(Pain Scale 4-6)) Qty: 30 0RF Rx Instructions: Partial Fill upon patient request. omeprazole 20 mg Capsule,Delayed Release(Dr/Ec) 20 mg PO DAILY@0630 40 Days Qty: 40 0RF Continued escitalopram oxalate 20 mg tablet 20 mg PO DAILY 90 Days Qty: 90 0RF atorvastatin 40 mg tablet 40 mg PO BEDTIME 90 Days Qty: 90 3RF lisinopril 30 mg tablet 30 mg PO DAILY 90 Days Qty: 90 3RF tamsulosin 0.4 mg capsule 0.4 mg PO DAILY Qty: 90 0RF allopurinol 300 mg tablet 300 mg PO DAILY PRN (Reason: gout) Changed celecoxib [Celebrex] 200 mg capsule 200 mg PO 1XD 30 Days Qty: 60 3RF Discharge Orders: Discharge Order (Routine); Ordered 01/17/25 Ordered By: Rosa De La Rosa Diet: Advance to usual diet Activity on Discharge: As tolerated Stand Alone Forms: Patient Portal Discharge page Print Language: Luxembourgish Care Plan Goals: continue iv antibiotics follow up with infectious disease in two weeks weekly cbc and creatinine Health Concerns: osteomyelitis Plan of Treatment: IV antibiotic and doxycycline oral for 6 weeks pain management follow up with PCP and infectious disease Assessment: 64 year old male with history of HTN, HLD, anxiety who presents to the emergency department with three-week history of increasing redness, swelling in pain of right lower extremity, with MRI showing osteomyelitis. wound cultures growing Streptococcus group C and Corynebacterium, patient transitioned to IV ceftriaxone and placed on p.o. doxycycline to complete a total of 6 weeks. Suggested on following up with ID in 2 weeks in outpatient setting. Patient mentions that he feels well, right lower extremity pain has improved. Patient Instructions: Osteomyelitis (DC)
--- NOTE | 2025-01-17 15:26 | MHC.CM.PN ---
IMM 01/17/25 patient is discharged today. Patient has accepted a bed offer from [facility]. Insurance authorization is pending. He will transport via S. 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
[2025-01-17] MEDS: Sodium Chloride Tab 1 GM TABLET PO (15:55)
[2025-01-18 03:00] VITALS: BP 154/85; PULSE 58; RESP 18; TEMP 36.4; O2SAT 97
[2025-01-18 06:16] LABS: Creatinine Clr Calc Pharmacy 110.6; Estimated Glomerular Filt Rate > 60
--- NOTE | 2025-01-18 07:12 | P.PNIM_ITS ---
Subjective Subjective Date of Service: 01/18/25 Physical Exam 2 Vital Signs: Vital Signs: Last Vital Signs Temp 97.5 F 01/18/25 03:00 Pulse 58 01/18/25 03:00 Resp 18 01/18/25 03:00 BP 154/85 H 01/18/25 03:00 Pulse Ox 97 01/18/25 03:00 O2 Del Method Room Air 01/18/25 03:00 BMI result Body Mass Index 32.1 Objective Data Active Medications Acetaminophen (Acetaminophen 325 Mg Tablet) 650 mg PO Q6H PRN PRN Reason: Pain, Mild 1-3,fever,headache Last Admin: 01/17/25 19:56 Dose: 650 mg Documented By: DARRYL Atorvastatin Calcium (Atorvastatin Calcium 40 Mg Tablet) 40 mg PO BEDTIME [facility] Last Admin: 01/17/25 19:56 Dose: 40 mg Documented By: DARRYL Calcium Carbonate (Calcium Carbonate 750 Mg Tab.Chew) 750 mg PO Q4H PRN PRN Reason: Heartburn Cyclobenzaprine HCl (Cyclobenzaprine Hcl 5 Mg Tablet) 5 mg PO TID PRN PRN Reason: Muscle Spasm Last Admin: 01/18/25 04:13 Dose: 5 mg Documented By: DARRYL Docusate Sodium (Docusate Sodium 100 Mg Capsule) 100 mg PO BID [facility] Last Admin: 01/17/25 19:56 Dose: 100 mg Documented By: DARRYL Doxycycline Monohydrate (Doxycycline Monohydrate 100 Mg Capsule) 100 mg PO Q12H [facility] Stop: 02/25/25 07:29 Last Admin: 01/17/25 19:56 Dose: 100 mg Documented By: DARRYL Escitalopram Oxalate (Escitalopram Oxalate 20 Mg Tablet) 20 mg PO DAILY [facility] Last Admin: 01/17/25 08:31 Dose: 20 mg Documented By: RAE Heparin Sodium (Porcine) (Heparin Sodium,Porcine 5,000 Unit/Ml Vial) 5,000 unit SUBCUT Q12H [facility] Last Admin: 01/17/25 23:54 Dose: 5,000 unit Documented By: DARRYL Hydromorphone HCl (Hydromorphone Hcl 1 Mg/Ml Syringe) 0.5 mg IVPUSH Q4H PRN; Protocol PRN Reason: Pain, Severe (Pain Scale 7-10) Last Admin: 01/15/25 23:33 Dose: 0.5 mg Documented By: MOHAMUD Ceftriaxone Sodium 2 gm/ (Sodium Chloride) 50 mls @ 100 mls/hr IV Q24H [facility] Stop: 02/25/25 07:29 Last Infusion: 01/17/25 09:13 Dose: Infused Documented By: RAE Lisinopril (Lisinopril 10 Mg Tablet) 30 mg PO DAILY [facility]; Protocol Last Admin: 01/17/25 08:31 Dose: 30 mg Documented By: RAE Magnesium Hydroxide (Milk Of Magnesia 30 Ml Oral.Susp) 30 ml PO DAILY PRN PRN Reason: Constipation Melatonin (Melatonin 3 Mg Tablet) 6 mg PO BEDTIME PRN PRN Reason: Insomnia Last Admin: 01/17/25 19:57 Dose: 6 mg Documented By: DARRYL Omeprazole (Omeprazole 20 Mg Capsule.) 20 mg PO DAILY@0630 [facility] Stop: 02/25/25 07:29 Last Admin: 01/18/25 05:40 Dose: 20 mg Documented By: DARRYL Ondansetron HCl (Ondansetron Hcl 4 Mg/2 Ml Vial) 4 mg IVPUSH Q8H PRN PRN Reason: Nausea and Vomiting Oxycodone HCl (Oxycodone Hcl Immed Release 5 Mg Tablet) 5 mg PO Q6H PRN PRN Reason: Pain, Moderate(Pain Scale 4-6) Last Admin: 01/17/25 23:54 Dose: 5 mg Documented By: DARRYL Sodium Chloride (0.9 % Sodium Chloride Flush 3 Ml Syringe) [facility] Last Admin: 01/17/25 20:00 Dose: 3 ml Documented By: DARRYL Tamsulosin HCl (Tamsulosin Hcl 0.4 Mg Capsule) 0.4 mg PO DAILY [facility] Last Admin: 01/17/25 08:31 Dose: 0.4 mg Documented By: RAE Labs 01/13/25 06:45 01/18/25 04:57 Labs: Laboratory Results - last 24 hr 01/18/25 04:57 Hold Purple Top SEE NOTE Estim Creat Clear Calc 110.6 Estimated GFR > 60 Total Creatine Kinase 14 L Microbiology Microbiology Results: Microbiology 01/12/25 09:11 Blood Culture - Final Blood - Venous No growth after 5 days. 01/12/25 09:11 Blood Culture - Final Blood - Venous No growth after 5 days. Quality Stroke Does the patient have a stroke diagnosis?: No VTE Prior VTE?: No VTE Risk Level:: Medical - moderate - high VTE Device Contraindication: N/A - Device Ordered VTE Drug Contraindication: N/A - Med Ordered
[2025-01-18 07:52] VITALS: BP 107/73; PULSE 70; RESP 18; TEMP 36.8; O2SAT 96
[2025-01-18] MEDS: oxyCODONE HCl Immed Release 5 MG TABLET PO (08:01)
[2025-01-18 08:11] VITALS: BP 121/83
[2025-01-18] MEDS: 0.9 % Sodium Chloride Flush 3 ML SYRINGE IVFLUSH (08:15)
--- NOTE | 2025-01-18 08:43 | P.DS_ITS ---
DS: Providers Provider Date of Service: 01/18/25 Date of admission: 01/12/25 12:07 Date of discharge: 01/18/25 Primary care physician: Torrie Joyce MD Consults: 01/12/25 12:21 Consult to General Surgery Routine Consulting Provider: [facility] General Surgeons Reason for consultation: fight foot infection Has provider been notified: No 01/12/25 13:21 Consult to Infectious Diseases Routine Consulting Provider: [facility] Infectious Disease Center Reason for consultation: right foot wound, concern for osteo Has provider been notified: No 01/12/25 15:09 Consult to Wound Care Routine Consulting Provider: [facility] Wound Care Management Reason for consultation: wound to R foot great toe DS: Diagnosis Discharge Diagnosis (1) Osteomyelitis: Status: Acute (2) Ambulatory dysfunction: Status: Acute DS: Summary Hospital Course Hospital Course: 64 year old male with history of HTN, HLD, anxiety who presents to the emergency department with three-week history of increasing redness, swelling in pain of right lower extremity, with MRI showing osteomyelitis. wound cultures growing Streptococcus group C and Corynebacterium, patient transitioned to IV ceftriaxone and placed on p.o. doxycycline to complete a total of 6 weeks. Suggested on following up with ID in 2 weeks in outpatient setting. Patient mentions that he feels well, right lower extremity pain has improved. Right foot osteomyelitis labs reviewed with leukocytosis resolved at this time MRI positive for osteomyelitis of the distal phalanx and head and neck of great toe. wound culture positive for Streptococcus group C and Corynebacterium Status post daptomycin, transitioned to ceftriaxone, to complete a total of 6 weeks with EOT on 02/25. Patient placed as well on doxycycline 100 mg p.o. b.i.d.. Follow up with ID in 2 weeks Per surgery suggested on continuing abs with probable amputation once swelling improves. Patient refers he does not want to pursue amputation HLD continue statin mood disorder continue escitalopram BPH Continue tamsulosin Hypertension Continue lisinopril Time spent discussing smoking cessation with patient: more than 10 minutes Time Attestation Discharge Coordination Time (in mins): 45 Quality: Safe Use of Opioids Does Pt have an Active Cancer Diagnosis on the Problem List?: No Quality: Stroke Does the patient have a stroke diagnosis?: No Physical Exam Vital Signs: Vital Signs: Last Vital Signs Temp 98.3 F 01/18/25 07:52 Pulse 70 01/18/25 07:52 Resp 18 01/18/25 07:52 BP 121/83 01/18/25 08:11 Pulse Ox 96 01/18/25 07:52 O2 Del Method Room Air 01/18/25 07:52 BMI result Body Mass Index 32.1 DS: Data Data Completed and Pending Completed studies during hospitalization [Text1]: Procedures Drainage of Left Shoulder Joint, Percutaneous Approach (07/18/24) Labs on day of discharge: Laboratory Results - last 24 hr 01/18/25 04:57 Hold Purple Top SEE NOTE Creatinine 0.84 Estim Creat Clear Calc 110.6 Estimated GFR > 60 Total Creatine Kinase 14 L Discharge Plan Discharge Anticipated Discharge Date/Time: 01/18/25 09:19 Patient Disposition: Xfer SNF Discharge Diagnosis: Right foot osteomyelitis Referrals: [facility] [Outside] - 1 Week Naomy Funes MD [Physician, Infectious Disease] - 2 Weeks Problems: Osteomyelitis Torrie Rangel MD [Primary Care Provider, Internal Medicine] - 1 Week Discharge Medications: New doxycycline monohydrate 100 mg Capsule 100 mg PO Q12H 40 Days Qty: 80 0RF ceftriaxone 2 gram Recon Soln 2 g IV Q24H 40 Days Qty: 10 4RF oxycodone 5 mg Tablet 5 mg PO Q6H PRN (Reason: Pain, Moderate(Pain Scale 4-6)) Qty: 30 0RF Rx Instructions: Partial Fill upon patient request. omeprazole 20 mg Capsule,Delayed Release(Dr/Ec) 20 mg PO DAILY@0630 40 Days Qty: 40 0RF Continued escitalopram oxalate 20 mg tablet 20 mg PO DAILY 90 Days Qty: 90 0RF atorvastatin 40 mg tablet 40 mg PO BEDTIME 90 Days Qty: 90 3RF lisinopril 30 mg tablet 30 mg PO DAILY 90 Days Qty: 90 3RF tamsulosin 0.4 mg capsule 0.4 mg PO DAILY Qty: 90 0RF allopurinol 300 mg tablet 300 mg PO DAILY PRN (Reason: gout) Changed celecoxib [Celebrex] 200 mg capsule 200 mg PO 1XD 30 Days Qty: 60 3RF Discharge Orders: Discharge Order (Routine); Ordered 01/17/25 Ordered By: Rosa De La Rosa Diet: Advance to usual diet Activity on Discharge: As tolerated Stand Alone Forms: Patient Portal Discharge page Print Language: Qatari Care Plan Goals: continue iv antibiotics follow up with infectious disease in two weeks weekly cbc and creatinine Health Concerns: osteomyelitis Plan of Treatment: IV antibiotic and doxycycline oral for 6 weeks pain management follow up with PCP and infectious disease Assessment: 64 year old male with history of HTN, HLD, anxiety who presents to the emergency department with three-week history of increasing redness, swelling in pain of right lower extremity, with MRI showing osteomyelitis. wound cultures growing Streptococcus group C and Corynebacterium, patient transitioned to IV ceftriaxone and placed on p.o. doxycycline to complete a total of 6 weeks. Suggested on following up with ID in 2 weeks in outpatient setting. Patient mentions that he feels well, right lower extremity pain has improved. Patient Instructions: Osteomyelitis (DC)
--- NOTE | 2025-01-18 10:20 | MHC.CM.PN ---
Addendum entered by Ruby Brown 01/18/25 10:22: PT AWARE OF DC TIME, VM ALSO LEFT FOR PTS BROTHER, TORI [phone], AT PTS REQUEST Original Note: [facility] HAS INSURANCE AUTH BLS TRANSPORT BOOKED WITH [facility] FOR 1130 HOURS
[2025-01-18 11:31] VITALS: BP 129/70; PULSE 86; RESP 20; TEMP 36.6; O2SAT 97
== END 2025-01-18 11:33 | disposition skilled nursing facility (03) | DRG 540 ==
LOC: HO.ED 09:05 → HO.EDOVER 12:08 → HO.S3 14:12
PROVIDERS: Physician Assistant; Student in an Organized Health Care Education/Training Program; Admitting Provider Physician Assistant Medical; Emergency Provider Emergency Medicine Emergency Medical Services; PCP Internal Medicine; Visit Provider Student in an Organized Health Care Education/Training Program
DX: M86.171 Other acute osteomyelitis, right ankle and foot (principal); L03.115 Cellulitis of right lower limb; E78.5 Hyperlipidemia, unspecified; F39 Unspecified mood [affective] disorder; R26.89 Other abnormalities of gait and mobility; N40.0 Benign prostatic hyperplasia without lower urinary tract symptoms; I10 Essential (primary) hypertension; B95.4 Other streptococcus as the cause of diseases classified elsewhere; Z79.899 Other long term (current) drug therapy
CPT/HCPCS: 36415; 36573; 73630; 73720; 80048; 80053; 80202; 82550; 82565; 83605; 83735; 85025; 85027; 85652; 86140; 87040; 87070; 87147; 87205; 97162; 97530; 99285; A9585; C1751; J0696; J0878; J1171; J1644; J2270; J2543; J3373; J3374

== ENCOUNTER → 2025-01-12 09:45 | Outpatient (BNV) | payer OTHER, SELFPAY | PROVIDERS: Emergency Provider Emergency Medicine Emergency Medical Services; PCP Internal Medicine; Visit Provider Radiology Diagnostic Radiology | DX: L08.9 Local infection of the skin and subcutaneous tissue, unspecified (principal); M65.871 Other synovitis and tenosynovitis, right ankle and foot; M25.474 Effusion, right foot; L03.031 Cellulitis of right toe; S91.301A Unspecified open wound, right foot, initial encounter; M19.071 Primary osteoarthritis, right ankle and foot | CPT/HCPCS: 73630; 73720 ==

== ENCOUNTER → 2025-01-12 12:07 | Outpatient (BNV) | payer OTHER, SELFPAY | PROVIDERS: Admitting Provider Physician Assistant Medical; Emergency Provider Emergency Medicine Emergency Medical Services; PCP Internal Medicine; Visit Provider Surgery | DX: L97.519 Non-pressure chronic ulcer of other part of right foot with unspecified severity (principal); L03.115 Cellulitis of right lower limb | CPT/HCPCS: 99222 ==

== ENCOUNTER → 2025-01-12 12:07 | Outpatient (BNV) | payer OTHER, SELFPAY | PROVIDERS: Admitting Provider Physician Assistant Medical; Emergency Provider Emergency Medicine Emergency Medical Services; PCP Internal Medicine; Visit Provider Internal Medicine | DX: M86.9 Osteomyelitis, unspecified (principal) | CPT/HCPCS: 99232 ==

== ENCOUNTER → 2025-01-12 12:07 | Outpatient (BNV) | payer OTHER, SELFPAY | PROVIDERS: Admitting Provider Physician Assistant Medical; Emergency Provider Emergency Medicine Emergency Medical Services; PCP Internal Medicine; Visit Provider Student in an Organized Health Care Education/Training Program | DX: M86.9 Osteomyelitis, unspecified (principal); L97.519 Non-pressure chronic ulcer of other part of right foot with unspecified severity | CPT/HCPCS: 99232; 99233 ==

== ENCOUNTER 2025-01-29 11:00 | Outpatient (AMB) | payer OTHER, SELFPAY ==
--- NOTE | 2025-01-29 11:56 | A.OFFVIS_ITS ---
Vital Signs 3 01/29/25 11:57 BP 110/70 Blood Pressure Location Lt brachial Position Sitting Pulse 98 Temp 98.1 F Temp Source Oral Pulse Oximetry (%) 98 Oxygen Delivery Method Room Air Intake Visit Reasons: ID [facility] reff/ antibiotics followup Allergies gabapentin Adverse Reaction (Verified 01/29/25 11:58) Agitated HPI HPI ID [facility] reff/ antibiotics followup: Details: I had seen him in hospital His right foot is healing He completed six weeks antibiotics [facility] Medical History Cellulitis Osteomyelitis Restless leg syndrome Stage III pressure ulcer Cocaine use disorder Mild major depression, single episode ANGELIKA (generalized anxiety disorder) Back pain Essential hypertension Neck pain Mixed hyperlipidemia Obesity Testosterone deficiency in male BPH (benign prostatic hyperplasia) Knee osteoarthritis Hypovitaminosis D Hypogonadism in male Gout Anxiety Surgical History History of tooth extraction History of spinal surgery History of ankle surgery History of colonoscopy Family History Father HTN (hypertension) Gout Guillain-[place] syndrome Mother CVD (cardiovascular disease) Social History Household Members: None Housing: House Do you presently have visiting nurse or other home services: No Alcohol intake: current Alcohol intake frequency: a few times a month Alcohol type: beer Patient Tobacco Use Status: Never used Tobacco e-Cigarette/Vaping Use: Never Used Second Hand Smoke Exposure: No service: No Current occupational status: disabled Cognitive needs: Yes Hearing needs: No Vision needs: No Review of Systems Const All systems reviewed & are unremarkable except as noted in HPI and below Physical Exam Vital Signs: Last Vital Signs Temp 98.1 F 01/29/25 11:57 Pulse 98 01/29/25 11:57 BP 110/70 01/29/25 11:57 Pulse Ox 98 01/29/25 11:57 Oxygen Delivery Method Room Air 01/29/25 11:57 Const Other: Assessment & Plan Assessment & Plan (1) Osteomyelitis: Comment: right foot OM distal phalanx and head and neck great to plus 2 polys and plus one gram positive cocci,Group C strep Code(s): M86.9 - Osteomyelitis, unspecified Category: Medical Plan: He finished six weeks Ceftriaxone Po Doxycycline See as scheduled. Orders: Orders 2 IR cvc remove any age 1101/29/25 M86.9 - Osteomyelitis, unspecified Medications: New 2 doxycycline hyclate 100 mg PO BID 60 caps 1RF 30 days Coding Level of Care Code Est Pt Level 3 (00877) Diagnoses Osteomyelitis M86.9
[2025-01-29 11:57] VITALS: BP 110/70; PULSE 98; TEMP 36.7; O2SAT 98
--- OUTSIDE RECORDS SUMMARY | 2025-01-29 14:07 | XMS_ITS | Clinical Summary ---
Author Organization [address] [facility] Address [address] [place] [address] Phone Care Team Providers Care Vp Medical Name Role Phone Riaz Gomez MD Primary Care Provider [phone] Encounters Date Type Department Care Team Description 01/19/2025 Lab Requisition [facility] - Main Lab [address] [place] [address] Riaz Gomez MD Essential (primary) hypertension; Osteomyelitis, unspecified (CMS/HCC V24, CMS/HCC V28); Cocaine dependence, uncomplicated (CMS/HCC V24, CMS/HCC V28); Restless legs syndrome; Major depressive disorder, recurrent, unspecified (CMS/HCC V24); Anxiety disorder, unspecified; Hyperlipidemia, unspecified; Dorsalgia, unspecified; Cervicalgia; Morbid (severe) obesity due to excess calories (CMS/HCC V24, CMS/HCC V28); Testicular hypofunction; Benign prostatic hyperplasia with lower urinary tract symptoms; Bilateral primary osteoarthritis of knee; Vitamin D deficiency, unspecified; Gout, unspecified; Benign prostatic hyperplasia without lower urinary tract symptoms from Last 3 Months Social History Tobacco Use Types Packs/Day Years Used Date Smoking Tobacco: Never Assessed Sex and Gender Information Value Date Recorded Sex Assigned at Not on file Legal Sex Male 8:39 AM EST Gender Identity Not on file Sexual Orientation Not on file Plan of Treatment Health Maintenance Due Date Last Done Comments Colorectal Cancer Screening: Colonoscopy 1961 DTaP,Tdap,and Td Vaccines (1 - Tdap) 1980 Pneumococcal Vaccine: 50+ Ye ars (1 of 1 - PCV) 2011 Zoster Vaccines (1 of 2) 2011 Depression Screening 03/08/2024 COVID-19 Vaccine (1 - 2024-2 6 season) 2024 Influenza Vaccine (#1) 2024 Cholesterol Screening (Lipid Panel) 01/19/2025 HIV Screening 01/19/2025 Hepatitis C Screening 01/19/2025 Medicare Annual Wellness Visit 01/19/2025 Social Influencers of Health Screening 01/19/2025 Hypertension/CHF/CAD Annual BMP Blood Test 01/19/2026 01/19/2025 RSV Immunization Adult Patie nts (1 - 1-dose 75+ series) 2036 HIB Vaccines Aged Out No longer eligi ble based on patient's age to complete this topic HPV Vaccines Aged Out No longer eligi ble based on patient's age to complete this topic Hepatitis A Vaccines Aged Out No long er eligible based on patient's age to complete this topic Hepatitis B Vaccines Aged Out No long er eligible based on patient's age to complete this topic IPV Vaccines Aged Out No longer eligi ble based on patient's age to complete this topic MMR Vaccines Aged Out No longer eligi ble based on patient's age to complete this topic Meningococcal ACWY Vaccine Aged Out N o longer eligible based on patient's age to complete this topic Meningococcal B Vaccine Aged Out No l onger eligible based on patient's age to complete this topic RSV Immunization Patients Un lola 20 months Aged Out No longer eligible b ased on patient's age to complete this topic Varicella Vaccines Aged Out No longer eligible based on patient's age to complete this topic Procedures Procedure Name Priority Date/Time Associated Diagnosis Comments IRON Routine 01/19/2025 5:52 AM EST Essential (primary) hypertension Osteomyelitis, unspecified ([facility] V24, [facility] V28) Cocaine dependence, uncomplicated ([facility] V24, [facility] V28) Restless legs syndrome Major depressive disorder, recurrent, unspecified ([facility] V24) Anxiety disorder, unspecified Hyperlipidemia, unspecified Dorsalgia, unspecified Cervicalgia Morbid (severe) obesity due to excess calories ([facility] V24, [facility] V28) Testicular hypofunction Benign prostatic hyperplasia with lower urinary tract symptoms Bilateral primary osteoarthritis of knee Vitamin D deficiency, unspecified Gout, unspecified Benign prostatic hyperplasia without lower urinary tract symptoms FOLATE Routine 01/19/2025 5:52 AM EST Essential (primary) hypertension Osteomyelitis, unspecified ([facility] V24, [facility] V28) Cocaine dependence, uncomplicated ([facility] V24, [facility] V28) Restless legs syndrome Major depressive disorder, recurrent, unspecified ([facility] V24) Anxiety disorder, unspecified Hyperlipidemia, unspecified Dorsalgia, unspecified Cervicalgia Morbid (severe) obesity due to excess calories ([facility] V24, [facility] V28) Testicular hypofunction Benign prostatic hyperplasia with lower urinary tract symptoms Bilateral primary osteoarthritis of knee Vitamin D deficiency, unspecified Gout, unspecified Benign prostatic hyperplasia without lower urinary tract symptoms VITAMIN D 25 HYDROXY Routine 01/19/2025 5:52 AM EST Essential (primary) hypertension Osteomyelitis, unspecified ([facility] V24, [facility] V28) Cocaine dependence, uncomplicated ([facility] V24, [facility] V28) Restless legs syndrome Major depressive disorder, recurrent, unspecified ([facility] V24) Anxiety disorder, unspecified Hyperlipidemia, unspecified Dorsalgia, unspecified Cervicalgia Morbid (severe) obesity due to excess calories ([facility] V24, [facility] V28) Testicular hypofunction Benign prostatic hyperplasia with lower urinary tract symptoms Bilateral primary osteoarthritis of knee Vitamin D deficiency, unspecified Gout, unspecified Benign prostatic hyperplasia without lower urinary tract symptoms COMPREHENSIVE METABOLIC PANEL Routine 01/19/2025 5:52 AM EST Essential (primary) hypertension Osteomyelitis, unspecified ([facility] V24, [facility] V28) Cocaine dependence, uncomplicated ([facility] V24, [facility] V28) Restless legs syndrome Major depressive disorder, recurrent, unspecified ([facility] V24) Anxiety disorder, unspecified Hyperlipidemia, unspecified Dorsalgia, unspecified Cervicalgia Morbid (severe) obesity due to excess calories ([facility] V24, [facility] V28) Testicular hypofunction Benign prostatic hyperplasia with lower urinary tract symptoms Bilateral primary osteoarthritis of knee Vitamin D deficiency, unspecified Gout, unspecified Benign prostatic hyperplasia without lower urinary tract symptoms COMPLETE BLOOD COUNT Routine 01/19/2025 5:52 AM EST Essential (primary) hypertension Osteomyelitis, unspecified ([facility]/HCC V24, [facility] V28) Cocaine dependence, uncomplicated ([facility] V24, [facility] V28) Restless legs syndrome Major depressive disorder, recurrent, unspecified ([facility] V24) Anxiety disorder, unspecified Hyperlipidemia, unspecified Dorsalgia, unspecified Cervicalgia Morbid (severe) obesity due to excess calories ([facility] V24, [facility] V28) Testicular hypofunction Benign prostatic hyperplasia with lower urinary tract symptoms Bilateral primary osteoarthritis of knee Vitamin D deficiency, unspecified Gout, unspecified Benign prostatic hyperplasia without lower urinary tract symptoms from Last 3 Months Results * Vitamin D 25 hydroxy (01/19/2025 5:52 AM EST) [facility] Vit D, 25-Hydroxy 58.6 30.0 - 80.0 ng/mL LAB CHEMISTRY METHOD 01/19/2025 10:46 AM EST [facility] Blood Venous blood specimen / Unknown Venipuncture / Unknown 01/19/2025 5:52 AM EST 01/19/2025 8:52 AM EST us Riaz Gomez MD LAB BLOOD ORDERABLES Final Resul t [facility] [address] [place] [address], [place] [phone] * (ABNORMAL) Complete blood count (01/19/2025 5:52 AM EST) [facility] WBC 3.1(L) 4.8 - 10.8 K/mcL LAB HEMETOLOGY METHOD 01/19/2025 9:28 AM [facility] RBC 4.50 4.50 - 5.50 M/mcL LAB HEMETOLOGY METHOD 01/19/2025 9:28 AM [facility] Hemoglobin 12.3(L) 13.5 - 17.5 g/dL LAB HEMETOLOGY METHOD 01/19/2025 9:28 AM [facility] Hematocrit 38.2(L) 42.0 - 54.0 % LAB HEMETOLOGY METHOD 01/19/2025 9:28 AM [facility] MCV 84.1 79.0 - 98.0 FL LAB HEMETOLOGY METHOD 01/19/2025 9:28 AM EST [facility] MCH 27.1 27.0 - 32.0 pcg LAB HEMETOLOGY METHOD 01/19/2025 9:28 AM EST [facility] MCHC 32.2 32.0 - 37.0 g/dL LAB HEMETOLOGY METHOD 01/19/2025 9:28 AM EST [facility] RDW 14.6 11.0 - 15.0 % LAB HEMETOLOGY METHOD 01/19/2025 9:28 AM EST [facility] Platelets 361 130 - 400 K/mcL LAB HEMETOLOGY METHOD 01/19/2025 9:28 AM EST [facility] MPV 8.7 7.0 - 11.0 FL LAB HEMETOLOGY METHOD 01/19/2025 9:28 AM EST [facility] NRBC 0.0 <1.0 % LAB HEMETOLOGY METHOD 01/19/2025 9:28 AM [facility] NRBC Absolute 0.00 <0.10 K/mcL LAB HEMETOLOGY METHOD 01/19/2025 9:28 AM EST [facility] Blood Venous blood specimen / Unknown Venipuncture / Unknown 01/19/2025 5:52 AM EST 01/19/2025 8:52 AM EST us Riaz Gomez MD LAB BLOOD ORDERABLES Final Resul t [facility] [address] [place] [address], * (ABNORMAL) Iron (01/19/2025 5:52 AM EST) [facility] Signature Iron 32(L) 50 - 160 mcg/dL LAB CHEMISTRY METHOD 01/19/2025 9:51 AM EST [facility] Blood Venous blood specimen / Unknown Venipuncture / Unknown 01/19/2025 5:52 AM EST 01/19/2025 8:52 AM EST us Riaz Gomez MD LAB BLOOD ORDERABLES Final Resul t [facility] [address] [place] [address], [place] [phone] * Folate (01/19/2025 5:52 AM EST) Pathologist [facility] Folate 12.2 2.8 - 17.0 ng/ml LAB CHEMISTRY METHOD 01/19/2025 10:06 AM EST [facility] Blood Venous blood specimen / Unknown Venipuncture / Unknown 01/19/2025 5:52 AM EST 01/19/2025 8:52 AM EST us Riaz Gomez MD LAB BLOOD ORDERABLES Final Resul t Performing Organization Address City/[facility]/ZIP Co de Phone Number [facility] [address] [place] [address], [place] [phone] * (ABNORMAL) Comprehensive metabolic panel (01/19/2025 5:52 AM EST) [facility] Sodium 132(L) 133 - 145 mmol/L LAB CHEMISTRY METHOD 01/19/2025 10:05 AM [facility] Potassium 4.7 3.5 - 5.5 mmol/L LAB CHEMISTRY METHOD 01/19/2025 10:05 AM [facility] Chloride 97 96 - 110 mmol/L LAB CHEMISTRY METHOD 01/19/2025 10:05 AM [facility] CO2 27 21 - 32 mmol/L LAB CHEMISTRY METHOD 01/19/2025 10:05 AM [facility] Anion Gap 8 3 - 11 LAB CHEMISTRY METHOD 01/19/2025 10:05 AM [facility] Glucose 73 70 - 100 mg/dL LAB CHEMISTRY METHOD 01/19/2025 10:05 AM [facility] BUN 17 5 - 25 mg/dL LAB CHEMISTRY METHOD 01/19/2025 10:05 AM [facility] Creatinine 0.70 0.70 - 1.30 mg/dL LAB CHEMISTRY METHOD 01/19/2025 10:05 AM [facility] eGFR 104 >=60 mL/min/1. 73m2 LAB CHEMISTRY METHOD 01/19/2025 10:05 AM [facility] Comment:Calculation based on the Chronic Kidney Disease Epidemiology Collaboration (CKD-EPI) equation refit without adjustment for race. BUN/Creatinine Ratio 24.3 LAB CHEMISTRY METHOD 01/19/2025 10:05 AM [facility] Calcium 8.3(L) 8.5 - 10.5 mg/dL LAB CHEMISTRY METHOD 01/19/2025 10:05 AM [facility] AST (SGOT) 50(H) 10 - 42 unit/L LAB CHEMISTRY METHOD 01/19/2025 10:05 AM [facility] ALT (SGPT) 51 10 - 60 unit/L LAB CHEMISTRY METHOD 01/19/2025 10:05 AM [facility] Alkaline Phosphatase 149(H) 42 - 121 unit/L LAB CHEMISTRY METHOD 01/19/2025 10:05 AM [facility] Total Protein 7.5 6.0 - 8.0 g/dL LAB CHEMISTRY METHOD 01/19/2025 10:05 AM [facility] Albumin 2.5(L) 3.2 - 5.0 g/dL LAB CHEMISTRY METHOD 01/19/2025 10:05 AM [facility] Total Bilirubin 0.2 0.0 - 1.4 mg/dL LAB CHEMISTRY METHOD 01/19/2025 10:05 AM [facility] Blood Venous blood specimen / Unknown Venipuncture / Unknown 01/19/2025 5:52 AM EST 01/19/2025 8:52 AM EST Riaz Gomez MD LAB BLOOD ORDERABLES Final Resul t [facility] [address] [place] [address], [place] [phone] from Last 3 Months Insurance [facility] MEDIC[facility] Member Subscriber Plan / Payer (Ef fective 2016-Present) Name:ANIBAL RODRIGEZ Relation to Subscriber:Self Name:Anibal Rodrigez Payer ID:[id number] Group ID:[id number] Type:Not on file Address: [place] [address] [address] Care Teams Vp Medical Relationship Specialty Start Date End Date Riaz Gomez MD [address] [place] [address] PCP - General Geriatric Medicine 01/19/25
--- OUTSIDE RECORDS SUMMARY | 2025-01-29 14:07 | XMS_ITS | Encounter Summary ---
Author Organization [employer] Address [address] [place] [address] Care Team Providers Care Publications Editor Name Role Phone Riaz Gomez MD Primary Care Provider [phone] Encounter Details Date Type Department Care Team (Late st Contact Info) Description 01/19/2025 Lab Requisition [facility] Lab [address] [facility] [place] [address] Riaz Gomez MD [address] [place], [place] [id number] Essential (primary) hypertension; Osteomyelitis, unspecified (CMS/HCC V24, [...] prostatic hyperplasia without lower urinary tract symptoms Social History Tobacco Use Types Packs/Day Years Used Date Smoking Tobacco: Never Assessed Sex and Gender Information Value Date Recorded Sex Assigned at Not on file Legal Sex Male 8:39 AM EST Gender Identity Not on file Sexual Orientation Not on file documented as of this encounter Plan of Treatment Not on file documented as of this encounter Procedures Procedure Name Priority Date/Time Associated Diagnosis Comments VITAMIN D 25 HYDROXY Routine 01/19/2025 5:52 AM EST Essential (primary) hypertension Osteomyelitis, unspecified (CMS/HCC V24, CMS/HCC V28) Cocaine dependence, uncomplicated (CMS/HCC V24, CMS/HCC V28) Restless legs syndrome Major depressive disorder, recurrent, unspecified (CMS/HCC V24) Anxiety disorder, unspecified Hyperlipidemia, unspecified Dorsalgia, unspecified Cervicalgia Morbid (severe) obesity due to excess calories ([facility]/HCC V24, CMS/[facility] V28) Testicular hypofunction Benign prostatic hyperplasia with lower urinary tract symptoms Bilateral primary osteoarthritis of knee Vitamin D deficiency, unspecified Gout, unspecified Benign prostatic hyperplasia without lower urinary tract symptoms COMPLETE BLOOD COUNT Routine 01/19/2025 5:52 AM EST Essential (primary) hypertension Osteomyelitis, unspecified (CMS/HCC V24, CMS/HCC V28) Cocaine dependence, uncomplicated (CMS/HCC V24, CMS/[facility] V28) Restless legs syndrome Major depressive disorder, recurrent, unspecified (CMS/HCC V24) Anxiety disorder, unspecified Hyperlipidemia, unspecified Dorsalgia, unspecified Cervicalgia Morbid (severe) obesity due to excess calories (CMS/HCC V24, CMS/[facility] V28) Testicular hypofunction Benign prostatic hyperplasia with lower urinary tract symptoms Bilateral primary osteoarthritis of knee Vitamin D deficiency, unspecified Gout, unspecified Benign prostatic hyperplasia without lower urinary tract symptoms IRON Routine 01/19/2025 5:52 AM EST Essential (primary) hypertension Osteomyelitis, unspecified (CMS/HCC V24, CMS/HCC V28) Cocaine dependence, uncomplicated (CMS/HCC V24, CMS/[facility] V28) Restless legs syndrome Major depressive disorder, recurrent, unspecified (CMS/HCC V24) Anxiety disorder, unspecified Hyperlipidemia, unspecified Dorsalgia, unspecified Cervicalgia Morbid (severe) obesity due to excess calories (CMS/HCC V24, CMS/HCC V28) Testicular hypofunction Benign prostatic hyperplasia with lower urinary tract symptoms Bilateral primary osteoarthritis of knee Vitamin D deficiency, unspecified Gout, unspecified Benign prostatic hyperplasia without lower urinary tract symptoms FOLATE Routine 01/19/2025 5:52 AM EST Essential (primary) hypertension Osteomyelitis, unspecified (CMS/HCC V24, CMS/HCC V28) Cocaine dependence, uncomplicated (CMS/HCC V24, CMS/HCC V28) Restless legs syndrome Major depressive disorder, recurrent, unspecified (CMS/HCC V24) Anxiety disorder, unspecified Hyperlipidemia, unspecified Dorsalgia, unspecified Cervicalgia Morbid (severe) obesity due to excess calories ([facility] V24, [facility] V28) Testicular hypofunction Benign prostatic hyperplasia with lower urinary tract symptoms Bilateral primary osteoarthritis of knee Vitamin D deficiency, unspecified Gout, unspecified Benign prostatic hyperplasia without lower urinary tract symptoms COMPREHENSIVE METABOLIC PANEL Routine 01/19/2025 5:52 AM EST Essential (primary) hypertension Osteomyelitis, unspecified ([facility] V24, [facility] V28) Cocaine dependence, uncomplicated ([facility] V24, [facility] V28) Restless legs syndrome Major depressive disorder, recurrent, unspecified ([facility] V24) Anxiety disorder, unspecified Hyperlipidemia, unspecified Dorsalgia, unspecified Cervicalgia Morbid (severe) obesity due to excess calories ([facility] V24, [facility] V28) Testicular hypofunction Benign prostatic hyperplasia with lower urinary tract symptoms Bilateral primary osteoarthritis of knee Vitamin D deficiency, unspecified Gout, unspecified Benign prostatic hyperplasia without lower urinary tract symptoms documented in this encounter Results * (ABNORMAL) Iron (01/19/2025 5:52 AM EST) Pathologist [facility] Iron 32(L) 50 - 160 mcg/dL LAB CHEMISTRY METHOD 01/19/2025 9:51 AM EST [facility] Blood Venous blood specimen / Unknown Venipuncture / Unknown 01/19/2025 5:52 AM EST 01/19/2025 8:52 AM EST us Riaz Gomez MD LAB BLOOD ORDERABLES Final Resul t [facility] [address] [place] [address], * Folate (01/19/2025 5:52 AM EST) [facility] Folate 12.2 2.8 - 17.0 ng/ml LAB CHEMISTRY METHOD 01/19/2025 10:06 AM EST [facility] Blood Venous blood specimen / Unknown Venipuncture / Unknown 01/19/2025 5:52 AM EST 01/19/2025 8:52 AM EST us Riaz Gomez MD LAB BLOOD ORDERABLES Final Resul t Performing Organization Address [facility]/ZIP Co de Phone Number [facility] [address] [place] [address], [place] [phone] * Vitamin D 25 hydroxy (01/19/2025 5:52 AM EST) Pathologist [facility] Vit D, 25-Hydroxy 58.6 30.0 - 80.0 ng/mL LAB CHEMISTRY METHOD 01/19/2025 10:46 AM EST [facility] Blood Venous blood specimen / Unknown Venipuncture / Unknown 01/19/2025 5:52 AM EST 01/19/2025 8:52 AM EST us Riaz Gomez MD LAB BLOOD ORDERABLES Final Resul t Performing Organization Address City/[facility]/ZIP Co de Phone Number [facility] [address] [place] [address], [place] [phone] * (ABNORMAL) Comprehensive metabolic panel (01/19/2025 5:52 AM EST) [facility] Sodium 132(L) 133 - 145 mmol/L LAB CHEMISTRY METHOD 01/19/2025 10:05 AM EST [facility] Potassium 4.7 3.5 - 5.5 mmol/L LAB CHEMISTRY METHOD 01/19/2025 10:05 AM [facility] Chloride 97 96 - 110 mmol/L LAB CHEMISTRY METHOD 01/19/2025 10:05 AM [facility] CO2 27 21 - 32 mmol/L LAB CHEMISTRY METHOD 01/19/2025 10:05 AM [facility] Anion Gap 8 3 - 11 LAB CHEMISTRY METHOD 01/19/2025 10:05 AM [facility] Glucose 73 70 - 100 mg/dL LAB CHEMISTRY METHOD 01/19/2025 10:05 AM [facility] BUN 17 5 - 25 mg/dL LAB CHEMISTRY METHOD 01/19/2025 10:05 AM [facility] Creatinine 0.70 0.70 - 1.30 mg/dL LAB CHEMISTRY METHOD 01/19/2025 10:05 AM [facility] eGFR 104 >=60 mL/min/1. 73m2 LAB CHEMISTRY METHOD 01/19/2025 10:05 AM [facility] Comment:Calculation based on the Chronic Kidney Disease Epidemiology Collaboration (CKD-EPI) equation refit without adjustment for race. BUN/Creatinine Ratio 24.3 LAB CHEMISTRY METHOD 01/19/2025 10:05 AM [facility] Calcium 8.3(L) 8.5 - 10.5 mg/dL LAB CHEMISTRY METHOD 01/19/2025 10:05 AM [facility] AST (SGOT) 50(H) 10 - 42 unit/L LAB CHEMISTRY METHOD 01/19/2025 10:05 AM [facility] ALT (SGPT) 51 10 - 60 unit/L LAB CHEMISTRY METHOD 01/19/2025 10:05 AM [facility] Alkaline Phosphatase 149(H) 42 - 121 unit/L LAB CHEMISTRY METHOD 01/19/2025 10:05 AM [facility] Total Protein 7.5 6.0 - 8.0 g/dL LAB CHEMISTRY METHOD 01/19/2025 10:05 AM [facility] Albumin 2.5(L) 3.2 - 5.0 g/dL LAB CHEMISTRY METHOD 01/19/2025 10:05 AM [facility] Total Bilirubin 0.2 0.0 - 1.4 mg/dL LAB CHEMISTRY METHOD 01/19/2025 10:05 AM [facility] Blood Venous blood specimen / Unknown Venipuncture / Unknown 01/19/2025 5:52 AM EST 01/19/2025 8:52 AM EST us Riaz Gomez MD LAB BLOOD ORDERABLES Final Resul t [facility] [address] [place] [address], [place] [phone] * (ABNORMAL) Complete blood count (01/19/2025 5:52 AM EST) WBC 3.1(L) 4.8 - 10.8 K/mcL LAB HEMETOLOGY METHOD 01/19/2025 9:28 AM EST [facility] RBC 4.50 4.50 - 5.50 M/mcL LAB HEMETOLOGY METHOD 01/19/2025 9:28 AM [facility] Hemoglobin 12.3(L) 13.5 - 17.5 g/dL LAB HEMETOLOGY METHOD 01/19/2025 9:28 AM [facility] Hematocrit 38.2(L) 42.0 - 54.0 % LAB HEMETOLOGY METHOD 01/19/2025 9:28 AM EST [facility] MCV 84.1 79.0 - 98.0 FL LAB HEMETOLOGY METHOD 01/19/2025 9:28 AM [facility] MCH 27.1 27.0 - 32.0 pcg LAB HEMETOLOGY METHOD 01/19/2025 9:28 AM [facility] MCHC 32.2 32.0 - 37.0 g/dL LAB HEMETOLOGY METHOD 01/19/2025 9:28 AM [facility] RDW 14.6 11.0 - 15.0 % LAB HEMETOLOGY METHOD 01/19/2025 9:28 AM [facility] Platelets 361 130 - 400 K/mcL LAB HEMETOLOGY METHOD 01/19/2025 9:28 AM [facility] MPV 8.7 7.0 - 11.0 FL LAB HEMETOLOGY METHOD 01/19/2025 9:28 AM EST [facility] NRBC 0.0 <1.0 % LAB HEMETOLOGY METHOD 01/19/2025 9:28 AM EST [facility] NRBC Absolute 0.00 <0.10 K/mcL LAB HEMETOLOGY METHOD 01/19/2025 9:28 AM EST [facility] Blood Venous blood specimen / Unknown Venipuncture / Unknown 01/19/2025 5:52 AM EST 01/19/2025 8:52 AM EST Riaz Gomez MD LAB BLOOD ORDERABLES Final Resul t [facility] [address] [place] [address], documented in this encounter Visit Diagnoses Diagnosis Essential (primary) hypertension Unspecified essential hypertension Osteomyelitis, unspecified (CMS/[facility] V24, CMS/[facility] V28) Cocaine dependence, uncomplicated (CMS/HCC V24, CMS/[facility] V28) Restless legs syndrome Restless legs syndrome (RLS) Major depressive disorder, recurrent, unspecified (CMS/[facility] V24) Anxiety disorder, unspecified Hyperlipidemia, unspecified Dorsalgia, unspecified Cervicalgia Morbid (severe) obesity due to excess calories (CMS/[facility] V24, [facility] V28) Testicular hypofunction Other testicular hypofunction Benign prostatic hyperplasia with lower urinary tract symptoms Bilateral primary osteoarthritis of knee Vitamin D deficiency, unspecified Gout, unspecified Benign prostatic hyperplasia without lower urinary tract symptoms documented in this encounter Care Teams Publications Editor Relationship Specialty Start Date End Date Riaz Gomez MD [address] [place] [phone] PCP - General Geriatric Medicine 01/19/25 documented as of this encounter
== END 2025-01-29 12:54 | disposition home or self-care (01) ==
LOC: HO.HID 11:00
PROVIDERS: PCP Internal Medicine; Visit Provider Internal Medicine
DX: M86.9 Osteomyelitis, unspecified (principal)
CPT/HCPCS: 99213

== ENCOUNTER → 2025-01-29 11:00 | Outpatient (BNVA) | payer OTHER, SELFPAY | PROVIDERS: PCP Internal Medicine; Visit Provider Internal Medicine | DX: M86.9 Osteomyelitis, unspecified (principal); B95.4 Other streptococcus as the cause of diseases classified elsewhere | CPT/HCPCS: 99212 ==

== ENCOUNTER 2025-02-19 12:16 | Emergency (ER) | payer OTHER, SELFPAY ==
--- NOTE | ~2025-02-19 | XR_ITS ---
EXAMINATION: XR CHEST CLINICAL INFORMATION: concern for FB after PICC line fall out COMPARISON: August 11, 2021 TECHNIQUE: 2 views of the chest were obtained. FINDINGS: No radiopaque foreign body is identified. Lungs are clear. There is no pneumothorax. Heart size is within normal limits. There is no pleural effusion. There is degenerative cystic change in the right humeral head, superiorly. There are marginal osteophytes and sclerosis. The left shoulder is not as well demonstrated but also degenerated. XR/XR chest 2V IMPRESSION: No radiopaque foreign body. Moderate to severe degenerative changes of the shoulders. Electronically signed by: Michael Harry MD 02/19/2025 12:58 PM EST RP
[2025-02-19 12:42] VITALS: BP 167/83; PULSE 70; RESP 18; TEMP 36.4; O2SAT 100; BMI 25.6
--- NOTE | 2025-02-19 12:42 | ED_ITS ---
HPI - General Adult General Chief complaint: General Medical Stated complaint: PICC line fell out? Time Seen by Provider: 02/19/25 13:01 Source: patient Mode of arrival: ambulatory Limitations: no limitations History of Present Illness ED Provider: Radha Sarkar PA-C HPI narrative: Patient is a 64 year old male with a history of osteomyelitis and DM presenting to the emergency department today after his PICC line fell out. Patient states that he isn't quite sure how it happened but his PICC line fell out. Patient states that he has a PICC line in place for IV ceftriaxone, 1 gram, every morning until 02/25. Patient denies any complaints at this time. Related Data Home Medications ?Medication ?Instructions ?Recorded ?Confirmed allopurinol 300 mg tablet 300 mg PO DAILY PRN gout 01/12/25 Previous Rx's ?Medication ?Instructions ?Recorded atorvastatin 40 mg tablet 40 mg PO BEDTIME 90 days #90 tabs 12/07/24 lisinopril 30 mg tablet 30 mg PO DAILY 90 days #90 t abs 12/07/24 ceftriaxone 2 gram solution for 2 g IV Q24H 40 days #1 0 ea 01/16/25 injection celecoxib 200 mg capsule (Celebrex) 200 mg PO 1XD 30 d ays #60 caps 01/16/25 doxycycline monohydrate 100 mg 100 mg PO Q12H 40 days #80 caps 01/16/25 capsule omeprazole 20 mg capsule,delayed 20 mg PO DAILY@0630 4 0 days #40 01/16/25 release caps oxycodone 5 mg tablet 5 mg PO Q6H PRN Pain, Moderate(Pain Scale 4-6) #30 tabs doxycycline hyclate 100 mg capsule 100 mg PO BID 30 da ys #60 caps 01/29/25 escitalopram oxalate 20 mg tablet 20 mg PO DAILY 90 da ys #90 tabs 02/07/25 tamsulosin 0.4 mg capsule 0.4 mg PO DAILY #90 caps 05/30 Allergies Allergy/AdvReac Type Severity Reaction Status Date / Time gabapentin AdvReac Agitated Verified 02/19/25 12:44 Review of Systems Constitutional: Constitutional: Reports as per HPI Eyes: Eyes: Reports as per HPI ENT: Reports as per HPI Cardiovascular: Cardiovascular: Reports as per HPI Respiratory: Respiratory: Reports as per HPI Gastrointestinal: Gastrointestinal: Reports as per HPI Genitourinary: Genitourinary: Reports as per HPI Musculoskeletal: Musculoskeletal: Reports as per HPI Integumentary/Breasts: Skin/Breast: Reports as per HPI Neurologic: Reports as per HPI Psychiatric: Psychiatric: Reports as per HPI Endocrine: Endocrine: Reports as per HPI Hematologic/Lymphatic: Hematologic/Lymphatic: Reports as per HPI Allergic/Immunologic: Allergic/Immunologic: Reports as per HPI [facility] Past Medical History Attestation statement: The following information was validated with the patient. Source: old records reviewed and nursing notes reviewed Medical History Cellulitis Osteomyelitis Restless leg syndrome Stage III pressure ulcer Cocaine use disorder Mild major depression, single episode ANGELIKA (generalized anxiety disorder) Back pain Essential hypertension Neck pain Mixed hyperlipidemia Obesity Testosterone deficiency in male BPH (benign prostatic hyperplasia) Knee osteoarthritis Hypovitaminosis D Hypogonadism in male Gout Anxiety Surgical History History of tooth extraction History of spinal surgery History of ankle surgery History of colonoscopy Family History Family History Father HTN (hypertension) Gout Guillain-Humboldt syndrome Mother CVD (cardiovascular disease) Social History Social History Household Members: None Housing: House Do you presently have visiting nurse or other home services: No Alcohol intake: current Alcohol intake frequency: a few times a month Alcohol type: beer Patient Tobacco Use Status: Never used Tobacco e-Cigarette/Vaping Use: Never Used Second Hand Smoke Exposure: No service: No Current occupational status: disabled Cognitive needs: Yes Hearing needs: No Vision needs: No Physical Exam ED Vital Signs: Vital Signs - 24 hr 02/19/25 12:42 02/19/25 13:20 Temperature 97.6 F 97.6 F Pulse Rate 70 70 Respiratory Rate 18 18 Blood Pressure 167/83 H 167/83 H Pulse Oximetry 100 100 Oxygen Delivery Method Room Air Room Air BMI result Body Mass Index 25.6 Const General: cooperative, no acute distress, alert and awake Nutritional Appearance: well nourished Orientation/consciousness: patient oriented x3 HENMT Head: Yes normal to inspection and Yes atraumatic Ears: hearing grossly normal bilaterally and external ears normal General nose exam: Normal external nose present, no nasal discharge noted and no epistaxis Face and sinus: Yes normal facial exam, No abrasion and No laceration Mouth: Normal oral and palatal mucosa present, no drooling and no muffled voice Eyes General: appearance normal, both eyes and all related structures Periorbital: periorbital findings normal Eyelids: Yes eyelids normal Conjunctivae: conjunctivae normal Pupils: Equal, round and reactive pupils present EOM: EOMs intact bilaterally Neck Neck: Yes normal visual inspection and Yes full ROM Resp Effort & Inspection: normal respiratory effort and able to speak in complete sentences Neuro General: patient oriented x3, moves all extremities and CN's II-XI intact bilaterally Cranial nerves: Yes Equal, round and reactive pupils present Cognition (Neuro): normal cognition Psych Appearance: grossly normal Mental Status: mental status grossly normal Affect: normal affect Attitude: cooperative Thought process: Normal thought process present Thought content: Normal thought content present Insight: Good insight present (Psych) Course Course Course Narrative: Rapid medical examination performed in triage by Radha Sarkar PA-C: Patient is a 64 year old male presenting to the emergency department after his PICC line fell out. Patient states that he has a PICC line for osteomyelitis and it accidentally fell out. Patient states that he is getting IV ceftriaxone. Detailed physical exam and review of systems are deferred to the distribution lineman. Imaging ordered. Patient placed back in the waiting room pending room availability and results. Medications Administered Discontinued Medications Generic Name Dose Route Start Last Admin Trade Name Freq PRN Reason Stop Dose Admin Ceftriaxone Sodium 1,000 mg 02/19/25 13:01 02/19/25 13:16 Ceftriaxone Sodium 500 Mg Vial IM 02/19/25 13:02 1,000 mg ONCE ONE Administration Lidocaine HCl 5 ml 02/19/25 13:10 02/19/25 13:17 Lidocaine Hcl 1 % Mpf 5 Ml Vial SUBCUT 02/19/25 13:11 5 ml ONCE ONE Administration Medical Decision Making Medical Decision Making MDM Narrative: Patient is a 64 year old male with a history of osteomyelitis and DM presenting to the emergency department today after his PICC line fell out. Patient's physical exam was as noted in the physical exam portion of this note. Patient's chest x-ray showed no evidence of retained portions of the fallen out PICC line. I spoke with the IR team who recommended placing an order for a mid line rather than a PICC line and having the patient report to their department at 0930 on 02/20/2025 for placement of that line. I explained my physical exam findings to the patient. I answered all questions asked by the patient. Patient was given 1 gram of IM Ceftriaxone, without incident. I informed the patient of his appointment with the radiology department for tomorrow 02/20/2025 at 0930 for his line placement and he stated he would be there at 0900 to make sure he wasn't late. I stressed the importance of the patient taking his medication as directed (either prescribed or as the over the counter packaging recommends). I stressed the importance of the patient following up with his primary care provider. I stressed the importance of the patient returning to the emergency department im mediately if he were to develop any dizziness, shortness of breath, difficulty breathing, chest pain, blurry vision, loss of vision, nausea, vomiting, abdominal pain, fever, chills, back pain, or any other complaints. Patient verbalized agreement and understanding with this treatment plan and discharge. Differential Diagnosis Differential Diagnoses: The differential diagnosis associated with the presentation includes Osteomyelitis PICC line fell out Admission/Observation Consideration of admission/observation: Escalation of care including admission/observation considered Patient would have been admitted to the hospital had his clinical presentation warranted hospital admission. Independent Interpretation I performed an independent interpretation of an: Plain X-Ray Interpretation: My interpretation is in agreement with the radiologist's impression of this imaging study as written below. EXAMINATION: XR CHEST CLINICAL INFORMATION: concern for FB after PICC line fall out COMPARISON: August 11, 2021 TECHNIQUE: 2 views of the chest were obtained. FINDINGS: No radiopaque foreign body is identified. Lungs are clear. There is no pneumothorax. Heart size is within normal limits. There is no pleural effusion. There is degenerative cystic change in the right humeral head, superiorly. There are marginal osteophytes and sclerosis. The left shoulder is not as well demonstrated but also degenerated. XR/XR chest 2V IMPRESSION: No radiopaque foreign body. Moderate to severe degenerative changes of the shoulders. Electronically signed by: Michael Harry MD 02/19/2025 12:58 PM [facility] Dictated By: Michael Harry MD Signed By: Electronically signed by Michael Harry MD 02/19/25 [id number] Radiology Impression Discussion of test interpretation with radiology: I have reviewed the radiologist's reading. Discharge Plan Discharge Clinical Impression: Encounter for peripheral line placement Patient Disposition: Home, Self-Care Additional Instructions: You were given your dose of ceftriaxone here, while in the emergency department. You are scheduled for a midline placement on 02/20/2025 at 0930 here at [facility]. Please proceed to the radiology department for that and NOT the emergency department. IF you are prescribed home medications and/or you are taking over the counter medications at home - it is very important you continue to do so as prescribed / directed unless told otherwise by a healthcare provider. Follow up with your primary care provider. Do your best to stay well hydrated and rest. Return to the emergency department immediately if you develop any numbness, tingling, dizziness, shortness of breath, difficulty breathing, chest pain, blurry vision, loss of vision, nausea, vomiting, abdominal pain, fever, chills, back pain, or any other complaints. Please see the information below about our Patient Portal. If you are not yet enrolled in the [facility] Patient Portal, you will receive an enrollment email invitation following your visit to any [facility] care setting. You may also self-enroll in the Patient Portal by visiting our website: [email or web address] The following information is required to access the Patient Portal: - Your [facility] Medical Record Number - Your personal home email address (must match what is in your electronic medical record, Registration staff can assist with this) - Name - Date of Capabilities of the Patient Portal: - Message some providers - View upcoming appointments - Access your health summary, medical history, and visit history - View current conditions and allergies - View procedure and lab results - View your medications, including guidelines, side effects, and precautions - Complete pre-appointment questionnaires requested by your provider - Ready summary reports of your office visits and procedures To access the Patient Portal Mobile Ariadna, follow these directions: - Search [facility] in the Ariadna Store or Google Play Store - Download the Ariadna - Search for [facility] - Enter your login/password Prescriptions: No Action atorvastatin 40 mg tablet 40 mg PO BEDTIME 90 Days Qty: 90 3RF lisinopril 30 mg tablet 30 mg PO DAILY 90 Days Qty: 90 3RF escitalopram oxalate 20 mg tablet 20 mg PO DAILY 90 Days Qty: 90 0RF tamsulosin 0.4 mg capsule 0.4 mg PO DAILY Qty: 90 0RF allopurinol 300 mg tablet 300 mg PO DAILY PRN (Reason: gout) doxycycline monohydrate 100 mg Capsule 100 mg PO Q12H 40 Days Qty: 80 0RF ceftriaxone 2 gram Recon Soln 2 g IV Q24H 40 Days Qty: 10 4RF oxycodone 5 mg Tablet 5 mg PO Q6H PRN (Reason: Pain, Moderate(Pain Scale 4-6)) Qty: 30 0RF Rx Instructions: Partial Fill upon patient request. omeprazole 20 mg Capsule,Delayed Release(Dr/Ec) 20 mg PO DAILY@0630 40 Days Qty: 40 0RF celecoxib [Celebrex] 200 mg capsule 200 mg PO 1XD 30 Days Qty: 60 3RF doxycycline hyclate 100 mg capsule 100 mg PO BID 30 Days Qty: 60 1RF Referrals: Torrie Rangel MD [Primary Care Provider, Internal Medicine] Interventions: ED Discharge Assessment Last Done: 02/19/25 13:20 Discharge Date/Time: 02/19/25 13:21 Print Language: Frisian
[2025-02-19] MEDS: Lidocaine HCl 1 % MPF 5 ML VIAL SUBCUT (13:17)
[2025-02-19 13:20] VITALS: BP 167/83; PULSE 70; RESP 18; TEMP 36.4; O2SAT 100
--- OUTSIDE RECORDS SUMMARY | 2025-02-19 19:04 | XMS_ITS | Clinical Summary ---
Author Organization [address] [facility] Address [address] [place] [address] Phone Care Team Providers Care Diecast Machine Operator Name Role Phone Riaz Gomez MD Primary Care Provider [phone] Encounters Date Type Department Care Team Description 01/19/2025 Lab Requisition [facility] - Main Lab [address] [place] [address] Riaz Gomez MD Essential (primary) [...] AM EST Essential (primary) hypertension Osteomyelitis, unspecified ([facility] V24, [facility] V28) Cocaine dependence, uncomplicated ([facility] V24, [facility] V28) Restless legs syndrome Major depressive disorder, recurrent, unspecified ([facility] V24) Anxiety disorder, unspecified Hyperlipidemia, unspecified Dorsalgia, unspecified Cervicalgia Morbid (severe) obesity due to excess calories ([facility] V24, [facility] V28) Testicular hypofunction Benign prostatic hyperplasia with lower urinary tract symptoms Bilateral primary osteoarthritis of knee Vitamin D deficiency, unspecified Gout, unspecified Benign prostatic hyperplasia without lower urinary tract symptoms FOLATE Routine 01/19/2025 5:52 AM EST Essential (primary) hypertension Osteomyelitis, unspecified ([facility] V24, [facility] V28) Cocaine dependence, uncomplicated ([facility] V24, [facility] V28) Restless legs syndrome Major depressive disorder, recurrent, unspecified ([facility] V24) Anxiety disorder, unspecified Hyperlipidemia, unspecified Dorsalgia, unspecified Cervicalgia Morbid (severe) obesity due to excess calories ([facility] V24, [facility] V28) Testicular hypofunction Benign prostatic hyperplasia with lower urinary tract symptoms Bilateral primary osteoarthritis of knee Vitamin D deficiency, unspecified Gout, unspecified Benign prostatic hyperplasia without lower urinary tract symptoms VITAMIN D 25 HYDROXY Routine 01/19/2025 5:52 AM EST Essential (primary) hypertension Osteomyelitis, unspecified ([facility] V24, [facility] V28) Cocaine dependence, uncomplicated ([facility] V24, [facility] V28) Restless legs syndrome Major depressive disorder, recurrent, unspecified ([facility] V24) Anxiety disorder, unspecified Hyperlipidemia, unspecified Dorsalgia, unspecified Cervicalgia Morbid (severe) obesity due to excess calories ([facility] V24, [facility] V28) Testicular hypofunction Benign prostatic hyperplasia with lower urinary tract symptoms Bilateral primary osteoarthritis of knee Vitamin D deficiency, unspecified Gout, unspecified Benign prostatic hyperplasia without lower urinary tract symptoms COMPREHENSIVE METABOLIC PANEL Routine 01/19/2025 5:52 AM EST Essential (primary) hypertension Osteomyelitis, unspecified ([facility] V24, [facility] V28) Cocaine dependence, uncomplicated ([facility] V24, [facility] V28) Restless legs syndrome Major depressive disorder, recurrent, unspecified ([facility] V24) Anxiety disorder, unspecified Hyperlipidemia, unspecified Dorsalgia, unspecified Cervicalgia Morbid (severe) obesity due to excess calories ([facility] V24, [facility] V28) Testicular hypofunction Benign prostatic hyperplasia with lower urinary tract symptoms Bilateral primary osteoarthritis of knee Vitamin D deficiency, unspecified Gout, unspecified Benign prostatic hyperplasia without lower urinary tract symptoms COMPLETE BLOOD COUNT Routine 01/19/2025 5:52 AM EST Essential (primary) hypertension Osteomyelitis, unspecified ([facility] V24, [facility] V28) Cocaine dependence, uncomplicated ([facility] V24, [facility] V28) Restless legs syndrome Major depressive disorder, recurrent, unspecified ([facility] V24) Anxiety disorder, unspecified Hyperlipidemia, unspecified Dorsalgia, unspecified Cervicalgia Morbid (severe) obesity due to excess calories ([facility] V24, [facility] V28) Testicular hypofunction Benign prostatic hyperplasia with lower urinary tract symptoms Bilateral primary osteoarthritis of knee Vitamin D deficiency, unspecified Gout, unspecified Benign prostatic hyperplasia without lower urinary tract symptoms from Last 3 Months Results * Vitamin D 25 hydroxy (01/19/2025 5:52 AM EST) [facility] Vit D, 25-Hydroxy 58.6 30.0 - 80.0 ng/mL LAB CHEMISTRY METHOD 01/19/2025 10:46 AM EST [facility] Blood Venous blood specimen / Unknown Venipuncture / Unknown 01/19/2025 5:52 AM EST 01/19/2025 8:52 AM EST us Riaz Gomez MD LAB BLOOD ORDERABLES Final Resul t [facility] [address] [place] [address], [place] [phone] * (ABNORMAL) Complete blood count (01/19/2025 5:52 AM EST) [facility] WBC 3.1(L) 4.8 - 10.8 K/mcL LAB HEMETOLOGY METHOD 01/19/2025 9:28 AM [facility] RBC 4.50 4.50 - 5.50 M/mcL LAB HEMETOLOGY METHOD 01/19/2025 9:28 AM [facility] Hemoglobin 12.3(L) 13.5 - 17.5 g/dL LAB HEMETOLOGY METHOD 01/19/2025 9:28 AM [facility] Hematocrit 38.2(L) 42.0 - 54.0 % LAB HEMETOLOGY METHOD 01/19/2025 9:28 AM [facility] MCV 84.1 79.0 - 98.0 FL LAB HEMETOLOGY METHOD 01/19/2025 9:28 AM EST [facility] MCH 27.1 27.0 - 32.0 pcg LAB HEMETOLOGY METHOD 01/19/2025 9:28 AM EST [facility] MCHC 32.2 32.0 - 37.0 g/dL LAB HEMETOLOGY METHOD 01/19/2025 9:28 AM EST [facility] RDW 14.6 11.0 - 15.0 % LAB HEMETOLOGY METHOD 01/19/2025 9:28 AM EST [facility] Platelets 361 130 - 400 K/mcL LAB HEMETOLOGY METHOD 01/19/2025 9:28 AM EST [facility] MPV 8.7 7.0 - 11.0 FL LAB HEMETOLOGY METHOD 01/19/2025 9:28 AM EST [facility] NRBC 0.0 <1.0 % LAB HEMETOLOGY METHOD 01/19/2025 9:28 AM [facility] NRBC Absolute 0.00 <0.10 K/mcL LAB HEMETOLOGY METHOD 01/19/2025 9:28 AM EST [facility] Blood Venous blood specimen / Unknown Venipuncture / Unknown 01/19/2025 5:52 AM EST 01/19/2025 8:52 AM EST us Riaz Gomez MD LAB BLOOD ORDERABLES Final Resul t [facility] [address] [place] [address], * (ABNORMAL) Iron (01/19/2025 5:52 AM EST) [facility] Signature Iron 32(L) 50 - 160 mcg/dL LAB CHEMISTRY METHOD 01/19/2025 9:51 AM EST [facility] Blood Venous blood specimen / Unknown Venipuncture / Unknown 01/19/2025 5:52 AM EST 01/19/2025 8:52 AM EST us Riaz Gomez MD LAB BLOOD ORDERABLES Final Resul t [facility] [address] [place] [address], [place] [phone] * Folate (01/19/2025 5:52 AM EST) Pathologist [facility] Folate 12.2 2.8 - 17.0 ng/ml LAB CHEMISTRY METHOD 01/19/2025 10:06 AM EST [facility] Blood Venous blood specimen / Unknown Venipuncture / Unknown 01/19/2025 5:52 AM EST 01/19/2025 8:52 AM EST us Riaz Gomez MD LAB BLOOD ORDERABLES Final Resul t Performing Organization Address City/[facility]/ZIP Co de Phone Number [facility] [address] [place] [address], [place] [phone] * (ABNORMAL) Comprehensive metabolic panel (01/19/2025 5:52 AM EST) [facility] Sodium 132(L) 133 - 145 mmol/L LAB CHEMISTRY METHOD 01/19/2025 10:05 AM [facility] Potassium 4.7 3.5 - 5.5 mmol/L LAB CHEMISTRY METHOD 01/19/2025 10:05 AM [facility] Chloride 97 96 - 110 mmol/L LAB CHEMISTRY METHOD 01/19/2025 10:05 AM [facility] CO2 27 21 - 32 mmol/L LAB CHEMISTRY METHOD 01/19/2025 10:05 AM [facility] Anion Gap 8 3 - 11 LAB CHEMISTRY METHOD 01/19/2025 10:05 AM [facility] Glucose 73 70 - 100 mg/dL LAB CHEMISTRY METHOD 01/19/2025 10:05 AM [facility] BUN 17 5 - 25 mg/dL LAB CHEMISTRY METHOD 01/19/2025 10:05 AM [facility] Creatinine 0.70 0.70 - 1.30 mg/dL LAB CHEMISTRY METHOD 01/19/2025 10:05 AM [facility] eGFR 104 >=60 mL/min/1. 73m2 LAB CHEMISTRY METHOD 01/19/2025 10:05 AM [facility] Comment:Calculation based on the Chronic Kidney Disease Epidemiology Collaboration (CKD-EPI) equation refit without adjustment for race. BUN/Creatinine Ratio 24.3 LAB CHEMISTRY METHOD 01/19/2025 10:05 AM [facility] Calcium 8.3(L) 8.5 - 10.5 mg/dL LAB CHEMISTRY METHOD 01/19/2025 10:05 AM [facility] AST (SGOT) 50(H) 10 - 42 unit/L LAB CHEMISTRY METHOD 01/19/2025 10:05 AM [facility] ALT (SGPT) 51 10 - 60 unit/L LAB CHEMISTRY METHOD 01/19/2025 10:05 AM [facility] Alkaline Phosphatase 149(H) 42 - 121 unit/L LAB CHEMISTRY METHOD 01/19/2025 10:05 AM [facility] Total Protein 7.5 6.0 - 8.0 g/dL LAB CHEMISTRY METHOD 01/19/2025 10:05 AM [facility] Albumin 2.5(L) 3.2 - 5.0 g/dL LAB CHEMISTRY METHOD 01/19/2025 10:05 AM [facility] Total Bilirubin 0.2 0.0 - 1.4 mg/dL LAB CHEMISTRY METHOD 01/19/2025 10:05 AM [facility] Blood Venous blood specimen / Unknown Venipuncture / Unknown 01/19/2025 5:52 AM EST 01/19/2025 8:52 AM EST Riaz Gomez MD LAB BLOOD ORDERABLES Final Resul t [facility] [address] [place] [address], [place] [phone] from Last 3 Months Insurance [facility] Member Subscriber Plan / Payer (Ef fective 2016-Present) Name:ANIBAL RODRIGEZ Relation to Subscriber:Self Name:Anibal Rodrigez Payer ID:[id number] Group ID:[id number] Type:Not on file Address: [place] [address] [address] Care Teams Diecast Machine Operator Relationship Specialty Start Date End Date Riaz Gomez MD [address] [place] [address] PCP - General Geriatric Medicine 01/19/25
--- OUTSIDE RECORDS SUMMARY | 2025-02-19 19:04 | XMS_ITS | Encounter Summary ---
Author Organization [employer] Address [address] [place] [address] Care Team Providers Care Manager New Product Name Role Phone Riaz Gomez MD Primary Care Provider [phone] Encounter Details Date Type Department Care Team (Late st Contact Info) Description 01/19/2025 Lab Requisition [facility] - Main Lab [address] [facility] [place] [address] Riaz Gomez MD [address] [place], [place] [id number] Essential (primary) hypertension; Osteomyelitis, unspecified (CMS/HCC V24, [...] Morbid (severe) obesity due to excess calories ([facility]/HCC V24, CMS/[facility] V28) Testicular hypofunction Benign prostatic hyperplasia with lower urinary tract symptoms Bilateral primary osteoarthritis of knee Vitamin D deficiency, unspecified Gout, unspecified Benign prostatic hyperplasia without lower urinary tract symptoms COMPLETE BLOOD COUNT Routine 01/19/2025 5:52 AM EST Essential (primary) hypertension Osteomyelitis, unspecified (CMS/HCC V24, CMS/HCC V28) Cocaine dependence, uncomplicated (CMS/HCC V24, CMS/[facility] V28) Restless legs syndrome Major depressive disorder, recurrent, unspecified (CMS/HCC V24) Anxiety disorder, unspecified Hyperlipidemia, unspecified Dorsalgia, unspecified Cervicalgia Morbid (severe) obesity due to excess calories (CMS/HCC V24, CMS/[facility] V28) Testicular hypofunction Benign prostatic hyperplasia with lower urinary tract symptoms Bilateral primary osteoarthritis of knee Vitamin D deficiency, unspecified Gout, unspecified Benign prostatic hyperplasia without lower urinary tract symptoms IRON Routine 01/19/2025 5:52 AM EST Essential (primary) hypertension Osteomyelitis, unspecified (CMS/HCC V24, CMS/HCC V28) Cocaine dependence, uncomplicated (CMS/HCC V24, CMS/[facility] V28) Restless legs syndrome Major [...] Morbid (severe) obesity due to excess calories ([facility] V24, [facility] V28) Testicular hypofunction Benign prostatic hyperplasia with lower urinary tract symptoms Bilateral primary osteoarthritis of knee Vitamin D deficiency, unspecified Gout, unspecified Benign prostatic hyperplasia without lower urinary tract symptoms COMPREHENSIVE METABOLIC PANEL Routine 01/19/2025 5:52 AM EST Essential (primary) hypertension Osteomyelitis, unspecified ([facility] V24, [facility] V28) Cocaine dependence, uncomplicated ([facility] V24, [facility] V28) Restless legs syndrome Major depressive disorder, recurrent, unspecified ([facility] [place]24) Anxiety disorder, unspecified Hyperlipidemia, unspecified Dorsalgia, unspecified Cervicalgia Morbid (severe) obesity due to excess calories ([facility] V24, [facility] V28) Testicular hypofunction Benign prostatic hyperplasia with lower urinary tract symptoms Bilateral primary osteoarthritis of knee Vitamin D deficiency, unspecified Gout, unspecified Benign prostatic hyperplasia without lower urinary tract symptoms documented in this encounter Results * (ABNORMAL) Iron (01/19/2025 5:52 AM EST) Pathologist [facility] Iron 32(L) 50 - 160 mcg/dL LAB CHEMISTRY METHOD 01/19/2025 9:51 AM EST [facility] Blood Venous blood specimen / Unknown Venipuncture / Unknown 01/19/2025 5:52 AM EST 01/19/2025 8:52 AM EST us Riaz Gomez MD LAB BLOOD ORDERABLES Final Resul t [facility] [address] [place] [address], * Folate (01/19/2025 5:52 AM EST) [facility] Folate 12.2 2.8 - 17.0 ng/ml LAB CHEMISTRY METHOD 01/19/2025 10:06 AM EST [facility] Blood Venous blood specimen / Unknown Venipuncture / Unknown 01/19/2025 5:52 AM EST 01/19/2025 8:52 AM EST us Riaz Gomez MD LAB BLOOD ORDERABLES Final Resul t Performing Organization Address [facility]/ZIP Co de Phone Number [facility] [address] [place] [address], [place] [phone] * Vitamin D 25 hydroxy (01/19/2025 5:52 AM EST) Pathologist [facility] Vit D, 25-Hydroxy 58.6 30.0 - 80.0 ng/mL LAB CHEMISTRY METHOD 01/19/2025 10:46 AM EST [facility] Blood Venous blood specimen / Unknown Venipuncture / Unknown 01/19/2025 5:52 AM EST 01/19/2025 8:52 AM EST us Riaz Gomez MD LAB BLOOD ORDERABLES Final Resul t Performing Organization Address City/[facility]/ZIP Co de Phone Number [facility] [address] [place] [address], [place] [phone] * (ABNORMAL) Comprehensive metabolic panel (01/19/2025 5:52 AM EST) [facility] Sodium 132(L) 133 - 145 mmol/L LAB CHEMISTRY METHOD 01/19/2025 10:05 AM EST [facility] Potassium 4.7 3.5 - 5.5 mmol/L LAB CHEMISTRY METHOD 01/19/2025 10:05 AM [facility] Chloride 97 96 - 110 mmol/L LAB CHEMISTRY METHOD 01/19/2025 10:05 AM [facility] CO2 27 21 - 32 mmol/L LAB CHEMISTRY METHOD 01/19/2025 10:05 AM [facility] Anion Gap 8 3 - 11 LAB CHEMISTRY METHOD 01/19/2025 10:05 AM [facility] Glucose 73 70 - 100 mg/dL LAB CHEMISTRY METHOD 01/19/2025 10:05 AM [facility] BUN 17 5 - 25 mg/dL LAB CHEMISTRY METHOD 01/19/2025 10:05 AM [facility] Creatinine 0.70 0.70 - 1.30 mg/dL LAB CHEMISTRY METHOD 01/19/2025 10:05 AM [facility] eGFR 104 >=60 mL/min/1. 73m2 LAB CHEMISTRY METHOD 01/19/2025 10:05 AM [facility] Comment:Calculation based on the Chronic Kidney Disease Epidemiology Collaboration (CKD-EPI) equation refit without adjustment for race. BUN/Creatinine Ratio 24.3 LAB CHEMISTRY METHOD 01/19/2025 10:05 AM [facility] Calcium 8.3(L) 8.5 - 10.5 mg/dL LAB CHEMISTRY METHOD 01/19/2025 10:05 AM [facility] AST (SGOT) 50(H) 10 - 42 unit/L LAB CHEMISTRY METHOD 01/19/2025 10:05 AM [facility] ALT (SGPT) 51 10 - 60 unit/L LAB CHEMISTRY METHOD 01/19/2025 10:05 AM [facility] Alkaline Phosphatase 149(H) 42 - 121 unit/L LAB CHEMISTRY METHOD 01/19/2025 10:05 AM [facility] Total Protein 7.5 6.0 - 8.0 g/dL LAB CHEMISTRY METHOD 01/19/2025 10:05 AM [facility] Albumin 2.5(L) 3.2 - 5.0 g/dL LAB CHEMISTRY METHOD 01/19/2025 10:05 AM [facility] Total Bilirubin 0.2 0.0 - 1.4 mg/dL LAB CHEMISTRY METHOD 01/19/2025 10:05 AM [facility] Blood Venous blood specimen / Unknown Venipuncture / Unknown 01/19/2025 5:52 AM EST 01/19/2025 8:52 AM EST us Riaz Gomez MD LAB BLOOD ORDERABLES Final Resul t [facility] [address] [place] [address], [place] [phone] * (ABNORMAL) Complete blood count (01/19/2025 5:52 AM EST) WBC 3.1(L) 4.8 - 10.8 K/mcL LAB HEMETOLOGY METHOD 01/19/2025 9:28 AM EST [facility] RBC 4.50 4.50 - 5.50 M/mcL LAB HEMETOLOGY METHOD 01/19/2025 9:28 AM [facility] Hemoglobin 12.3(L) 13.5 - 17.5 g/dL LAB HEMETOLOGY METHOD 01/19/2025 9:28 AM [facility] Hematocrit 38.2(L) 42.0 - 54.0 % LAB HEMETOLOGY METHOD 01/19/2025 9:28 AM EST [facility] MCV 84.1 79.0 - 98.0 FL LAB HEMETOLOGY METHOD 01/19/2025 9:28 AM [facility] MCH 27.1 27.0 - 32.0 pcg LAB HEMETOLOGY METHOD 01/19/2025 9:28 AM [facility] MCHC 32.2 32.0 - 37.0 g/dL LAB HEMETOLOGY METHOD 01/19/2025 9:28 AM [facility] RDW 14.6 11.0 - 15.0 % LAB HEMETOLOGY METHOD 01/19/2025 9:28 AM [facility] Platelets 361 130 - 400 K/mcL LAB HEMETOLOGY METHOD 01/19/2025 9:28 AM [facility] MPV 8.7 7.0 - 11.0 FL LAB HEMETOLOGY METHOD 01/19/2025 9:28 AM EST [facility] NRBC 0.0 <1.0 % LAB HEMETOLOGY METHOD 01/19/2025 9:28 AM EST [facility] NRBC Absolute 0.00 <0.10 K/mcL LAB HEMETOLOGY METHOD 01/19/2025 9:28 AM EST [facility] Blood Venous blood specimen / Unknown Venipuncture / Unknown 01/19/2025 5:52 AM EST 01/19/2025 8:52 AM EST Riaz Gomez MD LAB BLOOD ORDERABLES Final Resul t [facility] [address] [place] [address], documented in this encounter Visit Diagnoses Diagnosis Essential (primary) hypertension Unspecified essential hypertension Osteomyelitis, unspecified (CMS/[facility] V24, CMS/[facility] V28) Cocaine dependence, uncomplicated (CMS/HCC V24, CMS/[facility] V28) Restless legs syndrome Restless legs syndrome (RLS) Major depressive disorder, recurrent, unspecified (CMS/[facility] V24) Anxiety disorder, unspecified Hyperlipidemia, unspecified Dorsalgia, unspecified Cervicalgia Morbid (severe) obesity due to excess calories (CMS/[facility] V24, [facility] V28) Testicular hypofunction Other testicular hypofunction Benign prostatic hyperplasia with lower urinary tract symptoms Bilateral primary osteoarthritis of knee Vitamin D deficiency, unspecified Gout, unspecified Benign prostatic hyperplasia without lower urinary tract symptoms documented in this encounter Care Teams Manager New Product Relationship Specialty Start Date End Date Riaz Gomez MD [address] [place] [id number] PCP - General Geriatric Medicine 01/19/25 documented as of this encounter
--- NOTE | 2025-02-20 12:31 | HO.MIDLINE_ITS ---
Midline Insertion MIDLINE INSERTION Diagnosis: osteomyelitis Indication: ivabt Pertinent Labs: reviewed Technique: Using sterile technique including cap and mask, glove and drape, the right arm was prepped and draped in the usual sterile fashion of full barrier technique with CHG. Using ultrasound guidance, right brachial vein access was obtained . 4fr single lumen non-PASV POWERMIDLINE trimmed to 15cm was positioned. The procedure was performed in []. Ultrasound was used to document vein patency and for needle entry. A formal ultrasound picture was recorded. Vascular Fagoting Machine Operator has released the line for use and it is currently dressed with a StatLock, Tegaderm, and CHG disc. Verification has been performed for blood return and line patency. Arm Circumference:30cm Equipment: [employer] POWERMIDLINE catheter Catheter Type: 4FR single lumen nonPASV Lot #: [id number]
== END 2025-02-19 13:21 | disposition home or self-care (01) ==
LOC: HO.ED 13:08
PROVIDERS: Emergency Provider Emergency Medicine; PCP Internal Medicine
DX: T82.524A Displacement of infusion catheter, initial encounter (principal); Y82.8 Other medical devices associated with adverse incidents; Y92.009 Unspecified place in unspecified non-institutional (private) residence as the place of occurrence of the external cause; M86.9 Osteomyelitis, unspecified
CPT/HCPCS: 36410; 71046; 96372; 99282; 99284; C1751; J0696; J2003

== ENCOUNTER → 2025-02-19 12:43 | Outpatient (BNV) | payer OTHER, SELFPAY | PROVIDERS: Emergency Provider Emergency Medicine; PCP Internal Medicine; Visit Provider Radiology Diagnostic Radiology | DX: M19.019 Primary osteoarthritis, unspecified shoulder (principal) | CPT/HCPCS: 71046 ==

== ENCOUNTER 2025-02-26 08:19 | Outpatient (AMB) | payer OTHER, SELFPAY ==
--- OUTSIDE RECORDS SUMMARY | 2025-02-26 08:29 | XMS_ITS | Encounter Summary ---
Author Organization [employer] Address [address] [place] [address] Care Team Providers Care Senior Human Resources Representative Name Role Phone Riaz Gomez MD Primary Care Provider [phone] Encounter Details Date Type Department Care Team (Late st Contact Info) Description 01/19/2025 Lab Requisition [facility] - Main Lab [address] [facility] [place] [address] Riaz Gomez MD [address] [place], [place] [phone] Essential (primary) hypertension; Osteomyelitis, unspecified (CMS/HCC V24, [...] Morbid (severe) obesity due to excess calories ([facility]/HCC V24, CMS/[facility] V28) Testicular hypofunction Benign prostatic hyperplasia with lower urinary tract symptoms Bilateral primary osteoarthritis of knee Vitamin D deficiency, unspecified Gout, unspecified Benign prostatic hyperplasia without lower urinary tract symptoms COMPLETE BLOOD COUNT Routine 01/19/2025 5:52 AM EST Essential (primary) hypertension Osteomyelitis, unspecified (CMS/HCC V24, CMS/HCC V28) Cocaine dependence, uncomplicated (CMS/HCC V24, CMS/[facility] V28) Restless legs syndrome Major depressive disorder, recurrent, unspecified (CMS/HCC V24) Anxiety disorder, unspecified Hyperlipidemia, unspecified Dorsalgia, unspecified Cervicalgia Morbid (severe) obesity due to excess calories (CMS/HCC V24, CMS/[facility] V28) Testicular hypofunction Benign prostatic hyperplasia with lower urinary tract symptoms Bilateral primary osteoarthritis of knee Vitamin D deficiency, unspecified Gout, unspecified Benign prostatic hyperplasia without lower urinary tract symptoms IRON Routine 01/19/2025 5:52 AM EST Essential (primary) hypertension Osteomyelitis, unspecified (CMS/HCC V24, CMS/HCC V28) Cocaine dependence, uncomplicated (CMS/HCC V24, CMS/[facility] V28) Restless legs syndrome Major [...] Morbid (severe) obesity due to excess calories ([facility] V24, [facility] V28) Testicular hypofunction Benign prostatic hyperplasia with lower urinary tract symptoms Bilateral primary osteoarthritis of knee Vitamin D deficiency, unspecified Gout, unspecified Benign prostatic hyperplasia without lower urinary tract symptoms COMPREHENSIVE METABOLIC PANEL Routine 01/19/2025 5:52 AM EST Essential (primary) hypertension Osteomyelitis, unspecified ([facility] V24, [facility] V28) Cocaine dependence, uncomplicated ([facility] V24, [facility] V28) Restless legs syndrome Major depressive disorder, recurrent, unspecified ([facility] V24) Anxiety disorder, unspecified Hyperlipidemia, unspecified Dorsalgia, unspecified Cervicalgia Morbid (severe) obesity due to excess calories ([facility] V24, [facility] V28) Testicular hypofunction Benign prostatic hyperplasia with lower urinary tract symptoms Bilateral primary osteoarthritis of knee Vitamin D deficiency, unspecified Gout, unspecified Benign prostatic hyperplasia without lower urinary tract symptoms documented in this encounter Results * (ABNORMAL) Iron (01/19/2025 5:52 AM EST) Pathologist [facility] Iron 32(L) 50 - 160 mcg/dL LAB CHEMISTRY METHOD 01/19/2025 9:51 AM EST [facility] Blood Venous blood specimen / Unknown Venipuncture / Unknown 01/19/2025 5:52 AM EST 01/19/2025 8:52 AM EST us Riaz Gomez MD LAB BLOOD ORDERABLES Final Resul t [facility] [address] [place] [address], * Folate (01/19/2025 5:52 AM EST) [facility] Folate 12.2 2.8 - 17.0 ng/ml LAB CHEMISTRY METHOD 01/19/2025 10:06 AM EST [facility] Blood Venous blood specimen / Unknown Venipuncture / Unknown 01/19/2025 5:52 AM EST 01/19/2025 8:52 AM EST us Riaz Gomez MD LAB BLOOD ORDERABLES Final Resul t Performing Organization Address [facility]/ZIP Co de Phone Number [facility] [address] [place] [address], [place] [phone] * Vitamin D 25 hydroxy (01/19/2025 5:52 AM EST) Pathologist [facility] Vit D, 25-Hydroxy 58.6 30.0 - 80.0 ng/mL LAB CHEMISTRY METHOD 01/19/2025 10:46 AM EST [facility] Blood Venous blood specimen / Unknown Venipuncture / Unknown 01/19/2025 5:52 AM EST 01/19/2025 8:52 AM EST us Riaz Gomez MD LAB BLOOD ORDERABLES Final Resul t Performing Organization Address City/[facility]/ZIP Co de Phone Number [facility] [address] [place] [address], [place] [phone] * (ABNORMAL) Comprehensive metabolic panel (01/19/2025 5:52 AM EST) [facility] Sodium 132(L) 133 - 145 mmol/L LAB CHEMISTRY METHOD 01/19/2025 10:05 AM EST [facility] Potassium 4.7 3.5 - 5.5 [...] MD LAB BLOOD ORDERABLES Final Resul t [facility] [address] [place] [address], [place] [phone] * (ABNORMAL) Complete blood count (01/19/2025 5:52 AM EST) WBC 3.1(L) 4.8 - 10.8 K/mcL LAB HEMETOLOGY METHOD 01/19/2025 9:28 AM EST [facility] RBC 4.50 4.50 - 5.50 M/mcL LAB HEMETOLOGY METHOD 01/19/2025 9:28 AM [facility] Hemoglobin 12.3(L) 13.5 - 17.5 g/dL LAB HEMETOLOGY METHOD 01/19/2025 9:28 AM [facility] Hematocrit 38.2(L) 42.0 - 54.0 % LAB HEMETOLOGY METHOD 01/19/2025 9:28 AM EST [facility] MCV 84.1 79.0 - 98.0 [...] LAB HEMETOLOGY METHOD 01/19/2025 9:28 AM EST [facility] NRBC 0.0 <1.0 % LAB HEMETOLOGY METHOD 01/19/2025 9:28 AM EST [facility] NRBC Absolute 0.00 <0.10 K/mcL LAB HEMETOLOGY METHOD 01/19/2025 9:28 AM EST [facility] Blood Venous blood specimen / Unknown Venipuncture / Unknown 01/19/2025 5:52 AM EST 01/19/2025 8:52 AM EST Riaz Gomez MD LAB BLOOD ORDERABLES Final Resul t [facility] [address] [place] [address], documented in this encounter Visit Diagnoses Diagnosis Essential (primary) hypertension Unspecified essential hypertension Osteomyelitis, unspecified (CMS/[facility] V24, CMS/[facility] V28) Cocaine dependence, uncomplicated (CMS/HCC V24, CMS/[facility] V28) Restless legs syndrome Restless legs syndrome (RLS) Major depressive disorder, recurrent, unspecified (CMS/[facility] V24) Anxiety disorder, unspecified Hyperlipidemia, unspecified Dorsalgia, unspecified Cervicalgia Morbid (severe) obesity due to excess calories (CMS/[facility] V24, [facility] V28) Testicular hypofunction Other testicular hypofunction Benign prostatic hyperplasia with lower urinary tract symptoms Bilateral primary osteoarthritis of knee Vitamin D deficiency, unspecified Gout, unspecified Benign prostatic hyperplasia without lower urinary tract symptoms documented in this encounter Care Teams Senior Human Resources Representative Relationship Specialty Start Date End Date Riaz Gomez MD [address] [place] [id number] PCP - General Geriatric Medicine 01/19/25 documented as of this encounter
--- OUTSIDE RECORDS SUMMARY | 2025-02-26 08:29 | XMS_ITS | Clinical Summary ---
Author Organization [facility] Address [address] [place] [address] Phone Care Team Providers Care Colon Therapist Name Role Phone Riaz Gomez MD Primary Care Provider [phone] Encounters Date Type Department Care Team Description 01/19/2025 Lab Requisition [facility] - Main Lab [address] [place] [address] Riaz Gomez MD Essential (primary) [...] AM EST Essential (primary) hypertension Osteomyelitis, unspecified ([facility] V24, [facility] V28) Cocaine dependence, uncomplicated ([facility] V24, [facility] V28) Restless legs syndrome Major depressive disorder, recurrent, unspecified ([facility] V24) Anxiety disorder, unspecified Hyperlipidemia, unspecified Dorsalgia, unspecified Cervicalgia Morbid (severe) obesity due to excess calories ([facility] V24, [facility] V28) Testicular hypofunction Benign prostatic hyperplasia with lower urinary tract symptoms Bilateral primary osteoarthritis of knee Vitamin D deficiency, unspecified Gout, unspecified Benign prostatic hyperplasia without lower urinary tract symptoms FOLATE Routine 01/19/2025 5:52 AM EST Essential (primary) hypertension Osteomyelitis, unspecified ([facility] V24, [facility] V28) Cocaine dependence, uncomplicated ([facility] V24, [facility] V28) Restless legs syndrome Major depressive disorder, recurrent, unspecified ([facility] V24) Anxiety disorder, unspecified Hyperlipidemia, unspecified Dorsalgia, unspecified Cervicalgia Morbid (severe) obesity due to excess calories ([facility] V24, [facility] V28) Testicular hypofunction Benign prostatic hyperplasia with lower urinary tract symptoms Bilateral primary osteoarthritis of knee Vitamin D deficiency, unspecified Gout, unspecified Benign prostatic hyperplasia without lower urinary tract symptoms VITAMIN D 25 HYDROXY Routine 01/19/2025 5:52 AM EST Essential (primary) hypertension Osteomyelitis, unspecified ([facility] V24, [facility] V28) Cocaine dependence, uncomplicated ([facility] V24, [facility] V28) Restless legs syndrome Major depressive disorder, recurrent, unspecified ([facility] V24) Anxiety disorder, unspecified Hyperlipidemia, unspecified Dorsalgia, unspecified Cervicalgia Morbid (severe) obesity due to excess calories ([facility] V24, [facility] V28) Testicular hypofunction Benign prostatic hyperplasia with lower urinary tract symptoms Bilateral primary osteoarthritis of knee Vitamin D deficiency, unspecified Gout, unspecified Benign prostatic hyperplasia without lower urinary tract symptoms COMPREHENSIVE METABOLIC PANEL Routine 01/19/2025 5:52 AM EST Essential (primary) hypertension Osteomyelitis, unspecified ([facility] V24, [facility] V28) Cocaine dependence, uncomplicated ([facility] V24, [facility] V28) Restless legs syndrome Major depressive disorder, recurrent, unspecified ([facility] V24) Anxiety disorder, unspecified Hyperlipidemia, unspecified Dorsalgia, unspecified Cervicalgia Morbid (severe) obesity due to excess calories ([facility] V24, [facility] V28) Testicular hypofunction Benign prostatic hyperplasia with lower urinary tract symptoms Bilateral primary osteoarthritis of knee Vitamin D deficiency, unspecified Gout, unspecified Benign prostatic hyperplasia without lower urinary tract symptoms COMPLETE BLOOD COUNT Routine 01/19/2025 5:52 AM EST Essential (primary) hypertension Osteomyelitis, unspecified ([facility] V24, [facility] V28) Cocaine dependence, uncomplicated ([facility] V24, [facility] V28) Restless legs syndrome Major depressive disorder, recurrent, unspecified ([facility] V24) Anxiety disorder, unspecified Hyperlipidemia, unspecified Dorsalgia, unspecified Cervicalgia Morbid (severe) obesity due to excess calories ([facility] V24, [facility] V28) Testicular hypofunction Benign prostatic hyperplasia with lower urinary tract symptoms Bilateral primary osteoarthritis of knee Vitamin D deficiency, unspecified Gout, unspecified Benign prostatic hyperplasia without lower urinary tract symptoms from Last 3 Months Results * Vitamin D 25 hydroxy (01/19/2025 5:52 AM EST) [facility] Vit D, 25-Hydroxy 58.6 30.0 - 80.0 ng/mL LAB CHEMISTRY METHOD 01/19/2025 10:46 AM EST [facility] Blood Venous blood specimen / Unknown Venipuncture / Unknown 01/19/2025 5:52 AM EST 01/19/2025 8:52 AM EST us Riaz Gomez MD LAB BLOOD ORDERABLES Final Resul t [facility] [address] [place] [address], [place] [phone] * (ABNORMAL) Complete blood count (01/19/2025 5:52 AM EST) [facility] WBC 3.1(L) 4.8 - 10.8 K/mcL LAB HEMETOLOGY METHOD 01/19/2025 9:28 AM [facility] RBC 4.50 4.50 - 5.50 M/mcL LAB HEMETOLOGY METHOD 01/19/2025 9:28 AM [facility] Hemoglobin 12.3(L) 13.5 - 17.5 g/dL LAB HEMETOLOGY METHOD 01/19/2025 9:28 AM [facility] Hematocrit 38.2(L) 42.0 - 54.0 % LAB HEMETOLOGY METHOD 01/19/2025 9:28 AM [facility] MCV 84.1 79.0 - 98.0 FL LAB HEMETOLOGY METHOD 01/19/2025 9:28 AM EST [facility] MCH 27.1 27.0 - 32.0 pcg LAB HEMETOLOGY METHOD 01/19/2025 9:28 AM EST [facility] MCHC 32.2 32.0 - 37.0 g/dL LAB HEMETOLOGY METHOD 01/19/2025 9:28 AM EST [facility] RDW 14.6 11.0 - 15.0 % LAB HEMETOLOGY METHOD 01/19/2025 9:28 AM EST [facility] Platelets 361 130 - 400 K/mcL LAB HEMETOLOGY METHOD 01/19/2025 9:28 AM EST [facility] MPV 8.7 7.0 - 11.0 FL LAB HEMETOLOGY METHOD 01/19/2025 9:28 AM EST [facility] NRBC 0.0 <1.0 % LAB HEMETOLOGY METHOD 01/19/2025 9:28 AM [facility] NRBC Absolute 0.00 <0.10 K/mcL LAB HEMETOLOGY METHOD 01/19/2025 9:28 AM EST [facility] Blood Venous blood specimen / Unknown Venipuncture / Unknown 01/19/2025 5:52 AM EST 01/19/2025 8:52 AM EST us Riaz Gomez MD LAB BLOOD ORDERABLES Final Resul t [facility] [address] [place] [address], * (ABNORMAL) Iron (01/19/2025 5:52 AM EST) [facility] Signature Iron 32(L) 50 - 160 mcg/dL LAB CHEMISTRY METHOD 01/19/2025 9:51 AM EST [facility] Blood Venous blood specimen / Unknown Venipuncture / Unknown 01/19/2025 5:52 AM EST 01/19/2025 8:52 AM EST us Riaz Gomez MD LAB BLOOD ORDERABLES Final Resul t [facility] [address] [place] [address], [place] [phone] * Folate (01/19/2025 5:52 AM EST) Pathologist [facility] Folate 12.2 2.8 - 17.0 ng/ml LAB CHEMISTRY METHOD 01/19/2025 10:06 AM EST [facility] Blood Venous blood specimen / Unknown Venipuncture / Unknown 01/19/2025 5:52 AM EST 01/19/2025 8:52 AM EST us Riaz Gomez MD LAB BLOOD ORDERABLES Final Resul t Performing Organization Address City/[facility]/ZIP Co de Phone Number [facility] [address] [place] [address], [place] [phone] * (ABNORMAL) Comprehensive metabolic panel (01/19/2025 5:52 AM EST) [facility] Sodium 132(L) 133 - 145 mmol/L LAB CHEMISTRY METHOD 01/19/2025 10:05 AM [facility] Potassium 4.7 3.5 - 5.5 mmol/L LAB CHEMISTRY METHOD 01/19/2025 10:05 AM [facility] Chloride 97 96 - 110 mmol/L LAB CHEMISTRY METHOD 01/19/2025 10:05 AM [facility] CO2 27 21 - 32 mmol/L LAB CHEMISTRY METHOD 01/19/2025 10:05 AM [facility] Anion Gap 8 3 - 11 LAB CHEMISTRY METHOD 01/19/2025 10:05 AM [facility] Glucose 73 70 - 100 mg/dL LAB CHEMISTRY METHOD 01/19/2025 10:05 AM [facility] BUN 17 5 - 25 mg/dL LAB CHEMISTRY METHOD 01/19/2025 10:05 AM [facility] Creatinine 0.70 0.70 - 1.30 mg/dL LAB CHEMISTRY METHOD 01/19/2025 10:05 AM [facility] eGFR 104 >=60 mL/min/1. 73m2 LAB CHEMISTRY METHOD 01/19/2025 10:05 AM [facility] Comment:Calculation based on the Chronic Kidney Disease Epidemiology Collaboration (CKD-EPI) equation refit without adjustment for race. BUN/Creatinine Ratio 24.3 LAB CHEMISTRY METHOD 01/19/2025 10:05 AM [facility] Calcium 8.3(L) 8.5 - 10.5 mg/dL LAB CHEMISTRY METHOD 01/19/2025 10:05 AM [facility] AST (SGOT) 50(H) 10 - 42 unit/L LAB CHEMISTRY METHOD 01/19/2025 10:05 AM [facility] ALT (SGPT) 51 10 - 60 unit/L LAB CHEMISTRY METHOD 01/19/2025 10:05 AM [facility] Alkaline Phosphatase 149(H) 42 - 121 unit/L LAB CHEMISTRY METHOD 01/19/2025 10:05 AM [facility] Total Protein 7.5 6.0 - 8.0 g/dL LAB CHEMISTRY METHOD 01/19/2025 10:05 AM [facility] Albumin 2.5(L) 3.2 - 5.0 g/dL LAB CHEMISTRY METHOD 01/19/2025 10:05 AM [facility] Total Bilirubin 0.2 0.0 - 1.4 mg/dL LAB CHEMISTRY METHOD 01/19/2025 10:05 AM [facility] Blood Venous blood specimen / Unknown Venipuncture / Unknown 01/19/2025 5:52 AM EST 01/19/2025 8:52 AM EST Riaz Gomez MD LAB BLOOD ORDERABLES Final Resul t [facility] [address] [place] [address], [place] [phone] from Last 3 Months Insurance [facility] MEDIC[facility] Member Subscriber Plan / Payer (Ef fective 2016-Present) Name:ANIBAL RODRIGEZ Relation to Subscriber:Self Name:Anibal Rodrigez Payer ID:[id number] Group ID:[id number] Type:Not on file Address: [place] [address] [address] Care Teams Colon Therapist Relationship Specialty Start Date End Date Riaz Gomez MD [address] [place] [address] PCP - General Geriatric Medicine 01/19/25
[2025-02-26 08:41] VITALS: BP 130/90; PULSE 87; RESP 18; O2SAT 99; BMI 25.5
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
[2025-02-26 09:08] VITALS: BP 130/85
== END 2025-02-26 09:17 | disposition home or self-care (01) ==
LOC: HO.HMCH 08:20
PROVIDERS: PCP Internal Medicine; Visit Provider Internal Medicine
DX: I10 Essential (primary) hypertension (principal); E78.2 Mixed hyperlipidemia; M1A.0690 Idiopathic chronic gout, unspecified knee, without tophus (tophi); M17.0 Bilateral primary osteoarthritis of knee; F32.0 Major depressive disorder, single episode, mild; Z23 Encounter for immunization

== ENCOUNTER → 2025-02-26 08:19 | Outpatient (BNVA) | payer OTHER, SELFPAY | PROVIDERS: PCP Internal Medicine; Visit Provider Internal Medicine | DX: I10 Essential (primary) hypertension (principal); E78.2 Mixed hyperlipidemia; M1A.0690 Idiopathic chronic gout, unspecified knee, without tophus (tophi); M17.0 Bilateral primary osteoarthritis of knee; F32.0 Major depressive disorder, single episode, mild; Z13.39 Encounter for screening examination for other mental health and behavioral disorders; Z23 Encounter for immunization | CPT/HCPCS: 90471; 90656; 96127; 99212 ==